=== PATIENT | male | born 1960 | race Caucasian/White ===

== ENCOUNTER 2024-10-24 15:34 | Outpatient (NON) | payer MEDICARE, SELFPAY ==
--- OUTSIDE RECORDS SUMMARY | 2024-10-24 15:48 | XMS_ITS | Clinical Summary ---
Author Organization [facility] Address [address] [place] [address]. [place] [address] [place] [address] Care Team Providers Care Forklift Truck Mechanic Name Role Phone Karthik Dalton MD Primary Care Provider [phone] Jacob Williamson MD Unavailable [phone] Allergies Active Allergy Reactions Criticality Noted Date Comments Amoxicillin Rash,Itching Low 02/26/2024 Piperacillin Sod-Tazobactam So Other (see comment) 08/23/2023 Per patient fever and no appetite, general malaise Medications Multiple Vitamin (MULTIVITAMIN ADULT) Tab Active Ascorbic Acid (VITAMIN C) 100 MG tablet Take 1 tablet (100 mg total) by mouth daily. Active zinc gluconate 50 MG Tab Take 1 tablet (50 mg total) by mouth daily. Active vitamin D3, cholecalciferol , 5000 UNITS capsule Take 1 capsule (125 mcg total) by mouth daily. Active Multiple Vitamins-Minera ls (EMERGEN-C VITAMIN C) Pack Acti ve meloxicam (MOBIC) 15 MG tablet Take 1 tablet (15 mg total) by mouth daily. Active sulfamethoxazol e-trimethoprim (BACTRIM DS) 800-160 MG tabletIndicatio ns:Osteomyeliti s ([facility]) Take 1 tablet by mouth daily. Per Dr Avila orders 90 tablet 1 06/05/2024 Active Active Problems Problem Noted Date Diagnosed Date Osteomyelitis of left knee region ([facility]/H [facility]) 08/24/2023 Encounters Date Type Department Care Team Description 08/25/2024 Orders Only [facility] [address] Reji Avila MD from Last 3 Months Family History Medical History Relation Comments No Known Problems Father Diabetes Mother Hypertension Mother Relation Status Comments Father Alive Mother Social History Tobacco Use Types Packs/Day Years Used Date Smoking Tobacco: Never Smokeless Tobacco: Never Tobacco Cessation:Counseling Given: No Alcohol Use Standard Drinks/Week Comments Not Currently 0 (1 standard drink = 0.6 oz pur e alcohol) PHQ-2 Answer Date Recorded Patient Health Questionnaire-2 Score 0 07/16/2024 Sex and Gender Information Value Date Recorded Sex Assigned at Not on file Legal Sex Male 8:22 PM CDT Gender Identity Not on file Sexual Orientation Not on file Last Filed Vital Signs Vital Sign Reading Time Taken Comments Blood Pressure 121/76 05/13/2024 10:12 AM CDT Pulse 71 05/13/2024 10:12 AM CDT Temperature 36.7 ??C (98.1 ??F) 05/13/2024 10:12 AM C DT Respiratory Rate 16 05/13/2024 10:12 AM CDT Oxygen Saturation 98% 05/13/2024 10:12 AM CDT Inhaled Oxygen Concentration - - Weight 78.5 kg (173 lb) 05/13/2024 10:12 AM CDT Height 172.7 cm (5' 8 ) 05/13/2024 10:12 AM CDT Body Mass Index 26.3 05/13/2024 10:12 AM CDT Plan of Treatment Health Maintenance Due Date Last Done Comments Hepatitis C 1976 DTaP, Tdap and Td Vaccines ( 1 - Tdap) 1977 Zoster Vaccines (1 of 2) 2008 Annual Medicare Wellness Visit 2023 Pneumococcal Vaccine: 65+ Years (1 of 1 - PCV) 2023 COVID-19 Vaccine ( - 2023-2 5 season) 2024 Influenza Adult (#1) 2024 07/18/2020, 07/08/2019, 07/14/2018 PHQ-2 (Physician [place]) 09/25/2024 07/16/2024 Colorectal Cancer Screening Colonoscopy (10 Years) 03/14/2032 03/14/2022, 03/14/2022 RSV Immunization or 60+ Years (1 - 1-dose 75+ series) 2033 Meningococcal B Vaccine Aged Out No l onger eligible based on patient's age to complete this topic Meningococcal Vaccine Aged Out No rosita lizzie eligible based on patient's age to complete this topic RSV Immunizations Under 20 Months Aged Out No longer eligible b ased on patient's age to complete this topic Procedures Procedure Name Priority Date/Time Associated Diagnosis Comments COLONOSCOPY Routine 03/14/2022 4:44 PM CDT from Last 3 Months or Most Recently Relevant to Health Maintenance Results * Colonoscopy (03/14/2022 4:44 PM CDT) Jason Samayoa MD - 03/14/2022 4:44 PM CDT Jason Newman MD ? 03/14/2022 ??4:50 PM JASON NEWMAN MD, FACG, FACP COLONOSCOPY 03/14/2022 61-year-old male with Prostatectomy and left TKR who now presents for colonoscopy for screening for colon cancer. ?? GI review of systems is negative. No endocarditis risk factors. No Known Allergies Medications: see list. Family history: negative for colon cancer. VITALS: Stable. LUNGS: Clear. HEART: RRR S1/S2 normal. ABDOMEN: NABS/NT. The procedure of colonoscopy with moderate sedation, ??its indications, ??alternatives of barium studies and risks including perforation, bleeding, infection, reaction to medication as well as the possible need for blood or surgery were discussed with the patient prior to the procedure. The patient voices understanding, agrees to proceed and provides informed consent. INDICATION: Screening for colon cancer. ?? POST-OP: Three colon polyps removed. Mild diverticulosis. SEDATION: ASA 1. MP 1. Versed 4 mg, Fentanyl 100 mcg IV given. PREP: Good. With the patient in the left lateral decubitus position, the Olympus [id number] ??colonoscope was introduced into the rectum and advanced easily to the Terminal Ileum. Careful inspection of the mucosa was made upon insertion and withdrawal of the endoscope. FINDINGS: Terminal ileum: distal 5 cm normal. Cecum, Transverse colon, Descending colon and Rectum including retroflexion normal. Ascending colon: 7 mm sessile polyp x 3 removed with cold biopsy forceps without bleed. Sigmoid colon: mild diverticulosis. No masses, AVMs or colitis seen. No complications, blood loss or implants. ASSESSMENT AND PLAN: A. Mild diverticulosis: observe. B. Three polyps removed: if adenoma repeat colon in 3 years, otherwise screening colonoscopy in 10 years. Thank you for allowing me to care for your patient. He will follow-up with Dr. Dalton as needed. Jason Newman M.D. Cc: Dr. Dalton Jason Newman MD GI PROCEDURE ORDERABLES Fin al Result from Last 3 Months or Most Recently Relevant to Health Maintenance Additional Health Concerns Infection Onset Date Last Indicated MRSA Comment:08/01/23 left knee (RR) 02/05/24 +MRSA Left knee 08/01/2023 04/04/2024 Insurance MEDICARE [facility] Care Teams Forklift Truck Mechanic Relationship Specialty Start Date End Date Karthik Dalton MD [address] [place] [address] [address] [place] [id number] PCP - General FAMILY PRACTICE 03/14/22 Jacob Williamson MD [address] [place] [address] ORTHOPAEDICS 02/21/24 02/20/25
--- OUTSIDE RECORDS SUMMARY | 2024-10-24 15:48 | XMS_ITS | Encounter Summary ---
Author Organization [facility] Address [address] [place] [address] Care Team Providers Care Pet Care Attendant Name Role Phone Karthik Dalton MD Primary Care Provider [phone] Reason for Visit * Reason Onset Date Comments LEFT KNEE INFECTION 05/15/2023 SPOKE TO DIONISIO BHARDWAJ AT DR. CHACON'S OFFICE Encounter Details Date Type Department Care Team (Late st Contact Info) Description 05/15/2023 Telephone [facility] [address] [place] [address] [place] [address] [address] LEFT KNEE INFECTION (SPOKE TO MIRTA AT DR. CHACON'S OFFICE) Social History Tobacco Use Types Packs/Day Years Used Date Smoking Tobacco: Never Smokeless Tobacco: Never Alcohol Use Standard Drinks/Week Comments Never 0 (1 standard drink = 0.6 oz pur e alcohol) Feeling Safe Answer Date Recorded Are you in a relationship wi th someone who hurts you emotionally and/or physically? 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
--- OUTSIDE RECORDS SUMMARY | 2024-10-24 15:48 | XMS_ITS | Clinical Summary ---
Author Organization [facility] Address [address] [place] [address] Care Team Providers Care Pick Up Truck Driver Name Role Phone Karthik Dalton MD Primary Care Provider [phone] Allergies No known active allergies Medications acetaminophen (TYLENOL) 500 mg tablet Take 500 mg by mouth every 6 hours as needed for Pain or Pain, Mild / Temperature . Active ascorbic acid, vitamin C, (VITAMIN C) 100 mg Tablet Take 100 mg by mouth daily. Active Saccharomyces boulardii (FLORASTOR) 250 mg Capsule Take 250 mg by mouth daily. Active oxyCODONE (ROXICODONE) 5 mg tablet Take 5 mg by mouth every 4 hours as needed for Pain. Active aspirin (ECOTRIN EC) 325 mg Tablet, Delayed Release (E.C.) Take 1 Tablet (325 mg) by mouth 2 times daily. 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 Gender Identity Not on file Sexual Orientation Not on file Last Filed Vital Signs Vital Sign Reading Time Taken Comments Blood Pressure 119/59 05/19/2023 7:20 AM CDT Pulse 101 05/19/2023 7:20 AM CDT Temperature 37.4 ??C (99.4 ??F) 05/19/2023 7:20 AM CD T Respiratory Rate 15 05/19/2023 7:20 AM CDT Oxygen Saturation 98% 05/19/2023 7:20 AM CDT Inhaled Oxygen Concentration - - Weight 77.1 kg (170 lb) 05/15/2023 10:13 AM CDT Height 172.7 cm (5' 8 ) 05/15/2023 10:13 AM CDT Body Mass Index 25.85 05/15/2023 10:13 AM CDT Plan of Treatment Health Maintenance Due Date Last Done Comments DTAP/TDAP/TD VACCINES (1 - Tdap) 1977 COLORECTAL SCREENING 2003 Colorectal Cancer Screening 2003 FIT-DNA Q 3 years 2003 FIT/FOBT Q 1 year 2003 Flex Sig/CT Colonography Q 5 years 2003 PNEUMOCOCCAL VACCINE 65+ YEARS (1 of 1 - PCV) 04/24/20 08 ZOSTER VACCINE (1 of 2) 2008 INFLUENZA VACCINE (#1) 2024 RSV VACCINE (60+ or ) (1 - 1-dose 75+ series) 2033 Medical Devices Implanted Type Area Filter Tank Tender Helper Head Device Identifier Shelf Expiration Date Model / Serial / Lot Lgn Xlpe Dished Isrt Siz 7-8, 9 Mm Implanted:Qty: 1 on 05/18/2023 by Blanche schaefer MD at [facility] Other Left: Knee [employer]W [id number] / / [id number] Description:1X ADD JM 05/30/23 Insurance MEDICARE PART A AND B BCBS SUPP Advance Directives For more information, please contact: [phone] * Full Code (Latest Code Status on File) Date Activated Date Inactivated Comments 05/18/2023 10:56 AM 05/19/2023 10:28 PM * Full Code Date Activated Date Inactivated Comments 05/15/2023 1:58 PM 05/18/2023 10:56 AM Care Teams Pick Up Truck Driver Relationship Specialty Start Date End Date Karthik Dalton MD [address] [place] [id number] PCP - General Family Practice 11/14/22
--- OUTSIDE RECORDS SUMMARY | 2024-10-24 15:48 | XMS_ITS | Clinical Summary ---
Author Organization Unknown Care Team Providers Care Party Chief Name Role Phone MARIBEL DAVILA, NILAM Unavailable Unavailable DEBORAH LAZO, GUNJAN Unavailable Unavailable Payers Payer Name Policy Type Policy Number Effective Date Expira tion Date MEDICARE - [place] - PDGM [id number] BLUE CROSS BLUE [facility] - PDGM [id number] Problems Condition Name Condition Details Condition Category Status Onset Date Resolution Date Last Treatment Date Treating Clinician Comments INFECT/INFL M REACTION DUE TO INTERNAL LEFT KNEE PROSTH, INIT Active 10-17 00:00: 00 Allergies, Adverse Reactions, Alerts Allergy Name Allergy Type Status Severity Reaction(s) Onset Date Inactive Date Treating Clinician Comments PENICILINS Propensity to adverse reactions Active 10-23 13:36: 36 Vital Signs Vital Name Observation Time Observation Value Commen ts Temperature 2024-10-22 15:14:00.000 97.7 [degF] BMI (%) 2024-10-22 14:32:41.000 25 kg/m2 Height 2024-10-22 14:32:22.000 68 [in_us] Pulse 2024-10-22 15:14:00.000 76 /min Respirations 2024-10-22 15:14:00.000 16 /min Weight (lbs) 2024-10-22 14:32:41.000 170 [lb_av] Systolic Blood Pressure 2024-10-22 15:14:00.000 126 mm [Hg] Diastolic Blood Pressure 2024-10-22 15:14:00.000 80 mm [Hg] Plan of Treatment Planned Activity Planned Date Details Comments Future Scheduled Test SKILLED NU RSE TO EVALUATE PATIENT, IDENTIFY PRIMARY AND CO-MORBID CONDITIONS CODED PER CODING GUIDELINES, AND DEVELOP PATIENT SPECIFIC PLAN OF CARE THAT INCLUDES PATIENT GOAL FOR HOME HEALTH. [code = SKILLED NURSE TO EVALUATE PATIENT, IDENTIFY PRIMARY AND CO-MORBID CONDITIONS CODED PER CODING GUIDELINES, AND DEVELOP PATIENT SPECIFIC PLAN OF CARE THAT INCLUDES PATIENT GOAL FOR HOME HEALTH.] Future Scheduled Test [facility] MAY ACCEPT ORDERS FROM THE FOLLOWING PHYSICIANS: [facility] HAND/TREATING PROVIDERS [code = HOME HEALTH AGENCY MAY ACCEPT ORDERS FROM THE FOLLOWING PHYSICIANS: [facility]/TREATING PROVIDERS] Future Scheduled Test SKILLED NU RSE TO REVIEW PATIENT MEDICATIONS. INSTRUCT PATIENT/CAREGIVER ON MONITORING OF EFFECTIVENESS, ADVERSE DRUG REACTIONS, SIDE EFFECTS OF ALL MEDICATIONS (PRESCRIPTION/-OTC), AND HOW AND WHEN TO REPORT PROBLEMS. [code = SKILLED NURSE TO REVIEW PATIENT MEDICATIONS. INSTRUCT PATIENT/CAREGIVER ON MONITORING OF EFFECTIVENESS, ADVERSE DRUG REACTIONS, SIDE EFFECTS OF ALL MEDICATIONS (PRESCRIPTION/-OTC), AND HOW AND WHEN TO REPORT PROBLEMS.] Future Scheduled Test .SKILLED N URSE FOR O/A, TEACHING AND MANAGEMENT OF SPECIFY DRAIN TYPE) TO SPECIFY LOCATION), SKILLED NURSE TO PROVIDE/INSTRUCT ON DRAIN CARE SPECIFY ORDERED DRAIN AND/OR SITE CARE). SKILLED NURSE TO INSTRUCT PATIENT/CAREGIVER ON EMPTYING DRAIN SPECIFY FREQUENCY) AND TO DOCUMENT COLOR AND AMOUNT OF DRAINAGE. SKILLED NURSE TO EDUCATE PATIENT/CAREGIVER TO MONITOR FOR SIGNS AND SYMPTOMS OF INFECTION TO REPORT. [code = .SKILLED NURSE FOR O/A, TEACHING AND MANAGEMENT OF SPECIFY DRAIN TYPE) TO SPECIFY LOCATION), SKILLED NURSE TO PROVIDE/INSTRUCT ON DRAIN CARE SPECIFY ORDERED DRAIN AND/OR SITE CARE). SKILLED NURSE TO INSTRUCT PATIENT/CAREGIVER ON EMPTYING DRAIN SPECIFY FREQUENCY) AND TO DOCUMENT COLOR AND AMOUNT OF DRAINAGE. SKILLED NURSE TO EDUCATE PATIENT/CAREGIVER TO MONITOR FOR SIGNS AND SYMPTOMS OF INFECTION TO REPORT.] Future Scheduled Test SKILLED NU RSE FOR O/A AND SKILLED TEACHING RELATED TO SIGNS AND SYMPTOMS OF INFECTION AND INFECTION CONTROL MEASURES. [code = SKILLED NURSE FOR O/A AND SKILLED TEACHING RELATED TO SIGNS AND SYMPTOMS OF INFECTION AND INFECTION CONTROL MEASURES.] Future Scheduled Test PHYSICAL T HERAPIST TO EVALUATE PATIENT FOR FUNCTIONAL DEFICITS. [code = PHYSICAL THERAPIST TO EVALUATE PATIENT FOR FUNCTIONAL DEFICITS.] Future Scheduled Test SKILLED NU RSE TO INSTRUCT PATIENT/CAREGIVER ON PREVENTION OF SEPSIS, AND SIGNS AND SYMPTOMS OF SEPSIS TO REPORT. [code = SKILLED NURSE TO INSTRUCT PATIENT/CAREGIVER ON PREVENTION OF SEPSIS, AND SIGNS AND SYMPTOMS OF SEPSIS TO REPORT.] Future Scheduled Test SKILLED NU RSE FOR O/A AND TEACHING ON IV SITE CARE, INFUSION PROCEDURE, SIGNS AND SYMPTOMS OF INFECTION/COMPLICATIONS. SKILLED NURSE TO ACCESS PERIPHERAL LINE TO RIGHT UPPER ARM. SKILLED NURSE TO CHANGE DRESSING Q 7 DAYS AND PRN FOR SOILED OR LOOSE DRESSING. USING STERILE TECHNIQUE - CLEAN HANDS, OPEN STERILE IV KIT, PLACE FACE MASK ON PT AND NURSE, OPEN STERILE GLOVES, AND REMOVE BANDAGE AND STATLOCK, OBSERVE CONDITION OF PICC LINE AT SKIN LEVEL, CLEANS WITH CHOROHEXIDINE, ALLOW TO DRY, CLEAN HANDS AND PLACE ON 2ND PAIN OF STERILE GLOVES, PLACE WINGS IN STATELOCK SECURE AND REMOVE ADHESIVE TABS. PRESS TO SEAL, COVER WITH TEGADERM DRESSING, DATE. [code = SKILLED NURSE FOR O/A AND TEACHING ON IV SITE CARE, INFUSION PROCEDURE, SIGNS AND SYMPTOMS OF INFECTION/COMPLICATIONS. SKILLED NURSE TO ACCESS PERIPHERAL LINE TO RIGHT UPPER ARM. SKILLED NURSE TO CHANGE DRESSING Q 7 DAYS AND PRN FOR SOILED OR LOOSE DRESSING. USING STERILE TECHNIQUE - CLEAN HANDS, OPEN STERILE IV KIT, PLACE FACE MASK ON PT AND NURSE, OPEN STERILE GLOVES, AND REMOVE BANDAGE AND STATLOCK, OBSERVE CONDITION OF PICC LINE AT SKIN LEVEL, CLEANS WITH CHOROHEXIDINE, ALLOW TO DRY, CLEAN HANDS AND PLACE ON 2ND PAIN OF STERILE GLOVES, PLACE WINGS IN STATELOCK SECURE AND REMOVE ADHESIVE TABS. PRESS TO SEAL, COVER WITH TEGADERM DRESSING, DATE.] Future Scheduled Test SKILLED NU RSE TO OBTAIN BLOOD SPECIMEN VIA SINGLE LUMEN RIGHT ARM PICC LINE FOR LABS ONCE WEEKLY: CBC WITH DIFF AND PLATELET, CPK, CMP; EVERY THREE WEEKS, CRP, SED RATE ESR ORDERED OBTAIN LAB RESULTS AND REPORT TO PHYSICIAN. [code = SKILLED NURSE TO OBTAIN BLOOD SPECIMEN VIA SINGLE LUMEN RIGHT ARM PICC LINE FOR LABS ONCE WEEKLY: CBC WITH DIFF AND PLATELET, CPK, CMP; EVERY THREE WEEKS, CRP, SED RATE ESR ORDERED OBTAIN LAB RESULTS AND REPORT TO PHYSICIAN.] Future Scheduled Test SKILLED NU RSE TO PERFORM ENVIRONMENTAL SAFETY RISK ASSESSMENT AND FALL RISK ASSESSMENT AND PROVIDE INSTRUCTION TO IMPLEMENT ENVIRONMENTAL SAFETY AND FALL PREVENTION STRATEGIES THROUGHOUT THE CERTIFICATION PERIOD. SKILLED NURSE WILL MAINTAIN SITUATIONAL AWARENESS AND WILL NOTIFY CLINICAL LIQUID COMPOUNDER AND PHYSICIAN/PROVIDER WITH ANY CHANGE IN CONDITION. [code = SKILLED NURSE TO PERFORM ENVIRONMENTAL SAFETY RISK ASSESSMENT AND FALL RISK ASSESSMENT AND PROVIDE INSTRUCTION TO IMPLEMENT ENVIRONMENTAL SAFETY AND FALL PREVENTION STRATEGIES THROUGHOUT THE CERTIFICATION PERIOD. SKILLED NURSE WILL MAINTAIN SITUATIONAL AWARENESS AND WILL NOTIFY CLINICAL LIQUID COMPOUNDER AND PHYSICIAN/PROVIDER WITH ANY CHANGE IN CONDITION.] Future Scheduled Test SKILLED NU RSE FOR OBSERVATION AND ASSESSMENT OF PATIENTS PAIN LEVEL AND EFFECTIVENESS OF PAIN MANAGEMENT REGIMEN. SKILLED NURSE TO INSTRUCT PATIENT/CAREGIVER REGARDING PHARMACOLOGIC AND NON-PHARMACOLOGIC PAIN CONTROL MEASURES. SKILLED NURSE TO REPORT TO PHYSICIAN IF PAIN IS UNCONTROLLED WITH CURRENT PAIN MANAGEMENT REGIMEN. [code = SKILLED NURSE FOR OBSERVATION AND ASSESSMENT OF PATIENTS PAIN LEVEL AND EFFECTIVENESS OF PAIN MANAGEMENT REGIMEN. SKILLED NURSE TO INSTRUCT PATIENT/CAREGIVER REGARDING PHARMACOLOGIC AND NON-PHARMACOLOGIC PAIN CONTROL MEASURES. SKILLED NURSE TO REPORT TO PHYSICIAN IF PAIN IS UNCONTROLLED WITH CURRENT PAIN MANAGEMENT REGIMEN.] Future Scheduled Test SKILLED NU RSE TO ASSESS PATIENT'S SKIN INTEGRITY AND INSTRUCT PATIENT/CAREGIVER ON MEASURES TO PREVENT PRESSURE ULCERS. [code = SKILLED NURSE TO ASSESS PATIENT'S SKIN INTEGRITY AND INSTRUCT PATIENT/CAREGIVER ON MEASURES TO PREVENT PRESSURE ULCERS.] Future Scheduled Test SN TO INST RUCT PATIENT/CAREGIVER ON SEPSIS MANAGEMENT UTILIZING THE SEPSIS SPECIALTY PROGRAM. [code = SN TO INSTRUCT PATIENT/CAREGIVER ON SEPSIS MANAGEMENT UTILIZING THE SEPSIS SPECIALTY PROGRAM.] Goal Patient Goal - T O HAVE INFECTION CLEARED FROM MY LEG Goal Provider Goal - A PLAN OF CARE WILL BE ESTABLISHED THAT MEETS PATIENT'S CUSTODIAL NEEDS AND INCLUDES PATIENT GOAL FOR HOME HEALTH. Goal Provider Goal - ADDITIONAL ORDERS WILL BE RECEIVED FROM ALTERNATE PHYSICIAN IN A TIMELY MANNER THROUGHOUT THE CERTIFICATION PERIOD. Goal Provider Goal - PATIENT/CAREGIVER WILL VERBALIZE UNDERSTANDING OF EDUCATION PROVIDED ON MEDICATIONS BY THE END OF THE CERTIFICATION PERIOD. Goal Provider Goal - PATIENT/CAREGIVER WILL VERBALIZE/DEMONSTRATE MANAGEMENT OF DRAIN CARE. INCLUDING S/S INFECTION AND/OR COMPLICATIONS TO REPORT BY THE END OF THE CERTIFICATION PERIOD. Goal Provider Goal - PATIENT/CAREGIVER WILL VERBALIZE/DEMONSTRATE UNDERSTANDING OF S/S OF INFECTION AND INFECTION CONTROL MEASURES. SIGNS AND SYMPTOMS OF INFECTION WILL BE IDENTIFIED AND PHYSICIAN NOTIFIED FOR PROMPT INTERVENTION THROUGHOUT THE CERTIFICATION PERIOD. Goal Provider Goal - A PHYSICAL THERAPY EVALUATION TO BE COMPLETED WITH RECOMMENDATIONS AND/OR WRITTEN PLAN OF TREATMENT ESTABLISHED FOR PHYSICIANS SIGNATURE. Goal Provider Goal - PATIENT WILL BE FREE FROM INFECTION AND PATIENT/CAREGIVER WILL VERBALIZE UNDERSTANDING OF SIGNS AND SYMPTOMS AND METHODS TO PREVENT SEPSIS BY END OF THE EPISODE. Goal Provider Goal - PATIENT/CAREGIVER WILL VERBALIZE UNDERSTANDING OF IV SITE CARE, INFUSION PROCEDURE AND SIGNS AND SYMPTOMS OF INFECTION/COMPLICATIONS TO BE REPORTED TO PHYSICIAN/NURSE. PATIENT WILL DEMONSTRATE TOLERANCE OF ADMINISTRATION OF PRESCRIBED MEDICATION. Goal Provider Goal - SKILLED NURSE TO PERFORM LAB PROCEDURE AND REPORT RESULTS TO PHYSICIAN. Goal Provider Goal - PATIENT/CAREGIVER WILL VERBALIZE/DEMONSTRATE EFFECTIVE ENVIRONMENTAL SAFETY AND FALL PREVENTION STRATEGIES, WILL REMAIN SAFE IN THE COMMUNITY, AND WILL BE FREE OF DANGER TO SELF AND OTHERS THROUGHOUT THE CERTIFICATION PERIOD. Goal Provider Goal - PATIENT/CAREGIVER WILL DEMONSTRATE UNDERSTANDING OF PHARMACOLOGIC AND NONPHARMACOLOGIC PAIN CONTROL MEASURES AND PATIENT WILL HAVE IMPROVEMENT IN PAIN INTERFERING WITH ACTIVITY EVIDENCED BY PAIN CONTROLLED AT LEVEL OF PECIFY PATIENT GOAL ON 0-10 PAIN SCALE) OR LESS BY END OF CERTIFICATION PERIOD. Goal Provider Goal - PATIENT/CAREGIVER WILL VERBALIZE UNDERSTANDING OF PRESSURE ULCER PREVENTION BY END OF THE EPISODE. Goal Provider Goal - PATIENT/CAREGIVER WILL DEMONSTRATE MANAGEMENT OF SEPSIS A RESULT OF PARTICIPATION IN SEPSIS SPECIALTY PROGRAM. Progress Notes Progress Notes <paragraph>[Visit Date: 2024 by TOMASZ HERNANDEZ RN]:</paragraph><paragraph>LAB CBC CPK CMP WEEKLY WEEK CPR ESR 3 AND 6 ID [id number]. 3/6 DAPTO MYCIN 600MG/12 ML IV PUSH EVERY 24 2MIN 12 GA 5UNITS 5ML HEPERIN 10ML NS TYLENOL 1 HR AGO, AND OXYCONTIN EVEERY 8HS. THIS MORNING 4 ON A GOOD DAYPATIENT INITIALLY AFTER SITTING IN A RECLINER IN NO ACUTE DISTRESS HE IS PLEASANT AND COOPERATIVE DURING VISIT PATIENT FUD PLAY-RUIZ VICENTE AND RAG CONSENTS SIGNED. VITAL SIGNS WNL. LUNGS CLEAR IN ALL HERNANDEZ. I BOWEL SOUNDS PRESENT IN ALL QUADS LAST BOWEL MOVEMENT TODAY. PAIN LEVEL 6. BEST PAIN LEVEL 3-4. WORSE PAIN AFTER SURGERY LEVEL 10. PAIN IS FREQUENT. NURSE ASKED HOW OFTEN HE WAS USING HIS PAIN MEDICATION AND HE STATED THAT HE WAS. PATIENT STATES WHEN HE WALKS HIS PAIN IS AT ITS WORSE. HE OFFLOAD RIGHT LEG IN RECLINER. PATIENT VOICES CONCERN OVER OPIATE ADDICTION. STATES HE IS TRYING TO WEAN OFF HIS OXYCODONE. PATIENT'S FAMILY SUPPORTIVE AND ASSISTS PATIENT WITH ADLS AND IADLS. HIS PRIMARY DIAGNOSIS INFLAMMATORY INFECTIVE OF PERIPROSTTHETIC JOINT. PATIENT WITH A PAST MEDICAL HISTORY OF OSTEOPOROSIS. PATIENT HAS A ANTIBIOTIC LOADED CEMENT SPACER WITH A ALIA DRAIN LOCATED IN THE LEFT POSTERIOR LOWER CALF TODAY'S DRAIN MEASURES 10 ML OF REDDISH DRAINAGE. HIS KNEE IS IMMOBILIZED WITH A BRACE THAT REMAINS IN PLACE KEEPING THE KNEE EXTENDED HE HAS A NON REMOVABLE DRESSING COVERING HIS WOUNDS. NURSE EDUCATED PATIENT WITH CAREGIVER ON SASH TECHNIQUE USING/DIAGRAM SENT FROM PHARMACY. EXTENSION TUBING ATTACHED FOR EASE OF INFUSION. WITH GUIDANCE, PATIENT WAS ABLE TO RETURN DEMONSTRATE DAPTOMYCIN 50 MG/MALE 575 MG TOTAL INTRAVENOUS CATHETER OVER 2 MINUTES PATIENT TO PERFORM DAILY PATIENT VERBALIZED UNDERSTANDING. USING ASEPTIC TECHNIQUE. WASTED 10 ML OF BLOOD OBTAINED 6 ML OF BLOOD FOR LABS FLUSHED WITH 10 ML NORMAL SALINE FOLLOWED BY 5 ML HEPARIN. REMOVED GLOVES CLEANSE HANDS NURSE AND PATIENT ON MASK USING STERILE TECHNIQUE DONNED STERILE GLOVES AND REMOVE PICC DRESSING REMOVED GLOVES CLEANSE HANDS AND DONNED SECOND PAIR OF STERILE GLOVES CLEANSE FOR 30 SECONDS UP AND DOWN USING CHLORHEXADINE. ALLOW TO DRY PLACED STATLOCK AND TRANSLUCENT DRESSING. PLAN OF CARE DISCUSSED FOR NEXT WEEK. PATIENT WAS INSTRUCTED TO CALL [facility]ARRYING FIRST WITH ANY QUESTIONS CONCERNS OR IF PAIN LEVEL INCREASES. ...</paragraph> Encounters Start Date/Time End Date/Time Encounter Type Admission Type Attending [facility] Facility Care Department Encounter ID Discharge Date Discharge Status Discharge Condition Discharge Reason Percent Goals Met 2024-10-22 00:00:00 2024-12-20 00:00:00 Outpatient NEW ADMISSION GUNJAN [facility]A [facility] [id number] 10 0.00
--- OUTSIDE RECORDS SUMMARY | 2024-10-24 15:48 | XMS_ITS | Encounter Summary ---
Author Organization [facility] Address [address] [place] [address]. [place] [address] [place] [address] Care Team Providers Care Director Traffic And Planning Name Role Phone Karthik Dalton MD Primary Care Provider + [phone] Gina Vallejo NP Unavailable Jacob Williamson MD Unavailable [phone] Encounter Details Date Type Department Care Team (Late st Contact Info) Description 03/07/2022 Prep for Procedure [facility] [place], [place] [id number] Jason Newman MD 3 [facility] [place] [address] [place] [address] [id number] Social History Tobacco Use Types Packs/Day Years Used Date Smoking Tobacco: Never Assessed Sex and Gender Information Value Date Recorded Sex Assigned at Not on file Legal Sex Male 8:22 PM CDT Gender Identity Not on file Sexual Orientation Not on file COVID-19 Exposure Response Date Recorded In the last 10 days, have yo u been in contact with someone who was confirmed or suspected to have Coronavirus/COVID-19? No / Unsure 03/10/2022 8:33 AM CDT documented as of this encounter Plan of Treatment Not on file documented as of this encounter Results * (ABNORMAL) CORONAVIRUS (COVID 19) (03/11/2022 9:13 AM CDT) SPEC DESCRIPTION NASAL 03/11/20 10:39 AM CDT [facility] CORONAVIRUS SARS COV 2 PCR (RESP) POSITIVE(A A) NEGATIVE 03/11/2022 8:50 PM CDT [facility] Comment: THE SARS-CoV-2 TEST HAS BEEN AUTHORIZED BY THE FDA UNDER AN EUA FOR USE BY AUTHORIZED LABORATORIES. PERFORMED BY NUCLEIC ACID AMPLIFICATION PCR FIRST TEST UNKNOWN 03/11/2022 10:39 AM CDT [facility] EMPLOYED IN HEALTHCARE UNKNOWN 03/11/2022 10:39 AM CDT [facility] SYMPTOMATIC DEFINED BY CDC UNKNOWN 03/11/2022 10:39 AM CDT [facility] HOSPITALIZATION STATUS NO 03/11/2022 10:39 AM CDT [facility] PATIENT IN ICU NO 03/11/2022 10:39 AM CDT [facility] RESIDENT OF [facility] UNKNOWN 03/11/2022 10:39 AM CDT [facility] NASAL STRUCTURE / Unknown 03/11/2022 9:13 AM CDT Jason Newman MD MICROBIOLOGY - GENERAL CORY [place] Final Result [facility] [address] [place] [address], [place] [phone] [facility] [address] [place] [address], [place] [phone] documented in this encounter Visit Diagnoses Diagnosis Encounter for screening colonoscopy- Primary Special screening for malignant neoplasms, colon documented in this encounter Additional Health Concerns Infection Onset Date Last Indicated Resolved Time COVID-19 Rule Out 03/11/2022 03/11/2022 03/11/2022 8:50 PM CDT COVID-19 Confirmed 03/11/2022 03/11/2022 2 12:32 AM CDT MRSA Comment:08/01/23 left knee (RR) 02/05/24 +MRSA Left knee 08/01/2023 04/04/2024 documented as of this encounter Care Teams Director Traffic And Planning Relationship Specialty Start Date End Date Karthik Dalton MD [address] [place] [address] [address] PCP - General FAMILY PRACTICE 03/14/22 Gina Vallejo [facility] [address] [address] Referring Physician INFECTIOUS DISEASE 08/01/23 4 Jacob Williamson MD [address] [place] [address] ORTHOPAEDICS 02/21/24 02/20/25 documented as of this encounter
--- OUTSIDE RECORDS SUMMARY | 2024-10-24 15:48 | XMS_ITS | Encounter Summary ---
Author Organization [facility] Healthcare Address [address] [place] [address] Care Team Providers Care Barber Shop Operator Name Role Phone Karthik Dalton MD Primary Care Provider [phone] Encounter Details Date Type Department Care Team (Late st Contact Info) Description 06/04/2024 Telephone [facility] Radiology [address] [facility] [address] [place] [address] Nieves Rubio, RT Social History Tobacco Use Types Packs/Day Years Used Date Smoking Tobacco: Never Smokeless Tobacco: Never Alcohol Use Standard Drinks/Week Comments Not Currently 0 (1 standard drink = 0.6 oz pur e alcohol) Sex and Gender Information Value Date Recorded Sex Assigned at Not on file 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 Gender Identity Male 04/10/2019 8:14 AM CDT Sexual Orientation Straight 04/10/2019 8: 14 AM CDT 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
--- OUTSIDE RECORDS SUMMARY | 2024-10-24 15:49 | XMS_ITS | Encounter Summary ---
Author Organization [facility] Address [address] [place] [address]. [place] [address] [place] [address] Care Team Providers Care Vp Mobile Products Name Role Phone Karthik Dalton MD Primary Care Provider +- [phone] Gina Vallejo NP Unavailable Jacob Williamson MD Unavailable [phone] Encounter Details Date Type Department Care Team (Late st Contact Info) Description 02/28/2024 [employer] Enc [facility] [address] [place] [address] Reji Avila MD [address] [place] [address] Rash Social History Tobacco Use Types Packs/Day Years Used Date Smoking Tobacco: Never Smokeless Tobacco: Never Alcohol Use Standard Drinks/Week Comments Not Currently 0 (1 standard drink = 0.6 oz pur e alcohol) PHQ-2 Answer Date Recorded Patient Health Questionnaire-2 Score 0 01/16/2024 Sex and Gender Information Value Date Recorded Sex Assigned at Not on file Legal Sex Male 8:22 PM CDT Gender Identity Not on file Sexual Orientation Not on file documented as of this encounter Plan of Treatment Not on file documented as of this encounter Visit Diagnoses Not on filedocumented in this encounter Additional Health Concerns Infection Onset Date Last Indicated Resolved Time MRSA Comment:08/01/23 left knee (RR) 02/05/24 +MRSA Left knee 08/01/2023 04/04/2024 documented as of this encounter Care Teams Vp Mobile Products Relationship Specialty Start Date End Date Karthik Dalton MD [address] [place] [address] [address] PCP - General FAMILY PRACTICE 03/14/22 Gina Vallejo NP 3 [facility]. [address] [address] Referring Physician INFECTIOUS DISEASE 08/01/23 4 Jacob Williamson MD [address] [place] [address] ORTHOPAEDICS 02/21/24 02/20/25 documented as of this encounter
--- OUTSIDE RECORDS SUMMARY | 2024-10-24 15:49 | XMS_ITS | Clinical Summary ---
Author Organization [facility] Address [address] [place] [address] Care Team Providers Care Financial Planner Name Role Phone Karthik Dalton MD Primary Care Provider [phone] Allergies Active Allergy Reactions Criticality Noted Date Comments Penicillins Rash,Fever,Nausea only Medium 06/04/2024 Piperacillin-Tazobactam Chills,Nausea & Vomiting,Other (See comments) Low 05/26/2023 Per patient fever and no appetite, general malaise Medications acetaminophen (TYLENOL) 500 mg tabletIndicatio ns:Pain Take 2 tablets (1,000 mg total) by mouth every 6 (six) hours as needed for pain Active meloxicam (MOBIC) 7.5 mg tabletIndicatio ns:Osteoarthrit is Take 1 tablet (7.5 mg total) by mouth every evening 07/23/20 22 Active cholecalciferol (VITAMIN D-3) 5,000 unit capsuleIndicati ons:Osteoporosi s,Vitamin D Deficiency Take 1 capsule (5,000 Units total) by mouth every evening Active MULTIVITAMIN ORALIndications :Supplement Take 1 tablet by mouth every evening Active fluticasone propionate (FLONASE) 50 mcg/actuation nasal sprayIndication s:Allergic Rhinitis Administer 2 sprays into each nostril daily as needed for rhinitis or allergies 09/03/20 24 Active fexofenadine (DEB) 180 mg tabletIndicatio ns:Seasonal Allergic Rhinitis Take 1 tablet (180 mg total) by mouth every evening Active oxyCODONE (ROXICODONE) 5 mg immediate release tabletIndicatio ns:Pain Take 1 tablet (5 mg total) by mouth every 4 (four) hours as needed for pain 30 tablet 10/14/19 25 Active traMADoL (ULTRAM) 50 mg tablet Take 1 tablet (50 mg total) by mouth every 8 (eight) hours as needed for pain 42 tablet 10/14/19 25 Active ciprofloxacin (CIPRO) 500 mg tabletIndicatio ns:Bone/Joint Infection Take 1 tablet (500 mg total) by mouth 2 (two) times a day 76 tablet 10/21/19 25 025 Active apixaban (ELIQUIS) 2.5 mg tabletIndicatio ns:VTE Prophylaxis Take 1 tablet (2.5 mg total) by mouth 2 (two) times a day 60 tablet 10/21/19 25 025 Active DAPTOmycin (CUBICIN) 50 mg/mL injectionIndica tions:Bone/Join t Infection Infuse 11.5 mL (575 mg total) into a venous catheter daily 10/21/19 25 025 Active heparin 10 unit/mL syringeIndicati ons:Maintain Patency of Indwelling Vascular Catheter Administer 5 mL (50 Units total) into catheter every 12 (twelve) hours 10/21/19 25 025 Active sodium chloride 0.9% injection Administer 5-10 mL into catheter every 12 (twelve) hours 10/21/19 25 025 Active methocarbamoL (ROBAXIN) 750 mg tablet Take 1 tablet (750 mg total) by mouth 3 (three) times a day as needed for muscle spasms 30 tablet 10/21/19 25 Active senna-docusate (PERICOLACE) 8.6-50 mgIndications:c onstipation Take 2 tablets by mouth 2 (two) times a day as needed for constipation 60 tablet 10/21/19 25 Active Cipro 250 mg tabletIndicatio ns:Bone/Joint Infection,knee Take 1 tablet (250 mg total) by mouth every evening 06/26/20 23 025 Discontin ued(Stop Taking at Discharge ) sulfamethoxazol e-trimethoprim (BACTRIM DS) 800-160 mg per tabletIndicatio ns:Bone/Joint Infection,knee Take 1 tablet (160 mg of trimethoprim total) by mouth every morning 02/26/20 24 025 Discontin ued(Stop Taking at Discharge ) mupirocin (BACTROBAN) 2 % ointment Apply topically 2 (two) times a day for 5 days APPLY TO NOSTRILS TWICE A DAY. STARTING 5 DAYS PRIOR TO SURGERY. 22 g 10/09/19 025 Discontin ued(Stop Taking at Discharge ) Active Problems Problem Noted Date Diagnosed Date Infected prosthetic knee joint, sequela 10/14/19 Infection of total knee replacement 09/30/2024 Infection of total joint prosthesis ([facility]) Assessment & Plan (10/18/2024 12:36 PM DEXIGRAPH OPERATOR): Dipesh Martinez is a 64 y.o. male with a history of prostate cancer, anemia, DVT (05/2023), and a chronically infected left total knee arthroplasty admitted on 10/14/24 with chronic left knee draining wound for planned I&D, explant and antibiotic spacer placement. On 08/26/2019 he underwent a L. TKA at [facility]. 05/18/23 underwent L. Knee I&D and liner exchange at [facility]. OR cultures grew Enterobacter cloacae, Pseudomonas aeruginosa, and prevotella bivia which was treated initially with vancomycin/Zosyn then suppressed with cipro/amox then switched to cipro/bactrim with positive MRSA wound culture in 07/2023. Followed by [facility] ID. He went to Dr. Tidwell at [facility] on 06/04/25 with draining knee sinus and underwent left knee aspiration which was culture negative. Bactrim/cipro suppression was discontinued 2 weeks prior to this admission. He went to the OR on 10/14/24 with Ortho Surgery for planned L. Knee removal of hardware, I&D, and placement of static antibiotic spacer. Intraoperatively noted alex purulence inside of the joint with extremely osteolytic and osteoporotic bone and sinus tract. Multiple cultures were taken which are positive for Staph Epidermidis. He returned to the OR on 10/17/24 for soft tissue coverage. He was started on vancomycin and cefepime postoperatively. Changed to daptomycin and ciprofloxacin on 10/18/24. Recommending treating left knee PJI with 6 weeks (10/17/24-11/28/24) of daptomycin and ciprofloxacin. Daptomycin to cover known Staph Epidermidis, ciprofloxacin because he was recently on cipro with concern that there could be unknown suppressed bacteria. Plan to treat for 6 weeks then stop as at this time Ortho Surgery is planning reimplantation in the future. Recommendations: - Discontinue vancomycin and cefepime (done) - Start Daptomycin 8mg/kg (600mg) IV q24hr and ciprofloxacin 500mg PO BID (ordered) - Check baseline CPK (ordered) - Check EKG for Qtc - Monitor weekly CBC w/ diff, CMP, and CPK's - ID is formally signing off but will continue to monitor patient peripherally while inpatient. Recommending treating left knee PJI with 6 weeks (10/17/24-11/28/24) of daptomycin and ciprofloxacin. Please see sign off note from 10/18/24 for complete recommendations. Status post total left knee replacement 09/10/20 19 Encounters Date Type Department Care Team Description 10/23/2024 Telephone [facility] Infectious Diseases [address] [place] [phone] Libra Coello, [facility] 10/22/2024 5:40 PM DEXIGRAPH OPERATOR - 10/22/2024 11:59 PM DEXIGRAPH OPERATOR Hospital Encounter [facility] [address] [place] [id number] Discharge Disposition: Discharge to home or self care 10/22/2024 Telephone [facility] Orthopaedic Surgery [address] [place] [address] Osiel Navarrete MD 10/21/2024 Orders Only [facility] [address] [place] [address] Jennifer Duggan, [facility] 10/21/2024 Telephone [facility] Case Management [address] [place] [phone] Ying Robles RN 10/18/2024 Documentation [facility] Infectious Diseases [address] [place] [address] [address] [place] [address] Darline Foreman NP 10/17/2024 7:45 AM DEXIGRAPH OPERATOR Anesthesia Event [facility] Operating Room [address] [place] [phone] Ty Pratt MD Lee, Chris Cheng-Fu, MD PhD 10/17/2024 7:30 AM DEXIGRAPH OPERATOR - 10/17/2024 10:40 AM DEXIGRAPH OPERATOR Surgery [facility] Operating Room [address] [place] [phone] Osiel Navarrete MD FLAP GASTROCNEMIUS TO KNEE 10/14/2024 1:10 PM DEXIGRAPH OPERATOR Anesthesia Event [facility] Operating Room [address] [place] [phone] Alonso Swann MD Brake, Barbara E. PLASTIC FABRICATOR 10/14/2024 12:50 PM DEXIGRAPH OPERATOR - 10/14/2024 5:00 PM DEXIGRAPH OPERATOR Surgery [facility] Operating Room [address] [place] [phone] Dewayne Tidwell MD PLACEMENT SPACER/ANTIBIOTIC BEAD - KNEE-LEFT 10/14/2024 11:27 AM DEXIGRAPH OPERATOR - 10/21/2024 2:28 PM DEXIGRAPH OPERATOR Hospital Encounter [address] [phone] Dewayne Tidwell MD Infection of total joint prosthesis, initial encounter (HCC) (Primary Dx); Infected prosthetic knee joint, sequela Discharge Disposition: Discharge to home or self care 10/09/2024 Orders Only [facility] Orthopaedic Surgery [address] [facility] [address] [place] [phone] Dewayne Tidwell MD 09/16/2024 11:00 AM DEXIGRAPH OPERATOR Lab [facility] [address] [place] [address] [address] [place], [place] [id number] Infection of total joint prosthesis, initial encounter (HCC) 09/16/2024 10:30 AM DEXIGRAPH OPERATOR Pre-Admission Testing [facility] Pre Anesthesia Testing [address] [place] [phone] from Last 3 Months Immunizations Name Administration Dates Next Due Flucelvax Influenza Quad 07/08/2019,07/14/2018 Influenza, Quadrivalent, Jil l Culture-based MDCK, Preservative Free, Antibiotic Free, Intramuscular 07/18/2020 Surgical History Surgery Date Site/Laterality Comments CLOSED REDUCTION HAND FRACTURE HERNIA REPAIR VASECTOMY REPLACEMENT TOTAL KNEE 09/25/2018 - 09/24/2019 Left REVISION TOTAL KNEE ARTHROPLASTY 09/25/2022 - 09/24/2023 Left RADICAL PROSTATECTOMY 09/25/1997 - 09/24/1998 COLONOSCOPY Medical History Medical History Date Comments Osteoarthritis Cancer (CMS/HCC) (HCC) prostate Family History Medical History Relation Name Comments Arthritis Father Evans Martinez Cancer Father Evans Martinez Diabetes Mother Lani Martinez Anesthesia problems Neg Hx Relation Name Status Comments Father Evans Martinez Mother Lani Martinez Social History Tobacco Use Types Packs/Day Years Used Date Smoking Tobacco: Never Passive Smoke Exposure: Never Smokeless Tobacco: Never Tobacco Cessation:Counseling Given: Not Answered Alcohol Use Standard Drinks/Week Comments Not Currently 0 (1 standard drink = 0.6 oz pur e alcohol) AUDIT-C Answer Date Recorded Q1: How often do you have a drink containing alcohol? Never 10/17/2024 Q2: How many drinks containi ng alcohol do you have on a typical day when you are drinking? Patient does not drink Q3: How often do you have si x or more drinks on one occasion? Never 10/17/2024 Personal Safety Answer Date Recorded Have you ever been in or are you currently in a harmful physical or emotional relationship or is someone making you feel afraid or unsafe? 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 Not on file Not on file Not on file Obstetrics History Last Filed Vital Signs Vital Sign Reading Time Taken Comments Blood Pressure 125/61 10/21/2024 7:28 AM DEXIGRAPH OPERATOR Pulse 75 10/21/2024 7:28 AM DEXIGRAPH OPERATOR Temperature 36.6 ??C (97.9 ??F) 10/21/2024 7:28 AM CS T Respiratory Rate 16 10/21/2024 7:28 AM DEXIGRAPH OPERATOR Oxygen Saturation 96% 10/21/2024 7:28 AM DEXIGRAPH OPERATOR Inhaled Oxygen Concentration - - Weight 77.1 kg (170 lb) 10/15/2024 1:28 AM DEXIGRAPH OPERATOR Height 172.7 cm (5' 7.99 ) 10/15/2024 1:28 AM CS T Body Mass Index 25.85 10/15/2024 1:28 AM DEXIGRAPH OPERATOR Plan of Treatment Health Maintenance Due Date Last Done Comments Colon Cancer Screening-Colonoscopy 1960 Depression Screening 1960 Hepatitis C Screening 1960 Prostate Cancer Screening-PSA 1958 DTaP/Tdap/Td Vaccine (1 - Tdap) 1969 Hepatitis B Screening 1976 Zoster Vaccine (1 of 2) 2008 Pneumococcal vaccine 65+ (1 of 1 - PCV) 2023 Well Visit 65+ 2023 Influenza Vaccine (#1) 2024 0, 07/08/2019, 07/14/2018 Fall Risk Assessment 10/21/2025 10/21/2024 Medical Devices Implanted Type Area Tile Designer Device Identifier Shelf Expiration Date Model / Serial / Lot [employer] Cement Bone Cerament 5 Ml Supplement Filler [id number] - [id number] Implanted:Qty: 2 on 10/14/2024 by Dewayne Tidwell MD at [facility] [employer] 08/28/2025 A021 0-09 / / [id number] [employer] Simplex P Full Dose Radiopaque Preblend Cement Bone Tobramycin 6197-9-001 - [id number] Implanted:Qty: 3 on 10/14/2024 by Dewayne Tidwell MD at [facility] Left: Knee [employer] [id number] 08/24/2025 6197-9-00 1 / / [id number] [employer] Nail Femoral [id number] Radha [employer] Sys Strl Indicated For [id number] - [id number] Implanted:Qty: 1 on 10/14/2024 by Dewayne Tidwell MD at [facility] Left: Knee [employer] [id number] / / [employer] Simplex P Full Dose Radiopaque Preblend Cement Bone Tobramycin 6197-9-001 - [id number] Implanted:Qty: 2 on 10/14/2024 by Dewayne Tidwell MD at [facility] Left: Knee [employer] [id number] / / [id number] [employer] Simplex P Full Dose Radiopaque Preblend Cement Bone Tobramycin 6197-9-001 - [id number] Implanted:Qty: 1 on 10/14/2024 by Dewayne Tidwell MD at [facility] Left: Knee [employer] [id number] 10/25/2025900 1 / / [id number] Procedures Procedure Name Priority Date/Time Associated Diagnosis Comments EGFR Routine 10/20/2024 8:41 PM DEXIGRAPH OPERATOR DIFFERENTIAL AUTO Routine 10/20/2024 8:4 1 PM DEXIGRAPH OPERATOR CBC WITH AUTO DIFFERENTIAL Routine 10/20/2024 8:41 PM DEXIGRAPH OPERATOR BASIC METABOLIC PANEL Routine 10/20/2024 8:41 PM DEXIGRAPH OPERATOR EGFR Routine 10/19/2024 9:06 PM DEXIGRAPH OPERATOR DIFFERENTIAL AUTO Routine 10/19/2024 9:0 6 PM DEXIGRAPH OPERATOR CBC WITH AUTO DIFFERENTIAL Routine 10/19/2024 9:06 PM DEXIGRAPH OPERATOR BASIC METABOLIC PANEL Routine 10/19/2024 9:06 PM DEXIGRAPH OPERATOR EGFR Routine 10/18/2024 8:10 PM DEXIGRAPH OPERATOR DIFFERENTIAL AUTO Routine 10/18/2024 8:1 0 PM DEXIGRAPH OPERATOR CBC WITH AUTO DIFFERENTIAL Routine 10/18/2024 8:10 PM DEXIGRAPH OPERATOR BASIC METABOLIC PANEL Routine 10/18/2024 8:10 PM DEXIGRAPH OPERATOR ECG 12-LEAD Routine 10/18/2024 1:13 PM DEXIGRAPH OPERATOR CREATINE KINASE (CK), TOTAL Timed 10/18/2024 12:50 PM DEXIGRAPH OPERATOR EGFR Routine 10/17/2024 9:42 PM DEXIGRAPH OPERATOR DIFFERENTIAL AUTO Routine 10/17/2024 9:4 2 PM DEXIGRAPH OPERATOR CBC WITH AUTO DIFFERENTIAL Routine 10/17/2024 9:42 PM DEXIGRAPH OPERATOR BASIC METABOLIC PANEL Routine 10/17/2024 9:42 PM DEXIGRAPH OPERATOR NV AN PROCEDURE PLACEHOLDER Routine 10/17/2024 9:17 AM DEXIGRAPH OPERATOR TRANSFUSE RED BLOOD CELLS Timed 10/17/2024 8:27 AM DEXIGRAPH OPERATOR NV AN PROCEDURE PLACEHOLDER Routine 10/17/2024 8:23 AM DEXIGRAPH OPERATOR NV AN ELECTIVE ENDOTRACHEAL AIRWAY Routine 10/17/2024 8:23 AM DEXIGRAPH OPERATOR SPLIT THICKNESS SKIN GRAFT - LOWER EXTREMITY 10/17/2024 7:47 AM DEXIGRAPH OPERATOR Infection of total knee replacement, subsequent encounter Case Notes 10/16 PER KIERRA PHIPPS DANIEL YANG- SLOANE1/@1330- Changed line up per Jennifer via phone (EF) Special Needs LOPEZ MESHER/DERMATOME/PLATES FLAP GASTROCNEMIUS TO KNEE 10/17/2024 7:47 AM DEXIGRAPH OPERATOR Infection of total knee replacement, subsequent encounter Case Notes 10/16 PER KIERRA PHIPPS DANIEL YANG- RC1/@1330- Changed line up per Jennifer via phone (EF) Special Needs LOPEZ MESHER/DERMATOME/PLATES PREPARE RBC STAT 10/17/2024 7:05 AM DEXIGRAPH OPERATOR TYPE AND SCREEN STAT 10/17/2024 5:41 AM DEXIGRAPH OPERATOR EGFR Routine 10/16/2024 9:51 PM DEXIGRAPH OPERATOR DIFFERENTIAL AUTO Routine 10/16/2024 9:5 1 PM DEXIGRAPH OPERATOR CBC WITH AUTO DIFFERENTIAL Routine 10/16/2024 9:51 PM DEXIGRAPH OPERATOR BASIC METABOLIC PANEL Routine 10/16/2024 9:51 PM DEXIGRAPH OPERATOR VANCOMYCIN LEVEL TROUGH Timed 10/16/19 2:00 PM DEXIGRAPH OPERATOR INSERT PICC LINE Routine 10/16/2024 12:02 PM DEXIGRAPH OPERATOR EGFR Routine 10/15/2024 11:26 PM DEXIGRAPH OPERATOR DIFFERENTIAL AUTO Routine 10/15/2024 11:26 PM DEXIGRAPH OPERATOR CBC WITH AUTO DIFFERENTIAL Routine 10/15/2024 11:26 PM DEXIGRAPH OPERATOR BASIC METABOLIC PANEL Routine 10/15/2024 11:26 PM DEXIGRAPH OPERATOR EGFR Timed 10/14/2024 9:54 PM DEXIGRAPH OPERATOR HEPATIC FUNCTION PANEL STAT 9:54 PM DEXIGRAPH OPERATOR PROTIME-INR STAT 10/14/2024 9:54 PM DEXIGRAPH OPERATOR CBC WITHOUT DIFFERENTIAL STAT 10/14/2024 9:54 PM DEXIGRAPH OPERATOR BASIC METABOLIC PANEL Timed 10/14/2024 9:54 PM DEXIGRAPH OPERATOR XR KNEE LEFT 1 OR 2 VIEWS ED Urgent/IP Urgent 10/14/2024 5:49 PM DEXIGRAPH OPERATOR MYCOBACTERIOLOGY AFB CULTURE AND ACID-FAST STAIN Routine 10/14/2024 3:14 PM DEXIGRAPH OPERATOR MYCOLOGY (FUNGAL) CULTURE AND STAIN Routine 10/14/2024 3:14 PM DEXIGRAPH OPERATOR TISSUE AEROBIC AND ANAEROBIC CULTURE AND GRAM STAIN Routine 10/14/2024 3:14 PM DEXIGRAPH OPERATOR MYCOBACTERIOLOGY AFB CULTURE AND ACID-FAST STAIN Routine 10/14/2024 3:05 PM DEXIGRAPH OPERATOR MYCOLOGY (FUNGAL) CULTURE AND STAIN Routine 10/14/2024 3:05 PM DEXIGRAPH OPERATOR TISSUE AEROBIC AND ANAEROBIC CULTURE AND GRAM STAIN Routine 10/14/2024 3:05 PM DEXIGRAPH OPERATOR MYCOBACTERIOLOGY AFB CULTURE AND ACID-FAST STAIN Routine 10/14/2024 2:27 PM DEXIGRAPH OPERATOR MYCOLOGY (FUNGAL) CULTURE AND STAIN Routine 10/14/2024 2:27 PM DEXIGRAPH OPERATOR TISSUE AEROBIC AND ANAEROBIC CULTURE AND GRAM STAIN Routine 10/14/2024 2:27 PM DEXIGRAPH OPERATOR MYCOBACTERIOLOGY AFB CULTURE AND ACID-FAST STAIN Routine 10/14/2024 2:20 PM DEXIGRAPH OPERATOR MYCOLOGY (FUNGAL) CULTURE AND STAIN Routine 10/14/2024 2:20 PM DEXIGRAPH OPERATOR TISSUE AEROBIC AND ANAEROBIC CULTURE AND GRAM STAIN Routine 10/14/2024 2:20 PM DEXIGRAPH OPERATOR MYCOBACTERIOLOGY AFB CULTURE AND ACID-FAST STAIN Routine 10/14/2024 2:19 PM DEXIGRAPH OPERATOR MYCOLOGY (FUNGAL) CULTURE AND STAIN Routine 10/14/2024 2:19 PM DEXIGRAPH OPERATOR TISSUE AEROBIC AND ANAEROBIC CULTURE AND GRAM STAIN Routine 10/14/2024 2:19 PM DEXIGRAPH OPERATOR MYCOLOGY (FUNGAL) CULTURE Routine 10/14/2024 2:18 PM DEXIGRAPH OPERATOR MYCOBACTERIOLOGY AFB CULTURE AND ACID-FAST STAIN Routine 10/14/2024 2:18 PM DEXIGRAPH OPERATOR TISSUE AEROBIC AND ANAEROBIC CULTURE AND GRAM STAIN Routine 10/14/2024 2:18 PM DEXIGRAPH OPERATOR MYCOBACTERIOLOGY AFB CULTURE AND ACID-FAST STAIN Routine 10/14/2024 2:18 PM DEXIGRAPH OPERATOR MYCOLOGY (FUNGAL) CULTURE AND STAIN Routine 10/14/2024 2:18 PM DEXIGRAPH OPERATOR TISSUE AEROBIC AND ANAEROBIC CULTURE AND GRAM STAIN Routine 10/14/2024 2:18 PM DEXIGRAPH OPERATOR ANESTHESIA INTUBATION Routine 10/14/2024 1:52 PM DEXIGRAPH OPERATOR ARTHROPLASTY REMOVAL/EXCHANGE HARDWARE - KNEE 10/14/2024 1:11 PM DEXIGRAPH OPERATOR Infection of total joint prosthesis, initial encounter (HCC) PLACEMENT SPACER/ANTIBIOTIC BEAD - KNEE 10/14/2024 1:11 PM DEXIGRAPH OPERATOR Infection of total joint prosthesis, initial encounter (HCC) EGFR Routine 09/16/2024 11:35 AM DEXIGRAPH OPERATOR Infection of total joint prosthesis, initial encounter (HCC) DIFFERENTIAL AUTO Routine 09/16/2024 11:35 AM DEXIGRAPH OPERATOR Infection of total joint prosthesis, initial encounter (HCC) CBC WITH AUTO DIFFERENTIAL Routine 09/16/2024 11:35 AM DEXIGRAPH OPERATOR Infection of total joint prosthesis, initial encounter (HCC) VITAMIN D 25 HYDROXY Routine 09/16/2024 11:35 AM DEXIGRAPH OPERATOR Infection of total joint prosthesis, initial encounter (HCC) COMPREHENSIVE METABOLIC PANEL Routine 09/16/2024 11:35 AM DEXIGRAPH OPERATOR Infection of total joint prosthesis, initial encounter (HCC) from Last 3 Months Results * eGFR (10/20/2024 8:41 PM DEXIGRAPH OPERATOR) eGFR 87 >=60 mL/min/1. 73 m2 Comment: Interpretive Data Reference Interval Normal ?>/= 90 mL/min/1.73m2 Mildly decreased* ? 60 - 89 mL/min/1.73m2 Mildly to moderately decreased ?45 - 59 mL/min/1.73m2 Moderately to severely decreased ??30 - 44 mL/min/1.73m2 Severely decreased ?15 - 29 mL/min/1.73m2 Kidney Failure ?< 15 ??mL/min/1.73m2 *Relative to young adult level Estimated glomerular filtration rate is determined by the 2020 CKD-EPI equation recommended by the National Kidney Foundation (A Unifying Approach to GFR Estimation: Recommendations of the NKF-ASK Task Force on Reassessing the Inclusion of Race in Diagnosing Kidney Disease, JASN 2020). The CKD-EPI equation should not be used for patients with unstable renal function and has not been validated in children and those over 70. Current interpretive data was last reviewed 2021. Blood 10/20/2024 8:41 PM DEXIGRAPH OPERATOR 10/20/2024 9:04 PM DEXIGRAPH OPERATOR us Elpidio Frazier MD LAB BLOOD ORDERABLES Final R esult [facility] Department [place] [address] * (ABNORMAL) Differential, auto (10/20/2024 8:41 PM DEXIGRAPH OPERATOR) Neutrophil abs 5.4 1.5 - 6.5 K/cumm Imm gran abs 1.1(H) 0.0 - 0.1 K/cumm [facility] Lymphocyte abs 1.6 0.8 - 3.3 K/cumm [facility] Monocyte abs 1.0(H) 0.2 - 0.8 K[facility] Eosinophil abs 0.3 0.0 - 0.5 K/cumm [facility] Basophil abs 0.1 0.0 - 0.1 K/cumm [facility] Neutrophil pct 56.3 % [facility] Comment: Confirmed by smear review Interpretive Data Percent cell count reference ranges are not reported, since discordance with absolute values may lead to misinterpretation of CBC data. Current Interpretive Data was last revised on 2018. Imm gran pct 11.6 % [facility] Comment: Interpretive Data Percent cell count reference ranges are not reported, since discordance with absolute values may lead to misinterpretation of CBC data. Current Interpretive Data was last revised on 2018. Lymphocyte pct 17.0 % [facility] Comment: Interpretive Data Percent cell count reference ranges are not reported, since discordance with absolute values may lead to misinterpretation of CBC data. Current Interpretive Data was last revised on 2018. Monocyte pct 10.5 % [facility] Comment: Interpretive Data Percent cell count reference ranges are not reported, since discordance with absolute values may lead to misinterpretation of CBC data. Current Interpretive Data was last revised on 2018. Eosinophil pct 3.5 % [facility] Comment: Interpretive Data Percent cell count reference ranges are not reported, since discordance with absolute values may lead to misinterpretation of CBC data. Current Interpretive Data was last revised on 2018. Basophil pct 1.1 % [facility] Comment: Interpretive Data Percent cell count reference ranges are not reported, since discordance with absolute values may lead to misinterpretation of CBC data. Current Interpretive Data was last revised on 2018. Blood 10/20/2024 8:41 PM DEXIGRAPH OPERATOR 10/20/2024 9:04 PM DEXIGRAPH OPERATOR us Elpidio Frazier MD LAB BLOOD ORDERABLES Final R esult [facility] Department [place] [address] * (ABNORMAL) CBC with auto differential (10/20/2024 8:41 PM DEXIGRAPH OPERATOR) WBC 9.6 3.8 - 9.9 K/cumm Hgb 8.0(L) 13.0 - 17.5 g/dL [facility] Hct 25.7(L) 38.9 - 50.3 % [facility] Plt 400 150 - 400 K/cumm [facility] MPV 9.5 9.1 - 12.3 fL [facility] RBC 3.12(L) 4.30 - 5.80 M/cumm [facility] MCV 82.4 81.3 - 96.4 fL [facility] MCH 25.6(L) 27.1 - 33.3 pg [facility] MCHC 31.1(L) 32.3 - 35.7 g/dL [facility] RDW CV 17.9(H) 11.1 - 14.9 % [facility] RDW SD 51.8(H) 35.7 - 48.1 fL [facility] NRBC abs 0.00 0.00 - 0.01 K/cumm [facility] Blood 10/20/2024 8:41 PM DEXIGRAPH OPERATOR 10/20/2024 9:04 PM DEXIGRAPH OPERATOR us Elpidio Frazier MD LAB BLOOD ORDERABLES Final R esult Performing Organization Address City/[facility] Co de Phone Number [facility] Department [place] [address] * Basic metabolic panel (10/20/2024 8:41 PM DEXIGRAPH OPERATOR) Pathologist [facility] Sodium 135 135 - 145 mmol/L Potassium, pl 4.4 3.3 - 4.9 mmol/L [facility] Chloride 99 97 - 110 mmol/L [facility] CO2 29 22 - 32 mmol/L [facility] Anion gap 7 2 - 15 mmol/L [facility] BUN 19 6 - 25 mg/dL [facility] Creatinine 0.96 0.80 - 1.30 mg/dL [facility] Glucose 119 70 - 199 mg/dL [facility] Comment: Interpretive Data Fasting glucose >/= 126 mg/dl is diagnostic for diabetes. ?? Fasting is defined as no caloric intake for at least 8 hours. Fasting glucose between 100 mg/dl to 125 mg/dl is diagnostic of prediabetes. In a patient with classic symptoms of hyperglycemia or hyperglycemic crisis, a random glucose >/= 200 mg/dl is diagnostic for diabetes. In the absence of unequivocal hyperglycemia, results should be confirmed by repeat testing. The classification and Diagnosis of Diabetes Diabetes Care 202; 46: S19-S40. Current interpretive data was last revised 2022. Calcium 9.0 8.5 - 10.3 mg/dL [facility] Blood 10/20/2024 8:41 PM DEXIGRAPH OPERATOR 10/20/2024 9:04 PM DEXIGRAPH OPERATOR Elpidio Frazier MD LAB BLOOD ORDERABLES Final R esult Performing Organization Address [facility] Co de Phone Number [facility] Department [place] [address] * eGFR (10/19/2024 9:06 PM DEXIGRAPH OPERATOR) Pathologist [facility] eGFR >90 >=60 mL/min/1. 73 m2 Comment: Interpretive Data Reference Interval Normal ?>/= 90 mL/min/1.73m2 Mildly decreased* ? 60 - 89 mL/min/1.73m2 Mildly to moderately decreased ?45 - 59 mL/min/1.73m2 Moderately to severely decreased ??30 - 44 mL/min/1.73m2 Severely decreased ?15 - 29 mL/min/1.73m2 Kidney Failure ?< 15 ??mL/min/1.73m2 *Relative to young adult level Estimated glomerular filtration rate is determined by the 2020 CKD-EPI equation recommended by the National Kidney Foundation (A Unifying Approach to GFR Estimation: Recommendations of the NKF-ASK Task Force on Reassessing the Inclusion of Race in Diagnosing Kidney Disease, JASN 2020). The CKD-EPI equation should not be used for patients with unstable renal function and has not been validated in children and those over 70. Current interpretive data was last reviewed 2021. Blood 10/19/2024 9:06 PM DEXIGRAPH OPERATOR 10/19/2024 10:33 PM DEXIGRAPH OPERATOR us Elpidio Frazier MD LAB BLOOD ORDERABLES Final R esult [facility] Department of Laboratories [place], [place] [id number] * (ABNORMAL) Differential, auto (10/19/2024 9:06 PM DEXIGRAPH OPERATOR) Neutrophil abs 5.3 1.5 - 6.5 K/cumm Imm gran abs 1.0(H) 0.0 - 0.1 K/cumm [facility] Lymphocyte abs 1.3 0.8 - 3.3 K/cumm [facility] Monocyte abs 1.0(H) 0.2 - 0.8 K/cumm [facility] Eosinophil abs 0.4 0.0 - 0.5 K/cumm [facility] Basophil abs 0.1 0.0 - 0.1 K/cumm [facility] Neutrophil pct 58.7 % [facility] Comment: Confirmed by smear review Interpretive Data Percent cell count reference ranges are not reported, since discordance with absolute values may lead to misinterpretation of CBC data. Current Interpretive Data was last revised on 2018. Imm gran pct 11.0 % [facility] Comment: Interpretive Data Percent cell count reference ranges are not reported, since discordance with absolute values may lead to misinterpretation of CBC data. Current Interpretive Data was last revised on 2018. Lymphocyte pct 14.1 % [facility] Comment: Interpretive Data Percent cell count reference ranges are not reported, since discordance with absolute values may lead to misinterpretation of CBC data. Current Interpretive Data was last revised on 2018. Monocyte pct 11.2 % [facility] Comment: Interpretive Data Percent cell count reference ranges are not reported, since discordance with absolute values may lead to misinterpretation of CBC data. Current Interpretive Data was last revised on 2018. Eosinophil pct 4.2 % [facility] Comment: Interpretive Data Percent cell count reference ranges are not reported, since discordance with absolute values may lead to misinterpretation of CBC data. Current Interpretive Data was last revised on 2018. Basophil pct 0.8 % [facility] Comment: Interpretive Data Percent cell count reference ranges are not reported, since discordance with absolute values may lead to misinterpretation of CBC data. Current Interpretive Data was last revised on 2018. Blood 10/19/2024 9:06 PM DEXIGRAPH OPERATOR 10/19/2024 10:34 PM DEXIGRAPH OPERATOR us Elpidio Frazier MD LAB BLOOD ORDERABLES Final R esult [facility] [place] [address] * (ABNORMAL) CBC with auto differential (10/19/2024 9:06 PM DEXIGRAPH OPERATOR) WBC 9.1 3.8 - 9.9 K/cumm Hgb 7.5(L) 13.0 - 17.5 g/dL [facility] Hct 23.9(L) 38.9 - 50.3 % [facility] Plt 357 150 - 400 K/cumm [facility] MPV 9.8 9.1 - 12.3 fL [facility] RBC 2.92(L) 4.30 - 5.80 M/cumm [facility] MCV 81.8 81.3 - 96.4 fL [facility] MCH 25.7(L) 27.1 - 33.3 pg [facility] MCHC 31.4(L) 32.3 - 35.7 g/dL [facility] RDW CV 17.8(H) 11.1 - 14.9 % [facility] RDW SD 52.3(H) 35.7 - 48.1 fL [facility] NRBC abs 0.00 0.00 - 0.01 K/cumm [facility] Blood 10/19/2024 9:06 PM DEXIGRAPH OPERATOR 10/19/2024 10:34 PM DEXIGRAPH OPERATOR us Elpidio Frazier MD LAB BLOOD ORDERABLES Final R esult [facility] Department [place] [address] * Basic metabolic panel (10/19/2024 9:06 PM DEXIGRAPH OPERATOR) Sodium 139 135 - 145 mmol/L Potassium, pl 4.4 3.3 - 4.9 mmol/L [facility] Chloride 101 97 - 110 mmol/L [facility] CO2 30 22 - 32 mmol/L [facility] Anion gap 8 2 - 15 mmol/L [facility] BUN 20 6 - 25 mg/dL [facility] Creatinine 0.87 0.80 - 1.30 mg/dL [facility] Glucose 102 70 - 199 mg/dL [facility] Comment: Interpretive Data Fasting glucose >/= 126 mg/dl is diagnostic for diabetes. ?? Fasting is defined as no caloric intake for at least 8 hours. Fasting glucose between 100 mg/dl to 125 mg/dl is diagnostic of prediabetes. In a patient with classic symptoms of hyperglycemia or hyperglycemic crisis, a random glucose >/= 200 mg/dl is diagnostic for diabetes. In the absence of unequivocal hyperglycemia, results should be confirmed by repeat testing. The classification and Diagnosis of Diabetes Diabetes Care 202; 46: S19-S40. Current interpretive data was last revised 2022. Calcium 8.8 8.5 - 10.3 mg/dL [facility] Blood 10/19/2024 9:06 PM DEXIGRAPH OPERATOR 10/19/2024 10:33 PM DEXIGRAPH OPERATOR us Elpidio Frazier MD LAB BLOOD ORDERABLES Final R esult [facility] Department [place] [address] * eGFR (10/18/2024 8:10 PM DEXIGRAPH OPERATOR) eGFR >90 >=60 mL/min/1. 73 m2 Comment: Interpretive Data Reference Interval Normal ?>/= 90 mL/min/1.73m2 Mildly decreased* ? 60 - 89 mL/min/1.73m2 Mildly to moderately decreased ?45 - 59 mL/min/1.73m2 Moderately to severely decreased ??30 - 44 mL/min/1.73m2 Severely decreased ?15 - 29 mL/min/1.73m2 Kidney Failure ?< 15 ??mL/min/1.73m2 *Relative to young adult level Estimated glomerular filtration rate is determined by the 2020 CKD-EPI equation recommended by the National Kidney Foundation (A Unifying Approach to GFR Estimation: Recommendations of the NKF-ASK Task Force on Reassessing the Inclusion of Race in Diagnosing Kidney Disease, JASN 202). The CKD-EPI equation should not be used for patients with unstable renal function and has not been validated in children and those over 70. Current interpretive data was last reviewed 2021. Blood 10/18/2024 8:10 PM DEXIGRAPH OPERATOR 10/18/2024 8:35 PM DEXIGRAPH OPERATOR us Elpidio Frazier MD LAB BLOOD ORDERABLES Final R esult [facility] Department [place] [address] * (ABNORMAL) Differential, auto (10/18/2024 8:10 PM DEXIGRAPH OPERATOR) Neutrophil abs 5.3 1.5 - 6.5 K/cumm Imm gran abs 0.5(H) 0.0 - 0.1 K/cumm [facility] Lymphocyte abs 1.1 0.8 - 3.3 K/cumm [facility] Monocyte abs 0.8 0.2 - 0.8 K/cumm [facility] Eosinophil abs 0.4 0.0 - 0.5 K/cumm [facility] Basophil abs 0.1 0.0 - 0.1 K/cumm [facility] Neutrophil pct 64.3 % [facility] Comment: Interpretive Data Percent cell count reference ranges are not reported, since discordance with absolute values may lead to misinterpretation of CBC data. Current Interpretive Data was last revised on 2018. Imm gran pct 6.6 % [facility] Comment: Interpretive Data Percent cell count reference ranges are not reported, since discordance with absolute values may lead to misinterpretation of CBC data. Current Interpretive Data was last revised on 2018. Lymphocyte pct 13.7 % [facility] Comment: Interpretive Data Percent cell count reference ranges are not reported, since discordance with absolute values may lead to misinterpretation of CBC data. Current Interpretive Data was last revised on 2018. Monocyte pct 9.5 % [facility] Comment: Interpretive Data Percent cell count reference ranges are not reported, since discordance with absolute values may lead to misinterpretation of CBC data. Current Interpretive Data was last revised on 2018. Eosinophil pct 5.3 % [facility] Comment: Interpretive Data Percent cell count reference ranges are not reported, since discordance with absolute values may lead to misinterpretation of CBC data. Current Interpretive Data was last revised on 2018. Basophil pct 0.6 % [facility] Comment: Interpretive Data Percent cell count reference ranges are not reported, since discordance with absolute values may lead to misinterpretation of CBC data. Current Interpretive Data was last revised on 2018. Blood 10/18/2024 8:10 PM DEXIGRAPH OPERATOR 10/18/2024 8:35 PM DEXIGRAPH OPERATOR us Elpidio Frazier MD LAB BLOOD ORDERABLES Final R esult [facility] Department [place] [address] * (ABNORMAL) CBC with auto differential (10/18/2024 8:10 PM DEXIGRAPH OPERATOR) WBC 8.2 3.8 - 9.9 K/cumm Hgb 7.2(L) 13.0 - 17.5 g/dL [facility] Hct 23.2(L) 38.9 - 50.3 % [facility] Plt 313 150 - 400 K/cumm [facility] MPV 9.6 9.1 - 12.3 fL [facility] RBC 2.83(L) 4.30 - 5.80 M/cumm [facility] MCV 82.0 81.3 - 96.4 fL [facility] MCH 25.4(L) 27.1 - 33.3 pg [facility] MCHC 31.0(L) 32.3 - 35.7 g/dL [facility] RDW CV 17.5(H) 11.1 - 14.9 % [facility] RDW SD 51.1(H) 35.7 - 48.1 fL [facility] NRBC abs 0.00 0.00 - 0.01 K/cumm [facility] Blood 10/18/2024 8:10 PM DEXIGRAPH OPERATOR 10/18/2024 8:35 PM DEXIGRAPH OPERATOR us Elpidio Frazier MD LAB BLOOD ORDERABLES Final R esult [facility] Department [place] [address] * Basic metabolic panel (10/18/2024 8:10 PM DEXIGRAPH OPERATOR) Pathologist [facility] Sodium 139 135 - 145 mmol/L Potassium, pl 3.9 3.3 - 4.9 mmol/L [facility] Chloride 101 97 - 110 mmol/L [facility] CO2 28 22 - 32 mmol/L [facility] Anion gap 10 2 - 15 mmol/L [facility] BUN 17 6 - 25 mg/dL [facility] Creatinine 0.89 0.80 - 1.30 mg/dL [facility] Glucose 150 70 - 199 mg/dL [facility] Comment: Interpretive Data Fasting glucose >/= 126 mg/dl is diagnostic for diabetes. ?? Fasting is defined as no caloric intake for at least 8 hours. Fasting glucose between 100 mg/dl to 125 mg/dl is diagnostic of prediabetes. In a patient with classic symptoms of hyperglycemia or hyperglycemic crisis, a random glucose >/= 200 mg/dl is diagnostic for diabetes. In the absence of unequivocal hyperglycemia, results should be confirmed by repeat testing. The classification and Diagnosis of Diabetes Diabetes Care 202; 46: S19-S40. Current interpretive data was last revised 2022. Calcium 8.6 8.5 - 10.3 mg/dL [facility] Blood 10/18/2024 8:10 PM DEXIGRAPH OPERATOR 10/18/2024 8:35 PM DEXIGRAPH OPERATOR Elpidio Frazier MD LAB BLOOD ORDERABLES Final R esult Performing Organization Address City/[facility]/ZIP Co de Phone Number [facility] Department [place] [address] * ECG 12 lead (10/18/2024 1:13 PM DEXIGRAPH OPERATOR) Ventricular Rate EKG/Min 73 BPM [facility] Atrial Rate 73 BPM [facility] [place]-Interval (MSEC) 148 ms [facility] QRS-Interval (MSEC) 90 ms [facility] QT-Interval (MSEC) 354 ms [facility] QTc 389 ms [facility] P [place] 49 degrees [facility] R [place] 11 degrees [facility] T [place] 68 degrees [facility] Diagnosis Normal sinus rhythm Early R wave progression When compared with ECG of 06-AUG-2019 07:44, No significant change was found Confirmed by OSIEL COURTNEY M.D ([id number]) on 10/23/2024 9:26:10 AM [facility] 10/18/2024 1:13 PM DEXIGRAPH OPERATOR 10/23/2024 9:26 AM DEXIGRAPH OPERATOR us Vika Barros PLASTIC FABRICATOR ECG ORDERABLES Final Res ult Performing Organization Address [facility] Co de Phone Number [facility] * Creatine kinase (CK), total (10/18/2024 12:50 PM DEXIGRAPH OPERATOR) Pathologist [facility] CK 258 40 - 300 Units/L Blood 10/18/2024 12:5 0 PM DEXIGRAPH OPERATOR 10/18/2024 1:03 PM DEXIGRAPH OPERATOR us Darline Foreman PLASTIC FABRICATOR LAB BLOOD ORDERABLES Final Result Performing Organization Address [facility] Co de Phone Number [facility] Department [place] [address] * eGFR (10/17/2024 9:42 PM DEXIGRAPH OPERATOR) eGFR >90 >=60 mL/min/1. 73 m2 Comment: Interpretive Data Reference Interval Normal ?>/= 90 mL/min/1.73m2 Mildly decreased* ? 60 - 89 mL/min/1.73m2 Mildly to moderately decreased ?45 - 59 mL/min/1.73m2 Moderately to severely decreased ??30 - 44 mL/min/1.73m2 Severely decreased ?15 - 29 mL/min/1.73m2 Kidney Failure ?< 15 ??mL/min/1.73m2 *Relative to young adult level Estimated glomerular filtration rate is determined by the 2020 CKD-EPI equation recommended by the National Kidney Foundation (A Unifying Approach to GFR Estimation: Recommendations of the NKF-ASK Task Force on Reassessing the Inclusion of Race in Diagnosing Kidney Disease, JASN 202). The CKD-EPI equation should not be used for patients with unstable renal function and has not been validated in children and those over 70. Current interpretive data was last reviewed 2021. Blood 10/17/2024 9:42 PM DEXIGRAPH OPERATOR 10/17/2024 10:10 PM DEXIGRAPH OPERATOR us Candy North PLASTIC FABRICATOR LAB BLOOD ORDERABLES Final Result Performing Organization Address City/State/[facility] Co de Phone Number [facility] [place] [address] * (ABNORMAL) Differential, auto (10/17/2024 9:42 PM DEXIGRAPH OPERATOR) Neutrophil abs 8.3(H) 1.5 - 6.5 K/cumm Imm gran abs 0.3(H) 0.0 - 0.1 K/cumm [facility] Lymphocyte abs 1.0 0.8 - 3.3 K/cumm [facility] Monocyte abs 1.1(H) 0.2 - 0.8 K/cumm [facility] Eosinophil abs 0.0 0.0 - 0.5 K/cumm [facility] Basophil abs 0.1 0.0 - 0.1 K/cumm [facility] Neutrophil pct 76.9 % [facility] Comment: Interpretive Data Percent cell count reference ranges are not reported, since discordance with absolute values may lead to misinterpretation of CBC data. Current Interpretive Data was last revised on 2018. Imm gran pct 2.9 % [facility] Comment: Interpretive Data Percent cell count reference ranges are not reported, since discordance with absolute values may lead to misinterpretation of CBC data. Current Interpretive Data was last revised on 2018. Lymphocyte pct 8.8 % [facility] Comment: Interpretive Data Percent cell count reference ranges are not reported, since discordance with absolute values may lead to misinterpretation of CBC data. Current Interpretive Data was last revised on 2018. Monocyte pct 10.3 % [facility] Comment: Interpretive Data Percent cell count reference ranges are not reported, since discordance with absolute values may lead to misinterpretation of CBC data. Current Interpretive Data was last revised on 2018. Eosinophil pct 0.4 % [facility] Comment: Interpretive Data Percent cell count reference ranges are not reported, since discordance with absolute values may lead to misinterpretation of CBC data. Current Interpretive Data was last revised on 2018. Basophil pct 0.7 % [facility] Comment: Interpretive Data Percent cell count reference ranges are not reported, since discordance with absolute values may lead to misinterpretation of CBC data. Current Interpretive Data was last revised on 2018. Blood 10/17/2024 9:42 PM DEXIGRAPH OPERATOR 10/17/2024 10:10 PM DEXIGRAPH OPERATOR us Candy North NP LAB BLOOD ORDERABLES Final Result [facility] [place] [address] * (ABNORMAL) CBC with auto differential (10/17/2024 9:42 PM DEXIGRAPH OPERATOR) WBC 10.8(H) 3.8 - 9.9 K/cumm Hgb 7.8(L) 13.0 - 17.5 g/dL [facility] Hct 25.2(L) 38.9 - 50.3 % [facility] Plt 326 150 - 400 K/cumm [facility] MPV 9.6 9.1 - 12.3 fL [facility] RBC 3.09(L) 4.30 - 5.80 M/cumm [facility] MCV 81.6 81.3 - 96.4 fL [facility] MCH 25.2(L) 27.1 - 33.3 pg [facility] MCHC 31.0(L) 32.3 - 35.7 g/dL [facility] RDW CV 17.1(H) 11.1 - 14.9 % [facility] RDW SD 50.2(H) 35.7 - 48.1 fL [facility] NRBC abs 0.00 0.00 - 0.01 K/cumm [facility] Blood 10/17/2024 9:42 PM DEXIGRAPH OPERATOR 10/17/2024 10:10 PM DEXIGRAPH OPERATOR us Elpidio Frazier MD LAB BLOOD ORDERABLES Final R esult [facility] [place] [address] * Basic metabolic panel (10/17/2024 9:42 PM DEXIGRAPH OPERATOR) Sodium 137 135 - 145 mmol/L Potassium, pl 4.2 3.3 - 4.9 mmol/L [facility] Chloride 99 97 - 110 mmol/L [facility] CO2 29 22 - 32 mmol/L [facility] Anion gap 9 2 - 15 mmol/L [facility] BUN 13 6 - 25 mg/dL [facility] Creatinine 0.85 0.80 - 1.30 mg/dL [facility] Glucose 139 70 - 199 mg/dL [facility] Comment: Interpretive Data Fasting glucose >/= 126 mg/dl is diagnostic for diabetes. ?? Fasting is defined as no caloric intake for at least 8 hours. Fasting glucose between 100 mg/dl to 125 mg/dl is diagnostic of prediabetes. In a patient with classic symptoms of hyperglycemia or hyperglycemic crisis, a random glucose >/= 200 mg/dl is diagnostic for diabetes. In the absence of unequivocal hyperglycemia, results should be confirmed by repeat testing. The classification and Diagnosis of Diabetes Diabetes Care 2021; 46: S19-S40. Current interpretive data was last revised 2022. Calcium 8.9 8.5 - 10.3 mg/dL [facility] Blood 10/17/2024 9:42 PM DEXIGRAPH OPERATOR 10/17/2024 10:10 PM DEXIGRAPH OPERATOR us Elpidio Frazier MD LAB BLOOD ORDERABLES Final R esult Performing Organization Address [facility] Co de Phone Number [facility] [place] [address] * [place] AN PROCEDURE PLACEHOLDER (10/17/2024 9:17 AM DEXIGRAPH OPERATOR) Narrative Ty Pratt MD - 10/17/2024 9:17 AM DEXIGRAPH OPERATOR Ty Pratt MD ? 10/17/2024 ??9:17 AM Peripheral IV Catheter Patient location: OR Staff: Supervising provider: Ty Pratt MD Placed by: Other staff: Kris Briones RN Preprocedure prep: Prep solution: chlorhexadine PPE: gloves and provider hat/mask PIV line: Laterality: left Site: wrist Catheter size: 18 g Technique: direct visualization and palpatation Procedure details: good blood return and occlusive dressing applied Number of attempts: 1 Assessment: Events: patient tolerated procedure well with no complications us Ty Pratt MD ANESTHESIA ORDERABLES Angélica l Result * Transfuse RBC (10/17/2024 8:27 AM DEXIGRAPH OPERATOR) Blood us Ty Pratt MD BLOOD TRANSFUSION ORDERABL ES Final Result Performing Organization Address [facility] de Phone Number [facility] [place] [employer] [place] [address] * NV AN ELECTIVE ENDOTRACHEAL AIRWAY, NV AN PROCEDURE PLACEHOLDER (10/17/2024 8:23 AM DEXIGRAPH OPERATOR) Narrative Ty Pratt MD - 10/17/2024 8:23 AM DEXIGRAPH OPERATOR Ty Pratt MD ? 10/17/2024 ??9:18 AM Airway Patient location: OR Urgency: elective Indications for airway management: anesthesia Difficult airway: no Staff: Supervising provider: Ty Pratt MD Placed by: Other staff: Kris Briones RN Emergent airway documentation: Risks and benefits discussed: yes Consent obtained: yes Consent given by: patient Airway prep: Preoxygenated: yes Patient position: sniffing Mask difficulty assessment: 1 - vent by mask Spontaneous ventilation during airway: absent Sedation level during airway: GA Final airway details: Final airway type: endotracheal airway Tube type: ETT ETT size: 7.5 mm Cuffed: yes Technique used for successful ETT placement: video laryngoscopy Insertion site: oral Blade type: Yady Video blade type: Oneal Blade size: 4 Cormack-Lehane (video): grade IIa - partial view of glottis Initial cuff pressure: 24 cm H2O Cuff inflated with: air ETT to teeth: 23 cm Placement verified by: auscultation and CO2 detection Airway secured with: silk tape Number of attempts: 1 Planned trial extubation: yes Additional comments: Atraumatic. Dentition same as pre-op Ty Pratt MD ANESTHESIA ORDERABLES Edit ed Result - Final * Prepare RBC: 1 Units (10/17/2024 7:05 AM DEXIGRAPH OPERATOR) Product code [id number] Unit Number [id number] [facility] Product Blood Type BPOS [facility] Dispense Status PRESUMED TRANSFUSED [facility] Blood 10/17/2024 7:05 AM DEXIGRAPH OPERATOR 10/17/2024 7:04 AM DEXIGRAPH OPERATOR Narrative [facility] - 10/18/2024 12:56 AM DEXIGRAPH OPERATOR Are special requirements needed? (All products are leukoreduced and CMV- safe)- >No Date required:-[id number] LRRBC # of [id number] Reasons:-Intra-op transfusion} us Ty Pratt MD BLOOD BANK PRODUCT ORDERAB LES Final Result [facility] [place] [address] * Type and screen (10/17/2024 5:41 AM DEXIGRAPH OPERATOR) Randy, indirect Negative ABO Rh B Positive [facility] Blood 10/17/2024 5:41 AM DEXIGRAPH OPERATOR 10/17/2024 5:47 AM DEXIGRAPH OPERATOR Narrative [facility] - 10/17/2024 6:32 AM DEXIGRAPH OPERATOR Has the patient had Daratumumab or Isatuximab in the past 6 months?->Unknown us Ty Pratt MD LAB BLOOD BANK TEST ORDERA BLES Final Result Performing Organization Address [facility] Co de Phone Number [facility] [place] [address] * eGFR (10/16/2024 9:51 PM DEXIGRAPH OPERATOR) Pathologist [facility] eGFR 87 >=60 mL/min/1. 73 m2 Comment: Interpretive Data Reference Interval Normal ?>/= 90 mL/min/1.73m2 Mildly decreased* ? 60 - 89 mL/min/1.73m2 Mildly to moderately decreased ?45 - 59 mL/min/1.73m2 Moderately to severely decreased ??30 - 44 mL/min/1.73m2 Severely decreased ?15 - 29 mL/min/1.73m2 Kidney Failure ?< 15 ??mL/min/1.73m2 *Relative to young adult level Estimated glomerular filtration rate is determined by the 2020 CKD-EPI equation recommended by the National Kidney Foundation (A Unifying Approach to GFR Estimation: Recommendations of the NKF-ASK Task Force on Reassessing the Inclusion of Race in Diagnosing Kidney Disease, JASN 2020). The CKD-EPI equation should not be used for patients with unstable renal function and has not been validated in children and those over 70. Current interpretive data was last reviewed 2021. Blood 10/16/2024 9:51 PM DEXIGRAPH OPERATOR 10/16/2024 11:21 PM DEXIGRAPH OPERATOR us Candy North NP LAB BLOOD ORDERABLES Final Result Performing Organization Address [facility] Co de Phone Number [facility] [place] [address] * (ABNORMAL) Differential, auto (10/16/2024 9:51 PM DEXIGRAPH OPERATOR) Neutrophil abs 5.5 1.5 - 6.5 K/cumm Imm gran abs 0.3(H) 0.0 - 0.1 K/cumm [facility] Lymphocyte abs 1.3 0.8 - 3.3 K/cumm [facility] Monocyte abs 0.9(H) 0.2 - 0.8 K/cumm [facility] Eosinophil abs 0.3 0.0 - 0.5 K/cumm [facility] Basophil abs 0.0 0.0 - 0.1 K/cumm [facility] Neutrophil pct 66.3 % [facility] Comment: Interpretive Data Percent cell count reference ranges are not reported, since discordance with absolute values may lead to misinterpretation of CBC data. Current Interpretive Data was last revised on 2018. Imm gran pct 3.2 % [facility] Comment: Interpretive Data Percent cell count reference ranges are not reported, since discordance with absolute values may lead to misinterpretation of CBC data. Current Interpretive Data was last revised on 2018. Lymphocyte pct 15.8 % [facility] Comment: Interpretive Data Percent cell count reference ranges are not reported, since discordance with absolute values may lead to misinterpretation of CBC data. Current Interpretive Data was last revised on 2018. Monocyte pct 10.4 % [facility] Comment: Interpretive Data Percent cell count reference ranges are not reported, since discordance with absolute values may lead to misinterpretation of CBC data. Current Interpretive Data was last revised on 2018. Eosinophil pct 3.8 % [facility] Comment: Interpretive Data Percent cell count reference ranges are not reported, since discordance with absolute values may lead to misinterpretation of CBC data. Current Interpretive Data was last revised on 2018. Basophil pct 0.5 % [facility] Comment: Interpretive Data Percent cell count reference ranges are not reported, since discordance with absolute values may lead to misinterpretation of CBC data. Current Interpretive Data was last revised on 2018. Blood 10/16/2024 9:51 PM DEXIGRAPH OPERATOR 10/16/2024 11:23 PM DEXIGRAPH OPERATOR us Candy North NP LAB BLOOD ORDERABLES Final Result Performing Organization Address [facility] Co de Phone Number [facility] Department [place] [address] * (ABNORMAL) CBC with auto differential (10/16/2024 9:51 PM DEXIGRAPH OPERATOR) [facility] WBC 8.2 3.8 - 9.9 K/cumm Hgb 7.4(L) 13.0 - 17.5 g/dL [facility] Hct 23.7(L) 38.9 - 50.3 % [facility] Plt 322 150 - 400 K/cumm [facility] MPV 9.8 9.1 - 12.3 fL [facility] RBC 2.91(L) 4.30 - 5.80 M/cumm [facility] MCV 81.4 81.3 - 96.4 fL [facility] MCH 25.4(L) 27.1 - 33.3 pg [facility] MCHC 31.2(L) 32.3 - 35.7 g/dL [facility] RDW CV 17.2(H) 11.1 - 14.9 % [facility] RDW SD 50.4(H) 35.7 - 48.1 fL [facility] NRBC abs 0.00 0.00 - 0.01 K/cumm [facility] Blood 10/16/2024 9:51 PM DEXIGRAPH OPERATOR 10/16/2024 11:23 PM DEXIGRAPH OPERATOR us Elpidio Frazier MD LAB BLOOD ORDERABLES Final R esult Performing Organization Address City/[facility]/ZIP Co de Phone Number [facility] Department [place] [address] * (ABNORMAL) Basic metabolic panel (10/16/2024 9:51 PM DEXIGRAPH OPERATOR) Pathologist [facility] Sodium 138 135 - 145 mmol/L Potassium, pl 4.0 3.3 - 4.9 mmol/L [facility] Chloride 102 97 - 110 mmol/L [facility] CO2 29 22 - 32 mmol/L [facility] Anion gap 7 2 - 15 mmol/L [facility] BUN 15 6 - 25 mg/dL [facility] Creatinine 0.96 0.80 - 1.30 mg/dL [facility] Glucose 124 70 - 199 mg/dL [facility] Comment: Interpretive Data Fasting glucose >/= 126 mg/dl is diagnostic for diabetes. ?? Fasting is defined as no caloric intake for at least 8 hours. Fasting glucose between 100 mg/dl to 125 mg/dl is diagnostic of prediabetes. In a patient with classic symptoms of hyperglycemia or hyperglycemic crisis, a random glucose >/= 200 mg/dl is diagnostic for diabetes. In the absence of unequivocal hyperglycemia, results should be confirmed by repeat testing. The classification and Diagnosis of Diabetes Diabetes Care 2021; 46: S19-S40. Current interpretive data was last revised 2022. Calcium 8.3(L) 8.5 - 10.3 mg/dL [facility] Blood 10/16/2024 9:51 PM DEXIGRAPH OPERATOR 10/16/2024 11:21 PM DEXIGRAPH OPERATOR us Elpidio Frazier MD LAB BLOOD ORDERABLES Final R esult Performing Organization Address [facility]/ZIP Co de Phone Number [facility] Department [place] [address] * (ABNORMAL) Vancomycin level trough (10/16/2024 2:00 PM DEXIGRAPH OPERATOR) Pathologist [facility] Vancomycin trough 8.8(L) 10.0 - 20.0 mcg/mL Blood 10/16/2024 2:00 PM DEXIGRAPH OPERATOR 10/16/2024 2:38 PM DEXIGRAPH OPERATOR Angie Amado MD LAB BLOOD ORDERABLES Final Result Performing Organization Address [facility] Co de Phone Number [facility] Department [place] [address] * Insert PICC line (10/16/2024 12:02 PM DEXIGRAPH OPERATOR) Eduardo Bauman RN - 10/16/2024 12:02 PM DEXIGRAPH OPERATOR Eduardo Montero RN ? 10/16/2024 12:35 PM Vascular Access Nurse: Procedure Note Summary of treatment provided to patient today is as follows : . Bedside Procedure Time out/Checklist (Last 4 Hours) ?? Pre-Op Checklist ?? Row Name 10/16/24 1140 10/16/24 1135 10/16/24 1100 Patient/Chart Verification Patient ID Verified Verbal;Armband ??-MT Verbal;Armband ??-SM -- ?? -SM ?? Allergies Verified Yes ??-MT Yes ??-SM -- ??-SM ?? Procedure Area/OR Notified of Latex Allergy Not applicable ??-MT -- -- ?? Arm Bands On ID;Allergies ??-MT Allergies;ID ??-SM -- ??-SM ?? Consents Confirmed Procedural ??-MT Informed ??-SM -- ??-SM ?? H&P Verified and Updated Yes ??-MT -- -- ?? Pre-op Lab/Test Results Available In chart ??-MT -- -- ?? Antibiotic Status Not applicable ??-MT -- -- ?? Procedure Verification Correct Patient Yes ??-MT -- -- ?? Correct Procedure Yes ??-MT -- -- ?? Correct Laterality Yes ??-MT -- -- ?? Correct Site Yes ??-MT -- -- ?? Site Marked Yes ??-MT -- -- ?? User Marvin ??(r) = Recorded By, (t) = Taken By, (c) = Cosigned By Initials Name Pina Vogel RN MT Eduardo Montero, material control manager Access Documentation (Last 4 Hours) ?? [facility] Additional Procedures ?? Row Name 10/16/24 1140 PICC Screening Questionnaire Order written on the chart for PICC insertion or placement? Y ?? -MT ? Information form/Consent Obtained from POA/ Family Y ??-MT ? Is there an order from Renal giving ok to place PICC line? N/A ?? -MT ? Are there any location restrictions? Y ??-MT ? Which location is NOT accessible for line placement? Left ??-MT ? Reason location not accessible for line placement Other (comment) ??DVT left ??-MT ? Does the patient have history of DVT or SVC syndrome? Currently has ??-MT ? Does the patient currently have blood clots in chest / arms? Y ?? -MT ? Review of all IV meds/drips completed Yes ??-MT ? Patient allergies reviewed? Y ??-MT ? Labs Reviewed if applicable INR;Blood Cultures;Platelet count;Creatinine;GFR ??-MT ? Procedures Line Type PICC single ??-MT ? Time in 1125 ??-MT ? Time out 1210 ??-MT ? Time Calculation (min) 45 min ??-MT ? Vascular Access Procedures PICC line assessment;PICC line placement;PICC dressing change;Education PICC/Midline ??-MT ? Comfort Measures Position of comfort ??-MT ? Patient Response Tolerated (no change in status) ??-MT ? Peripheral IV 10/14/24 20 G Anterior;Left Hand IV Properties Placement Date: 10/14/24 ??-BW Placement Time: 1204 -BW Size (Gauge): 20 G ??-BW Location Orientation: Anterior;Left ?? -BW Location: Hand ??-BW Inserted by: MJ ??-BW PICC Single Lumen 10/16/24 Non-tunneled Power Right Basilic;Upper arm Line Properties Placement Date: 10/16/24 ??-MT Placement Time: 1159 ??-MT Catheter Time Out Checklist Completed: Yes ??-MT Hand Hygiene Performed: Yes ??-MT Site Prep: Chlorhexidine ??-MT Site Prep Agent has Completely Dried Before Insertion: Yes ??-MT All 5 Sterile Barriers or Appropriate Barriers Used (Gloves, Gown, Cap, Mask, Large Sterile Drape): Yes ??-MT Local Anesthetic: Injectable -MT, 2 ml ??Comfort Measures: Position of comfort ??-MT CVC Type: Non-tunneled ??-MT Power injectable: Power ??-MT Lumen # 1: #1 Purple, ??-MT Size (Fr): 4 ??-MT Orientation: Right ??-MT Location: Basilic;Upper arm ??-MT Technique: Modified seldinger;Internal stiffener stylet removed easily;Ultrasound used to locate and cannulate vein;Standard insertion technique with peel away sheath -MT Lot #: [id number] ??-MT Expiration Date: 05/25/25 ??-MT Trimmed Length (cm) : 37 cm ??-MT Line Tip Location : Central ??-MT Initial Extremity Circumference (cm): 31 cm ??-MT Circumference Reference Point: 4 cm above insertion site ??-MT Initial External Length Catheter (cm): 0 cm ??-MT Placement Verification: Blood return;[place];ECG;Ultrasound ??-MT Line Secured by : Securement device ??-MT Inserted by: Jonathan Remy RN ??-MT Assisted By: Chiquita Montero ?? -MT Insertion attempts: 1 ??-MT Patient Tolerance: Tolerated well ?? -MT Description (optional): Single PICC right upper arm ??-MT Site Assessment Clean and dry;Securement device in place ??-MT ? External Length ty (cm) 0 cm ??-MT ? Extremity Circumference (cm) 31 cm ??-MT ? Dressing Type CHG Dressing;Transparent ??-MT ? Dressing Status New;Clean, dry, intact;Dated;Occlusive ??-MT ? Dressing Intervention Dressing dated ??-MT ? Dressing Change Due 10/23/24 ??-MT ? Observer Present Yes ??-MT ? Lumen #1 Status Blood return brisk;Disinfectant cap in place;Flushes easily;Saline locked;Needleless access device in place ??-MT ? Lumen #1 Interventions Connections checked and tightened ??-MT ? 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 long-term antibiotics) ??-MT ? User Marvin ??(r) = Recorded By, (t) = Taken By, (c) = Cosigned By Initials Name Billie Ng RN Eduardo Weber RN Right single lumen PICC safe to use. Eduardo Montero RN us Vkia Barros NP IV THERAPY ORDERABLES Darren arsh Result - Final * eGFR (10/15/2024 11:26 PM DEXIGRAPH OPERATOR) eGFR 86 >=60 mL/min/1. 73 m2 Comment: Interpretive Data Reference Interval Normal ?>/= 90 mL/min/1.73m2 Mildly decreased* ? 60 - 89 mL/min/1.73m2 Mildly to moderately decreased ?45 - 59 mL/min/1.73m2 Moderately to severely decreased ??30 - 44 mL/min/1.73m2 Severely decreased ?15 - 29 mL/min/1.73m2 Kidney Failure ?< 15 ??mL/min/1.73m2 *Relative to young adult level Estimated glomerular filtration rate is determined by the 2020 CKD-EPI equation recommended by the National Kidney Foundation (A Unifying Approach to GFR Estimation: Recommendations of the NKF-ASK Task Force on Reassessing the Inclusion of Race in Diagnosing Kidney Disease, JASN 2020). The CKD-EPI equation should not be used for patients with unstable renal function and has not been validated in children and those over 70. Current interpretive data was last reviewed 2021. Blood 10/15/2024 11:2 6 PM DEXIGRAPH OPERATOR 10/15/2024 11:40 PM DEXIGRAPH OPERATOR us Candy North NP LAB BLOOD ORDERABLES Final Result [facility] Department [place] [address] * (ABNORMAL) Differential, auto (10/15/2024 11:26 PM DEXIGRAPH OPERATOR) Neutrophil abs 7.0(H) 1.5 - 6.5 K/cumm Imm gran abs 0.1 0.0 - 0.1 K/cumm [facility] Lymphocyte abs 1.0 0.8 - 3.3 K/cumm [facility] Monocyte abs 0.8 0.2 - 0.8 K/cumm [facility] Eosinophil abs 0.3 0.0 - 0.5 K/cumm [facility] Basophil abs 0.1 0.0 - 0.1 K/cumm [facility] Neutrophil pct 75.9 % [facility] Comment: Interpretive Data Percent cell count reference ranges are not reported, since discordance with absolute values may lead to misinterpretation of CBC data. Current Interpretive Data was last revised on 2018. Imm gran pct 1.1 % [facility] Comment: Interpretive Data Percent cell count reference ranges are not reported, since discordance with absolute values may lead to misinterpretation of CBC data. Current Interpretive Data was last revised on 2018. Lymphocyte pct 11.3 % [facility] Comment: Interpretive Data Percent cell count reference ranges are not reported, since discordance with absolute values may lead to misinterpretation of CBC data. Current Interpretive Data was last revised on 2018. Monocyte pct 8.4 % [facility] Comment: Interpretive Data Percent cell count reference ranges are not reported, since discordance with absolute values may lead to misinterpretation of CBC data. Current Interpretive Data was last revised on 2018. Eosinophil pct 2.8 % [facility] Comment: Interpretive Data Percent cell count reference ranges are not reported, since discordance with absolute values may lead to misinterpretation of CBC data. Current Interpretive Data was last revised on 2018. Basophil pct 0.5 % [facility] Comment: Interpretive Data Percent cell count reference ranges are not reported, since discordance with absolute values may lead to misinterpretation of CBC data. Current Interpretive Data was last revised on 2018. Blood 10/15/2024 11:2 6 PM DEXIGRAPH OPERATOR 10/15/2024 11:40 PM DEXIGRAPH OPERATOR Candy North NP LAB BLOOD ORDERABLES Final Result Performing Organization Address City/[facility] de Phone Number [facility] Department [place] [address] * (ABNORMAL) CBC with auto differential (10/15/2024 11:26 PM DEXIGRAPH OPERATOR) [facility] WBC 9.2 3.8 - 9.9 K/cumm Hgb 8.0(L) 13.0 - 17.5 g/dL [facility] Hct 25.9(L) 38.9 - 50.3 % [facility] Plt 292 150 - 400 K/cumm [facility] MPV 9.1 9.1 - 12.3 fL [facility] RBC 3.17(L) 4.30 - 5.80 M/cumm [facility] MCV 81.7 81.3 - 96.4 fL [facility] MCH 25.2(L) 27.1 - 33.3 pg [facility] MCHC 30.9(L) 32.3 - 35.7 g/dL [facility] RDW CV 16.9(H) 11.1 - 14.9 % [facility] RDW SD 50.0(H) 35.7 - 48.1 fL [facility] NRBC abs 0.00 0.00 - 0.01 K/cumm [facility] Blood 10/15/2024 11:2 6 PM DEXIGRAPH OPERATOR 10/15/2024 11:40 PM DEXIGRAPH OPERATOR Elpidio Frazier MD LAB BLOOD ORDERABLES Final R esult Performing Organization Address [facility] Co de Phone Number [facility] Department [place] [address] * (ABNORMAL) Basic metabolic panel (10/15/2024 11:26 PM DEXIGRAPH OPERATOR) [facility] Sodium 138 135 - 145 mmol/L Potassium, pl 4.8 3.3 - 4.9 mmol/L [facility] Chloride 106 97 - 110 mmol/L [facility] CO2 27 22 - 32 mmol/L [facility] Anion gap 5 2 - 15 mmol/L [facility] BUN 13 6 - 25 mg/dL [facility] Creatinine 0.97 0.80 - 1.30 mg/dL [facility] Glucose 119 70 - 199 mg/dL [facility] Comment: Interpretive Data Fasting glucose >/= 126 mg/dl is diagnostic for diabetes. ?? Fasting is defined as no caloric intake for at least 8 hours. Fasting glucose between 100 mg/dl to 125 mg/dl is diagnostic of prediabetes. In a patient with classic symptoms of hyperglycemia or hyperglycemic crisis, a random glucose >/= 200 mg/dl is diagnostic for diabetes. In the absence of unequivocal hyperglycemia, results should be confirmed by repeat testing. The classification and Diagnosis of Diabetes Diabetes Care 202; 46: S19-S40. Current interpretive data was last revised 2022. Calcium 8.2(L) 8.5 - 10.3 mg/dL [facility] Blood 10/15/2024 11:2 6 PM DEXIGRAPH OPERATOR 10/15/2024 11:40 PM DEXIGRAPH OPERATOR Elpidio Frazier MD LAB BLOOD ORDERABLES Final R esult [facility] [place] [address] * eGFR (10/14/2024 9:54 PM DEXIGRAPH OPERATOR) eGFR >90 >=60 mL/min/1. 73 m2 Comment: Interpretive Data Reference Interval Normal ?>/= 90 mL/min/1.73m2 Mildly decreased* ? 60 - 89 mL/min/1.73m2 Mildly to moderately decreased ?45 - 59 mL/min/1.73m2 Moderately to severely decreased ??30 - 44 mL/min/1.73m2 Severely decreased ?15 - 29 mL/min/1.73m2 Kidney Failure ?< 15 ??mL/min/1.73m2 *Relative to young adult level Estimated glomerular filtration rate is determined by the 2020 CKD-EPI equation recommended by the National Kidney Foundation (A Unifying Approach to GFR Estimation: Recommendations of the NKF-ASK Task Force on Reassessing the Inclusion of Race in Diagnosing Kidney Disease, JASN 2020). The CKD-EPI equation should not be used for patients with unstable renal function and has not been validated in children and those over 70. Current interpretive data was last reviewed 2021. Blood 10/14/2024 9:54 PM DEXIGRAPH OPERATOR 10/14/2024 10:15 PM DEXIGRAPH OPERATOR Chasity Diego MD LAB BLOOD ORDERAB LES Final Result Performing Organization Address [facility] Co de Phone Number [facility] [employer] [place], [place] [id number] * (ABNORMAL) Protime-INR (10/14/2024 9:54 PM DEXIGRAPH OPERATOR) PT 14.3(H) 9.7 - 13.0 sec INR 1.32(H) 0.90 - 1.20 [facility] Comment: Interpretive data Oral anticoagulant therapeutic ranges: Venous thromboembolism prophylaxis or treatment: 2.0-3.0 CARDIOLOGY Standard range: 2.0-3.0 High-intensity range: 2.5-3.5 Refer to indication-specific guidelines for appropriate target ranges for prosthetic heart valve replacement. Current interpretive data was last revised on 2019. Blood 10/14/2024 9:54 PM DEXIGRAPH OPERATOR 10/14/2024 10:21 PM DEXIGRAPH OPERATOR Narrative [facility] - 10/14/2024 10:27 PM DEXIGRAPH OPERATOR Baseline prior to apixaban initiation. Chasity Diego MD LAB BLOOD ORDERAB LES Final Result Performing Organization Address [facility] Co de Phone Number [facility] [employer] [place] [address] * (ABNORMAL) CBC without differential (10/14/2024 9:54 PM DEXIGRAPH OPERATOR) [facility] WBC 13.4(H) 3.8 - 9.9 K/cumm Hgb 9.2(L) 13.0 - 17.5 g/dL [facility] Hct 30.0(L) 38.9 - 50.3 % [facility] Plt 412(H) 150 - 400 K/cumm [facility] MPV 9.2 9.1 - 12.3 fL [facility] RBC 3.65(L) 4.30 - 5.80 M/cumm [facility] MCV 82.2 81.3 - 96.4 fL [facility] MCH 25.2(L) 27.1 - 33.3 pg [facility] MCHC 30.7(L) 32.3 - 35.7 g/dL [facility] RDW CV 16.7(H) 11.1 - 14.9 % [facility] RDW SD 50.4(H) 35.7 - 48.1 fL [facility] NRBC abs 0.00 0.00 - 0.01 K/cumm [facility] Blood 10/14/2024 9:54 PM DEXIGRAPH OPERATOR 10/14/2024 10:15 PM DEXIGRAPH OPERATOR us Chasity Diego MD LAB BLOOD ORDERAB LES Final Result [facility] [place] [address] * Hepatic function panel (10/14/2024 9:54 PM DEXIGRAPH OPERATOR) [facility] Bilirubin, total 0.7 0.1 - 1.2 mg/dL Bilirubin, direct 0.3 0.1 - 0.3 mg/dL [facility] Protein, pl 6.6 6.5 - 8.5 g/dL [facility] Albumin 3.6 3.5 - 5.0 g/dL [facility] Alk phos 67 40 - 130 Units/L [facility] ALT 19 7 - 55 Units/L [facility] AST 27 10 - 50 Units/L [facility] Blood 10/14/2024 9:54 PM DEXIGRAPH OPERATOR 10/14/2024 10:15 PM DEXIGRAPH OPERATOR Narrative [facility] - 10/14/2024 10:44 PM DEXIGRAPH OPERATOR Baseline prior to apixaban initiation. Chasity Diego MD LAB BLOOD ORDERAB LES Final Result [facility] [place] [address] * (ABNORMAL) Basic metabolic panel (10/14/2024 9:54 PM DEXIGRAPH OPERATOR) Sodium 141 135 - 145 mmol/L Potassium, pl 4.7 3.3 - 4.9 mmol/L [facility] Chloride 107 97 - 110 mmol/L [facility] CO2 25 22 - 32 mmol/L [facility] Anion gap 9 2 - 15 mmol/L [facility] BUN 13 6 - 25 mg/dL [facility] Creatinine 0.73(L) 0.80 - 1.30 mg/dL [facility] Glucose 201(H) 70 - 199 mg/dL [facility] Comment: Interpretive Data Fasting glucose >/= 126 mg/dl is diagnostic for diabetes. ?? Fasting is defined as no caloric intake for at least 8 hours. Fasting glucose between 100 mg/dl to 125 mg/dl is diagnostic of prediabetes. In a patient with classic symptoms of hyperglycemia or hyperglycemic crisis, a random glucose >/= 200 mg/dl is diagnostic for diabetes. In the absence of unequivocal hyperglycemia, results should be confirmed by repeat testing. The classification and Diagnosis of Diabetes Diabetes Care 2021; 46: S19-S40. Current interpretive data was last revised 2022. Calcium 8.2(L) 8.5 - 10.3 mg/dL [facility] Blood 10/14/2024 9:54 PM DEXIGRAPH OPERATOR 10/14/2024 10:15 PM DEXIGRAPH OPERATOR Chasity Diego MD LAB BLOOD ORDERAB LES Final Result [facility] [place] [address] * XR Knee Left 1 or 2 View (10/14/2024 5:49 PM DEXIGRAPH OPERATOR) Anatomical Region Laterality Modality Lower Extremities, Knee Left Computed Radiography 10/15/2024 6:02 AM DEXIGRAPH OPERATOR Impressions 10/15/2024 6:02 AM DEXIGRAPH OPERATOR 1. ??Interval explantation of the left total knee arthroplasty with placement of a static antibiotic cement spacer Electronically signed by: Ricardo Suarez MD, PHD Narrative 10/15/2024 6:02 AM DEXIGRAPH OPERATOR EXAMINATION: Left knee one or 2 views HISTORY: ??Left knee arthroplasty; infection FINDINGS: 2 portable radiographs left knee are compared to prior radiographs from 06/04/2024. ??There has been interval explantation of the left total knee arthroplasty with placement of a static antibiotic cement spacer. ??Soft tissue swelling, intra-articular and deep soft tissue gas, knee joint effusion are noted. ??A wound VAC is in place. ??No acute fracture. Procedure Note Ricardo Suarez MD PhD - 10/15/2024 EXAMINATION: Left knee one or 2 views HISTORY: Left knee arthroplasty; infection FINDINGS: 2 portable radiographs left knee are compared to prior radiographs from 06/04/2024. There has been interval explantation of the left total knee arthroplasty with placement of a static antibiotic cement spacer. Soft tissue swelling, intra-articular and deep soft tissue gas, knee joint effusion are noted. A wound VAC is in place. No acute fracture. IMPRESSION: 1. Interval explantation of the left total knee arthroplasty with placement of a static antibiotic cement spacer Electronically signed by: Ricardo Suarez MD, PHD us Chasity Diego MD IMG XR PROCEDURES Final Result * Tissue aerobic and anaerobic culture and gram stain Tissue Knee, left (10/14/2024 2:27 PM DEXIGRAPH OPERATOR) Direct Specimen Exam Stain: No polymorphonuclear leukocytes seen. No organisms seen. Report Final Report: No growth TG [facility] Tissue (Knee, left) 10/14/2024 2:27 PM DEXIGRAPH OPERATOR 10/14/2024 5:46 PM DEXIGRAPH OPERATOR Narrative [facility] - 10/20/2024 11:58 AM DEXIGRAPH OPERATOR Left tibial osteolysis culture Testing performed by [facility] ([phone]) Specimens submitted from normally sterile body sites will have all bacterial morphotypes identified. Specimens that contain grossly mixed roz and/or are from body sites that are not normally sterile will be examined for Staphylococcus aureus, Pseudomonas aeruginosa, beta-hemolytic strep, vancomycin-resistant Enterococcus, Bacteroides, Parabacteroides, Clostridium perfringens and fungus. If any of these are isolated, the organism will be reported. Current interpretive data was last revised on 2019. Dewayne Tidwell MD LAB MICROBIOLOGY - G ENERAL ORDERABLES Final Result [facility] Department [place] [address] * Tissue aerobic and anaerobic culture and gram stain Tissue Knee, left (10/14/2024 2:20 PM DEXIGRAPH OPERATOR) Direct Specimen Exam Stain: No polymorphonuclear leukocytes seen. No organisms seen. Report Final Report: No growth [facility] Tissue (Knee, left) 10/14/2024 2:20 PM DEXIGRAPH OPERATOR 10/14/2024 5:48 PM DEXIGRAPH OPERATOR Narrative [facility] - 10/20/2024 11:56 AM DEXIGRAPH OPERATOR Left knee deep tissue culture Testing performed by [facility] ([phone]) Specimens submitted from normally sterile body sites will have all bacterial morphotypes identified. Specimens that contain grossly mixed roz and/or are from body sites that are not normally sterile will be examined for Staphylococcus aureus, Pseudomonas aeruginosa, beta-hemolytic strep, vancomycin-resistant Enterococcus, Bacteroides, Parabacteroides, Clostridium perfringens and fungus. If any of these are isolated, the organism will be reported. Current interpretive data was last revised on 2019. us Dewayne Tidwell MD LAB MICROBIOLOGY - G ENERAL ORDERABLES Final Result Performing Organization Address [facility] Co de Phone Number [facility] [place] [address] * Tissue aerobic and anaerobic culture and gram stain Bone Knee, left (10/14/2024 2:18 PM DEXIGRAPH OPERATOR) Direct Specimen Exam Stain: No polymorphonuclear leukocytes seen. No organisms seen. Report Final Report: No growth [facility] Bone (Knee, left) 10/14/2024 2:18 PM DEXIGRAPH OPERATOR 10/14/2024 5:47 PM DEXIGRAPH OPERATOR Narrative [facility] - 10/20/2024 11:58 AM DEXIGRAPH OPERATOR Left knee sinus track culture # 2 Testing performed by [facility] ([phone]) Specimens submitted from normally sterile body sites will have all bacterial morphotypes identified. Specimens that contain grossly mixed roz and/or are from body sites that are not normally sterile will be examined for Staphylococcus aureus, Pseudomonas aeruginosa, beta-hemolytic strep, vancomycin-resistant Enterococcus, Bacteroides, Parabacteroides, Clostridium perfringens and fungus. If any of these are isolated, the organism will be reported. Current interpretive data was last revised on 2019. Dewayne Tidwell MD LAB MICROBIOLOGY - G ENERAL ORDERABLES Final Result Performing Organization Address [facility] Co de Phone Number [facility] Department [place] [address] * (ABNORMAL) Tissue aerobic and anaerobic culture and gram stain Tissue Knee, left (10/14/2024 2:18 PM DEXIGRAPH OPERATOR) Direct Specimen Exam Stain: No polymorphonuclear leukocytes seen. No organisms seen. Report Final Report: Rare Staphylococcus epidermidis (.) [facility] Organism STAPHYLOCOCCUS EPIDERMIDIS [facility] Tissue (Knee, left) 10/14/2024 2:18 PM DEXIGRAPH OPERATOR 10/14/2024 5:42 PM DEXIGRAPH OPERATOR Narrative [facility] - 10/20/2024 12:10 PM DEXIGRAPH OPERATOR Left knee sinus track culture # 1 Testing performed by [facility] ([phone]) Specimens submitted from normally sterile body sites will have all bacterial morphotypes identified. Specimens that contain grossly mixed roz and/or are from body sites that are not normally sterile will be examined for Staphylococcus aureus, Pseudomonas aeruginosa, beta-hemolytic strep, vancomycin-resistant Enterococcus, Bacteroides, Parabacteroides, Clostridium perfringens and fungus. If any of these are isolated, the organism will be reported. Current interpretive data was last revised on 2019. Organism Antibiotic Method Susceptibility Staphylococcus epidermidis Daptomycin (YOLANDA) (YOLANDA) INTERPRETATION Susceptible Staphylococcus epidermidis Doxycycline (YOLANDA) INTERPRETATION Susceptible Staphylococcus epidermidis Linezolid (YOLANDA) INTERPRETATION Susceptible Staphylococcus epidermidis Trimethoprim with Sulfamethoxazole (YOLANDA) INTERPRETATION Susceptible Staphylococcus epidermidis Clindamycin (YOLANDA) INTERPRETATION Susceptible Staphylococcus epidermidis Erythromycin (YOLANDA) INTERPRETATION Susceptible Staphylococcus epidermidis Vancomycin (YOLANDA) INTERPRETATION Susceptible Staphylococcus epidermidis Oxacillin (YOLANDA) INTERPRETATION Resistant Staphylococcus epidermidis Cefazolin (YOLANDA) INTERPRETATION Resistant Staphylococcus epidermidis Ceftriaxone (YOLANDA) INTERPRETATION Resistant us Dewayne Tidwell MD LAB MICROBIOLOGY - [facility] ORDERABLES Final Result [facility] Department [place] [address] * Airway (10/14/2024 1:52 PM DEXIGRAPH OPERATOR) Narrative Blayne Childers DO - 10/14/2024 1:52 PM DEXIGRAPH OPERATOR Blayne Childers, ? 10/14/2024 ??3:07 PM Airway Patient location: OR Urgency: elective Indications for airway management: anesthesia and airway protection Difficult airway: no Staff: Supervising provider: Michael June MD Placed by: Resident: Blayne Childers DO Emergent airway documentation: Risks and benefits discussed: yes Consent obtained: yes Consent given by: patient Airway prep: Preoxygenated: yes Mask difficulty assessment: 1 - vent by mask Spontaneous ventilation during airway: absent Sedation level during airway: GA Final airway details: Final airway type: endotracheal airway Tube type: ETT ETT size: 7.0 mm Cuffed: yes Technique used for successful ETT placement: video laryngoscopy Devices/Methods used in placement: intubating stylet Insertion site: oral Blade type: Yady Video blade type: Oneal Blade size: 4 Cormack-Lehane (direct): grade IIa - partial view of glottis Cormack-Lehane (video): grade III - view of epiglottis only Cuff volume: 9 mL Cuff inflated with: air ETT to teeth: 21 cm Placement verified by: auscultation and CO2 detection Airway secured with: silk tape Number of attempts: 1 Planned trial extubation: yes us Michael June MD ANESTHESIA ORDERABLES Edited Res ult - Final * eGFR (09/16/2024 11:35 AM DEXIGRAPH OPERATOR) eGFR >90 >=60 mL/min/1. 73 m2 Comment: Interpretive Data Reference Interval Normal ?>/= 90 mL/min/1.73m2 Mildly decreased* ? 60 - 89 mL/min/1.73m2 Mildly to moderately decreased ?45 - 59 mL/min/1.73m2 Moderately to severely decreased ??30 - 44 mL/min/1.73m2 Severely decreased ?15 - 29 mL/min/1.73m2 Kidney Failure ?< 15 ??mL/min/1.73m2 *Relative to young adult level Estimated glomerular filtration rate is determined by the 2020 CKD-EPI equation recommended by the National Kidney Foundation (A Unifying Approach to GFR Estimation: Recommendations of the NKF-ASK Task Force on Reassessing the Inclusion of Race in Diagnosing Kidney Disease, JASN 2020). The CKD-EPI equation should not be used for patients with unstable renal function and has not been validated in children and those over 70. Current interpretive data was last reviewed 2021. Blood 09/16/2024 11:3 5 AM DEXIGRAPH OPERATOR 09/16/2024 3:00 PM DEXIGRAPH OPERATOR us Dewayne Tidwell MD LAB BLOOD ORDERABLES Final Result [facility] Department [place] [address] * Differential, auto (09/16/2024 11:35 AM DEXIGRAPH OPERATOR) Neutrophil abs 4.6 1.5 - 6.5 K/cumm Imm gran abs 0.1 0.0 - 0.1 K/cumm [facility] Lymphocyte abs 1.5 0.8 - 3.3 K/cumm [facility] Monocyte abs 0.8 0.2 - 0.8 K/cumm [facility] Eosinophil abs 0.2 0.0 - 0.5 K/cumm [facility] Basophil abs 0.1 0.0 - 0.1 K/cumm [facility] Neutrophil pct 64.6 % [facility] Comment: Interpretive Data Percent cell count reference ranges are not reported, since discordance with absolute values may lead to misinterpretation of CBC data. Current Interpretive Data was last revised on 2018. Imm gran pct 1.3 % [facility] Comment: Interpretive Data Percent cell count reference ranges are not reported, since discordance with absolute values may lead to misinterpretation of CBC data. Current Interpretive Data was last revised on 2018. Lymphocyte pct 20.4 % [facility] Comment: Interpretive Data Percent cell count reference ranges are not reported, since discordance with absolute values may lead to misinterpretation of CBC data. Current Interpretive Data was last revised on 2018. Monocyte pct 10.6 % [facility] Comment: Interpretive Data Percent cell count reference ranges are not reported, since discordance with absolute values may lead to misinterpretation of CBC data. Current Interpretive Data was last revised on 2018. Eosinophil pct 2.1 % [facility] Comment: Interpretive Data Percent cell count reference ranges are not reported, since discordance with absolute values may lead to misinterpretation of CBC data. Current Interpretive Data was last revised on 2018. Basophil pct 1.0 % [facility] Comment: Interpretive Data Percent cell count reference ranges are not reported, since discordance with absolute values may lead to misinterpretation of CBC data. Current Interpretive Data was last revised on 2018. Blood 09/16/2024 11:3 5 AM DEXIGRAPH OPERATOR 09/16/2024 2:37 PM DEXIGRAPH OPERATOR Dewayne Tidwell MD LAB BLOOD ORDERABLES Final Result Performing Organization Address [facility] Co de Phone Number [facility] Department [place] [address] * (ABNORMAL) CBC with auto differential (09/16/2024 11:35 AM DEXIGRAPH OPERATOR) [facility] WBC 7.1 3.8 - 9.9 K/cumm Hgb 12.0(L) 13.0 - 17.5 g/dL [facility] Hct 39.6 38.9 - 50.3 % [facility] Plt 380 150 - 400 K/cumm [facility] MPV 9.6 9.1 - 12.3 fL [facility] RBC 4.66 4.30 - 5.80 M/cumm [facility] MCV 85.0 81.3 - 96.4 fL [facility] MCH 25.8(L) 27.1 - 33.3 pg [facility] MCHC 30.3(L) 32.3 - 35.7 g/dL [facility] RDW CV 17.1(H) 11.1 - 14.9 % [facility] RDW SD 52.8(H) 35.7 - 48.1 fL [facility] NRBC abs 0.00 0.00 - 0.01 K/cumm [facility] Blood 09/16/2024 11:3 5 AM DEXIGRAPH OPERATOR 09/16/2024 2:37 PM DEXIGRAPH OPERATOR Dewayne Tidwell MD LAB BLOOD ORDERABLES Final Result Performing Organization Address [facility]/ZIP Co de Phone Number [facility] [place] [address] * Vitamin D 25 hydroxy (09/16/2024 11:35 AM DEXIGRAPH OPERATOR) Vitamin D 25-OH 68 30 - 80 ng/mL Blood 09/16/2024 11:3 5 AM DEXIGRAPH OPERATOR 09/16/2024 2:40 PM DEXIGRAPH OPERATOR us Dewayne Tidwell MD LAB BLOOD ORDERABLES Final Result [facility] Department [place] [address] * Comprehensive metabolic panel (09/16/2024 11:35 AM DEXIGRAPH OPERATOR) Sodium 139 135 - 145 mmol/L Potassium, pl 4.4 3.3 - 4.9 mmol/L [facility] Chloride 103 97 - 110 mmol/L [facility] CO2 28 22 - 32 mmol/L [facility] Anion gap 8 2 - 15 mmol/L [facility] BUN 11 6 - 25 mg/dL [facility] Creatinine 0.83 0.80 - 1.30 mg/dL [facility] Glucose 103 70 - 199 mg/dL [facility] Comment: Interpretive Data Fasting glucose >/= 126 mg/dl is diagnostic for diabetes. ?? Fasting is defined as no caloric intake for at least 8 hours. Fasting glucose between 100 mg/dl to 125 mg/dl is diagnostic of prediabetes. In a patient with classic symptoms of hyperglycemia or hyperglycemic crisis, a random glucose >/= 200 mg/dl is diagnostic for diabetes. In the absence of unequivocal hyperglycemia, results should be confirmed by repeat testing. The classification and Diagnosis of Diabetes Diabetes Care 202; 46: S19-S40. Current interpretive data was last revised 2022. Calcium 9.6 8.5 - 10.3 mg/dL [facility] Bilirubin, total 0.4 0.1 - 1.2 mg/dL [facility] Protein, pl 8.1 6.5 - 8.5 g/dL [facility] Albumin 4.3 3.5 - 5.0 g/dL [facility] Alk phos 98 40 - 130 Units/L [facility] ALT 23 7 - 55 Units/L [facility] AST 29 10 - 50 Units/L [facility] Blood 09/16/2024 11:3 5 AM DEXIGRAPH OPERATOR 09/16/2024 2:40 PM DEXIGRAPH OPERATOR us Dewayne Tidwell MD LAB BLOOD ORDERABLES Final Result [facility] [place] [address] from Last 3 Months Insurance MEDICARE [facility] MEDICARE [facility] MEDICARE SUPPLEMENT MEDICARE [facility] MEDICARE SUPPLEMENT Advance Directives For more information, please contact: [phone] * Full Code (Latest Code Status on File) Date Activated Date Inactivated Comments 10/14/2024 9:15 PM 10/21/2024 6:34 PM Care Teams Financial Planner Relationship Specialty Start Date End Date Karthik Dalton MD [address] [place] [address] PCP - General Family Medicine 04/05/19
--- OUTSIDE RECORDS SUMMARY | 2024-10-24 15:49 | XMS_ITS | Encounter Summary ---
Author Organization [facility] Address [address] [place] [address]. [place] [address] [place] [address] Care Team Providers Care Test Data Developer Name Role Phone Karthik Dalton MD Primary Care Provider + [phone] Gina Vallejo NP Unavailable Jacob Williamson MD Unavailable +[phone] Encounter Details Date Type Department Care Team (Late st Contact Info) Description 07/01/2024 MyChart Message Enc [facility] - [facility] [address] [facility], [place] [address] [place] [id number] Gina Vallejo, [place] [address] [facility]. [facility] [address] [place], [place] [id number] Antibiotics Social History Tobacco Use Types Packs/Day Years Used Date Smoking Tobacco: Never Smokeless Tobacco: Never Alcohol Use Standard Drinks/Week Comments Not Currently 0 (1 standard drink = 0.6 oz pur e alcohol) PHQ-2 Answer Date Recorded Patient Health Questionnaire-2 Score 0 04/04/2024 Sex and Gender Information Value Date Recorded [...] documented as of this encounter Care Teams Test Data Developer Relationship Specialty Start Date End Date Karthik Dalton MD [address] [place] [address] [place] [address] PCP - General FAMILY PRACTICE 03/14/22 Gina Vallejo NP [address] [facility] [address] [place] [address] Referring Physician INFECTIOUS DISEASE 08/01/23 4 Jacob Williamson MD [address] [place] [address] ORTHOPAEDICS 02/21/24 02/20/25 documented as of this encounter
--- OUTSIDE RECORDS SUMMARY | 2024-10-24 15:49 | XMS_ITS | Continuity of Care Document ---
Author Organization [facility] Address [address] [place] [address] Phone Care Team Providers Care Tenant Relations Coordinator Name Role Phone Blanche Edwards MD Unavailable Unavailabl e Allergies, Adverse Reactions, Alerts Substance Reaction Status Criticality No Known Allergies Active No Inform ation Medications Medication Instructions Dosage Effective Dates (start - stop) Status Comments meloxicam 15 mg tablet take 1 tablet by oral route every day 15 MG - Active cephalexin 500 mg capsule take 1 capsule by oral route every 6 hours 500 MG - Active Vitamin D3 125 mcg (5,000 unit) tablet - Active Quercetin Complex 500 mg-250 mg-33 mg capsule - Active zinc gluconate 30 mg tablet - Active Emergen-C 1,000 mg oral effervescent powder packet - Active Procedures Procedure Date ALISHA HERNÁNDEZ COMPL 4/MORE VIEWS OFFICE/OUTPATIENT VISIT EST RADEX KNMadison 3 VIEWS OFFICE/OUTPATIENT VISIT EST POSTOP FOLLOW-UP VISIT POSTOP FOLLOW-UP VISIT POSTOP FOLLOW-UP VISIT PT EVAL LOW COMPLEX 20 MIN NEUROMUSCULAR REEDUCATION THERAPEUTIC ACTIVITIES POSTOP FOLLOW-UP VISIT POSTOP FOLLOW-UP VISIT EXPLORATION OF KNEE JOINT POSTOP FOLLOW-UP VISIT DRAIN/INJECT JOINT/BURSA POSTOP FOLLOW-UP VISIT REVISE/REPLACE KNEE JOINT OFFICE/OUTPATIENT VISIT EST RADEX KNE 3 VIEWS OFFICE/OUTPATIENT VISIT EST RADEX KNE 3 VIEWS OFFICE/OUTPATIENT VISIT NEW Advance Directives Directive Yes / No Effective Date File Name No Information Encounters Encounter Description Practice Location Reason(s) For Visit Diagnoses Date Provider Providers Copied on Encounter [facility], [address] [facility] [address] [address], [place], [address], tel:[phone] [facility] No Information [address] [place] , [place], [place], [id number] . tel:[phone] OFFICE/OUTPA TIENT VISIT EST [facility], [address] [facility] [address], [address], tel:[phone] [facility] Pain in right kneeStatus post revision of total replacement of left kneeStatus post incision and drainagePrimary osteoarthritis of right knee 4 [address] [place] , [place], [place], [id number] . tel:[phone] Referring Provider: Karthik Wallace, [address], [place], [address]. [phone] OFFICE/OUTPA TIENT VISIT EST [facility], [address] [facility] [address] [address], [place], [address], [place] tel:[phone] [facility] Status post revision of total replacement of left kneeStatus post incision and drainageFibrosi s due to genitourinary graft, subsequent encounter 4 [address] [place] , [place], [place], [address] . tel:[phone] Referring Provider: Karthik Wallace, [address], [place], [address]. [phone] [facility], [address], [address], [place] tel:[phone] [facility] Status post revision of total replacement of left kneeStatus post incision and drainage 3 [address] [place]. [address] [facility], [place], [place], [address] . tel: [phone] Referring Provider: Karthik Wallace, [address], [place], [address]. [phone] [facility], [address], [address], [place] tel:[phone] [facility] Effusion, left kneeOther instability, left kneeFibrosis due to genitourinary graft, subsequent encounterStatus post revision of total replacement of left kneeStatus post incision and drainage 3 [address] [place] [address] [facility], [place], [place], [address] . tel: [phone] Referring Provider: Karthik Wallace, [address], [place], [address]. tel:[phone] [facility], [address] [place], [address], tel:[phone] [facility] Status post revision of total replacement of left kneeFibrosis due to internal orthopedic graft, subsequent encounterFibros is due to genitourinary graft, subsequent encounterPain in left kneeStiffness of left knee, not elsewhere classifiedOther instability, left kneeEffusion, left kneeUnspecified abnormalities of gait and mobility 3 [address]. [address] [facility] [address], [place], [place], [id number] . tel:[phone] Referring Provider: Blanche Wallace, [address] [facility], [place], [address]. tel:[phone] [facility], [address] [address], [place], [address], [place] tel:[phone] [facility] Status post revision of total replacement of left kneeInfection of total left knee replacement, initial encounter 3 [address] [place], [place], [place], [address] . tel: [phone] Referring Provider: Karthik Wallace, [address], [place], [address]. tel:[phone] [facility], [address], [place], [address], [place] tel:[phone] [facility] Infection of total left knee replacement, initial encounterStatus post revision of total replacement of left kneeFibrosis due to genitourinary prosthetic devices, implants and grafts, initial encounter 3 [address]. [address], [place], [address]. tel: [phone] Referring Provider: Karthik Wallace, [address], [place], [address]. tel:[phone] [facility], [address], [place], [address], [place] tel:[phone] [facility] Infection of total left knee replacement, initial encounter 3 [address] [place], [place], [place], [address] . tel: [phone] [facility], [address] [facility] [address], [place], [address], [place] tel:[phone] [facility] Status post revision of total replacement of left knee 3 [address]. [address], [place], [address]. tel:[phone] Referring Provider: Karthik Wallace, [address], [place], [address]. tel:[phone] [facility], [address] [facility], [place], [address], [place] tel:[phone] [facility] Body mass index [BMI] 25.0-25.9, adultStatus post revision of total replacement of left knee 3 [address]. [address] [facility] [address], [place], [address]. tel: [phone] Referring Provider: Karthik Wallace, [address], [place], [address]. tel:[phone] [facility], [address] [address], [place], [address], [place] tel:[phone] [facility] Pain due to total left knee replacement, initial encounterStatus post revision of total replacement of left kneeFibrosis due to genitourinary prosthetic devices, implants and grafts, initial encounter 3 [address] [place] , [place], [place], [address] . tel: [phone] [facility], [address] [address], [place], [address], [place] tel:[phone] [facility] Pain due to total left knee replacement, initial encounterStatus post revision of total replacement of left knee 3 [address] [place] , [place], [place], [address] . tel: [phone] OFFICE/OUTPA TIENT VISIT EST [facility], [address] [address], [place], [address], [place] tel:[phone] [facility] Pain due to total left knee replacement, initial encounterHistor y of total left knee replacement 3 [address] [place] , [place], [place], [address] . tel: [phone] Referring Provider: Karthik Wallace, [address], [place], [address]. tel:[phone] OFFICE/OUTPA TIENT VISIT EST [facility], [address] [address], [place], [address], [place] tel:[phone] [facility] History of total left knee replacementPain due to total left knee replacement, initial encounterBody mass index [BMI] 25.0-25.9, adult 3 [address] [place] , [place], [place], [address] . tel:[phone] Referring Provider: Karthik Wallace, [address], [place], [address]. tel:[phone] OFFICE/OUTPA TIENT VISIT NEW [facility], [address] [facility] [address], [place], [address], tel:[phone] [facility] History of total left knee replacementArth rofibrosis of total knee replacement, initial encounterBody mass index (BMI) 25.0-25.9, adult Dec- 0 [address] [place]. [address] [facility] [address] , [place], [place], [address] . tel:[phone] Referring Provider: Karthik Wallace, [address], [place], [address]. tel:[phone] Family History Family Member Type Diagnosis Age At Onset Mother Problem Diabetes mellitus Mother Problem hyperlipidemia Father Problem Alive and well Payers Payer name Insurance type Covered constitution party ID Nimesh muñoz(s) Medicare E2 OT [id number] [place] Medicare Supplement E2 OT [id number] Social History Type Description Quantity Date Captured Comments Alcohol Use Details Unknown Caffeine Use Details Unknown Tobacco Use Status No Information Smoking Status No Information Sex Male Chief Complaint And Reason For Visit No Information Reason For Referral Reason For Referral No Information Plan Of Treatment Date Type Action Status Referral Ordered: RADEX KNE COMPL 4/MORE VIEWS Bilateral knee ordered Referral Ordered: B1&/JT IMG 3 PHASE STD LT knee Appointment date/timeframe: 10/21/2022 ordered Referral Ordered: RADEX KNE 3 VIEWS LT knee ordered Future Order: Lab Order Marcelo Joshi ([id number]), Ordered on: Ordered Future Order: Lab Order C-Reacti ve Protein, Quant ([id number]), Ordered on: Ordered Future Order: Lab Order CBC With Differential/Platelet ([id number]), Ordered on: Ordered History Of Present Illness Encounter Date Complaint History Of Prese nt Illness No Information Functional Status Date Functional Assessmen t No Information Instructions Date Instruction Additional Infor mation Job/work modification Related to Stiffness of left knee, not elsewhere classified ADL training Related to Stiff ness of left knee, not elsewhere classified Home exercise program Related to Stiffness of left knee, not elsewhere classified Giving encouragement to exercise Related to Body mass index [BMI] 25.0-25.9, adult Giving encouragement to exercise Related to Body mass index [BMI] 25.0-25.9, adult Giving encouragement to exercise Related to Body mass index (BMI) 25.0-25.9, adult Assessments Type Assessment Date No Information Patient Care Teams Name Effective Dates (start - stop) Status Members No Information
--- OUTSIDE RECORDS SUMMARY | 2024-10-24 15:49 | XMS_ITS | Encounter Summary ---
Author Organization [facility] Address [address] [place] [address]. [place] [address] [place] [address] Care Team Providers Care Traveling Repair Accountant Name Role Phone Karthik Dalton MD Primary Care Provider +- [phone] Gina Vallejo NP Unavailable Jacob Williamson MD Unavailable [phone] Encounter Details Date Type Department Care Team (Late st Contact Info) Description 09/05/2023 Therapy Plan [facility] [place] [address] Reji Avila MD [address] [place] [address] Social History Tobacco Use Types Packs/Day Years Used Date Smoking Tobacco: Never Smokeless Tobacco: Never Alcohol Use Standard Drinks/Week Comments Not Currently 0 (1 standard drink = 0.6 oz pur e alcohol) PHQ-2 Answer Date Recorded Patient Health Questionnaire-2 Score 0 08/23/2023 Sex and Gender Information Value Date Recorded Sex Assigned at Not on file Legal Sex Male 8:22 PM CDT Gender Identity Not on file Sexual Orientation Not on file documented as of this encounter Plan of Treatment Not on file documented as of this encounter Visit Diagnoses Diagnosis 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 [address] Referring Physician INFECTIOUS DISEASE 08/01/23 4 Jacob Williamson MD [address] [place] [address] ORTHOPAEDICS 02/21/24 02/20/25 documented as of this encounter
--- OUTSIDE RECORDS SUMMARY | 2024-10-24 15:49 | XMS_ITS | Encounter Summary ---
Author Organization [facility] Address [address] [place] [address]. [place] [address] [place] [address] Care Team Providers Care Sheetfed Press Operator Name Role Phone Karthik Dalton MD Primary Care Provider [phone] Gina Vallejo NP Unavailable Jacob Williamson MD Unavailable [phone] Encounter Details Date Type Department Care Team (Latest Contact Info) Description 09/05/2023 Usersnap Message [facility] Multispecialty [address] [address] [facility] Provider Responce to your question Social History Tobacco Use Types Packs/Day Years [...] documented as of this encounter Care Teams Sheetfed Press Operator Relationship Specialty Start Date End Date Karthik Dalton MD [address] [place] [address] [address] [place] [address] PCP - General FAMILY PRACTICE 03/14/22 Gina Vallejo NP 3 [facility]. [address] [address] Referring Physician INFECTIOUS DISEASE 08/01/23 4 Jacob Williamson MD [address] [place] [address] ORTHOPAEDICS 02/21/24 02/20/25 documented as of this encounter
--- OUTSIDE RECORDS SUMMARY | 2024-10-24 15:49 | XMS_ITS | Encounter Summary ---
Author Organization [facility] Address [address] [place] [address]. [place] [address] [place] [address] Care Team Providers Care Director Sterile Processing Name Role Phone Karthik Dalton MD Primary Care Provider + [phone] Gina Vallejo NP Unavailable Jacob Williamson MD Unavailable [phone] Encounter Details Date Type Department Care Team (Late st Contact Info) Description 04/25/2024 MyChart Message Enc [facility] Multispecialty Care - [facility] 3 [facility], [address] [place] [id number] Gina Vallejo, AUTOPSY ASSISTANT 3 [facility]. [address] [place] [address] Lab work (RBC) Social History Tobacco Use Types Packs/Day Years [...] as of this encounter Care Teams Director Sterile Processing Relationship Specialty Start Date End Date Karthik Dalton MD [address] [place] [address] [address] [place] [address] PCP - General FAMILY PRACTICE 03/14/22 Gina Vallejo NP [address] [address] Referring Physician INFECTIOUS DISEASE 08/01/23 4 Jacob Williamson MD [address] [place] [address] ORTHOPAEDICS 02/21/24 02/20/25 documented as of this encounter
--- OUTSIDE RECORDS SUMMARY | 2024-10-24 15:49 | XMS_ITS | Encounter Summary ---
Author Organization [facility] Address [address] [place] [address]. [place] [address] [place] [address] Care Team Providers Care Customs Collector Name Role Phone Karthik Dalton MD Primary Care Provider [phone] Gina Vallejo NP Unavailable Jacob Williamson MD Unavailable [phone] Encounter Details Date Type Department Care Team (Late st Contact Info) Description 11/01/2023 MyChart Message Enc [facility] [address] [place] [address] Reji Avila MD [address] [place] [address] Antibiotics Social History Tobacco Use Types Packs/Day [...] documented as of this encounter Care Teams Customs Collector Relationship Specialty Start Date End Date Karthik Dalton MD [address] [place] [address] [address] PCP - General FAMILY PRACTICE 03/14/22 Gina Vallejo NP 3 [facility]. [address] [address] Referring Physician INFECTIOUS DISEASE 08/01/23 4 Jacob Williamson MD [address] [place] [address] ORTHOPAEDICS 02/21/24 02/20/25 documented as of this encounter
--- OUTSIDE RECORDS SUMMARY | 2024-10-24 15:49 | XMS_ITS | Encounter Summary ---
Author Organization [facility] Address [address] [place] [address]. [place] [address] [place] [address] Care Team Providers Care First Assist Name Role Phone Karthik Dalton MD Primary Care Provider +- [phone] Gina Vallejo NP Unavailable Jacob Williamson MD Unavailable [phone] Encounter Details Date Type Department Care Team (Late st Contact Info) Description 04/08/2024 MyChart Message Enc [facility] Multispecialty [facility] [address] [place] [address] Reji Avila MD [address] [place] [address] MRI Social History Tobacco Use Types Packs/Day Years [...] documented as of this encounter Care Teams First Assist Relationship Specialty Start Date End Date Karthik Dalton MD [address] [place] [address] [address] PCP - General FAMILY PRACTICE 03/14/22 Gina Vallejo NP 3 [facility]. [address] [address] Referring Physician INFECTIOUS DISEASE 08/01/23 4 Jacob Williamson MD [address] [place] [address] ORTHOPAEDICS 02/21/24 02/20/25 documented as of this encounter
--- OUTSIDE RECORDS SUMMARY | 2024-10-24 15:49 | XMS_ITS | Encounter Summary ---
Author Organization [facility] Address [address] [place] [address]. [place] [address] [place] [address] Care Team Providers Care Regulator Inspector Name Role Phone Karthik Dalton MD Primary Care Provider + [phone] Gina Vallejo NP Unavailable Jacob Williamson MD Unavailable [phone] Encounter Details Date Type Department Care Team (Late st Contact Info) Description 04/04/2024 MyChart Message Enc [facility] Multispecialty Care - [facility] 3 [facility], [address] [place] [address] Gina Vallejo, AUSTYN [address] [facility]. [address] [place], [place] [id number] MRI Social History Tobacco Use Types Packs/Day [...] documented as of this encounter Care Teams Regulator Inspector Relationship Specialty Start Date End Date Karthik Dalton MD [address] [place] [address] [place] [address] PCP - General FAMILY PRACTICE 03/14/22 Gina Vallejo NP [address] [place] [address] Referring Physician INFECTIOUS DISEASE 08/01/23 4 Jacob Williamson MD [address] [place] [address] ORTHOPAEDICS 02/21/24 02/20/25 documented as of this encounter
--- OUTSIDE RECORDS SUMMARY | 2024-10-24 15:49 | XMS_ITS | Referral Summary ---
Author Organization [facility] Address [address] [place] [address] Care Team Providers Care Patrol Guard Name Role Phone Karthik Dalton MD Primary Care Provider [phone] Encounters Date Type Department Care Team Description 10/23/2024 Telephone [facility] Infectious Diseases [address] [place] [address] [address] [place] [address] Libra Coello, [facility] 10/22/2024 5:40 PM DRUM OPERATOR - 10/22/2024 11:59 PM DRUM OPERATOR Hospital Encounter [facility] [address] [place] [address] [id number] Discharge Disposition: Discharge to home or self care 10/22/2024 Telephone [facility] Orthopaedic Surgery [address] [facility] 2nd Floor [address] [place] [address] Osiel Navarrete MD 10/21/2024 Orders Only [facility] Home Care Services [address] [place] [address] Jennifer Duggan, [facility] 10/21/2024 Telephone [facility] Case Management [address] [place] [address] Ying Robles RN 10/14/2024 11:27 AM DRUM OPERATOR - 10/21/2024 2:28 PM DRUM OPERATOR Hospital Encounter [facility] [address] [place] [phone] Dewayne Tidwell MD Infection of total joint prosthesis, initial encounter (HCC) (Primary Dx); Infected prosthetic knee joint, sequela Discharge Disposition: Discharge to home or self care 10/18/2024 Documentation [facility] Infectious Diseases [address] [facility] [address] [place] [phone] Darline Foreman, AUSTYN 10/17/2024 7:30 AM DRUM OPERATOR - 10/17/2024 10:40 AM DRUM OPERATOR Surgery [facility] Operating Room [address] [place] [phone] Osiel Navarrete MD FLAP GASTROCNEMIUS TO KNEE 10/17/2024 7:45 AM DRUM OPERATOR Anesthesia Event [facility] Operating Room [address] [place] [phone] Ty Pratt MD Lee, Chris Cheng-Fu, MD PhD 10/14/2024 12:50 PM DRUM OPERATOR - 10/14/2024 5:00 PM DRUM OPERATOR Surgery [facility] Operating Room [address] [place] [phone] Dewayne Tidwell MD PLACEMENT SPACER/ANTIBIOTIC BEAD - KNEE-LEFT 10/14/2024 1:10 PM DRUM OPERATOR Anesthesia Event [facility] Operating Room [address] [place] [phone] Alonso Swann MD Brake, Barbara E., NP 10/09/2024 Orders Only [facility] Orthopaedic Surgery [address] [facility] Medical Office Building [address] [place] [phone] Dewayne Tidwell MD 09/16/2024 11:00 AM DRUM OPERATOR Lab [facility] [address] [place] [address] [address] [place] [address] Infection of total joint prosthesis, initial encounter (HCC) 09/16/2024 10:30 AM DRUM OPERATOR Pre-Admission Testing [facility] CAM Pre Anesthesia Testing [address] [place] [phone] from Last 3 Months Allergies Active Allergy Reactions Criticality Noted Date [...] into catheter every 12 (twelve) hours 10/21/19 025 Active sodium chloride 0.9% injection Administer 5-10 mL into catheter every 12 (twelve) hours 10/21/19 025 Active methocarbamoL (ROBAXIN) 750 mg tablet [...] mg total) by mouth every evening 06/26/20 025 Discontin ued(Stop Taking at Discharge ) sulfamethoxazol e-trimethoprim (BACTRIM DS) 800-160 mg per tabletIndicatio ns:Bone/Joint Infection,knee Take 1 tablet (160 mg of trimethoprim total) by mouth every morning 02/26/20 025 Discontin ued(Stop Taking at Discharge ) mupirocin (BACTROBAN) 2 % ointment Apply topically 2 (two) times a day for 5 days APPLY TO NOSTRILS TWICE A DAY. STARTING 5 DAYS PRIOR TO SURGERY. 22 g 10/09/19 025 Discontin ued(Stop Taking at Discharge ) Active Problems Problem Noted Date Diagnosed Date Infected prosthetic knee joint, sequela 10/14/19 25 Infection of total knee replacement 09/30/2024 Infection of total joint prosthesis ([facility] Assessment & Plan (10/18/2024 12:36 PM DRUM OPERATOR): Dipesh Martinez is a 64 y.o. male with a history of prostate cancer, anemia, DVT (05/2023), and a chronically infected left total knee arthroplasty admitted on 10/14/24 with chronic left knee draining wound for planned I&D, explant and antibiotic spacer placement. On 08/26/2019 he underwent a L. TKA at [facility]. 05/18/23 underwent L. Knee I&D and liner exchange at [facility]. OR cultures grew Enterobacter cloacae, Pseudomonas aeruginosa, and prevotella bivia which was treated initially with vancomycin/Zosyn then suppressed with cipro/amox then switched to cipro/bactrim with positive MRSA wound culture in 07/2023. Followed by [facility] ID. He went to Dr. Tidwell at 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 Not on file Not on file Not on file Last Filed Vital Signs Vital Sign Reading Time Taken Comments Blood Pressure 125/61 10/21/2024 7:28 AM DRUM OPERATOR Pulse 75 10/21/2024 7:28 AM DRUM OPERATOR Temperature 36.6 ??C (97.9 ??F) 10/21/2024 7:28 AM CS T Respiratory Rate 16 10/21/2024 7:28 AM DRUM OPERATOR Oxygen Saturation 96% 10/21/2024 7:28 AM DRUM OPERATOR Inhaled Oxygen Concentration - - Weight 77.1 kg (170 lb) 10/15/2024 1:28 AM DRUM OPERATOR Height 172.7 cm (5' 7.99 ) 10/15/2024 1:28 AM CS T Body Mass Index 25.85 10/15/2024 1:28 AM DRUM OPERATOR Plan of Treatment Not on file Medical Devices Implanted Type Area Link Cutter Device Identifier Shelf Expiration Date Model / Serial / Lot [employer] Cement Bone Cerament 5 Ml Supplement Filler [id number] - [id number] Implanted:Qty: 2 on 10/14/2024 by Dewayne Tidwell MD at [facility] [employer] 08/28/2025 A021 0-09 / / [id number] [employer] Simplex P Full Dose Radiopaque Preblend Cement Bone Tobramycin 6197-9-001 - [id number] Implanted:Qty: 3 on 10/14/2024 by Dewayne Tidwell MD at [facility] Left: Knee [employer] [id number] 08/24/2025 [id number] / / [id number] [employer] Nail Femoral [id number] Radha [employer] Sys Strl Indicated For [id number] - [id number] Implanted:Qty: 1 on 10/14/2024 by Dewayne Tidwell MD at [facility] Left: Knee [employer] [id number] / / [employer] Simplex P Full Dose Radiopaque Preblend Cement Bone Tobramycin 6197-9-001 - [id number] Implanted:Qty: 2 on 10/14/2024 by Dewayne Tidwell MD at [facility] Left: Knee [employer] [id number] 1 / / [id number] [employer] Simplex P Full Dose Radiopaque Preblend Cement Bone Tobramycin 6197-9-001 - [id number] Implanted:Qty: 1 on 10/14/2024 by Dewayne Tidwell MD at [facility] Left: Knee [employer] [id number] 10/25/2025 [id number] / / [id number] Procedures Procedure Name Priority Date/Time Associated Diagnosis Comments EGFR Routine 10/20/2024 8:41 PM DRUM OPERATOR DIFFERENTIAL AUTO Routine 10/20/2024 8:4 1 PM DRUM OPERATOR CBC WITH AUTO DIFFERENTIAL Routine 10/20/2024 8:41 PM DRUM OPERATOR BASIC METABOLIC PANEL Routine 10/20/2024 8:41 PM DRUM OPERATOR EGFR Routine 10/19/2024 9:06 PM DRUM OPERATOR DIFFERENTIAL AUTO Routine 10/19/2024 9:0 6 PM DRUM OPERATOR CBC WITH AUTO DIFFERENTIAL Routine 10/19/2024 9:06 PM DRUM OPERATOR BASIC METABOLIC PANEL Routine 10/19/2024 9:06 PM DRUM OPERATOR EGFR Routine 10/18/2024 8:10 PM DRUM OPERATOR DIFFERENTIAL AUTO Routine 10/18/2024 8:1 0 PM DRUM OPERATOR CBC WITH AUTO DIFFERENTIAL Routine 10/18/2024 8:10 PM DRUM OPERATOR BASIC METABOLIC PANEL Routine 10/18/2024 8:10 PM DRUM OPERATOR ECG 12-LEAD Routine 10/18/2024 1:13 PM DRUM OPERATOR CREATINE KINASE (CK), TOTAL Timed 10/18/2024 12:50 PM DRUM OPERATOR EGFR Routine 10/17/2024 9:42 PM DRUM OPERATOR DIFFERENTIAL AUTO Routine 10/17/2024 9:4 2 PM DRUM OPERATOR CBC WITH AUTO DIFFERENTIAL Routine 10/17/2024 9:42 PM DRUM OPERATOR BASIC METABOLIC PANEL Routine 10/17/2024 9:42 PM DRUM OPERATOR NC AN PROCEDURE PLACEHOLDER Routine 10/17/2024 9:17 AM DRUM OPERATOR TRANSFUSE RED BLOOD CELLS Timed 10/17/2024 8:27 AM DRUM OPERATOR NC AN PROCEDURE PLACEHOLDER Routine 10/17/2024 8:23 AM DRUM OPERATOR NC AN ELECTIVE ENDOTRACHEAL AIRWAY Routine 10/17/2024 8:23 AM DRUM OPERATOR SPLIT THICKNESS SKIN GRAFT - LOWER EXTREMITY 10/17/2024 7:47 AM DRUM OPERATOR Infection of total knee replacement, subsequent encounter Case Notes 10/16 PER KIERRA PHIPPS DANIEL JAMISON- RC10/15@1330- Changed line up per Jennifer via phone (EF) Special Needs LOPEZ MESHER/DERMATOME/PLATES FLAP GASTROCNEMIUS TO KNEE 10/17/2024 7:47 AM DRUM OPERATOR Infection of total knee replacement, subsequent encounter Case Notes 10/16 PER DESIRE KIERRA ESPINOZAELPIDIO JAMISON- RC10/15@1330- Changed line up per Jennifer via phone (EF) Special Needs LOPEZ MESHER/DERMATOME/PLATES PREPARE RBC STAT 10/17/2024 7:05 AM DRUM OPERATOR TYPE AND SCREEN STAT 10/17/2024 5:41 AM DRUM OPERATOR EGFR Routine 10/16/2024 9:51 PM DRUM OPERATOR DIFFERENTIAL AUTO Routine 10/16/2024 9:5 1 PM DRUM OPERATOR CBC WITH AUTO DIFFERENTIAL Routine 10/16/2024 9:51 PM DRUM OPERATOR BASIC METABOLIC PANEL Routine 10/16/2024 9:51 PM DRUM OPERATOR VANCOMYCIN LEVEL TROUGH Timed 10/16/19 2:00 PM DRUM OPERATOR INSERT PICC LINE Routine 10/16/2024 12:02 PM DRUM OPERATOR EGFR Routine 10/15/2024 11:26 PM DRUM OPERATOR DIFFERENTIAL AUTO Routine 10/15/2024 11:26 PM DRUM OPERATOR CBC WITH AUTO DIFFERENTIAL Routine 10/15/2024 11:26 PM DRUM OPERATOR BASIC METABOLIC PANEL Routine 10/15/2024 11:26 PM DRUM OPERATOR EGFR Timed 10/14/2024 9:54 PM DRUM OPERATOR HEPATIC FUNCTION PANEL STAT 9:54 PM DRUM OPERATOR PROTIME-INR STAT 10/14/2024 9:54 PM DRUM OPERATOR CBC WITHOUT DIFFERENTIAL STAT 10/14/2024 9:54 PM DRUM OPERATOR BASIC METABOLIC PANEL Timed 10/14/2024 9:54 PM DRUM OPERATOR XR KNEE LEFT 1 OR 2 VIEWS ED Urgent/IP Urgent 10/14/2024 5:49 PM DRUM OPERATOR MYCOBACTERIOLOGY AFB CULTURE AND ACID-FAST STAIN Routine 10/14/2024 3:14 PM DRUM OPERATOR MYCOLOGY (FUNGAL) CULTURE AND STAIN Routine 10/14/2024 3:14 PM DRUM OPERATOR TISSUE AEROBIC AND ANAEROBIC CULTURE AND GRAM STAIN Routine 10/14/2024 3:14 PM DRUM OPERATOR MYCOBACTERIOLOGY AFB CULTURE AND ACID-FAST STAIN Routine 10/14/2024 3:05 PM DRUM OPERATOR MYCOLOGY (FUNGAL) CULTURE AND STAIN Routine 10/14/2024 3:05 PM DRUM OPERATOR TISSUE AEROBIC AND ANAEROBIC CULTURE AND GRAM STAIN Routine 10/14/2024 3:05 PM DRUM OPERATOR MYCOBACTERIOLOGY AFB CULTURE AND ACID-FAST STAIN Routine 10/14/2024 2:27 PM DRUM OPERATOR MYCOLOGY (FUNGAL) CULTURE AND STAIN Routine 10/14/2024 2:27 PM DRUM OPERATOR TISSUE AEROBIC AND ANAEROBIC CULTURE AND GRAM STAIN Routine 10/14/2024 2:27 PM DRUM OPERATOR MYCOBACTERIOLOGY AFB CULTURE AND ACID-FAST STAIN Routine 10/14/2024 2:20 PM DRUM OPERATOR MYCOLOGY (FUNGAL) CULTURE AND STAIN Routine 10/14/2024 2:20 PM DRUM OPERATOR TISSUE AEROBIC AND ANAEROBIC CULTURE AND GRAM STAIN Routine 10/14/2024 2:20 PM DRUM OPERATOR MYCOBACTERIOLOGY AFB CULTURE AND ACID-FAST STAIN Routine 10/14/2024 2:19 PM DRUM OPERATOR MYCOLOGY (FUNGAL) CULTURE AND STAIN Routine 10/14/2024 2:19 PM DRUM OPERATOR TISSUE AEROBIC AND ANAEROBIC CULTURE AND GRAM STAIN Routine 10/14/2024 2:19 PM DRUM OPERATOR MYCOLOGY (FUNGAL) CULTURE Routine 10/14/2024 2:18 PM DRUM OPERATOR MYCOBACTERIOLOGY AFB CULTURE AND ACID-FAST STAIN Routine 10/14/2024 2:18 PM DRUM OPERATOR TISSUE AEROBIC AND ANAEROBIC CULTURE AND GRAM STAIN Routine 10/14/2024 2:18 PM DRUM OPERATOR MYCOBACTERIOLOGY AFB CULTURE AND ACID-FAST STAIN Routine 10/14/2024 2:18 PM DRUM OPERATOR MYCOLOGY (FUNGAL) CULTURE AND STAIN Routine 10/14/2024 2:18 PM DRUM OPERATOR TISSUE AEROBIC AND ANAEROBIC CULTURE AND GRAM STAIN Routine 10/14/2024 2:18 PM DRUM OPERATOR ANESTHESIA INTUBATION Routine 10/14/2024 1:52 PM DRUM OPERATOR ARTHROPLASTY REMOVAL/EXCHANGE HARDWARE - KNEE 10/14/2024 1:11 PM DRUM OPERATOR Infection of total joint prosthesis, initial encounter (HCC) PLACEMENT SPACER/ANTIBIOTIC BEAD - KNEE 10/14/2024 1:11 PM DRUM OPERATOR Infection of total joint prosthesis, initial encounter (HCC) EGFR Routine 09/16/2024 11:35 AM DRUM OPERATOR Infection of total joint prosthesis, initial encounter (HCC) DIFFERENTIAL AUTO Routine 09/16/2024 11:35 AM DRUM OPERATOR Infection of total joint prosthesis, initial encounter (HCC) CBC WITH AUTO DIFFERENTIAL Routine 09/16/2024 11:35 AM DRUM OPERATOR Infection of total joint prosthesis, initial encounter (HCC) VITAMIN D 25 HYDROXY Routine 09/16/2024 11:35 AM DRUM OPERATOR Infection of total joint prosthesis, initial encounter (HCC) COMPREHENSIVE METABOLIC PANEL Routine 09/16/2024 11:35 AM DRUM OPERATOR Infection of total joint prosthesis, initial encounter (HCC) from Last 3 Months Results * eGFR (10/20/2024 8:41 PM DRUM OPERATOR) [facility] eGFR 87 >=60 mL/min/1. 73 m2 Comment: [...] last reviewed 2021. Blood 10/20/2024 8:41 PM DRUM OPERATOR 10/20/2024 9:04 PM DRUM OPERATOR us Elpidio Espinoza MD LAB BLOOD ORDERABLES Final R esult [facility] Department [place] [address] * (ABNORMAL) Differential, auto (10/20/2024 8:41 PM DRUM OPERATOR) Neutrophil abs 5.4 1.5 - 6.5 K/cumm Imm gran abs 1.1(H) 0.0 - 0.1 K/cumm [facility] Lymphocyte abs 1.6 0.8 - 3.3 K/cumm [facility] Monocyte abs 1.0(H) 0.2 - 0.8 K/cumm [facility] Eosinophil abs 0.3 0.0 - 0.5 K/cumm [facility] Basophil abs 0.1 0.0 - 0.1 K/cumm [facility] Neutrophil pct 56.3 % [facility] Comment: Confirmed by smear review Interpretive Data Percent cell count reference ranges are not reported, since discordance with absolute values may lead to misinterpretation of CBC data. Current Interpretive Data was last revised on 2018. Imm gran pct 11.6 % [facility] Comment: Interpretive Data Percent cell count reference ranges are not reported, since discordance with absolute values may lead to misinterpretation of CBC data. Current Interpretive Data was last revised on 2018. Lymphocyte pct 17.0 % TG [facility] Comment: Interpretive Data Percent cell count reference ranges are not reported, since discordance with absolute values may lead to misinterpretation of CBC data. Current Interpretive Data was last revised on 2018. Monocyte pct 10.5 % TG [facility] Comment: Interpretive Data Percent cell count reference ranges are not reported, since discordance with absolute values may lead to misinterpretation of CBC data. Current Interpretive Data was last revised on 2018. Eosinophil pct 3.5 % TG [facility] Comment: Interpretive Data Percent cell count reference ranges are not reported, since discordance with absolute values may lead to misinterpretation of CBC data. Current Interpretive Data was last revised on 2018. Basophil pct 1.1 % TG [facility] Comment: Interpretive Data Percent cell count reference ranges are not reported, since discordance with absolute values may lead to misinterpretation of CBC data. Current Interpretive Data was last revised on 2018. Blood 10/20/2024 8:41 PM DRUM OPERATOR 10/20/2024 9:04 PM DRUM OPERATOR us Elpidio Espinoza MD LAB BLOOD ORDERABLES Final R esult [facility] Department [place] [address] * (ABNORMAL) CBC with auto differential (10/20/2024 8:41 PM DRUM OPERATOR) WBC 9.6 3.8 - 9.9 K/cumm Hgb 8.0(L) 13.0 - 17.5 g/dL TG [facility] Hct 25.7(L) 38.9 - 50.3 % [facility] Plt 400 150 - 400 K/cumm [facility] MPV 9.5 9.1 - 12.3 fL [facility] RBC 3.12(L) 4.30 - 5.80 M/cumm [facility] MCV 82.4 81.3 - 96.4 fL [facility] MCH 25.6(L) 27.1 - 33.3 pg [facility] MCHC 31.1(L) 32.3 - 35.7 g/dL [facility] RDW CV 17.9(H) 11.1 - 14.9 % [facility] RDW SD 51.8(H) 35.7 - 48.1 fL [facility] NRBC abs 0.00 0.00 - 0.01 K/cumm [facility] Blood 10/20/2024 8:41 PM DRUM OPERATOR 10/20/2024 9:04 PM DRUM OPERATOR Elpidio Espinoza MD LAB BLOOD ORDERABLES Final R esult [facility] Department [place] [address] * Basic metabolic panel (10/20/2024 8:41 PM DRUM OPERATOR) Sodium 135 135 - 145 mmol/L Potassium, pl 4.4 3.3 - 4.9 mmol/L [facility] Chloride 99 97 - 110 mmol/L [facility] CO2 29 22 - 32 mmol/L [facility] Anion gap 7 2 - 15 mmol/L [facility] BUN 19 6 - 25 mg/dL [facility] Creatinine 0.96 0.80 - 1.30 mg/dL [facility] Glucose 119 70 - 199 mg/dL [facility] Comment: Interpretive Data Fasting glucose >/= 126 [...] 2022. Calcium 9.0 8.5 - 10.3 mg/dL [facility] Blood 10/20/2024 8:41 PM DRUM OPERATOR 10/20/2024 9:04 PM DRUM OPERATOR Elpidio Espinoza MD LAB BLOOD ORDERABLES Final R esult TG [facility] One [facility] Department [place] [address] * eGFR (10/19/2024 9:06 PM DRUM OPERATOR) eGFR >90 >=60 mL/min/1. 73 m2 [...] last reviewed 2021. Blood 10/19/2024 9:06 PM DRUM OPERATOR 10/19/2024 10:33 PM DRUM OPERATOR us Elpidio Espinoza MD LAB BLOOD ORDERABLES Final R esult [facility] Department [place] [address] * (ABNORMAL) Differential, auto (10/19/2024 9:06 PM DRUM OPERATOR) Neutrophil abs 5.3 1.5 - 6.5 K/cumm Imm gran abs 1.0(H) 0.0 - 0.1 K/cumm [facility] Lymphocyte abs 1.3 0.8 - 3.3 K/cumm [facility] Monocyte abs 1.0(H) 0.2 - 0.8 K/cumm [facility] Eosinophil abs 0.4 0.0 - 0.5 K/cumm [facility] Basophil abs 0.1 0.0 - 0.1 K/cumm [facility] Neutrophil pct 58.7 % [facility] Comment: Confirmed by smear review Interpretive Data Percent cell count reference ranges are not reported, since discordance with absolute values may lead to misinterpretation of CBC data. Current Interpretive Data was last revised on 2018. Imm gran pct 11.0 % [facility] Comment: Interpretive Data Percent cell count reference ranges are not reported, since discordance with absolute values may lead to misinterpretation of CBC data. Current Interpretive Data was last revised on 2018. Lymphocyte pct 14.1 % [facility] Comment: Interpretive Data Percent cell count reference ranges are not reported, since discordance with absolute values may lead to misinterpretation of CBC data. Current Interpretive Data was last revised on 2018. Monocyte pct 11.2 % [facility] Comment: Interpretive Data Percent cell count reference ranges are not reported, since discordance with absolute values may lead to misinterpretation of CBC data. Current Interpretive Data was last revised on 2018. Eosinophil pct 4.2 % [facility] Comment: Interpretive Data Percent cell count reference ranges are not reported, since discordance with absolute values may lead to misinterpretation of CBC data. Current Interpretive Data was last revised on 2018. Basophil pct 0.8 % [facility] Comment: Interpretive Data Percent cell count reference ranges are not reported, since discordance with absolute values may lead to misinterpretation of CBC data. Current Interpretive Data was last revised on 2018. Blood 10/19/2024 9:06 PM DRUM OPERATOR 10/19/2024 10:34 PM DRUM OPERATOR Elpidio Espinoza MD LAB BLOOD ORDERABLES Final R esult [facility] Department [place] [address] * (ABNORMAL) CBC with auto differential (10/19/2024 9:06 PM DRUM OPERATOR) WBC 9.1 3.8 - 9.9 K/cumm Hgb 7.5(L) 13.0 - 17.5 g/dL [facility] Hct 23.9(L) 38.9 - 50.3 % [facility] Plt 357 150 - 400 K/cumm [facility] MPV 9.8 9.1 - 12.3 fL [facility] RBC 2.92(L) 4.30 - 5.80 M/cumm [facility] MCV 81.8 81.3 - 96.4 fL [facility] MCH 25.7(L) 27.1 - 33.3 pg [facility] MCHC 31.4(L) 32.3 - 35.7 g/dL [facility] RDW CV 17.8(H) 11.1 - 14.9 % [facility] RDW SD 52.3(H) 35.7 - 48.1 fL [facility] NRBC abs 0.00 0.00 - 0.01 K/cumm [facility] Blood 10/19/2024 9:06 PM DRUM OPERATOR 10/19/2024 10:34 PM DRUM OPERATOR Elpidio Espinoza MD LAB BLOOD ORDERABLES Final R esult [facility] Department [place] [address] * Basic metabolic panel (10/19/2024 9:06 PM DRUM OPERATOR) [facility] Sodium 139 135 - 145 mmol/L Potassium, pl 4.4 3.3 - 4.9 mmol/L [facility] Chloride 101 97 - 110 mmol/L [facility] CO2 30 22 - 32 mmol/L [facility] Anion gap 8 2 - 15 mmol/L [facility] BUN 20 6 - 25 mg/dL [facility] Creatinine 0.87 0.80 - 1.30 mg/dL [facility] Glucose 102 70 - 199 mg/dL [facility] Comment: Interpretive Data Fasting glucose >/= 126 [...] 2022. Calcium 8.8 8.5 - 10.3 mg/dL [facility] Blood 10/19/2024 9:06 PM DRUM OPERATOR 10/19/2024 10:33 PM DRUM OPERATOR Elpidio Espinoza MD LAB BLOOD ORDERABLES Final R esult TG [facility] Department [place] [address] * eGFR (10/18/2024 8:10 PM DRUM OPERATOR) [facility] eGFR >90 >=60 mL/min/1. 73 m2 Comment: [...] last reviewed 2021. Blood 10/18/2024 8:10 PM DRUM OPERATOR 10/18/2024 8:35 PM DRUM OPERATOR us Elpidio Espinoza MD LAB BLOOD ORDERABLES Final R esult [facility] Department [place] [address] * (ABNORMAL) Differential, auto (10/18/2024 8:10 PM DRUM OPERATOR) Neutrophil abs 5.3 1.5 - 6.5 K/cumm Imm gran abs 0.5(H) 0.0 - 0.1 K/cumm [facility] Lymphocyte abs 1.1 0.8 - 3.3 K/cumm [facility] Monocyte abs 0.8 0.2 - 0.8 K/cumm [facility] Eosinophil abs 0.4 0.0 - 0.5 K/cumm [facility] Basophil abs 0.1 0.0 - 0.1 K/cumm [facility] Neutrophil pct 64.3 % [facility] Comment: Interpretive Data Percent cell count reference ranges are not reported, since discordance with absolute values may lead to misinterpretation of CBC data. Current Interpretive Data was last revised on 2018. Imm gran pct 6.6 % TG [facility] Comment: Interpretive Data Percent cell count reference ranges are not reported, since discordance with absolute values may lead to misinterpretation of CBC data. Current Interpretive Data was last revised on 2018. Lymphocyte pct 13.7 % TG [facility] Comment: Interpretive Data Percent cell count reference ranges are not reported, since discordance with absolute values may lead to misinterpretation of CBC data. Current Interpretive Data was last revised on 2018. Monocyte pct 9.5 % TG [facility] Comment: Interpretive Data Percent cell count reference ranges are not reported, since discordance with absolute values may lead to misinterpretation of CBC data. Current Interpretive Data was last revised on 2018. Eosinophil pct 5.3 % TG [facility] Comment: Interpretive Data Percent cell count reference ranges are not reported, since discordance with absolute values may lead to misinterpretation of CBC data. Current Interpretive Data was last revised on 2018. Basophil pct 0.6 % TG [facility] Comment: Interpretive Data Percent cell count reference ranges are not reported, since discordance with absolute values may lead to misinterpretation of CBC data. Current Interpretive Data was last revised on 2018. Blood 10/18/2024 8:10 PM DRUM OPERATOR 10/18/2024 8:35 PM DRUM OPERATOR us Elpidio Espinoza MD LAB BLOOD ORDERABLES Final R esult [facility] Department of Laboratories [place], [place] [id number] * (ABNORMAL) CBC with auto differential (10/18/2024 8:10 PM DRUM OPERATOR) WBC 8.2 3.8 - 9.9 K/cumm Hgb 7.2(L) 13.0 - 17.5 g/dL TG [facility] Hct 23.2(L) 38.9 - 50.3 % [facility] Plt 313 150 - 400 K/cumm [facility] MPV 9.6 9.1 - 12.3 fL [facility] RBC 2.83(L) 4.30 - 5.80 M/cumm [facility] MCV 82.0 81.3 - 96.4 fL [facility] MCH 25.4(L) 27.1 - 33.3 pg [facility] MCHC 31.0(L) 32.3 - 35.7 g/dL [facility] RDW CV 17.5(H) 11.1 - 14.9 % [facility] RDW SD 51.1(H) 35.7 - 48.1 fL [facility] NRBC abs 0.00 0.00 - 0.01 K/cumm [facility] Blood 10/18/2024 8:10 PM DRUM OPERATOR 10/18/2024 8:35 PM DRUM OPERATOR us Elpidio Espinoza MD LAB BLOOD ORDERABLES Final R esult [facility] Department [place] [address] * Basic metabolic panel (10/18/2024 8:10 PM DRUM OPERATOR) Sodium 139 135 - 145 mmol/L Potassium, pl 3.9 3.3 - 4.9 mmol/L [facility] Chloride 101 97 - 110 mmol/L [facility] CO2 28 22 - 32 mmol/L [facility] Anion gap 10 2 - 15 mmol/L [facility] BUN 17 6 - 25 mg/dL [facility] Creatinine 0.89 0.80 - 1.30 mg/dL [facility] Glucose 150 70 - 199 mg/dL [facility] Comment: Interpretive Data Fasting glucose >/= 126 [...] 2022. Calcium 8.6 8.5 - 10.3 mg/dL [facility] Blood 10/18/2024 8:10 PM DRUM OPERATOR 10/18/2024 8:35 PM DRUM OPERATOR us Elpidio Espinoza MD LAB BLOOD ORDERABLES Final R esult [facility] Department [place] [address] * ECG 12 lead (10/18/2024 1:13 PM DRUM OPERATOR) Ventricular Rate EKG/Min 73 BPM [facility] Atrial Rate 73 BPM [facility] NC-Interval (MSEC) 148 ms [facility] QRS-Interval (MSEC) 90 ms [facility] QT-Interval (MSEC) 354 ms [facility] QTc 389 ms [facility] P Amite 49 degrees [facility] R Amite 11 degrees [facility] T Amite 68 degrees [facility] Diagnosis Normal sinus rhythm Early R wave progression When compared with ECG of 06-AUG-2019 07:44, No significant change was found Confirmed by OSIEL COURTNEY M.D ([id number]) on 10/23/2024 9:26:10 AM [facility] 10/18/2024 1:13 PM DRUM OPERATOR 10/23/2024 9:26 AM DRUM OPERATOR us Vika Barros MEDICAL ACCOUNTANT ECG ORDERABLES Final Res ult [facility] * Creatine kinase (CK), total (10/18/2024 12:50 PM DRUM OPERATOR) Pathologist [facility] CK 258 40 - 300 Units/L Blood 10/18/2024 12:5 0 PM DRUM OPERATOR 10/18/2024 1:03 PM DRUM OPERATOR us Darline Steph Foreman MEDICAL ACCOUNTANT LAB BLOOD ORDERABLES Final Result Performing Organization Address City/[facility]/ZIP Co de Phone Number [facility] Department [place] [address] * eGFR (10/17/2024 9:42 PM DRUM OPERATOR) [facility] eGFR >90 >=60 mL/min/1. 73 m2 Comment: [...] last reviewed 2021. Blood 10/17/2024 9:42 PM DRUM OPERATOR 10/17/2024 10:10 PM DRUM OPERATOR us Candy North MEDICAL ACCOUNTANT LAB BLOOD ORDERABLES Final Result Performing Organization Address City/[facility]/ZIP Co de Phone Number TG [facility] Keira [facility] Department [place] [address] * (ABNORMAL) Differential, auto (10/17/2024 9:42 PM DRUM OPERATOR) Neutrophil abs 8.3(H) 1.5 - 6.5 K/cumm Imm gran abs 0.3(H) 0.0 - 0.1 K/cumm [facility] Lymphocyte abs 1.0 0.8 - 3.3 K/cumm [facility] Monocyte abs 1.1(H) 0.2 - 0.8 K/cumm [facility] Eosinophil abs 0.0 0.0 - 0.5 K/cumm [facility] Basophil abs 0.1 0.0 - 0.1 K/cumm [facility] Neutrophil pct 76.9 % [facility] Comment: Interpretive Data Percent cell count reference ranges are not reported, since discordance with absolute values may lead to misinterpretation of CBC data. Current Interpretive Data was last revised on 2018. Imm gran pct 2.9 % [facility] Comment: Interpretive Data Percent cell count reference ranges are not reported, since discordance with absolute values may lead to misinterpretation of CBC data. Current Interpretive Data was last revised on 2018. Lymphocyte pct 8.8 % [facility] Comment: Interpretive Data Percent cell count reference ranges are not reported, since discordance with absolute values may lead to misinterpretation of CBC data. Current Interpretive Data was last revised on 2018. Monocyte pct 10.3 % [facility] Comment: Interpretive Data Percent cell count reference ranges are not reported, since discordance with absolute values may lead to misinterpretation of CBC data. Current Interpretive Data was last revised on 2018. Eosinophil pct 0.4 % [facility] Comment: Interpretive Data Percent cell count reference ranges are not reported, since discordance with absolute values may lead to misinterpretation of CBC data. Current Interpretive Data was last revised on 2018. Basophil pct 0.7 % [facility] Comment: Interpretive Data Percent cell count reference ranges are not reported, since discordance with absolute values may lead to misinterpretation of CBC data. Current Interpretive Data was last revised on 2018. Blood 10/17/2024 9:42 PM DRUM OPERATOR 10/17/2024 10:10 PM DRUM OPERATOR Candy North NP LAB BLOOD ORDERABLES Final Result Performing Organization Address [facility] Phone Number [facility] [place] [address] * (ABNORMAL) CBC with auto differential (10/17/2024 9:42 PM DRUM OPERATOR) WBC 10.8(H) 3.8 - 9.9 K/cumm Hgb 7.8(L) 13.0 - 17.5 g/dL [facility] Hct 25.2(L) 38.9 - 50.3 % [facility] Plt 326 150 - 400 K/cumm [facility] MPV 9.6 9.1 - 12.3 fL [facility] RBC 3.09(L) 4.30 - 5.80 M/cumm [facility] MCV 81.6 81.3 - 96.4 fL [facility] MCH 25.2(L) 27.1 - 33.3 pg [facility] MCHC 31.0(L) 32.3 - 35.7 g/dL [facility] RDW CV 17.1(H) 11.1 - 14.9 % [facility] RDW SD 50.2(H) 35.7 - 48.1 fL [facility] NRBC abs 0.00 0.00 - 0.01 K/cumm [facility] Blood 10/17/2024 9:42 PM DRUM OPERATOR 10/17/2024 10:10 PM DRUM OPERATOR us Elpidio Espinoza MD LAB BLOOD ORDERABLES Final R esult Performing Organization Address City/[facility]/ZIP Co de Phone Number [facility] [place] [address] * Basic metabolic panel (10/17/2024 9:42 PM DRUM OPERATOR) Sodium 137 135 - 145 mmol/L Potassium, pl 4.2 3.3 - 4.9 mmol/L [facility] Chloride 99 97 - 110 mmol/L [facility] CO2 29 22 - 32 mmol/L [facility] Anion gap 9 2 - 15 mmol/L [facility] BUN 13 6 - 25 mg/dL [facility] Creatinine 0.85 0.80 - 1.30 mg/dL [facility] Glucose 139 70 - 199 mg/dL [facility] Comment: Interpretive Data Fasting glucose >/= 126 [...] 2022. Calcium 8.9 8.5 - 10.3 mg/dL [facility] Blood 10/17/2024 9:42 PM DRUM OPERATOR 10/17/2024 10:10 PM DRUM OPERATOR us Elpidio Espinoza MD LAB BLOOD ORDERABLES Final R esult [facility] Department [place] [address] * NC AN PROCEDURE PLACEHOLDER (10/17/2024 9:17 AM DRUM OPERATOR) Narrative Ty Pratt MD - 10/17/2024 9:17 AM DRUM OPERATOR Ty Pratt MD ? 10/17/2024 ??9:17 [...] Result * Transfuse RBC (10/17/2024 8:27 AM DRUM OPERATOR) Blood us Ty Pratt MD BLOOD TRANSFUSION ORDERABL ES Final Result TG [facility] [place] [address] * NC AN ELECTIVE ENDOTRACHEAL AIRWAY, NC AN PROCEDURE PLACEHOLDER (10/17/2024 8:23 AM DRUM OPERATOR) Narrative Ty Pratt MD - 10/17/2024 8:23 AM DRUM OPERATOR Ty Pratt MD ? 10/17/2024 ??9:18 [...] Additional comments: Atraumatic. Dentition same as pre-op us Ty Pratt MD ANESTHESIA ORDERABLES Edit ed Result - Final * Prepare RBC: 1 Units (10/17/2024 7:05 AM DRUM OPERATOR) Product code [id number] Unit Number [id number] [facility] Product Blood Type BPOS [facility] Dispense Status PRESUMED TRANSFUSED [facility] Blood 10/17/2024 7:05 AM DRUM OPERATOR 10/17/2024 7:04 AM DRUM OPERATOR Narrative [facility] - 10/18/2024 12:56 AM DRUM OPERATOR Are special requirements needed? (All products are leukoreduced and CMV- safe)- >No Date required:-[id number] LRRBC # of [id number] Reasons:-Intra-op transfusion} Ty Pratt MD BLOOD BANK PRODUCT ORDERAB LES Final Result Performing Organization Address [facility] Co de Phone Number [facility] [place] [address] * Type and screen (10/17/2024 5:41 AM DRUM OPERATOR) Pathologist [facility] Randy, indirect Negative ABO Rh B Positive [facility] Blood 10/17/2024 5:41 AM DRUM OPERATOR 10/17/2024 5:47 AM DRUM OPERATOR Narrative [facility] - 10/17/2024 6:32 AM DRUM OPERATOR Has the patient had Daratumumab or Isatuximab in the past 6 months?->Unknown Ty Pratt MD LAB BLOOD BANK TEST ORDERA BLES Final Result Performing Organization Address [facility] Co de Phone Number [facility] Department [place] [address] * eGFR (10/16/2024 9:51 PM DRUM OPERATOR) Pathologist [facility] eGFR 87 >=60 mL/min/1. 73 m2 Comment: [...] last reviewed 2021. Blood 10/16/2024 9:51 PM DRUM OPERATOR 10/16/2024 11:21 PM DRUM OPERATOR us Candy North MEDICAL ACCOUNTANT LAB BLOOD ORDERABLES Final Result [facility] Department [place] [address] * (ABNORMAL) Differential, auto (10/16/2024 9:51 PM DRUM OPERATOR) Pathologist [facility] Neutrophil abs 5.5 1.5 - 6.5 K/cumm Imm gran abs 0.3(H) 0.0 - 0.1 K/cumm [facility] Lymphocyte abs 1.3 0.8 - 3.3 K/cumm [facility] Monocyte abs 0.9(H) 0.2 - 0.8 K/cumm [facility] Eosinophil abs 0.3 0.0 - 0.5 K/cumm [facility] Basophil abs 0.0 0.0 - 0.1 K/cumm [facility] Neutrophil pct 66.3 % [facility] Comment: Interpretive Data Percent cell count reference ranges are not reported, since discordance with absolute values may lead to misinterpretation of CBC data. Current Interpretive Data was last revised on 2018. Imm gran pct 3.2 % [facility] Comment: Interpretive Data Percent cell count reference ranges are not reported, since discordance with absolute values may lead to misinterpretation of CBC data. Current Interpretive Data was last revised on 2018. Lymphocyte pct 15.8 % [facility] Comment: Interpretive Data Percent cell count reference ranges are not reported, since discordance with absolute values may lead to misinterpretation of CBC data. Current Interpretive Data was last revised on 2018. Monocyte pct 10.4 % [facility] Comment: Interpretive Data Percent cell count reference ranges are not reported, since discordance with absolute values may lead to misinterpretation of CBC data. Current Interpretive Data was last revised on 2018. Eosinophil pct 3.8 % [facility] Comment: Interpretive Data Percent cell count reference ranges are not reported, since discordance with absolute values may lead to misinterpretation of CBC data. Current Interpretive Data was last revised on 2018. Basophil pct 0.5 % [facility] Comment: Interpretive Data Percent cell count reference ranges are not reported, since discordance with absolute values may lead to misinterpretation of CBC data. Current Interpretive Data was last revised on 2018. Blood 10/16/2024 9:51 PM DRUM OPERATOR 10/16/2024 11:23 PM DRUM OPERATOR us Candy North NP LAB BLOOD ORDERABLES Final Result [facility] Department [place] [address] * (ABNORMAL) CBC with auto differential (10/16/2024 9:51 PM DRUM OPERATOR) WBC 8.2 3.8 - 9.9 K/cumm Hgb 7.4(L) 13.0 - 17.5 g/dL [facility] Hct 23.7(L) 38.9 - 50.3 % [facility] Plt 322 150 - 400 K/cumm [facility] MPV 9.8 9.1 - 12.3 fL [facility] RBC 2.91(L) 4.30 - 5.80 M/cumm [facility] MCV 81.4 81.3 - 96.4 fL [facility] MCH 25.4(L) 27.1 - 33.3 pg [facility] MCHC 31.2(L) 32.3 - 35.7 g/dL [facility] RDW CV 17.2(H) 11.1 - 14.9 % [facility] RDW SD 50.4(H) 35.7 - 48.1 fL [facility] NRBC abs 0.00 0.00 - 0.01 K/cumm [facility] Blood 10/16/2024 9:51 PM DRUM OPERATOR 10/16/2024 11:23 PM DRUM OPERATOR us Elpidio Espinoza MD LAB BLOOD ORDERABLES Final R esult [facility] Department [place] [address] * (ABNORMAL) Basic metabolic panel (10/16/2024 9:51 PM DRUM OPERATOR) Pathologist [facility] Sodium 138 135 - 145 mmol/L Potassium, pl 4.0 3.3 - 4.9 mmol/L [facility] Chloride 102 97 - 110 mmol/L [facility] CO2 29 22 - 32 mmol/L [facility] Anion gap 7 2 - 15 mmol/L [facility] BUN 15 6 - 25 mg/dL [facility] Creatinine 0.96 0.80 - 1.30 mg/dL [facility] Glucose 124 70 - 199 mg/dL [facility] Comment: Interpretive Data Fasting glucose >/= 126 [...] 2022. Calcium 8.3(L) 8.5 - 10.3 mg/dL [facility] Blood 10/16/2024 9:51 PM DRUM OPERATOR 10/16/2024 11:21 PM DRUM OPERATOR us Elpidio Espinoza MD LAB BLOOD ORDERABLES Final R esult Performing Organization Address [facility] Co de Phone Number [facility] [place] [address] * (ABNORMAL) Vancomycin level trough (10/16/2024 2:00 PM DRUM OPERATOR) Vancomycin trough 8.8(L) 10.0 - 20.0 mcg/mL Blood 10/16/2024 2:00 PM DRUM OPERATOR 10/16/2024 2:38 PM DRUM OPERATOR us Angie Amado MD LAB BLOOD ORDERABLES Final Result Performing Organization Address [facility] de Phone Number [facility] [place] [address] * Insert PICC line (10/16/2024 12:02 PM DRUM OPERATOR) Narrative Eduardo Montero, VIOLET - 10/16/2024 12:02 PM DRUM OPERATOR Eduardo Montero, RN ? 10/16/2024 12:35 PM Vascular Access [...] By, (c) = Cosigned By Initials Name Desire Vogel RN [place] Eduardo Montero RN Vascular Access Documentation (Last 4 Hours) ?? VA [...] ?? -BW Location: Hand ??-BW Inserted by: JULIENNE ??-BW PICC Single Lumen 10/16/24 Non-tunneled Power [...] with peel away sheath -MT Lot #: [id number] ??-MT Expiration Date: 05/25/25 ??-MT Trimmed Length [...] With Care Team Needed upon discharge for alf use (e.g. long-term antibiotics) ??-MT ? User Marvin ??(r) = Recorded By, (t) = Taken By, (c) = Cosigned By Initials Name Billie Ng RN MT Tarvin, Michael, RN Right single lumen PICC safe to use. Eduardo Montero RN us Vika Barros MEDICAL ACCOUNTANT IV THERAPY ORDERABLES Darren arsh Result - Final * eGFR (10/15/2024 11:26 PM DRUM OPERATOR) eGFR 86 >=60 mL/min/1. 73 m2 [...] reviewed 2021. Blood 10/15/2024 11:2 6 PM DRUM OPERATOR 10/15/2024 11:40 PM DRUM OPERATOR us Candy North NP LAB BLOOD ORDERABLES Final Result [facility] Department [place] [address] * (ABNORMAL) Differential, auto (10/15/2024 11:26 PM DRUM OPERATOR) Neutrophil abs 7.0(H) 1.5 - 6.5 K/cumm Imm gran abs 0.1 0.0 - 0.1 K/cumm [facility] Lymphocyte abs 1.0 0.8 - 3.3 K/cumm [facility] Monocyte abs 0.8 0.2 - 0.8 K/cumm [facility] Eosinophil abs 0.3 0.0 - 0.5 K/cumm [facility] Basophil abs 0.1 0.0 - 0.1 K/cumm [facility] Neutrophil pct 75.9 % [facility] Comment: Interpretive Data Percent cell count reference ranges are not reported, since discordance with absolute values may lead to misinterpretation of CBC data. Current Interpretive Data was last revised on 2018. Imm gran pct 1.1 % [facility] Comment: Interpretive Data Percent cell count reference ranges are not reported, since discordance with absolute values may lead to misinterpretation of CBC data. Current Interpretive Data was last revised on 2018. Lymphocyte pct 11.3 % [facility] Comment: Interpretive Data Percent cell count reference ranges are not reported, since discordance with absolute values may lead to misinterpretation of CBC data. Current Interpretive Data was last revised on 2018. Monocyte pct 8.4 % [facility] Comment: Interpretive Data Percent cell count reference ranges are not reported, since discordance with absolute values may lead to misinterpretation of CBC data. Current Interpretive Data was last revised on 2018. Eosinophil pct 2.8 % [facility] Comment: Interpretive Data Percent cell count reference ranges are not reported, since discordance with absolute values may lead to misinterpretation of CBC data. Current Interpretive Data was last revised on 2018. Basophil pct 0.5 % [facility] Comment: Interpretive Data Percent cell count reference ranges are not reported, since discordance with absolute values may lead to misinterpretation of CBC data. Current Interpretive Data was last revised on 2018. Blood 10/15/2024 11:2 6 PM DRUM OPERATOR 10/15/2024 11:40 PM DRUM OPERATOR us Candy North MEDICAL ACCOUNTANT LAB BLOOD ORDERABLES Final Result [facility] Department [place] [address] * (ABNORMAL) CBC with auto differential (10/15/2024 11:26 PM DRUM OPERATOR) WBC 9.2 3.8 - 9.9 K/cumm Hgb 8.0(L) 13.0 - 17.5 g/dL [facility] Hct 25.9(L) 38.9 - 50.3 % [facility] Plt 292 150 - 400 K/cumm [facility] MPV 9.1 9.1 - 12.3 fL [facility] RBC 3.17(L) 4.30 - 5.80 M/cumm [facility] MCV 81.7 81.3 - 96.4 fL [facility] MCH 25.2(L) 27.1 - 33.3 pg [facility] MCHC 30.9(L) 32.3 - 35.7 g/dL [facility] RDW CV 16.9(H) 11.1 - 14.9 % [facility] RDW SD 50.0(H) 35.7 - 48.1 fL [facility] NRBC abs 0.00 0.00 - 0.01 K/cumm [facility] Blood 10/15/2024 11:2 6 PM DRUM OPERATOR 10/15/2024 11:40 PM DRUM OPERATOR Elpidoi Espinoza MD LAB BLOOD ORDERABLES Final R esult Performing Organization Address City/[facility]/ZIP Co de Phone Number [facility] Department [place] [address] * (ABNORMAL) Basic metabolic panel (10/15/2024 11:26 PM DRUM OPERATOR) [facility] Sodium 138 135 - 145 mmol/L Potassium, pl 4.8 3.3 - 4.9 mmol/L [facility] Chloride 106 97 - 110 mmol/L [facility] CO2 27 22 - 32 mmol/L [facility] Anion gap 5 2 - 15 mmol/L [facility] BUN 13 6 - 25 mg/dL [facility] Creatinine 0.97 0.80 - 1.30 mg/dL [facility] Glucose 119 70 - 199 mg/dL [facility] Comment: Interpretive Data Fasting glucose >/= 126 [...] 2022. Calcium 8.2(L) 8.5 - 10.3 mg/dL [facility] Blood 10/15/2024 11:2 6 PM DRUM OPERATOR 10/15/2024 11:40 PM DRUM OPERATOR Elpidio Espinoza MD LAB BLOOD ORDERABLES Final R esult Performing Organization Address City/[facility]/ZIP Co de Phone Number [facility] Department [place] [address] * eGFR (10/14/2024 9:54 PM DRUM OPERATOR) eGFR >90 >=60 mL/min/1. 73 m2 [...] last reviewed 2021. Blood 10/14/2024 9:54 PM DRUM OPERATOR 10/14/2024 10:15 PM DRUM OPERATOR us Chasity Diego MD LAB BLOOD ORDERAB LES Final Result [facility] Department [place] [address] * (ABNORMAL) Protime-INR (10/14/2024 9:54 PM DRUM OPERATOR) PT 14.3(H) 9.7 - 13.0 sec INR 1.32(H) 0.90 - 1.20 [facility] Comment: Interpretive data Oral anticoagulant therapeutic ranges: Venous thromboembolism prophylaxis or treatment: 2.0-3.0 CARDIOLOGY Standard range: 2.0-3.0 High-intensity range: 2.5-3.5 Refer to indication-specific guidelines for appropriate target ranges for prosthetic heart valve replacement. Current interpretive data was last revised on 2019. Blood 10/14/2024 9:54 PM DRUM OPERATOR 10/14/2024 10:21 PM DRUM OPERATOR Narrative [facility] - 10/14/2024 10:27 PM DRUM OPERATOR Baseline prior to apixaban initiation. us Chasity Diego MD LAB BLOOD ORDERAB LES Final Result [facility] Department [place] [address] * (ABNORMAL) CBC without differential (10/14/2024 9:54 PM DRUM OPERATOR) WBC 13.4(H) 3.8 - 9.9 K/cumm Hgb 9.2(L) 13.0 - 17.5 g/dL [facility] Hct 30.0(L) 38.9 - 50.3 % [facility] Plt 412(H) 150 - 400 K/cumm [facility] MPV 9.2 9.1 - 12.3 fL [facility] RBC 3.65(L) 4.30 - 5.80 M/cumm [facility] MCV 82.2 81.3 - 96.4 fL [facility] MCH 25.2(L) 27.1 - 33.3 pg [facility] MCHC 30.7(L) 32.3 - 35.7 g/dL [facility] RDW CV 16.7(H) 11.1 - 14.9 % [facility] RDW SD 50.4(H) 35.7 - 48.1 fL [facility] NRBC abs 0.00 0.00 - 0.01 K/cumm [facility] Blood 10/14/2024 9:54 PM DRUM OPERATOR 10/14/2024 10:15 PM DRUM OPERATOR Chasity Diego MD LAB BLOOD ORDERAB LES Final Result Performing Organization Address City/[facility]/ZIP Co de Phone Number [facility] [place] [address] * Hepatic function panel (10/14/2024 9:54 PM DRUM OPERATOR) Pathologist [facility] Bilirubin, total 0.7 0.1 - 1.2 mg/dL Bilirubin, direct 0.3 0.1 - 0.3 mg/dL [facility] Protein, pl 6.6 6.5 - 8.5 g/dL [facility] Albumin 3.6 3.5 - 5.0 g/dL [facility] Alk phos 67 40 - 130 Units/L [facility] ALT 19 7 - 55 Units/L [facility] AST 27 10 - 50 Units/L [facility] Blood 10/14/2024 9:54 PM DRUM OPERATOR 10/14/2024 10:15 PM DRUM OPERATOR Narrative [facility] - 10/14/2024 10:44 PM DRUM OPERATOR Baseline prior to apixaban initiation. us Chasity Diego MD LAB BLOOD ORDERAB LES Final Result Performing Organization Address [facility] Co de Phone Number [facility] [place] [address] * (ABNORMAL) Basic metabolic panel (10/14/2024 9:54 PM DRUM OPERATOR) Sodium 141 135 - 145 mmol/L Potassium, pl 4.7 3.3 - 4.9 mmol/L [facility] Chloride 107 97 - 110 mmol/L [facility] CO2 25 22 - 32 mmol/L [facility] Anion gap 9 2 - 15 mmol/L [facility] BUN 13 6 - 25 mg/dL [facility] Creatinine 0.73(L) 0.80 - 1.30 mg/dL [facility] Glucose 201(H) 70 - 199 mg/dL [facility] Comment: Interpretive Data Fasting glucose >/= 126 [...] 2022. Calcium 8.2(L) 8.5 - 10.3 mg/dL [facility] Blood 10/14/2024 9:54 PM DRUM OPERATOR 10/14/2024 10:15 PM DRUM OPERATOR us Chasity Diego MD LAB BLOOD ORDERAB LES Final Result Performing Organization Address City/State/[facility] Co de Phone Number [facility] Department [place] [address] * XR Knee Left 1 or 2 View (10/14/2024 5:49 PM DRUM OPERATOR) Anatomical Region Laterality Modality Lower Extremities, Knee Left Computed Radiography 10/15/2024 6:02 AM DRUM OPERATOR Impressions 10/15/2024 6:02 AM DRUM OPERATOR 1. ??Interval explantation of the left total knee arthroplasty with placement of a static antibiotic cement spacer Electronically signed by: Ricardo Suarez MD, PHD Narrative 10/15/2024 6:02 AM DRUM OPERATOR EXAMINATION: Left knee one or 2 [...] stain Tissue Knee, left (10/14/2024 2:27 PM DRUM OPERATOR) Direct Specimen Exam Stain: No polymorphonuclear leukocytes seen. No organisms seen. Report Final Report: No growth [facility] Tissue (Knee, left) 10/14/2024 2:27 PM DRUM OPERATOR 10/14/2024 5:46 PM DRUM OPERATOR Narrative [facility] - 10/20/2024 11:58 AM DRUM OPERATOR Left tibial osteolysis culture Testing performed by [facility] ([phone]) Specimens submitted from normally sterile body sites [...] MICROBIOLOGY - G ENERAL ORDERABLES Final Result [facility] Department [place] [address] * Tissue aerobic and anaerobic culture and gram stain Tissue Knee, left (10/14/2024 2:20 PM DRUM OPERATOR) Direct Specimen Exam Stain: No polymorphonuclear leukocytes seen. No organisms seen. Report Final Report: No growth [facility] Tissue (Knee, left) 10/14/2024 2:20 PM DRUM OPERATOR 10/14/2024 5:48 PM DRUM OPERATOR Narrative [facility] - 10/20/2024 11:56 AM DRUM OPERATOR Left knee deep tissue culture Testing performed by [facility] ([phone]) Specimens submitted from normally sterile body sites [...] Dewayne Tidwell MD LAB MICROBIOLOGY - G [facility] ORDERABLES Final Result [facility] Department [place] [address] * Tissue aerobic and anaerobic culture and gram stain Bone Knee, left (10/14/2024 2:18 PM DRUM OPERATOR) Direct Specimen Exam Stain: No polymorphonuclear leukocytes seen. No organisms seen. Report Final Report: No growth [facility] Bone (Knee, left) 10/14/2024 2:18 PM DRUM OPERATOR 10/14/2024 5:47 PM DRUM OPERATOR Narrative [facility] - 10/20/2024 11:58 AM DRUM OPERATOR Left knee sinus track culture # 2 Testing performed by [facility] ([phone]) Specimens submitted from normally sterile body sites [...] 2019. Dewayne Tidwell MD LAB MICROBIOLOGY - ENERAL ORDERABLES Final Result [facility] Department [place] [address] * (ABNORMAL) Tissue aerobic and anaerobic culture and gram stain Tissue Knee, left (10/14/2024 2:18 PM DRUM OPERATOR) Direct Specimen Exam Stain: No polymorphonuclear leukocytes seen. No organisms seen. Report Final Report: Rare Staphylococcus epidermidis (.) [facility] Organism STAPHYLOCOCCUS EPIDERMIDIS [facility] Tissue (Knee, left) 10/14/2024 2:18 PM DRUM OPERATOR 10/14/2024 5:42 PM DRUM OPERATOR Narrative [facility] - 10/20/2024 12:10 PM DRUM OPERATOR Left knee sinus track culture # 1 Testing performed by [facility] ([phone]) Specimens submitted from normally sterile body sites [...] Resistant Staphylococcus epidermidis Ceftriaxone (YOLANDA) INTERPRETATION Resistant Dewayne Tidwell MD LAB MICROBIOLOGY - G ENERAL ORDERABLES Final Result [facility] Department [place] [address] * Airway (10/14/2024 1:52 PM DRUM OPERATOR) Narrative Blayne Childers, DO - 10/14/2024 1:52 PM DRUM OPERATOR Blayne Childers, DO ? 10/14/2024 ??3:07 PM Airway Patient location: [...] - Final * eGFR (09/16/2024 11:35 AM DRUM OPERATOR) [facility] eGFR >90 >=60 mL/min/1. 73 m2 Comment: [...] reviewed 2021. Blood 09/16/2024 11:3 5 AM DRUM OPERATOR 09/16/2024 3:00 PM DRUM OPERATOR us Deawyne Tidwell MD LAB BLOOD ORDERABLES Final Result Performing Organization Address City/State/[facility] Co de Phone Number [facility] Department [place] [address] * Differential, auto (09/16/2024 11:35 AM DRUM OPERATOR) Neutrophil abs 4.6 1.5 - 6.5 K/cumm Imm gran abs 0.1 0.0 - 0.1 K/cumm [facility] Lymphocyte abs 1.5 0.8 - 3.3 K/cumm [facility] Monocyte abs 0.8 0.2 - 0.8 K/cumm [facility] Eosinophil abs 0.2 0.0 - 0.5 K/cumm [facility] Basophil abs 0.1 0.0 - 0.1 K/cumm [facility] Neutrophil pct 64.6 % [facility] Comment: Interpretive Data Percent cell count reference ranges are not reported, since discordance with absolute values may lead to misinterpretation of CBC data. Current Interpretive Data was last revised on 2018. Imm gran pct 1.3 % [facility] Comment: Interpretive Data Percent cell count reference ranges are not reported, since discordance with absolute values may lead to misinterpretation of CBC data. Current Interpretive Data was last revised on 2018. Lymphocyte pct 20.4 % [facility] Comment: Interpretive Data Percent cell count reference ranges are not reported, since discordance with absolute values may lead to misinterpretation of CBC data. Current Interpretive Data was last revised on 2018. Monocyte pct 10.6 % [facility] Comment: Interpretive Data Percent cell count reference ranges are not reported, since discordance with absolute values may lead to misinterpretation of CBC data. Current Interpretive Data was last revised on 2018. Eosinophil pct 2.1 % [facility] Comment: Interpretive Data Percent cell count reference ranges are not reported, since discordance with absolute values may lead to misinterpretation of CBC data. Current Interpretive Data was last revised on 2018. Basophil pct 1.0 % [facility] Comment: Interpretive Data Percent cell count reference ranges are not reported, since discordance with absolute values may lead to misinterpretation of CBC data. Current Interpretive Data was last revised on 2018. Blood 09/16/2024 11:3 5 AM DRUM OPERATOR 09/16/2024 2:37 PM DRUM OPERATOR us Dewayne Tidwell MD LAB BLOOD ORDERABLES Final Result [facility] Department [place] [address] * (ABNORMAL) CBC with auto differential (09/16/2024 11:35 AM DRUM OPERATOR) WBC 7.1 3.8 - 9.9 K/cumm Hgb 12.0(L) 13.0 - 17.5 g/dL [facility] Hct 39.6 38.9 - 50.3 % [facility] Plt 380 150 - 400 K/cumm [facility] MPV 9.6 9.1 - 12.3 fL [facility] RBC 4.66 4.30 - 5.80 M/cumm [facility] MCV 85.0 81.3 - 96.4 fL [facility] MCH 25.8(L) 27.1 - 33.3 pg [facility] MCHC 30.3(L) 32.3 - 35.7 g/dL [facility] RDW CV 17.1(H) 11.1 - 14.9 % [facility] RDW SD 52.8(H) 35.7 - 48.1 fL [facility] NRBC abs 0.00 0.00 - 0.01 K/cumm [facility] Blood 09/16/2024 11:3 5 AM DRUM OPERATOR 09/16/2024 2:37 PM DRUM OPERATOR Dewayne Tidwell MD LAB BLOOD ORDERABLES Final Result [facility] [place] [address] * Vitamin D 25 hydroxy (09/16/2024 11:35 AM DRUM OPERATOR) [facility] Vitamin D 25-OH 68 30 - 80 ng/mL Blood 09/16/2024 11:3 5 AM DRUM OPERATOR 09/16/2024 2:40 PM DRUM OPERATOR Dewayne Tidwell MD LAB BLOOD ORDERABLES Final Result Performing Organization Address City/[facility]/ZIP Co de Phone Number [facility] [place] [address] * Comprehensive metabolic panel (09/16/2024 11:35 AM DRUM OPERATOR) [facility] Sodium 139 135 - 145 mmol/L Potassium, pl 4.4 3.3 - 4.9 mmol/L [facility] Chloride 103 97 - 110 mmol/L [facility] CO2 28 22 - 32 mmol/L [facility] Anion gap 8 2 - 15 mmol/L [facility] BUN 11 6 - 25 mg/dL [facility] Creatinine 0.83 0.80 - 1.30 mg/dL [facility] Glucose 103 70 - 199 mg/dL [facility] Comment: Interpretive Data Fasting glucose >/= 126 [...] 2022. Calcium 9.6 8.5 - 10.3 mg/dL [facility] Bilirubin, total 0.4 0.1 - 1.2 mg/dL [facility] Protein, pl 8.1 6.5 - 8.5 g/dL [facility] Albumin 4.3 3.5 - 5.0 g/dL [facility] Alk phos 98 40 - 130 Units/L [facility] ALT 23 7 - 55 Units/L [facility] AST 29 10 - 50 Units/L [facility] Blood 09/16/2024 11:3 5 AM DRUM OPERATOR 09/16/2024 2:40 PM DRUM OPERATOR us Dewayne Tidwell MD LAB BLOOD ORDERABLES Final Result [facility] [place] [address] from Last 3 Months Insurance MEDICARE [facility] MEDICARE [facility] MEDICARE SUPPLEMENT MEDICARE [facility]UE [facility] BLUE CROSS MEDICARE SUPPLEMENT Advance Directives For more information, please contact: [phone] * Full Code (Latest Code Status on File) Date Activated Date Inactivated Comments 10/14/2024 9:15 PM 10/21/2024 6:34 PM Care Teams Patrol Guard Relationship Specialty Start Date End Date Karthik Dalton MD [address] [place] [address] [address] [place] [address] PCP - General Family Medicine 04/05/19
--- OUTSIDE RECORDS SUMMARY | 2024-10-24 15:49 | XMS_ITS | Encounter Summary ---
Author Organization [facility] Address [address] [place] [address] Phone Care Team Providers Care Service Station Console Operator Name Role Phone Karthik Dalton MD Primary Care Provider [phone] [phone] Encounter Details Date Type Department Care Team (Late st Contact Info) Description 10/23/2024 Telephone [facility] Infectious Diseases [address] [place] [phone] Libra Coello, GROUND MIXER Social History Tobacco Use Types Packs/Day Years Used Date Smoking Tobacco: Never Passive Smoke Exposure: Never Smokeless Tobacco: Never Alcohol Use Standard [...] on file Legal Sex Male 7:52 PM RN MILITARY Gender Identity Male 04/10/2019 8:14 AM CDT Sexual Orientation Straight 04/10/2019 8: 14 AM CDT 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 VIOLET Kumar MILITARY * Telephone Encounter - Melanie Leo - 10/23/2024 11:12 AM CST Needs conformation that plan of care has been established for picc line, drainage and labs Please call eduarda at [phone] MILITARY * Telephone Encounter - Libra Coello CMA - 10/23/2024 9:53 AM CST The patient's specimen got dropped off last and they cannot run the specimen. It was dropped off with no label on the specimen. Please call Janell at [phone] for questions. MILITARY documented in this encounter Plan of Treatment Not on file documented as of this encounter Visit Diagnoses Not on filedocumented in this encounter Care Teams Service Station Console Operator Relationship Specialty Start Date End Date Karthik Dalton MD [address] [place] [address] [address] [place] [address] PCP - General Family Medicine 04/05/19 documented as of this encounter
--- OUTSIDE RECORDS SUMMARY | 2024-10-24 15:49 | XMS_ITS | Encounter Summary ---
Author Organization [facility] Address [address] [place] [address] Care Team Providers Care School Bus Monitor Name Role Phone Karthik Dalton MD Primary Care Provider [phone] [phone] Encounter Details Date Type Department Care Team (Latest Contact Info) Description 10/22/2024 5:40 PM BUZZSAW OPERATOR - 10/22/2024 11:59 PM BUZZSAW OPERATOR Hospital Encounter 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 Not on file Not on file documented as of this encounter Medications at Time of Discharge acetaminophen (TYLENOL) 500 mg tabletIndications :Pain Take 2 tablets (1,000 mg total) by mouth every 6 (six) hours as needed for pain apixaban (ELIQUIS) 2.5 mg tabletIndications :VTE Prophylaxis Take 1 tablet (2.5 mg total) by mouth 2 (two) times a day 60 tablet 10/21/2024 5 cholecalciferol (VITAMIN D-3) 5,000 unit capsuleIndication s:Osteoporosis,Vi tamin D Deficiency Take 1 capsule (5,000 Units total) by mouth every evening ciprofloxacin (CIPRO) 500 mg tabletIndications :Bone/Joint Infection Take 1 tablet (500 mg total) by mouth 2 (two) times a day 76 tablet 10/21/2024 5 DAPTOmycin (CUBICIN) 50 mg/mL injectionIndicati ons:Bone/Joint Infection Infuse 11.5 mL (575 mg total) into a venous catheter daily 10/21/2024 5 fexofenadine (DEB) 180 mg tabletIndications :Seasonal Allergic Rhinitis Take 1 tablet (180 mg total) by mouth every evening fluticasone propionate (FLONASE) 50 mcg/actuation nasal sprayIndications: Allergic Rhinitis Administer 2 sprays into each nostril daily as needed for rhinitis or allergies 09/03/2024 heparin 10 unit/mL syringeIndication s:Maintain Patency of Indwelling Vascular Catheter Administer 5 mL (50 Units total) into catheter every 12 (twelve) hours 10/21/2024 5 meloxicam (MOBIC) 7.5 mg tabletIndications :Osteoarthritis Take 1 tablet (7.5 mg total) by mouth every evening 07/23/2022 methocarbamoL (ROBAXIN) 750 mg tablet Take 1 tablet (750 mg total) by mouth 3 (three) times a day as needed for muscle spasms 30 tablet 10/21/2024 MULTIVITAMIN ORALIndications:S upplement Take 1 tablet by mouth every evening oxyCODONE (ROXICODONE) 5 mg immediate release tabletIndications :Pain Take 1 tablet (5 mg total) by mouth every 4 (four) hours as needed for pain 30 tablet 10/14/2024 senna-docusate (PERICOLACE) 8.6-50 mgIndications:con stipation Take 2 tablets by mouth 2 (two) times a day as needed for constipation 60 tablet 10/21/2024 sodium chloride 0.9% injection Administer 5-10 mL into catheter every 12 (twelve) hours 10/21/2024 traMADoL (ULTRAM) 50 mg tablet Take 1 tablet (50 mg total) by mouth every 8 (eight) hours as needed for pain 42 tablet 10/14/2024 documented as of this encounter Discharge Disposition Disposition Code Departure Means Destination Discharge to home or self care documented in this encounter Plan of Treatment Not on file documented as of this encounter Visit Diagnoses Not on filedocumented in this encounter Care Teams School Bus Monitor Relationship Specialty Start Date End Date Karthik Dalton MD [address] [place] [address] [address] [place] [address] PCP - General Family Medicine 04/05/19 documented as of this encounter
--- OUTSIDE RECORDS SUMMARY | 2024-10-24 15:49 | XMS_ITS | Encounter Summary ---
Author Organization [facility] Address [address] [place] [address]. [place] [address] [place] [address] Care Team Providers Care Butcherette Name Role Phone Karthik Dlaton MD Primary Care Provider +- [phone] Gina Vallejo NP Unavailable Jacob Williamson MD Unavailable [phone] Encounter Details Date Type Department Care Team (Latest Contact Info) Description 09/05/2023 Tap 'n Tap Message Enc [facility] Medical Group Multispecialty [address] [phone] [facility] Provider medication question Social History Tobacco Use Types Packs/Day [...] documented as of this encounter Care Teams Butcherette Relationship Specialty Start Date End Date Karthik Dalton MD [address] [place] [address] [address] PCP - General FAMILY PRACTICE 03/14/22 Gina Vallejo NP 3 [facility]. [address] [address] Referring Physician INFECTIOUS DISEASE 08/01/23 4 Jacob Williamson MD [address] [place] [address] ORTHOPAEDICS 02/21/24 02/20/25 documented as of this encounter
--- OUTSIDE RECORDS SUMMARY | 2024-10-24 15:49 | XMS_ITS | Encounter Summary ---
Author Organization [facility] Address [address] [place] [address]. [place] [address] [place] [address] Care Team Providers Care Dupligraph Operator Name Role Phone Karthik Dalton MD Primary Care Provider +- [phone] Gina Vallejo NP Unavailable Jacob Williamson MD Unavailable [phone] Encounter Details Date Type Department Care Team (Late st Contact Info) Description 09/01/2023 Therapy Plan [facility] [place] [address] Reji Avila MD [address] [place] [address] Social History Tobacco Use Types [...] documented as of this encounter Care Teams Dupligraph Operator Relationship Specialty Start Date End Date Karthik Dalton MD [address] [place] [address] [address] PCP - General FAMILY PRACTICE 03/14/22 Gina Vallejo NP 3 [facility]. [address] [address] Referring Physician INFECTIOUS DISEASE 08/01/23 4 Jacob Williamson MD [address] [place] [address] ORTHOPAEDICS 02/21/24 02/20/25 documented as of this encounter
[2024-10-24 17:13] LABS: Hematocrit 25.2 % (37.0-46.0); Hemoglobin 7.5 g/dL (12.4-15.3); Immature Platelet Fraction Pct 1.1 % (1.0-7.0); Mean Corpuscular HGB Conc 29.8 g/dL (32-36); Mean Corpuscular Hemoglobin 25.7 pg (27.0-31.0); Mean Corpuscular Volume 86.3 fL (78.0-102.0); Mean Platelet Volume 10.4 fl (8.7-11.0); Platelet Count Result 512 K/mm3 (150-420); Red Blood Count 2.92 M/mm3 (4.70-6.10); Red Cell Distribution Width 17.9 % (11.6-14.4); White Blood Count 12.7 K/mm3 (4.8-10.8)
[2024-10-24 17:40] LABS: Alanine Aminotransferase 39 U/L (16-63); Albumin Level 3.2 g/dL (3.4-5.0); Alkaline Phosphatase 104 U/L (46-116); Anion Gap 8 mmol/L (4-12); Aspartate Amino Transferase 33 U/L (15-37); Bilirubin,Total 0.8 mg/dL (0.00-1.00); Blood Urea Nitrogen 15 mg/dL (7-18); Calcium 8.4 mg/dL (8.5-10.1); Carbon Dioxide 28 mmol/L (21-32); Chloride 101 mmol/L (98-108); Creatine Kinase 121 U/L (39-308); Estimated Glomerular Filt Rate > 60; Glucose 111 mg/dL (70-99); Osmolality Calculated 285 mOsm/kg (285-295); Potassium 4.4 mmol/L (3.5-5.1); Sodium 137 mmol/L (136-145); Total Protein 6.1 g/dL (6.4-8.2)
[2024-10-24 18:45] LABS: Band Neutrophils Percent 0 % (0-6); Basophils Absolute Manual 0.12 K/mm3 (0-0.1); Basophils Percent Manual 1 % (0-1); Eosinophils Absolute Manual 0.12 K/mm3 (0.02-0.50); Eosinophils Percent Manual 1 % (1-6); Lymphocytes Absolute Manual 2.41 K/mm3 (1.1-4.5); Lymphocytes Percent Manual 19 % (18-44); Monocytes Absolute Manual 0.88 K/mm3 (0.1-0.90); Monocytes Percent Manual 7 % (3-9); Neutrophils Absolute Manual 9.14 K/mm3 (1.3-6.7); Neutrophils Percent Manual 72 % (46-73); Platelet Estimate Adequate (Adequate)
== END 2024-10-24 15:35 | disposition home or self-care (01) ==
DX: T84.54XA Infection and inflammatory reaction due to internal left knee prosthesis, initial encounter (principal)
CPT/HCPCS: 36415; 80053; 82550; 85025; 85055

== ENCOUNTER 2024-11-05 17:58 | Outpatient (NON) | payer MEDICARE, SELFPAY ==
--- OUTSIDE RECORDS SUMMARY | 2024-11-05 18:05 | XMS_ITS | Encounter Summary ---
Author Organization [facility] Address [address] [place] [address] Care Team Providers Care Penology Professor Name Role Phone Karthik Dalton MD Primary Care Provider [phone] Encounter Details Date Type Department Care Team (Late st Contact Info) Description 06/04/2024 Telephone [facility] [address] [facility] [address] [place] [address] Nieves Rubio, RT Social History Tobacco Use Types Packs/Day Years Used Date Smoking Tobacco: Never Smokeless Tobacco: Never Alcohol Use Standard Drinks/Week Comments Not Currently 0 (1 standard drink = 0.6 oz pur e alcohol) Sex and Gender Information Value Date Recorded Sex Assigned at Not on file Legal Sex Male 7:52 PM CUSTOMER ACQUISITION MANAGER Gender Identity Male 04/10/2019 8:14 AM CDT Sexual Orientation Straight 04/10/2019 8: 14 AM CDT Occupation Industry Job Start Date Job End Date 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
--- OUTSIDE RECORDS SUMMARY | 2024-11-05 18:05 | XMS_ITS | Encounter Summary ---
Author Organization [facility] Address [address] [place] [address] Care Team Providers Care Auto Rental Supervisor Name Role Phone Karthik Dalton MD Primary Care Provider + [phone] Gina Vallejo NP Unavailable Jacob Williamson MD Unavailable [phone] Encounter Details Date Type Department Care Team (Late st Contact Info) Description 03/07/2022 Prep for Procedure [facility] One Day [place], [place] [id number] Jason Newman MD [address] [id number] Social History Tobacco Use Types Packs/Day Years [...] SPEC DESCRIPTION NASAL 03/11/20 10:39 AM CDT [facility] CORONAVIRUS SARS COV 2 PCR (RESP) POSITIVE(A A) NEGATIVE 03/11/2022 8:50 PM CDT [facility] Comment: THE SARS-CoV-2 TEST HAS BEEN AUTHORIZED BY THE FDA UNDER AN EUA FOR USE BY AUTHORIZED LABORATORIES. PERFORMED BY NUCLEIC ACID AMPLIFICATION PCR FIRST TEST UNKNOWN 03/11/2022 10:39 AM CDT [facility] EMPLOYED IN HEALTHCARE UNKNOWN 03/11/2022 10:39 AM CDT [facility] SYMPTOMATIC DEFINED BY CDC UNKNOWN 03/11/2022 10:39 AM CDT [facility] HOSPITALIZATION STATUS NO 03/11/2022 10:39 AM CDT [facility] PATIENT IN ICU NO 03/11/2022 10:39 AM CDT [facility] RESIDENT OF [facility] UNKNOWN 03/11/2022 10:39 AM CDT [facility] NASAL STRUCTURE / Unknown 03/11/2022 9:13 AM CDT us Jason Newman MD MICROBIOLOGY - GENERAL CORY RANKIN Final Result [facility] [address] [place] [address], [place] [phone] [facility] [address] [place] [address], [place] [phone] documented in this encounter Visit Diagnoses Diagnosis Encounter for screening colonoscopy- Primary Special screening for malignant neoplasms, colon documented in this encounter Additional Health Concerns Infection Onset Date Last Indicated Resolved Time COVID-19 Rule Out 03/11/2022 03/11/2022 03/11/2022 8:50 PM CDT COVID-19 Confirmed 03/11/2022 03/11/2022 12:32 AM CDT MRSA Comment:08/01/23 left knee (RR) 02/05/24 +MRSA Left knee 08/01/2023 04/04/2024 documented as of this encounter Care Teams Auto Rental Supervisor Relationship Specialty Start Date End Date Karthik Dalton MD [address] [place] [address] [address] PCP - General FAMILY PRACTICE 03/14/22 [facility] NP [facility] [address] Referring Physician INFECTIOUS DISEASE 08/01/23 4 Jacob Williamson MD [address] [place] [address] ORTHOPAEDICS 02/21/24 02/20/25 documented as of this encounter
--- OUTSIDE RECORDS SUMMARY | 2024-11-05 18:05 | XMS_ITS | Encounter Summary ---
Author Organization [facility] Address [address] [place] [address] Care Team Providers Care Cryptological Technician Name Role Phone Karthik Dalton MD Primary Care Provider [phone]- [phone] Reason for Visit * Reason Onset Date Comments LEFT KNEE INFECTION 05/15/20[address]IONISIO BH[address]WAJ [address] DR[facility] 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
--- OUTSIDE RECORDS SUMMARY | 2024-11-05 18:05 | XMS_ITS | Clinical Summary ---
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 Gender Identity Not on file Sexual Orientation Not on file Last Filed Vital Signs Vital Sign Reading Time Taken Comments Blood Pressure 119/59 05/19/2023 7:20 AM CDT Pulse 101 05/19/2023 7:20 AM CDT Temperature 37.4 C (99.4 F) 05/19/2023 7:20 AM CDT Respiratory Rate 15 05/19/2023 7:20 AM CDT [...] series) 2033 Medical Devices Implanted Type Area Chuck Boner Device Identifier Shelf Expiration Date Model / Serial / Lot Lgn Xlpe Dished Isrt Siz 7-8, 9 Mm Implanted:Qty: 1 on 05/18/2023 by Blanche schaefer MD at [facility] Other Left: Knee [employer]HEW [id number] / / [id number] Description:1X ADD JM 05/30/23 Insurance MEDICARE PART A AND B BCBS SUPP Advance Directives For more information, please contact: [phone] * Full Code (Latest Code Status on File) Date Activated Date Inactivated Comments 05/18/2023 10:56 AM 05/19/2023 10:28 PM * Full Code Date Activated Date Inactivated Comments 05/15/2023 1:58 PM 05/18/2023 10:56 AM Care Teams Government Documents Librarian Relationship Specialty Start Date End Date Karthik Dalton MD [address] [place] [phone] PCP - General Family Practice 11/14/22
--- OUTSIDE RECORDS SUMMARY | 2024-11-05 18:05 | XMS_ITS | Clinical Summary ---
Author Organization [facility] Address [facility] [place] [address] Care Team Providers Care Staff Services Manager Name Role Phone Karthik Dalton MD Primary Care Provider [phone]- [phone] Jacob Williamson MD Unavailable [phone] Allergies Active Allergy Reactions Criticality Noted Date [...] (BACTRIM DS) 800-160 MG tabletIndicatio ns:Osteomyeliti s ([facility]) Take 1 tablet by mouth daily. Per Dr Avila orders 90 tablet 1 06/05/2024 Active Active Problems Problem Noted Date Diagnosed Date Osteomyelitis of left knee region ([facility]) 08/24/2023 Encounters Date Type Department Care Team Description 08/25/2024 Orders Only [facility] Multispecialty [address] [phone] Reji Avila MD from Last [...] 71 05/13/2024 10:12 AM CDT Temperature 36.7 C (98.1 F) 05/13/2024 10:12 AM CDT Respiratory Rate 16 05/13/2024 10:12 AM CDT [...] (#1) 2024 07/18/2020, 07/08/2019, 07/14/2018 PHQ-2 (Physician [place]) 09/25/2024 07/16/2024 Colorectal Cancer Screening Colonoscopy (10 [...] Results * Colonoscopy (03/14/2022 4:44 PM CDT) Narrative Jason Newman MD - 03/14/2022 4:44 PM CDT Jason Newman MD 03/14/2022 4:50 PM JASON NEWMAN MD, FACG, FACP COLONOSCOPY 03/14/2022 61-year-old male with Prostatectomy and left TKR who now presents for colonoscopy for screening for colon cancer. GI review of systems is negative. No endocarditis risk factors. No Known Allergies Medications: see list. Family history: negative for colon cancer. VITALS: Stable. LUNGS: Clear. HEART: RRR S1/S2 normal. ABDOMEN: NABS/NT. The procedure of colonoscopy with moderate sedation, its indications, alternatives of barium studies and risks including perforation, bleeding, infection, reaction to medication as well as the possible need for blood or surgery were discussed with the patient prior to the procedure. The patient voices understanding, agrees to proceed and provides informed consent. INDICATION: Screening for colon cancer. POST-OP: Three colon polyps removed. Mild diverticulosis. SEDATION: ASA 1. MP 1. Versed 4 mg, Fentanyl 100 mcg IV given. PREP: Good. With the patient in the left lateral decubitus position, the Olympus [id number] colonoscope was introduced into the rectum and advanced [...] +MRSA Left knee 08/01/2023 04/04/2024 Insurance MEDICARE [facility] Care Teams Staff Services Manager Relationship Specialty Start Date End Date Karthik Dalton MD [address] [place] [address] [address] Y[address]OUGH [address] [place] [id number] PCP - General FAMILY PRACTICE 03/14/22 Jacob Williamson MD [address] [place] [address] ORTHOPAEDICS 02/21/24 02/20/25
--- OUTSIDE RECORDS SUMMARY | 2024-11-05 18:05 | XMS_ITS | Encounter Summary ---
Author Organization [facility] Address [address] [place] [address] Phone Care Team Providers Care Windows Systems Architect Name Role Phone Karthik Dalton MD Primary Care Provider [phone] Encounter Details Date Type Department Care Team (Late st Contact Info) Description 11/05/2024 Telephone [facility] Infectious Diseases [address] [place] [phone] Melanie Leo CMA Social History Tobacco Use Types Packs/Day Years [...] on file Legal Sex Male 7:52 PM DIRECTOR OF MEDICAL EDUCATION Gender Identity Male 04/10/2019 8:14 AM CDT Sexual Orientation Straight 04/10/2019 8: 14 AM CDT 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 Industry 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 Date Job End Date 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 Not on file Not on file Not on file documented as of this encounter Miscellaneous Notes * Telephone Encounter - Melanie Leo CMA - 11/05/2024 2:25 PM CST Last night pt had fever of 100.1, has chills and sweats, believes he has reactions from a antibiotic Please call [phone] CTOR OF MEDICAL EDUCATION documented in this encounter Plan of Treatment Not on file documented as of this encounter Visit Diagnoses Not on filedocumented in this encounter Care Teams Windows Systems Architect Relationship Specialty Start Date End Date Karthik Dalton MD [address] [place] [address] [address] [place] [address] PCP - General Family Medicine 04/05/19 documented as of this encounter
--- OUTSIDE RECORDS SUMMARY | 2024-11-05 18:05 | XMS_ITS | Referral Summary ---
Author Organization [facility] Address [address] [place] [address] Care Team Providers Care Crm Marketing Specialist Name Role Phone Karthik Dalton MD Primary Care Provider [phone] Encounters Date Type Department Care Team Description 11/05/2024 Telephone [facility] Infectious Diseases [address] [place] [address] [place] [phone] Melanei Leo CMA 11/01/2024 Documentation [facility] Infectious Diseases [address] [place] [address] [place] [phone] José Mullen Jr., VIOLET 10/25/2024 Documentation [facility] Infectious Diseases [address] [place] [address] [place] [phone] José Mullen Jr., RN 10/23/2024 Telephone [facility] Infectious Diseases [address] [place] [address] [place] [phone] Libra Coello CMA 10/22/2024 5:40 PM MUCK HAULER - 10/22/2024 11:59 PM MUCK HAULER Hospital Encounter [facility] Lab [address] [place] [phone] Discharge Disposition: Discharge to home or self care 10/22/2024 Telephone [facility] Orthopaedic Surgery [id number] [place] [address] 2nd [address] [place] [address] Osiel Navarrete MD 10/21/2024 Orders Only [facility] Home Care Services [address] [place] [address] Jennifer Duggan, [facility] 10/21/2024 Telephone [facility] Case Management [address] [phone] Ying Robles RN 10/14/2024 11:27 AM MUCK HAULER - 10/21/2024 2:28 PM MUCK HAULER Hospital Encounter [place] [phone] Dewayne Tidwell MD Infection of total joint prosthesis, initial encounter (HCC) (Primary Dx); Infected prosthetic knee joint, sequela Discharge Disposition: Discharge to home, home health skilled care 10/18/2024 Documentation [facility] Infectious Diseases [address] [place] [address] [address] [place] [phone] Darline Foreman, AUSTYN 10/17/2024 7:30 AM MUCK HAULER - 10/17/2024 10:40 AM MUCK HAULER Surgery [facility] Operating Room [address] [place] [phone] Osiel Navarrete MD FLAP GASTROCNEMIUS TO KNEE 10/17/2024 7:45 AM MUCK HAULER Anesthesia Event [facility] Operating Room [address] [place] [phone] Ty Pratt MD Lee, Chris Cheng-Fu, MD PhD 10/14/2024 12:50 PM MUCK HAULER - 10/14/2024 5:00 PM MUCK HAULER Surgery [facility] Operating Room [address] [place] [phone] Dewayne Tidwell MD PLACEMENT SPACER/ANTIBIOTIC BEAD - KNEE-LEFT 10/14/2024 1:10 PM MUCK HAULER Anesthesia Event [facility] Operating Room [address] [place] [phone] Alonso Swann MD Brake, Barbara E., NP 10/09/2024 Orders Only [facility] Orthopaedic Surgery [address] [facility] Medical Office Building [address] [place] [address] Dewayne Tidwell MD 09/16/2024 11:00 AM MUCK HAULER Lab [facility] [address] [place] [address] Infection of total joint prosthesis, initial encounter (HCC) 09/16/2024 10:30 AM MUCK HAULER Pre-Admission Testing [facility] CAM Pre Anesthesia Testing [address] [place] [address] from Last 3 Months Allergies Active Allergy [...] DAYS PRIOR TO SURGERY. 22 g 10/09/19 25 025 Discontin ued(Stop Taking at Discharge ) Active Problems Problem Noted Date Diagnosed Date Infected prosthetic knee joint, sequela 10/14/19 Infection of total knee replacement 09/30/2024 Infection of total joint prosthesis (CMS/HCC) Assessment & Plan (10/18/2024 12:36 PM MUCK HAULER): Dipesh Martinez is a 64 y.o. male with a history of prostate cancer, anemia, DVT (05/2023), and a chronically infected left total knee arthroplasty admitted on 10/14/24 with chronic left knee draining wound for planned I&D, explant and antibiotic spacer placement. On 08/26/2019 he underwent a L. TKA at [facility]. 05/18/23 underwent L. Knee I&D and liner exchange at [facility]. OR cultures grew Enterobacter cloacae, Pseudomonas aeruginosa, and prevotella bivia which was treated initially with vancomycin/Zosyn then suppressed with cipro/amox then switched to cipro/bactrim with positive MRSA wound culture in 07/2023. Followed by [facility]. He went to Dr. 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 Not on file Not on file Not on file Last Filed Vital Signs Vital Sign Reading Time Taken Comments Blood Pressure 125/61 10/21/2024 7:28 AM MUCK HAULER Pulse 75 10/21/2024 7:28 AM MUCK HAULER Temperature 36.6 C (97.9 F) 10/21/2024 7:28 AM MUCK HAULER Respiratory Rate 16 10/21/2024 7:28 AM MUCK HAULER Oxygen Saturation 96% 10/21/2024 7:28 AM MUCK HAULER Inhaled Oxygen Concentration - - Weight 77.1 kg (170 lb) 10/15/2024 1:28 AM MUCK HAULER Height 172.7 cm (5' 7.99 ) 10/15/2024 1:28 AM CS T Body Mass Index 25.85 10/15/2024 1:28 AM MUCK HAULER Plan of Treatment Not on file Medical Devices Implanted Type Area Microbiology Technician Device Identifier Shelf Expiration Date Model / Serial / Lot Zafin Cement Bone Cerament 5 Ml Supplement Filler W6124-23 - [id number] Implanted:Qty: 2 on 10/14/2024 by Dewayne Tidwell MD at [facility] tydy 08/28/2025 A021 0-09 / / [id number] [employer] Simplex P Full Dose Radiopaque Preblend Cement Bone Tobramycin 6197-9-001 - [id number] Implanted:Qty: 3 on 10/14/2024 by Dewayne Tidwell MD at [facility] Left: Knee [employer] [id number] 08/24/202500 1 / / [id number] [employer] Nail Femoral [id number] Radha Compos Sys Strl Indicated For [id number] - [id number] Implanted:Qty: 1 on 10/14/2024 by Dewayne Tidwell MD at [facility] Left: Knee [employer] [id number] / / [employer] Simplex P Full Dose Radiopaque Preblend Cement Bone Tobramycin 6197-9-001 - [id number] Implanted:Qty: 2 on 10/14/2024 by Dewayne Tidwell MD at [facility] Left: Knee [employer] [id number] 1 / / [id number] [employer] Simplex P Full Dose Radiopaque Preblend Cement Bone Tobramycin 6197-9-001 - [id number] Implanted:Qty: 1 on 10/14/2024 by Dewayne Tidwell MD at [facility] Left: Knee [employer] [id number] 10/25/2025 6197-9-00 / / [id number] Procedures Procedure Name Priority Date/Time Associated Diagnosis Comments EGFR Routine 10/20/2024 8:41 PM MUCK HAULER DIFFERENTIAL AUTO Routine 10/20/2024 8:4 1 PM MUCK HAULER CBC WITH AUTO DIFFERENTIAL Routine 10/20/2024 8:41 PM MUCK HAULER BASIC METABOLIC PANEL Routine 10/20/2024 8:41 PM MUCK HAULER EGFR Routine 10/19/2024 9:06 PM MUCK HAULER DIFFERENTIAL AUTO Routine 10/19/2024 9:0 6 PM MUCK HAULER CBC WITH AUTO DIFFERENTIAL Routine 10/19/2024 9:06 PM MUCK HAULER BASIC METABOLIC PANEL Routine 10/19/2024 9:06 PM MUCK HAULER EGFR Routine 10/18/2024 8:10 PM MUCK HAULER DIFFERENTIAL AUTO Routine 10/18/2024 8:1 0 PM MUCK HAULER CBC WITH AUTO DIFFERENTIAL Routine 10/18/2024 8:10 PM MUCK HAULER BASIC METABOLIC PANEL Routine 10/18/2024 8:10 PM MUCK HAULER ECG 12-LEAD Routine 10/18/2024 1:13 PM MUCK HAULER CREATINE KINASE (CK), TOTAL Timed 10/18/2024 12:50 PM MUCK HAULER EGFR Routine 10/17/2024 9:42 PM MUCK HAULER DIFFERENTIAL AUTO Routine 10/17/2024 9:4 2 PM MUCK HAULER CBC WITH AUTO DIFFERENTIAL Routine 10/17/2024 9:42 PM MUCK HAULER BASIC METABOLIC PANEL Routine 10/17/2024 9:42 PM MUCK HAULER TN AN PROCEDURE PLACEHOLDER Routine 10/17/2024 9:17 AM MUCK HAULER TRANSFUSE RED BLOOD CELLS Timed 10/17/2024 8:27 AM MUCK HAULER TN AN PROCEDURE PLACEHOLDER Routine 10/17/2024 8:23 AM MUCK HAULER TN AN ELECTIVE ENDOTRACHEAL AIRWAY Routine 10/17/2024 8:23 AM MUCK HAULER SPLIT THICKNESS SKIN GRAFT - LOWER EXTREMITY 10/17/2024 7:47 AM MUCK HAULER Infection of total knee replacement, subsequent encounter Case Notes 10/16 PER KIERRA PHIPPS DANIEL YANG- RC1/@1330- Changed line up per Jennifer via phone (EF) Special Needs LOPEZ MESHER/DERMATOME/PLATES FLAP GASTROCNEMIUS TO KNEE 10/17/2024 7:47 AM MUCK HAULER Infection of total knee replacement, subsequent encounter Case Notes 10/16 PER KIERRA PHIPPS DANIEL YANG- RC/@1330- Changed line up per Jennifer via phone (EF) Special Needs LOPEZ MESHER/DERMATOME/PLATES PREPARE RBC STAT 10/17/2024 7:05 AM MUCK HAULER TYPE AND SCREEN STAT 10/17/2024 5:41 AM MUCK HAULER EGFR Routine 10/16/2024 9:51 PM MUCK HAULER DIFFERENTIAL AUTO Routine 10/16/2024 9:5 1 PM MUCK HAULER CBC WITH AUTO DIFFERENTIAL Routine 10/16/2024 9:51 PM MUCK HAULER BASIC METABOLIC PANEL Routine 10/16/2024 9:51 PM MUCK HAULER VANCOMYCIN LEVEL TROUGH Timed 10/16/19 2:00 PM MUCK HAULER INSERT PICC LINE Routine 10/16/2024 12:02 PM MUCK HAULER EGFR Routine 10/15/2024 11:26 PM MUCK HAULER DIFFERENTIAL AUTO Routine 10/15/2024 11:26 PM MUCK HAULER CBC WITH AUTO DIFFERENTIAL Routine 10/15/2024 11:26 PM MUCK HAULER BASIC METABOLIC PANEL Routine 10/15/2024 11:26 PM MUCK HAULER EGFR Timed 10/14/2024 9:54 PM MUCK HAULER HEPATIC FUNCTION PANEL STAT 9:54 PM MUCK HAULER PROTIME-INR STAT 10/14/2024 9:54 PM MUCK HAULER CBC WITHOUT DIFFERENTIAL STAT 10/14/2024 9:54 PM MUCK HAULER BASIC METABOLIC PANEL Timed 10/14/2024 9:54 PM MUCK HAULER XR KNEE LEFT 1 OR 2 VIEWS ED Urgent/IP Urgent 10/14/2024 5:49 PM MUCK HAULER MYCOBACTERIOLOGY AFB CULTURE AND ACID-FAST STAIN Routine 10/14/2024 3:14 PM MUCK HAULER MYCOLOGY (FUNGAL) CULTURE AND STAIN Routine 10/14/2024 3:14 PM MUCK HAULER TISSUE AEROBIC AND ANAEROBIC CULTURE AND GRAM STAIN Routine 10/14/2024 3:14 PM MUCK HAULER MYCOBACTERIOLOGY AFB CULTURE AND ACID-FAST STAIN Routine 10/14/2024 3:05 PM MUCK HAULER MYCOLOGY (FUNGAL) CULTURE AND STAIN Routine 10/14/2024 3:05 PM MUCK HAULER TISSUE AEROBIC AND ANAEROBIC CULTURE AND GRAM STAIN Routine 10/14/2024 3:05 PM MUCK HAULER MYCOBACTERIOLOGY AFB CULTURE AND ACID-FAST STAIN Routine 10/14/2024 2:27 PM MUCK HAULER MYCOLOGY (FUNGAL) CULTURE AND STAIN Routine 10/14/2024 2:27 PM MUCK HAULER TISSUE AEROBIC AND ANAEROBIC CULTURE AND GRAM STAIN Routine 10/14/2024 2:27 PM MUCK HAULER MYCOBACTERIOLOGY AFB CULTURE AND ACID-FAST STAIN Routine 10/14/2024 2:20 PM MUCK HAULER MYCOLOGY (FUNGAL) CULTURE AND STAIN Routine 10/14/2024 2:20 PM MUCK HAULER TISSUE AEROBIC AND ANAEROBIC CULTURE AND GRAM STAIN Routine 10/14/2024 2:20 PM MUCK HAULER MYCOBACTERIOLOGY AFB CULTURE AND ACID-FAST STAIN Routine 10/14/2024 2:19 PM MUCK HAULER MYCOLOGY (FUNGAL) CULTURE AND STAIN Routine 10/14/2024 2:19 PM MUCK HAULER TISSUE AEROBIC AND ANAEROBIC CULTURE AND GRAM STAIN Routine 10/14/2024 2:19 PM MUCK HAULER MYCOLOGY (FUNGAL) CULTURE Routine 10/14/2024 2:18 PM MUCK HAULER MYCOBACTERIOLOGY AFB CULTURE AND ACID-FAST STAIN Routine 10/14/2024 2:18 PM MUCK HAULER TISSUE AEROBIC AND ANAEROBIC CULTURE AND GRAM STAIN Routine 10/14/2024 2:18 PM MUCK HAULER MYCOBACTERIOLOGY AFB CULTURE AND ACID-FAST STAIN Routine 10/14/2024 2:18 PM MUCK HAULER MYCOLOGY (FUNGAL) CULTURE AND STAIN Routine 10/14/2024 2:18 PM MUCK HAULER TISSUE AEROBIC AND ANAEROBIC CULTURE AND GRAM STAIN Routine 10/14/2024 2:18 PM MUCK HAULER ANESTHESIA INTUBATION Routine 10/14/2024 1:52 PM MUCK HAULER ARTHROPLASTY REMOVAL/EXCHANGE HARDWARE - KNEE 10/14/2024 1:11 PM MUCK HAULER Infection of total joint prosthesis, initial encounter (HCC) PLACEMENT SPACER/ANTIBIOTIC BEAD - KNEE 10/14/2024 1:11 PM MUCK HAULER Infection of total joint prosthesis, initial encounter (HCC) EGFR Routine 09/16/2024 11:35 AM MUCK HAULER Infection of total joint prosthesis, initial encounter (HCC) DIFFERENTIAL AUTO Routine 09/16/2024 11:35 AM MUCK HAULER Infection of total joint prosthesis, initial encounter (HCC) CBC WITH AUTO DIFFERENTIAL Routine 09/16/2024 11:35 AM MUCK HAULER Infection of total joint prosthesis, initial encounter (HCC) VITAMIN D 25 HYDROXY Routine 09/16/2024 11:35 AM MUCK HAULER Infection of total joint prosthesis, initial encounter (HCC) COMPREHENSIVE METABOLIC PANEL Routine 09/16/2024 11:35 AM MUCK HAULER Infection of total joint prosthesis, initial encounter (HCC) from Last 3 Months Results * eGFR (10/20/2024 8:41 PM MUCK HAULER) eGFR 87 >=60 mL/min/1. 73 m2 Comment: Interpretive Data Reference Interval Normal >/= 90 mL/min/1.73m2 Mildly decreased* 60 - 89 mL/min/1.73m2 Mildly to moderately decreased 45 - 59 mL/min/1.73m2 Moderately to severely decreased 30 - 44 mL/min/1.73m2 Severely decreased 15 - 29 mL/min/1.73m2 Kidney Failure < 15 mL/min/1.73m2 *Relative to young adult level Estimated glomerular [...] last reviewed 2021. Blood 10/20/2024 8:41 PM MUCK HAULER 10/20/2024 9:04 PM MUCK HAULER us Elpidio Frazier MD LAB BLOOD ORDERABLES Final R esult [facility] Department [place] [address] * (ABNORMAL) Differential, auto (10/20/2024 8:41 PM MUCK HAULER) Neutrophil abs 5.4 1.5 - 6.5 K/cumm Imm gran abs 1.1(H) 0.0 - 0.1 K/cumm [facility] Lymphocyte abs 1.6 0.8 - 3.3 K/cumm [facility] Monocyte abs 1.0(H) 0.2 - 0.8 K/cumm [facility] Eosinophil abs 0.3 0.0 - 0.5 K/cumm [facility] Basophil abs 0.1 0.0 - 0.1 K/cumm [facility] Neutrophil pct 56.3 % [facility] Comment: Confirmed by smear review Interpretive Data Percent cell count reference ranges are not reported, since discordance with absolute values may lead to misinterpretation of CBC data. Current Interpretive Data was last revised on 2018. Imm gran pct 11.6 % [facility] Comment: Interpretive Data Percent cell count reference ranges are not reported, since discordance with absolute values may lead to misinterpretation of CBC data. Current Interpretive Data was last revised on 2018. Lymphocyte pct 17.0 % [facility] Comment: Interpretive Data Percent cell count reference ranges are not reported, since discordance with absolute values may lead to misinterpretation of CBC data. Current Interpretive Data was last revised on 2018. Monocyte pct 10.5 % [facility] Comment: Interpretive Data Percent cell count reference ranges are not reported, since discordance with absolute values may lead to misinterpretation of CBC data. Current Interpretive Data was last revised on 2018. Eosinophil pct 3.5 % [facility] Comment: Interpretive Data Percent cell count reference ranges are not reported, since discordance with absolute values may lead to misinterpretation of CBC data. Current Interpretive Data was last revised on 2018. Basophil pct 1.1 % [facility] Comment: Interpretive Data Percent cell count reference ranges are not reported, since discordance with absolute values may lead to misinterpretation of CBC data. Current Interpretive Data was last revised on 2018. Blood 10/20/2024 8:41 PM MUCK HAULER 10/20/2024 9:04 PM MUCK HAULER us Elpidio Frazier MD LAB BLOOD ORDERABLES Final R esult [facility] Department [place] [address] * (ABNORMAL) CBC with auto differential (10/20/2024 8:41 PM MUCK HAULER) [facility] WBC 9.6 3.8 - 9.9 K/cumm Hgb 8.0(L) 13.0 - 17.5 g/dL [facility] Hct 25.7(L) 38.9 - 50.3 % [facility] Plt 400 150 - 400 K/cumm [facility] MPV 9.5 9.1 - 12.3 fL [facility] RBC 3.12(L) 4.30 - 5.80 M/cumm [facility] MCV 82.4 81.3 - 96.4 fL [facility] MCH 25.6(L) 27.1 - 33.3 pg [facility] MCHC 31.1(L) 32.3 - 35.7 g/dL [facility] RDW CV 17.9(H) 11.1 - 14.9 % [facility] RDW SD 51.8(H) 35.7 - 48.1 fL [facility] NRBC abs 0.00 0.00 - 0.01 K/cumm [facility] Blood 10/20/2024 8:41 PM MUCK HAULER 10/20/2024 9:04 PM MUCK HAULER Elpidio Frazier MD LAB BLOOD ORDERABLES Final R esult [facility] Department [place] [address] * Basic metabolic panel (10/20/2024 8:41 PM MUCK HAULER) [facility] Sodium 135 135 - 145 mmol/L Potassium, pl 4.4 3.3 - 4.9 mmol/L [facility] Chloride 99 97 - 110 mmol/L [facility] CO2 29 22 - 32 mmol/L [facility] Anion gap 7 2 - 15 mmol/L [facility] BUN 19 6 - 25 mg/dL [facility] Creatinine 0.96 0.80 - 1.30 mg/dL [facility] Glucose 119 70 - 199 mg/dL [facility] Comment: Interpretive Data Fasting glucose >/= 126 mg/dl is diagnostic for diabetes. Fasting is defined as no caloric intake [...] 2022. Calcium 9.0 8.5 - 10.3 mg/dL [facility] Blood 10/20/2024 8:41 PM MUCK HAULER 10/20/2024 9:04 PM MUCK HAULER us Elpidio Frazier MD LAB BLOOD ORDERABLES Final R esult [facility] Department [place] [address] * eGFR (10/19/2024 9:06 PM MUCK HAULER) eGFR >90 >=60 mL/min/1. 73 m2 Comment: Interpretive Data Reference Interval Normal >/= 90 mL/min/1.73m2 Mildly decreased* 60 - 89 mL/min/1.73m2 Mildly to moderately decreased 45 - 59 mL/min/1.73m2 Moderately to severely decreased 30 - 44 mL/min/1.73m2 Severely decreased 15 - 29 mL/min/1.73m2 Kidney Failure < 15 mL/min/1.73m2 *Relative to young adult level Estimated glomerular [...] last reviewed 2021. Blood 10/19/2024 9:06 PM MUCK HAULER 10/19/2024 10:33 PM MUCK HAULER us Elpidio Frazier MD LAB BLOOD ORDERABLES Final R esult [facility] Department [place] [address] * (ABNORMAL) Differential, auto (10/19/2024 9:06 PM MUCK HAULER) Neutrophil abs 5.3 1.5 - 6.5 K/cumm Imm gran abs 1.0(H) 0.0 - 0.1 K/cumm [facility] Lymphocyte abs 1.3 0.8 - 3.3 K/cumm [facility] Monocyte abs 1.0(H) 0.2 - 0.8 K/cumm [facility] Eosinophil abs 0.4 0.0 - 0.5 K/cumm [facility] Basophil abs 0.1 0.0 - 0.1 K/cumm [facility] Neutrophil pct 58.7 % [facility] Comment: Confirmed by smear review Interpretive Data Percent cell count reference ranges are not reported, since discordance with absolute values may lead to misinterpretation of CBC data. Current Interpretive Data was last revised on 2018. Imm gran pct 11.0 % [facility] Comment: Interpretive Data Percent cell count reference ranges are not reported, since discordance with absolute values may lead to misinterpretation of CBC data. Current Interpretive Data was last revised on 2018. Lymphocyte pct 14.1 % [facility] Comment: Interpretive Data Percent cell count reference ranges are not reported, since discordance with absolute values may lead to misinterpretation of CBC data. Current Interpretive Data was last revised on 2018. Monocyte pct 11.2 % [facility] Comment: Interpretive Data Percent cell count reference ranges are not reported, since discordance with absolute values may lead to misinterpretation of CBC data. Current Interpretive Data was last revised on 2018. Eosinophil pct 4.2 % [facility] Comment: Interpretive Data Percent cell count reference ranges are not reported, since discordance with absolute values may lead to misinterpretation of CBC data. Current Interpretive Data was last revised on 2018. Basophil pct 0.8 % [facility] Comment: Interpretive Data Percent cell count reference ranges are not reported, since discordance with absolute values may lead to misinterpretation of CBC data. Current Interpretive Data was last revised on 2018. Blood 10/19/2024 9:06 PM MUCK HAULER 10/19/2024 10:34 PM MUCK HAULER Elpidio Frazier MD LAB BLOOD ORDERABLES Final R esult Performing Organization Address City/[facility] [address]/ZIP Co de Phone Number [facility] Department [place] [employer] [place] [place] [address] * (ABNORMAL) CBC with auto differential (10/19/2024 9:06 PM MUCK HAULER) WBC 9.1 3.8 - 9.9 K/cumm Hgb 7.5(L) 13.0 - 17.5 g/dL [facility] Hct 23.9(L) 38.9 - 50.3 % [facility] Plt 357 150 - 400 K/cumm [facility] MPV 9.8 9.1 - 12.3 fL [facility] RBC 2.92(L) 4.30 - 5.80 M/cumm [facility] MCV 81.8 81.3 - 96.4 fL [facility] MCH 25.7(L) 27.1 - 33.3 pg [facility] MCHC 31.4(L) 32.3 - 35.7 g/dL [facility] RDW CV 17.8(H) 11.1 - 14.9 % [facility] RDW SD 52.3(H) 35.7 - 48.1 fL [facility] NRBC abs 0.00 0.00 - 0.01 K/cumm [facility] Blood 10/19/2024 9:06 PM MUCK HAULER 10/19/2024 10:34 PM MUCK HAULER Elpidio Frazier MD LAB BLOOD ORDERABLES Final R esult [facility] Department [place] [address] * Basic metabolic panel (10/19/2024 9:06 PM MUCK HAULER) Sodium 139 135 - 145 mmol/L Potassium, pl 4.4 3.3 - 4.9 mmol/L [facility] Chloride 101 97 - 110 mmol/L [facility] CO2 30 22 - 32 mmol/L [facility] Anion gap 8 2 - 15 mmol/L [facility] BUN 20 6 - 25 mg/dL [facility] Creatinine 0.87 0.80 - 1.30 mg/dL [facility] Glucose 102 70 - 199 mg/dL [facility] Comment: Interpretive Data Fasting glucose >/= 126 mg/dl is diagnostic for diabetes. Fasting is defined as no caloric intake [...] 2022. Calcium 8.8 8.5 - 10.3 mg/dL [facility] Blood 10/19/2024 9:06 PM MUCK HAULER 10/19/2024 10:33 PM MUCK HAULER us Elpidio Frazier MD LAB BLOOD ORDERABLES Final R esult [facility] Department [place] [address] * eGFR (10/18/2024 8:10 PM MUCK HAULER) eGFR >90 >=60 mL/min/1. 73 m2 Comment: Interpretive Data Reference Interval Normal >/= 90 mL/min/1.73m2 Mildly decreased* 60 - 89 mL/min/1.73m2 Mildly to moderately decreased 45 - 59 mL/min/1.73m2 Moderately to severely decreased 30 - 44 mL/min/1.73m2 Severely decreased 15 - 29 mL/min/1.73m2 Kidney Failure < 15 mL/min/1.73m2 *Relative to young adult level Estimated glomerular [...] last reviewed 2021. Blood 10/18/2024 8:10 PM MUCK HAULER 10/18/2024 8:35 PM MUCK HAULER us Elpidio Frazier MD LAB BLOOD ORDERABLES Final R esult [facility] [place] [address] * (ABNORMAL) Differential, auto (10/18/2024 8:10 PM MUCK HAULER) Pathologist [facility] Neutrophil abs 5.3 1.5 - 6.5 K/cumm Imm gran abs 0.5(H) 0.0 - 0.1 K/cumm [facility] Lymphocyte abs 1.1 0.8 - 3.3 K/cumm [facility] Monocyte abs 0.8 0.2 - 0.8 K/cumm [facility] Eosinophil abs 0.4 0.0 - 0.5 K/cumm [facility] Basophil abs 0.1 0.0 - 0.1 K/cumm [facility] Neutrophil pct 64.3 % [facility] Comment: Interpretive Data Percent cell count reference ranges are not reported, since discordance with absolute values may lead to misinterpretation of CBC data. Current Interpretive Data was last revised on 2018. Imm gran pct 6.6 % [facility] Comment: Interpretive Data Percent cell count reference ranges are not reported, since discordance with absolute values may lead to misinterpretation of CBC data. Current Interpretive Data was last revised on 2018. Lymphocyte pct 13.7 % [facility] Comment: Interpretive Data Percent cell count reference ranges are not reported, since discordance with absolute values may lead to misinterpretation of CBC data. Current Interpretive Data was last revised on 2018. Monocyte pct 9.5 % [facility] Comment: Interpretive Data Percent cell count reference ranges are not reported, since discordance with absolute values may lead to misinterpretation of CBC data. Current Interpretive Data was last revised on 2018. Eosinophil pct 5.3 % [facility] Comment: Interpretive Data Percent cell count reference ranges are not reported, since discordance with absolute values may lead to misinterpretation of CBC data. Current Interpretive Data was last revised on 2018. Basophil pct 0.6 % [facility] Comment: Interpretive Data Percent cell count reference ranges are not reported, since discordance with absolute values may lead to misinterpretation of CBC data. Current Interpretive Data was last revised on 2018. Blood 10/18/2024 8:10 PM [facility] 10/18/2024 8:35 PM [facility]ER us Elpidio Frazier MD LAB BLOOD ORDERABLES Final R esult [facility] [place] [address] * (ABNORMAL) CBC with auto differential (10/18/2024 8:10 PM MUCK [facility]ULER) WBC 8.2 3.8 - 9.9 K/cumm Hgb 7.2(L) 13.0 - 17.5 g/dL [facility] Hct 23.2(L) 38.9 - 50.3 % [facility] Plt 313 150 - 400 K/cumm [facility] MPV 9.6 9.1 - 12.3 fL [facility] RBC 2.83(L) 4.30 - 5.80 M/cumm [facility] MCV 82.0 81.3 - 96.4 fL [facility] MCH 25.4(L) 27.1 - 33.3 pg [facility] MCHC 31.0(L) 32.3 - 35.7 g/dL [facility] RDW CV 17.5(H) 11.1 - 14.9 % [facility] RDW SD 51.1(H) 35.7 - 48.1 fL [facility] NRBC abs 0.00 0.00 - 0.01 K/cumm [facility] Blood 10/18/2024 8:10 PM [facility]ER 10/18/2024 8:35 PM [facility]ER us Elpidio Frazier MD LAB BLOOD ORDERABLES Final R esult [facility] Department [place] [address] * Basic metabolic panel (10/18/2024 8:10 PM MUCK [facility]ULER) Sodium 139 135 - 145 mmol/L Potassium, pl 3.9 3.3 - 4.9 mmol/L [facility] Chloride 101 97 - 110 mmol/L [facility] CO2 28 22 - 32 mmol/L [facility] Anion gap 10 2 - 15 mmol/L [facility] BUN 17 6 - 25 mg/dL [facility] Creatinine 0.89 0.80 - 1.30 mg/dL [facility] Glucose 150 70 - 199 mg/dL [facility] Comment: Interpretive Data Fasting glucose >/= 126 mg/dl is diagnostic for diabetes. Fasting is defined as no caloric intake [...] 2022. Calcium 8.6 8.5 - 10.3 mg/dL [facility] Blood 10/18/2024 8:10 PM [facility]ER 10/18/2024 8:35 PM [facility]ER us Elpidio Frazier MD LAB BLOOD ORDERABLES Final R esult Performing Organization Address City/[facility] [address]/ZIP Co de Phone Number TG [facility] Department [place] [address] * ECG 12 lead (10/18/2024 1:13 PM MUCK [facility]ULER) [facility] Ventricular Rate EKG/Min 73 BPM [facility] Atrial Rate 73 BPM [facility] [place]-Interval (MSEC) 148 ms [facility] QRS-Interval (MSEC) 90 ms [facility] QT-Interval (MSEC) 354 ms [facility] QTc 389 ms [facility] P [place] 49 degrees [facility] R [place] 11 degrees [facility] T [place] 68 degrees [facility] Diagnosis Normal sinus rhythm Early R wave progression When compared with ECG of 06-AUG-2019 07:44, No significant change was found Confirmed by OSIEL COURTNEY M.D ([id number]) on 10/23/2024 9:26:10 AM [facility] 10/18/2024 1:13 PM [facility] 10/23/2024 9:26 AM [facility]ER us Vika Barros [employer] ECG ORDERABLES Final Res ult Performing Organization Address [facility] Co de Phone Number [facility] * Creatine kinase (CK), total (10/18/2024 12:50 PM MUCK HAULER) [facility] CK 258 40 - 300 Units/L Blood 10/18/2024 12:5 0 PM [facility] 10/18/2024 1:03 PM [facility]ER us Darline Foreman [employer] LAB BLOOD ORDERABLES Final Result Performing Organization Address [facility] [address]/[facility] Co de Phone Number TG [facility] Department [place] [address] * eGFR (10/17/2024 9:42 PM MUCK [facility]ULER) [facility] eGFR >90 >=60 mL/min/1. 73 m2 Comment: Interpretive Data Reference Interval Normal >/= 90 mL/min/1.73m2 Mildly decreased* 60 - 89 mL/min/1.73m2 Mildly to moderately decreased 45 - 59 mL/min/1.73m2 Moderately to severely decreased 30 - 44 mL/min/1.73m2 Severely decreased 15 - 29 mL/min/1.73m2 Kidney Failure < 15 mL/min/1.73m2 *Relative to young adult level Estimated glomerular [...] last reviewed 2021. Blood 10/17/2024 9:42 PM [facility] 10/17/2024 10:10 PM MUCK [facility]ULER Candy North NP LAB BLOOD ORDERABLES Final Result [facility] Department [place] [address] * (ABNORMAL) Differential, auto (10/17/2024 9:42 PM [facility]ER) Neutrophil abs 8.3(H) 1.5 - 6.5 K/cumm Imm gran abs 0.3(H) 0.0 - 0.1 K/cumm [facility] Lymphocyte abs 1.0 0.8 - 3.3 K/cumm [facility] Monocyte abs 1.1(H) 0.2 - 0.8 K/cumm [facility] Eosinophil abs 0.0 0.0 - 0.5 K/cumm [facility] Basophil abs 0.1 0.0 - 0.1 K/cumm [facility] Neutrophil pct 76.9 % [facility] Comment: Interpretive Data Percent cell count reference ranges are not reported, since discordance with absolute values may lead to misinterpretation of CBC data. Current Interpretive Data was last revised on 2018. Imm gran pct 2.9 % [facility] Comment: Interpretive Data Percent cell count reference ranges are not reported, since discordance with absolute values may lead to misinterpretation of CBC data. Current Interpretive Data was last revised on 2018. Lymphocyte pct 8.8 % [facility] Comment: Interpretive Data Percent cell count reference ranges are not reported, since discordance with absolute values may lead to misinterpretation of CBC data. Current Interpretive Data was last revised on 2018. Monocyte pct 10.3 % [facility] Comment: Interpretive Data Percent cell count reference ranges are not reported, since discordance with absolute values may lead to misinterpretation of CBC data. Current Interpretive Data was last revised on 2018. Eosinophil pct 0.4 % [facility] Comment: Interpretive Data Percent cell count reference ranges are not reported, since discordance with absolute values may lead to misinterpretation of CBC data. Current Interpretive Data was last revised on 2018. Basophil pct 0.7 % [facility] Comment: Interpretive Data Percent cell count reference ranges are not reported, since discordance with absolute values may lead to misinterpretation of CBC data. Current Interpretive Data was last revised on 2018. Blood 10/17/2024 9:42 PM [facility] 10/17/2024 10:10 PM [facility]ER us Candy North [employer] LAB BLOOD ORDERABLES Final Result [facility] Department [place] [address] * (ABNORMAL) CBC with auto differential (10/17/2024 9:42 PM MUCK [facility]ULER) WBC 10.8(H) 3.8 - 9.9 K/cumm Hgb 7.8(L) 13.0 - 17.5 g/dL [facility] Hct 25.2(L) 38.9 - 50.3 % [facility] Plt 326 150 - 400 K/cumm [facility] MPV 9.6 9.1 - 12.3 fL [facility] RBC 3.09(L) 4.30 - 5.80 M/cumm [facility] MCV 81.6 81.3 - 96.4 fL [facility] MCH 25.2(L) 27.1 - 33.3 pg [facility] MCHC 31.0(L) 32.3 - 35.7 g/dL [facility] RDW CV 17.1(H) 11.1 - 14.9 % [facility] RDW SD 50.2(H) 35.7 - 48.1 fL [facility] NRBC abs 0.00 0.00 - 0.01 K/cumm [facility] Blood 10/17/2024 9:42 PM [facility]ER 10/17/2024 10:10 PM [facility]ER us Elpidio Frazier MD LAB BLOOD ORDERABLES Final R esult [facility] Department [place] [address] * Basic metabolic panel (10/17/2024 9:42 PM MUCK [facility]ULER) Sodium 137 135 - 145 mmol/L Potassium, pl 4.2 3.3 - 4.9 mmol/L [facility] Chloride 99 97 - 110 mmol/L [facility] CO2 29 22 - 32 mmol/L [facility] Anion gap 9 2 - 15 mmol/L [facility] BUN 13 6 - 25 mg/dL [facility] Creatinine 0.85 0.80 - 1.30 mg/dL [facility] Glucose 139 70 - 199 mg/dL [facility] Comment: Interpretive Data Fasting glucose >/= 126 mg/dl is diagnostic for diabetes. Fasting is defined as no caloric intake [...] 2022. Calcium 8.9 8.5 - 10.3 mg/dL [facility] Blood 10/17/2024 9:42 PM [facility] 10/17/2024 10:10 PM [facility]ER us Elpidio Frazier MD LAB BLOOD ORDERABLES Final R esult Performing Organization Address [facility] [address]/[facility] de Phone Number [facility] [place] [address] * [place] AN PROCEDURE PLACEHOLDER (10/17/2024 9:17 AM [facility]CK [facility]ER) Ty Shah MD - 10/17/2024 9:17 AM [facility]ER Ty Pratt MD 10/17/2024 9:17 AM Peripheral IV Catheter Patient location: OR [...] Result * Transfuse RBC (10/17/2024 8:27 AM MUCK HAULER) Blood us Ty Pratt MD BLOOD TRANSFUSION ORDERABL ES Final Result Performing Organization Address [facility] [address]/[facility] de Phone Number [facility] Department [place] [address] * [place] AN ELECTIVE ENDOTRACHEAL AIRWAY, [place] AN PROCEDURE PLACEHOLDER (10/17/2024 8:23 AM [facility]ER) Narrative Ty Pratt MD - 10/17/2024 8:23 AM [facility]ER Ty Pratt MD 10/17/2024 9:18 AM Airway Patient location: OR Urgency: elective [...] Prepare RBC: 1 Units (10/17/2024 7:05 AM MUCK [facility]ULER) Product code [id number] Unit Number [id number]- M [facility] Product Blood Type BPOS [facility] Dispense Status PRESUMED TRANSFUSED [facility] Blood 10/17/2024 7:05 AM [facility]ER 10/17/2024 7:04 AM [facility]ER Narrative [facility] - 10/18/2024 12:56 AM [facility]ER Are special requirements needed? (All products are leukoreduced and CMV- safe)- >No Date required:-[id number] LRRBC # of [id number] Reasons:-Intra-op transfusion} us Ty Pratt MD BLOOD BANK PRODUCT ORDERAB LES Final Result [facility] Department [place] [address] * Type and screen (10/17/2024 5:41 AM MUCK [facility]ULER) Randy, indirect Negative ABO Rh B Positive [facility] Blood 10/17/2024 5:41 AM [facility]ER 10/17/2024 5:47 AM [facility]ER Narrative TG CARLSON - 10/17/2024 6:32 AM MUCK HAULER Has the patient had Daratumumab or Isatuximab in the past 6 months?->Unknown us Ty Pratt MD LAB BLOOD BANK TEST ORDERA BLES Final Result Performing Organization Address [facility] [address]/[facility] Co de Phone Number [facility] [place] [address] * eGFR (10/16/2024 9:51 PM [facility]CK [facility]ULER) eGFR 87 >=60 mL/min/1. 73 m2 Comment: Interpretive Data Reference Interval Normal >/= 90 mL/min/1.73m2 Mildly decreased* 60 - 89 mL/min/1.73m2 Mildly to moderately decreased 45 - 59 mL/min/1.73m2 Moderately to severely decreased 30 - 44 mL/min/1.73m2 Severely decreased 15 - 29 mL/min/1.73m2 Kidney Failure < 15 mL/min/1.73m2 *Relative to young adult level Estimated glomerular [...] last reviewed 2021. Blood 10/16/2024 9:51 PM [facility]ER 10/16/2024 11:21 PM [facility]CK [facility]ULER us Candy North NP LAB BLOOD ORDERABLES Final Result Performing Organization Address [facility] [address]/[facility] Co de Phone Number [facility] Department [place] [address] * (ABNORMAL) Differential, auto (10/16/2024 9:51 PM MUCK [facility]ULER) Neutrophil abs 5.5 1.5 - 6.5 K/cumm Imm gran abs 0.3(H) 0.0 - 0.1 K/cumm [facility] Lymphocyte abs 1.3 0.8 - 3.3 K/cumm [facility] Monocyte abs 0.9(H) 0.2 - 0.8 K/cumm [facility] Eosinophil abs 0.3 0.0 - 0.5 K/cumm [facility] Basophil abs 0.0 0.0 - 0.1 K/cumm [facility] Neutrophil pct 66.3 % [facility] Comment: Interpretive Data Percent cell count reference ranges are not reported, since discordance with absolute values may lead to misinterpretation of CBC data. Current Interpretive Data was last revised on 2018. Imm gran pct 3.2 % [facility] Comment: Interpretive Data Percent cell count reference ranges are not reported, since discordance with absolute values may lead to misinterpretation of CBC data. Current Interpretive Data was last revised on 2018. Lymphocyte pct 15.8 % [facility] Comment: Interpretive Data Percent cell count reference ranges are not reported, since discordance with absolute values may lead to misinterpretation of CBC data. Current Interpretive Data was last revised on 2018. Monocyte pct 10.4 % [facility] Comment: Interpretive Data Percent cell count reference ranges are not reported, since discordance with absolute values may lead to misinterpretation of CBC data. Current Interpretive Data was last revised on 2018. Eosinophil pct 3.8 % [facility] Comment: Interpretive Data Percent cell count reference ranges are not reported, since discordance with absolute values may lead to misinterpretation of CBC data. Current Interpretive Data was last revised on 2018. Basophil pct 0.5 % [facility] Comment: Interpretive Data Percent cell count reference ranges are not reported, since discordance with absolute values may lead to misinterpretation of CBC data. Current Interpretive Data was last revised on 2018. Blood 10/16/2024 9:51 PM [facility]ER 10/16/2024 11:23 PM [facility]CK [facility]ULER us Candy North NP LAB BLOOD ORDERABLES Final Result [facility] Department [place] [address] * (ABNORMAL) CBC with auto differential (10/16/2024 9:51 PM MUCK HAULER) [facility] WBC 8.2 3.8 - 9.9 K/cumm Hgb 7.4(L) 13.0 - 17.5 g/dL [facility] Hct 23.7(L) 38.9 - 50.3 % [facility] Plt 322 150 - 400 K/cumm [facility] MPV 9.8 9.1 - 12.3 fL [facility] RBC 2.91(L) 4.30 - 5.80 M/cumm [facility] MCV 81.4 81.3 - 96.4 fL [facility] MCH 25.4(L) 27.1 - 33.3 pg [facility] MCHC 31.2(L) 32.3 - 35.7 g/dL [facility] RDW CV 17.2(H) 11.1 - 14.9 % [facility] RDW SD 50.4(H) 35.7 - 48.1 fL [facility] NRBC abs 0.00 0.00 - 0.01 K/cumm [facility] Blood 10/16/2024 9:51 PM [facility]ER 10/16/2024 11:23 PM [facility]ER us Eplidio Frazier MD LAB BLOOD ORDERABLES Final R esult [facility] [place] [address] * (ABNORMAL) Basic metabolic panel (10/16/2024 9:51 PM MUCK HAULER) [facility] Sodium 138 135 - 145 mmol/L Potassium, pl 4.0 3.3 - 4.9 mmol/L [facility] Chloride 102 97 - 110 mmol/L [facility] CO2 29 22 - 32 mmol/L [facility] Anion gap 7 2 - 15 mmol/L [facility] BUN 15 6 - 25 mg/dL [facility] Creatinine 0.96 0.80 - 1.30 mg/dL [facility] Glucose 124 70 - 199 mg/dL [facility] Comment: Interpretive Data Fasting glucose >/= 126 mg/dl is diagnostic for diabetes. Fasting is defined as no caloric intake [...] 2022. Calcium 8.3(L) 8.5 - 10.3 mg/dL [facility] Blood 10/16/2024 9:51 PM MUCK [facility]ULER 10/16/2024 11:21 PM [facility]ER us Elpidio Frazier MD LAB BLOOD ORDERABLES Final R esult [facility] Department [place] [address] * (ABNORMAL) Vancomycin level trough (10/16/2024 2:00 PM MUCK HAULER) [facility] Vancomycin trough 8.8(L) 10.0 - 20.0 mcg/mL Blood 10/16/2024 2:00 PM MUCK [facility]ULER 10/16/2024 2:38 PM MUCK [facility]ULER us Angie Amado MD LAB BLOOD ORDERABLES Final Result [facility] [place] [address] * Insert PICC line (10/16/2024 12:02 PM MUCK HAULER) Narrative Eduardo Montero RN - 10/16/2024 12:02 PM [facility]CK [facility]ULER Eduardo Montero RN 10/16/2024 12:35 PM Vascular Access Nurse: Procedure Note Summary of treatment provided to patient today is as follows : . Bedside Procedure Time out/Checklist (Last 4 Hours) Pre-Op Checklist Row Name 10/16/24 1140 10/16/24 1135 10/16/24 1100 Patient/Chart Verification Patient ID Verified Verbal;Armband -MT Verbal;Armband -SM -- -SM Allergies Verified Yes -MT Yes -SM -- -SM Procedure Area/OR Notified of Latex Allergy Not applicable -MT -- -- Arm Bands On ID;Allergies -MT Allergies;ID -SM -- -SM Consents Confirmed Procedural -MT Informed -SM -- -SM H&P Verified and Updated Yes -MT -- -- Pre-op Lab/Test Results Available In chart -MT -- -- Antibiotic Status Not applicable -MT -- -- Procedure Verification Correct Patient Yes -MT -- -- Correct Procedure Yes -MT -- -- Correct Laterality Yes -MT -- -- Correct Site Yes -MT -- -- Site Marked Yes -MT -- -- User Marvin (r) = Recorded By, (t) = Taken By, (c) = Cosigned By Initials Name Pina Vogel, V[place] Eduardo Montero RN Vascular Access Documentation (Last 4 Hours) [facility] Additional Procedures Row Name 10/16/24 1140 PICC Screening Questionnaire Order written on the chart for PICC insertion or placement? Y -MT Information form/Consent Obtained from POA/ Family Y -MT Is there an order from Renal giving ok to place PICC line? N/A -MT Are there any location restrictions? Y -MT Which location is NOT accessible for line placement? Left -MT Reason location not accessible for line placement Other (comment) DVT left -MT Does the patient have history of DVT or SVC syndrome? Currently has -MT Does the patient currently have blood clots in chest / arms? Y -MT Review of all IV meds/drips completed Yes -MT Patient allergies reviewed? Y -MT Labs Reviewed if applicable INR;Blood Cultures;Platelet count;Creatinine;GFR -MT Procedures Line Type PICC single -MT Time in 1125 -MT Time out 1210 -MT Time Calculation (min) 45 min -MT Vascular Access Procedures PICC line assessment;PICC line placement;PICC dressing change;Education PICC/Midline -MT Comfort Measures Position of comfort -MT Patient Response Tolerated (no change in status) -MT Peripheral IV 10/14/24 20 G Anterior;Left Hand IV Properties Placement Date: 10/14/24 -BW Placement Time: 1204 -BW Size (Gauge): 20 G -BW Location Orientation: Anterior;Left -BW Location: Hand -BW Inserted by: JULIENNE -KYLEIGH PICC Single Lumen 10/16/24 Non-tunneled Power Right Basilic;Upper arm Line Properties Placement Date: 10/16/24 -MT Placement Time: 1159 -MT Catheter Time Out Checklist Completed: Yes -MT Hand Hygiene Performed: Yes -MT Site Prep: Chlorhexidine -MT Site Prep Agent has Completely Dried Before Insertion: Yes -MT All 5 Sterile Barriers or Appropriate Barriers Used (Gloves, Gown, Cap, Mask, Large Sterile Drape): Yes -MT Local Anesthetic: Injectable -MT, 2 ml Comfort Measures: Position of comfort -MT CVC Type: Non-tunneled -MT Power injectable: Power -MT Lumen # 1: #1 Purple, -MT Size (Fr): 4 -MT Orientation: Right -MT Location: Basilic;Upper arm -MT Technique: Modified seldinger;Internal stiffener stylet removed easily;Ultrasound used to locate and cannulate vein;Standard insertion technique with peel away sheath -MT Lot #: [id number] -MT Expiration Date: 05/25/25 -[place] Trimmed Length (cm) : 37 cm -[place] Line Tip Location : Central -MT Initial Extremity Circumference (cm): 31 cm -MT Circumference Reference Point: 4 cm above insertion site -MT Initial External Length Catheter (cm): 0 cm -MT Placement Verification: Blood return;[place];ECG;Ultrasound -[place] Line Secured by : Securement device -[place] Inserted by: Jonathan Remy RN -[place] Assisted By: Chiquita Montero -[place] Insertion attempts: 1 -MT Patient Tolerance: Tolerated well -MT Description (optional): Single PICC right upper arm -MT Site Assessment Clean and dry;Securement device in place -MT External Length ty (cm) 0 cm -MT Extremity Circumference (cm) 31 cm -MT Dressing Type CHG Dressing;Transparent -MT Dressing Status New;Clean, dry, intact;Dated;Occlusive -MT Dressing Intervention Dressing dated -MT Dressing Change Due 10/23/24 -MT Observer Present Yes -MT Lumen #1 Status Blood return brisk;Disinfectant cap in place;Flushes easily;Saline locked;Needleless access device in place -[place] Lumen #1 Interventions Connections checked and tightened -[place] Line Necessity Reason Reviewed With Care Team Needed upon discharge for jail use (e.g. long-term antibiotics) -[place] User Marvin (r) = Recorded By, (t) = Taken By, (c) = Cosigned By Initials Name Billie Ng RN MT Tarvin, Michael, RN Right single lumen PICC safe to use. Eduardo Montero RN us Vika Barros [employer] IV THERAPY ORDERABLES Darren arsh Result - Final * eGFR (10/15/2024 11:26 PM MUCK HAULER) Pathologist [facility] eGFR 86 >=60 mL/min/1. 73 m2 Comment: Interpretive Data Reference Interval Normal >/= 90 mL/min/1.73m2 Mildly decreased* 60 - 89 mL/min/1.73m2 Mildly to moderately decreased 45 - 59 mL/min/1.73m2 Moderately to severely decreased 30 - 44 mL/min/1.73m2 Severely decreased 15 - 29 mL/min/1.73m2 Kidney Failure < 15 mL/min/1.73m2 *Relative to young adult level Estimated glomerular [...] reviewed 2021. Blood 10/15/2024 11:2 6 PM [facility]CK [facility]ULER 10/15/2024 11:40 PM MUCK HAULER us Candy North [employer] LAB BLOOD ORDERABLES Final Result TG [facility] Department [place] [address] * (ABNORMAL) Differential, auto (10/15/2024 11:26 PM MUCK HAULER) Neutrophil abs 7.0(H) 1.5 - 6.5 K/cumm Imm gran abs 0.1 0.0 - 0.1 K/cumm [facility] Lymphocyte abs 1.0 0.8 - 3.3 K/cumm [facility] Monocyte abs 0.8 0.2 - 0.8 K/cumm [facility] Eosinophil abs 0.3 0.0 - 0.5 K/cumm [facility] Basophil abs 0.1 0.0 - 0.1 K/cumm [facility] Neutrophil pct 75.9 % [facility] Comment: Interpretive Data Percent cell count reference ranges are not reported, since discordance with absolute values may lead to misinterpretation of CBC data. Current Interpretive Data was last revised on 2018. Imm gran pct 1.1 % [facility] Comment: Interpretive Data Percent cell count reference ranges are not reported, since discordance with absolute values may lead to misinterpretation of CBC data. Current Interpretive Data was last revised on 2018. Lymphocyte pct 11.3 % [facility] Comment: Interpretive Data Percent cell count reference ranges are not reported, since discordance with absolute values may lead to misinterpretation of CBC data. Current Interpretive Data was last revised on 2018. Monocyte pct 8.4 % [facility] Comment: Interpretive Data Percent cell count reference ranges are not reported, since discordance with absolute values may lead to misinterpretation of CBC data. Current Interpretive Data was last revised on 2018. Eosinophil pct 2.8 % [facility] Comment: Interpretive Data Percent cell count reference ranges are not reported, since discordance with absolute values may lead to misinterpretation of CBC data. Current Interpretive Data was last revised on 2018. Basophil pct 0.5 % [facility] Comment: Interpretive Data Percent cell count reference ranges are not reported, since discordance with absolute values may lead to misinterpretation of CBC data. Current Interpretive Data was last revised on 2018. Blood 10/15/2024 11:2 6 PM MUCK HAULER 10/15/2024 11:40 PM MUCK HAULER Candy North NP LAB BLOOD ORDERABLES Final Result Performing Organization Address City/[facility] [address]/[facility] de Phone Number [facility] Department [place] [address] * (ABNORMAL) CBC with auto differential (10/15/2024 11:26 PM MUCK HAULER) [facility] WBC 9.2 3.8 - 9.9 K/cumm Hgb 8.0(L) 13.0 - 17.5 g/dL [facility] Hct 25.9(L) 38.9 - 50.3 % [facility] Plt 292 150 - 400 K/cumm [facility] MPV 9.1 9.1 - 12.3 fL [facility] RBC 3.17(L) 4.30 - 5.80 M/cumm [facility] MCV 81.7 81.3 - 96.4 fL [facility] MCH 25.2(L) 27.1 - 33.3 pg [facility] MCHC 30.9(L) 32.3 - 35.7 g/dL [facility] RDW CV 16.9(H) 11.1 - 14.9 % [facility] RDW SD 50.0(H) 35.7 - 48.1 fL [facility] NRBC abs 0.00 0.00 - 0.01 K/cumm [facility] Blood 10/15/2024 11:2 6 PM MUCK HAULER 10/15/2024 11:40 PM MUCK HAULER Elpidio Frazier MD LAB BLOOD ORDERABLES Final R esult Performing Organization Address [facility] [address]/[facility] Co de Phone Number [facility] Department [place] [address] * (ABNORMAL) Basic metabolic panel (10/15/2024 11:26 PM MUCK HAULER) [facility] Sodium 138 135 - 145 mmol/L Potassium, pl 4.8 3.3 - 4.9 mmol/L [facility] Chloride 106 97 - 110 mmol/L [facility] CO2 27 22 - 32 mmol/L [facility] Anion gap 5 2 - 15 mmol/L [facility] BUN 13 6 - 25 mg/dL [facility] Creatinine 0.97 0.80 - 1.30 mg/dL [facility] Glucose 119 70 - 199 mg/dL [facility] Comment: Interpretive Data Fasting glucose >/= 126 mg/dl is diagnostic for diabetes. Fasting is defined as no caloric intake [...] 2022. Calcium 8.2(L) 8.5 - 10.3 mg/dL [facility] Blood 10/15/2024 11:2 6 PM MUCK HAULER 10/15/2024 11:40 PM MUCK HAULER Elpidio Frazier MD LAB BLOOD ORDERABLES Final R esult [facility] Department [place] [address] * eGFR (10/14/2024 9:54 PM MUCK HAULER) eGFR >90 >=60 mL/min/1. 73 m2 Comment: Interpretive Data Reference Interval Normal >/= 90 mL/min/1.73m2 Mildly decreased* 60 - 89 mL/min/1.73m2 Mildly to moderately decreased 45 - 59 mL/min/1.73m2 Moderately to severely decreased 30 - 44 mL/min/1.73m2 Severely decreased 15 - 29 mL/min/1.73m2 Kidney Failure < 15 mL/min/1.73m2 *Relative to young adult level Estimated glomerular [...] last reviewed 2021. Blood 10/14/2024 9:54 PM MUCK HAULER 10/14/2024 10:15 PM MUCK HAULER Chasity Diego MD LAB BLOOD ORDERAB LES Final Result Performing Organization Address [facility] [address]/[facility] Co de Phone Number [facility] [place] [employer] [place] [place] [address] * (ABNORMAL) Protime-INR (10/14/2024 9:54 PM MUCK HAULER) PT 14.3(H) 9.7 - 13.0 sec INR 1.32(H) 0.90 - 1.20 [facility] Comment: Interpretive data Oral anticoagulant therapeutic ranges: Venous thromboembolism prophylaxis or treatment: 2.0-3.0 CARDIOLOGY Standard range: 2.0-3.0 High-intensity range: 2.5-3.5 Refer to indication-specific guidelines for appropriate target ranges for prosthetic heart valve replacement. Current interpretive data was last revised on 2019. Blood 10/14/2024 9:54 PM MUCK HAULER 10/14/2024 10:21 PM MUCK HAULER Narrative [facility] - 10/14/2024 10:27 PM MUCK HAULER Baseline prior to apixaban initiation. Chasity Diego MD LAB BLOOD ORDERAB LES Final Result Performing Organization Address [facility] [address]/[facility] Co de Phone Number [facility] [place] [place] [place] [address] * (ABNORMAL) CBC without differential (10/14/2024 9:54 PM MUCK HAULER) WBC 13.4(H) 3.8 - 9.9 K/cumm Hgb 9.2(L) 13.0 - 17.5 g/dL [facility] Hct 30.0(L) 38.9 - 50.3 % [facility] Plt 412(H) 150 - 400 K/cumm [facility] MPV 9.2 9.1 - 12.3 fL [facility] RBC 3.65(L) 4.30 - 5.80 M/cumm [facility] MCV 82.2 81.3 - 96.4 fL [facility] MCH 25.2(L) 27.1 - 33.3 pg [facility] MCHC 30.7(L) 32.3 - 35.7 g/dL [facility] RDW CV 16.7(H) 11.1 - 14.9 % [facility] RDW SD 50.4(H) 35.7 - 48.1 fL [facility] NRBC abs 0.00 0.00 - 0.01 K/cumm [facility] Blood 10/14/2024 9:54 PM MUCK HAULER 10/14/2024 10:15 PM MUCK HAULER Chasity Diego MD LAB BLOOD ORDERAB LES Final Result [facility] Department [place] [address] * Hepatic function panel (10/14/2024 9:54 PM MUCK HAULER) Bilirubin, total 0.7 0.1 - 1.2 mg/dL Bilirubin, direct 0.3 0.1 - 0.3 mg/dL [facility] Protein, pl 6.6 6.5 - 8.5 g/dL [facility] Albumin 3.6 3.5 - 5.0 g/dL [facility] Alk phos 67 40 - 130 Units/L [facility] ALT 19 7 - 55 Units/L [facility] AST 27 10 - 50 Units/L [facility] Blood 10/14/2024 9:54 PM MUCK HAULER 10/14/2024 10:15 PM MUCK HAULER Narrative [facility] - 10/14/2024 10:44 PM MUCK HAULER Baseline prior to apixaban initiation. Chasity Diego MD LAB BLOOD ORDERAB LES Final Result Performing Organization Address [facility]/State/ZIP Co de Phone Number [facility] Department [place] [address] * (ABNORMAL) Basic metabolic panel (10/14/2024 9:54 PM MUCK HAULER) Sodium 141 135 - 145 mmol/L Potassium, pl 4.7 3.3 - 4.9 mmol/L [facility] Chloride 107 97 - 110 mmol/L [facility] CO2 25 22 - 32 mmol/L [facility] Anion gap 9 2 - 15 mmol/L [facility] BUN 13 6 - 25 mg/dL [facility] Creatinine 0.73(L) 0.80 - 1.30 mg/dL [facility] Glucose 201(H) 70 - 199 mg/dL [facility] Comment: Interpretive Data Fasting glucose >/= 126 mg/dl is diagnostic for diabetes. Fasting is defined as no caloric intake [...] 2022. Calcium 8.2(L) 8.5 - 10.3 mg/dL [facility] Blood 10/14/2024 9:54 PM MUCK HAULER 10/14/2024 10:15 PM MUCK HAULER us Chasity Diego MD LAB BLOOD ORDERAB LES Final Result Performing Organization Address City/[facility] [address]/ZIP Co de Phone Number TG [facility] [place] [address] * XR Knee Left 1 or 2 View (10/14/2024 5:49 PM MUCK HAULER) Anatomical Region Laterality Modality Lower Extremities, Knee Left Computed Radiography 10/15/2024 6:02 AM MUCK HAULER Impressions 10/15/2024 6:02 AM MUCK HAULER 1. Interval explantation of the left total knee arthroplasty with placement of a static antibiotic cement spacer Electronically signed by: Ricardo Suarez MD, PHD Narrative 10/15/2024 6:02 AM MUCK HAULER EXAMINATION: Left knee one or 2 views [...] VAC is in place. No acute fracture. Procedure Note Ricardo Suarez MD [...] Electronically signed by: Ricardo Suarez MD, PHD Chasity Diego MD IMG XR PROCEDURES Final Result * (ABNORMAL) Tissue aerobic and anaerobic culture and gram stain Tissue Knee, left (10/14/2024 3:14 PM MUCK HAULER) Direct Specimen Exam Stain: Few polymorphonuclear leukocytes seen. No organisms seen. Report Final Report: Rare Staphylococcus epidermidis Rare Finegoldia magna (.) TG [facility] Organism STAPHYLOCOCCUS EPIDERMIDIS TG [facility] Organism FINEGOLDIA MAGNA TG [facility] Tissue (Knee, left) 10/14/2024 3:14 PM MUCK HAULER 10/14/2024 5:41 PM MUCK HAULER Narrative TG [facility] - 10/25/2024 10:17 AM MUCK HAULER Left patella tissue culture Testing performed by [facility] ([phone]) Specimens submitted from normally sterile body sites [...] Resistant Dewayne Tidwell MD LAB MICROBIOLOGY - [facility] ORDERABLES Final Result [facility] [place] [address] * (ABNORMAL) Tissue aerobic and anaerobic culture and gram stain Tissue Knee, left (10/14/2024 3:05 PM MUCK HAULER) Direct Specimen Exam Stain: Few polymorphonuclear leukocytes seen. No organisms seen. Report Final Report: Few Staphylococcus epidermidis Few Finegoldia magna Rare Propionibacterium (Cutibacterium) acnes (.) [facility] Organism STAPHYLOCOCCUS EPIDERMIDIS [facility] Organism FINEGOLDIA MAGNA [facility] Organism PROPIONIBACTERIUM (CUTIBACTERIUM) ACNES [facility] Tissue (Knee, left) 10/14/2024 3:05 PM MUCK HAULER 10/14/2024 5:44 PM MUCK HAULER Narrative TG [facility] - 10/25/2024 10:18 AM MUCK HAULER Left knee deep tissue # 2 Testing performed by [facility] ([phone]) Specimens submitted from normally sterile body sites [...] epidermidis Erythromycin (YOLANDA) INTERPRETATION Susceptible Staphylococcus epidermidis Oxacillin (YOLANDA) INTERPRETATION Resistant Staphylococcus epidermidis Cefazolin (YOLANDA) INTERPRETATION Resistant Staphylococcus epidermidis Ceftriaxone (YOLANDA) INTERPRETATION Resistant Staphylococcus epidermidis Vancomycin (YOLANDA) (YOLANDA) INTERPRETATION Susceptible Dewayne Tidwell MD LAB MICROBIOLOGY - G [facility] ORDERABLES Final Result [facility] [place] [address] * Tissue aerobic and anaerobic culture and gram stain Tissue Knee, left (10/14/2024 2:27 PM MUCK HAULER) Direct Specimen Exam Stain: No polymorphonuclear leukocytes seen. No organisms seen. Report Final Report: No growth [facility] Tissue (Knee, left) 10/14/2024 2:27 PM MUCK HAULER 10/14/2024 5:46 PM MUCK HAULER Narrative [facility] - 10/20/2024 11:58 AM MUCK HAULER Left tibial osteolysis culture Testing performed by [facility] ([phone]) Specimens submitted from normally sterile body sites [...] ENERAL ORDERABLES Final Result Performing Organization Address [facility] [address]/[facility] Co de Phone Number TG [facility] [place] [address] * Tissue aerobic and anaerobic culture and gram stain Tissue Knee, left (10/14/2024 2:20 PM MUCK HAULER) Direct Specimen Exam Stain: No polymorphonuclear leukocytes seen. No organisms seen. Report Final Report: No growth [facility] Tissue (Knee, left) 10/14/2024 2:20 PM MUCK HAULER 10/14/2024 5:48 PM MUCK HAULER Narrative [facility] - 10/20/2024 11:56 AM MUCK HAULER Left knee deep tissue culture Testing performed by [facility] ([phone]) Specimens submitted from normally sterile body sites [...] ENERAL ORDERABLES Final Result Performing Organization Address [facility] [address]/[facility] Co de Phone Number TG [facility] Department [place] [address] * (ABNORMAL) Tissue aerobic and anaerobic culture and gram stain Tissue Knee, left (10/14/2024 2:19 PM MUCK HAULER) Direct Specimen Exam Stain: No polymorphonuclear leukocytes seen. No organisms seen. Report Final Report: Rare Staphylococcus epidermidis Rare Propionibacterium (Cutibacterium) acnes (.) [facility] Organism STAPHYLOCOCCUS EPIDERMIDIS [facility] Organism PROPIONIBACTERIUM (CUTIBACTERIUM) ACNES [facility] Tissue (Knee, left) 10/14/2024 2:19 PM MUCK HAULER 10/14/2024 5:45 PM MUCK HAULER Narrative TG [facility] - 10/25/2024 10:18 AM MUCK HAULER Left knee capsule culture Testing performed by [facility] ([phone]) Specimens submitted from normally sterile body sites [...] INTERPRETATION Susceptible Staphylococcus epidermidis Doxycycline (YOLANDA) INTERPRETATION Resistant Staphylococcus epidermidis Linezolid (YOLANDA) INTERPRETATION Susceptible Staphylococcus epidermidis Trimethoprim with Sulfamethoxazole (YOLANDA) INTERPRETATION Resistant Staphylococcus epidermidis Clindamycin (YOLANDA) INTERPRETATION Susceptible Staphylococcus epidermidis Erythromycin (YOLANDA) INTERPRETATION Resistant Staphylococcus epidermidis Vancomycin (YOLANDA) INTERPRETATION Susceptible Staphylococcus epidermidis Oxacillin (YOLANDA) INTERPRETATION Resistant Staphylococcus epidermidis Cefazolin (YOLANDA) INTERPRETATION Resistant Staphylococcus epidermidis Ceftriaxone (YOLANDA) INTERPRETATION Resistant us Dewayne Tidwell MD LAB MICROBIOLOGY - [facility] ORDERABLES Final Result [facility] [place] [address] * Tissue aerobic and anaerobic culture and gram stain Bone Knee, left (10/14/2024 2:18 PM MUCK HAULER) Direct Specimen Exam Stain: No polymorphonuclear leukocytes seen. No organisms seen. Report Final Report: No growth TG [facility] Bone (Knee, left) 10/14/2024 2:18 PM MUCK HAULER 10/14/2024 5:47 PM MUCK HAULER Narrative TG [facility] - 10/20/2024 11:58 AM MUCK HAULER Left knee sinus track culture # 2 Testing performed by [facility] ([phone]) Specimens submitted from normally sterile body sites [...] MICROBIOLOGY - G ENERAL ORDERABLES Final Result [facility] [place] [address] * (ABNORMAL) Tissue aerobic and anaerobic culture and gram stain Tissue Knee, left (10/14/2024 2:18 PM MUCK HAULER) Direct Specimen Exam Stain: No polymorphonuclear leukocytes seen. No organisms seen. Report Final Report: Rare Staphylococcus epidermidis (.) [facility] Organism STAPHYLOCOCCUS EPIDERMIDIS [facility] Tissue (Knee, left) 10/14/2024 2:18 PM MUCK HAULER 10/14/2024 5:42 PM MUCK HAULER Narrative [facility] - 10/20/2024 12:10 PM MUCK HAULER Left knee sinus track culture # 1 Testing performed by [facility] ([phone]) Specimens submitted from normally sterile body sites [...] - G ENERAL ORDERABLES Final Result [facility] [place] [address] * Airway (10/14/2024 1:52 PM MUCK HAULER) Narrative Blayne Childers DO - 10/14/2024 1:52 PM MUCK HAULER Blayne Childers DO 10/14/2024 3:07 PM Airway Patient location: OR Urgency: elective [...] - Final * eGFR (09/16/2024 11:35 AM MUCK HAULER) eGFR >90 >=60 mL/min/1. 73 m2 Comment: Interpretive Data Reference Interval Normal >/= 90 mL/min/1.73m2 Mildly decreased* 60 - 89 mL/min/1.73m2 Mildly to moderately decreased 45 - 59 mL/min/1.73m2 Moderately to severely decreased 30 - 44 mL/min/1.73m2 Severely decreased 15 - 29 mL/min/1.73m2 Kidney Failure < 15 mL/min/1.73m2 *Relative to young adult level Estimated glomerular [...] reviewed 2021. Blood 09/16/2024 11:3 5 AM MUCK HAULER 09/16/2024 3:00 PM MUCK HAULER us Dewayne Tidwell MD LAB BLOOD ORDERABLES Final Result [facility] [place] [address] * Differential, auto (09/16/2024 11:35 AM MUCK HAULER) Neutrophil abs 4.6 1.5 - 6.5 K/cumm Imm gran abs 0.1 0.0 - 0.1 K/cumm [facility] Lymphocyte abs 1.5 0.8 - 3.3 K/cumm [facility] Monocyte abs 0.8 0.2 - 0.8 K/cumm [facility] Eosinophil abs 0.2 0.0 - 0.5 K/cumm [facility] Basophil abs 0.1 0.0 - 0.1 K/cumm [facility] Neutrophil pct 64.6 % [facility] Comment: Interpretive Data Percent cell count reference ranges are not reported, since discordance with absolute values may lead to misinterpretation of CBC data. Current Interpretive Data was last revised on 2018. Imm gran pct 1.3 % [facility] Comment: Interpretive Data Percent cell count reference ranges are not reported, since discordance with absolute values may lead to misinterpretation of CBC data. Current Interpretive Data was last revised on 2018. Lymphocyte pct 20.4 % [facility] Comment: Interpretive Data Percent cell count reference ranges are not reported, since discordance with absolute values may lead to misinterpretation of CBC data. Current Interpretive Data was last revised on 2018. Monocyte pct 10.6 % [facility] Comment: Interpretive Data Percent cell count reference ranges are not reported, since discordance with absolute values may lead to misinterpretation of CBC data. Current Interpretive Data was last revised on 2018. Eosinophil pct 2.1 % [facility] Comment: Interpretive Data Percent cell count reference ranges are not reported, since discordance with absolute values may lead to misinterpretation of CBC data. Current Interpretive Data was last revised on 2018. Basophil pct 1.0 % [facility] Comment: Interpretive Data Percent cell count reference ranges are not reported, since discordance with absolute values may lead to misinterpretation of CBC data. Current Interpretive Data was last revised on 2018. Blood 09/16/2024 11:3 5 AM MUCK HAULER 09/16/2024 2:37 PM MUCK HAULER us Dewayne Tidwell MD LAB BLOOD ORDERABLES Final Result [facility] [place] [address] * (ABNORMAL) CBC with auto differential (09/16/2024 11:35 AM MUCK HAULER) WBC 7.1 3.8 - 9.9 K/cumm Hgb 12.0(L) 13.0 - 17.5 g/dL [facility] Hct 39.6 38.9 - 50.3 % [facility] Plt 380 150 - 400 K/cumm [facility] MPV 9.6 9.1 - 12.3 fL [facility] RBC 4.66 4.30 - 5.80 M/cumm [facility] MCV 85.0 81.3 - 96.4 fL [facility] MCH 25.8(L) 27.1 - 33.3 pg [facility] MCHC 30.3(L) 32.3 - 35.7 g/dL [facility] RDW CV 17.1(H) 11.1 - 14.9 % [facility] RDW SD 52.8(H) 35.7 - 48.1 fL [facility] NRBC abs 0.00 0.00 - 0.01 K/cumm [facility] Blood 09/16/2024 11:3 5 AM MUCK HAULER 09/16/2024 2:37 PM MUCK HAULER Dewayne Tidwell MD LAB BLOOD ORDERABLES Final Result Performing Organization Address City/[facility] [address]/[facility] Co de Phone Number [facility] [place] [address] * Vitamin D 25 hydroxy (09/16/2024 11:35 AM MUCK HAULER) [facility] Vitamin D 25-OH 68 30 - 80 ng/mL Blood 09/16/2024 11:3 5 AM MUCK HAULER 09/16/2024 2:40 PM MUCK HAULER Dewayne Tidwell MD LAB BLOOD ORDERABLES Final Result Performing Organization Address [facility] [address]/[facility] de Phone Number [facility] [place] [address] * Comprehensive metabolic panel (09/16/2024 11:35 AM MUCK HAULER) [facility] Sodium 139 135 - 145 mmol/L Potassium, pl 4.4 3.3 - 4.9 mmol/L [facility] Chloride 103 97 - 110 mmol/L [facility] CO2 28 22 - 32 mmol/L [facility] Anion gap 8 2 - 15 mmol/L [facility] BUN 11 6 - 25 mg/dL [facility] Creatinine 0.83 0.80 - 1.30 mg/dL [facility] Glucose 103 70 - 199 mg/dL [facility] Comment: Interpretive Data Fasting glucose >/= 126 mg/dl is diagnostic for diabetes. Fasting is defined as no caloric intake [...] Calcium 9.6 8.5 - 10.3 mg/dL [facility] Bilirubin, total 0.4 0.1 - 1.2 mg/dL [facility] Protein, pl 8.1 6.5 - 8.5 g/dL [facility] Albumin 4.3 3.5 - 5.0 g/dL [facility] Alk phos 98 40 - 130 Units/L [facility] ALT 23 7 - 55 Units/L [facility] AST 29 10 - 50 Units/L [facility] Blood 09/16/2024 11:3 5 AM MUCK HAULER 09/16/2024 2:40 PM MUCK HAULER us Dewayne Tidwell MD LAB BLOOD ORDERABLES Final Result [facility] [facility] Department [place] [address] from Last 3 Months [place] [id number] [facility] MEDICARE [facility] MEDICARE SUPPLEMENT MEDICARE [facility] MEDICARE SUPPLEMENT Advance Directives For more information, please contact: [phone] * Full Code (Latest Code Status on File) Date Activated Date Inactivated Comments 10/14/2024 9:15 PM 10/21/2024 6:34 PM Care Teams Crm Marketing Specialist Relationship Specialty Start Date End Date Karthik Dalton MD [address] [place] [address] DR YARBROUGH [address] [place] [address] PCP - General Family Medicine 04/05/19
--- OUTSIDE RECORDS SUMMARY | 2024-11-05 18:06 | XMS_ITS | Encounter Summary ---
Author Organization [facility] Address [address] [place] [address] Care Team Providers Care Typewriter Operator Automatic Name Role Phone Karthik Dalton MD Primary Care Provider + [phone] Gina Vallejo BUSINESS SERVICES REPRESENTATIVE Unavailable Jacob Williamson MD Unavailable [phone] Encounter Details Date Type Department Care Team (Late st Contact Info) Description 04/04/2024 MyChart Message Enc [facility] Multispecialty Care - [facility] 3 [facility], [facility] [address] [place] [phone] Gina Vallejo, [place] 3 [facility]. [facility] [address] [place] [address] MRI Social History Tobacco Use Types Packs/Day [...] documented as of this encounter Care Teams Typewriter Operator Automatic Relationship Specialty Start Date End Date Karthik Dalton MD [address] [place] [address] [address] [facility] [address] [place] [address] PCP - General FAMILY PRACTICE 03/14/22 Gina Vallejo NP [address] [facility] [address] [place] [address] Referring Physician INFECTIOUS DISEASE 08/01/23 4 Jacob Williamson MD [address] [place] [address] ORTHOPAEDICS 02/21/24 02/20/25 documented as of this encounter
--- OUTSIDE RECORDS SUMMARY | 2024-11-05 18:06 | XMS_ITS | Encounter Summary ---
Author Organization [facility] Address [address] [place] [address] Care Team Providers Care Wire Spinner Name Role Phone Karthik Dalton MD Primary Care Provider +- [phone] Gina Vallejo NP Unavailable Jacob Williamson MD Unavailable [phone] Encounter Details Date Type Department Care Team (Latest Contact Info) Description 09/05/2023 [employer] Message [facility] Multispecialty [address] [phone] [facility], [facility] Provider Responce to your question Social History [...] documented as of this encounter Care Teams Wire Spinner Relationship Specialty Start Date End Date Karthik Dalton MD [address] [place] [address] [address] [facility] [address] [place] [address] PCP - General FAMILY PRACTICE 03/14/22 Gina Vallejo NP 3 [facility]. [address] [address] Referring Physician INFECTIOUS DISEASE 08/01/23 4 Jacob Williamson MD [address] [place] [address] ORTHOPAEDICS 02/21/24 02/20/25 documented as of this encounter
--- OUTSIDE RECORDS SUMMARY | 2024-11-05 18:06 | XMS_ITS | Clinical Summary ---
Author Organization [facility] Address [address] [place] [address] Care Team Providers Care Felt Coverer Name Role Phone Karthik Dalton MD Primary Care Provider [phone] Allergies Active Allergy Reactions Criticality Noted Date [...] replacement 09/30/2024 Infection of total joint prosthesis ([facility]) Assessment & Plan (10/18/2024 12:36 PM RESOURCE TEACHER): Dipesh Martinez is a 64 y.o. male with a history of prostate cancer, anemia, DVT (05/2023), and a chronically infected left total knee arthroplasty admitted on 10/14/24 with chronic left knee draining wound for planned I&D, explant and antibiotic spacer placement. On 08/26/2019 he underwent a L. TKA at [facility]. 05/18/23 underwent L. Knee I&D and liner exchange at [facility]. OR cultures grew Enterobacter cloacae, Pseudomonas aeruginosa, and prevotella bivia which was treated initially with vancomycin/Zosyn then suppressed with cipro/amox then switched to cipro/bactrim with positive MRSA wound culture in 07/2023. Followed by [facility] ID. He went to Dr. Tidwell at [facility] on 06/04/25 with draining knee [...] Status post total left knee replacement 09/10/20 Encounters Date Type Department Care Team Description 11/05/[address] [facility] [address] [place] [address] [place] [phone] Melanie Leo CMA 11/01/[address] [facility] [address] [place] [phone] José Mullen Jr., VIOLET 10/25/[address] [facility] [address] [place] [phone] José Mullen Jr., VIOLET 10/23/[address] [facility] [address] [place] [phone] Libra Coello CMA 10/22/2024 5:40 PM RESOURCE TEACHER - 10/22/2024 11:59 PM RESOURCE TEACHER Hospital Encounter [facility] [address] [place] [address] Discharge Disposition: Discharge to home or self care 10/22/[address] [facility] [address] [facility] 2nd Floor [address] [place] [address] Osiel Navarrete MD 10/21/2024 Orders Only [facility] [address] [place] [address] Jennifer Duggan, [facility] 10/21/2024 Telephone [facility] Case Management [address] [place] [phone] Ying Robles, VIOLET 10/18/[address] [facility] [address] [place] [address] [address] [place] [phone] Darline Foreman, AUSTYN 10/17/2024 7:45 AM RESOURCE TEACHER Anesthesia Event [facility] Operating Room 1 [place] [phone] Ty Pratt MD Lee, Spencer Beal MD PhD 10/17/2024 7:30 AM RESOURCE TEACHER - 10/17/2024 10:40 AM RESOURCE TEACHER Surgery [facility] Operating Room [address] [place] [phone] Osiel Navarrete MD FLAP GASTROCNEMIUS TO KNEE 10/14/2024 1:10 PM RESOURCE TEACHER Anesthesia Event [facility] Operating Room [address] [place] [phone] Alonso Swann MD Brake, Barbara E., NP 10/14/2024 12:50 PM RESOURCE TEACHER - 10/14/2024 5:00 PM RESOURCE TEACHER Surgery [facility] Operating Room [address] [place] [phone] Dewayne Tidwell MD PLACEMENT SPACER/ANTIBIOTIC BEAD - KNEE-LEFT 10/14/2024 11:27 AM RESOURCE TEACHER - 10/21/2024 2:28 PM RESOURCE TEACHER Hospital Encounter [address] [phone] Dewayne Tidwell MD Infection of total joint prosthesis, initial encounter (HCC) (Primary Dx); Infected prosthetic knee joint, sequela Discharge Disposition: Discharge to home, home health skilled care 10/09/[address] [facility] [address] [facility] [address] [place] [address] Dewayne Tidwell MD 09/16/2024 11:00 AM RESOURCE TEACHER Lab [facility] [address] [place] [address] Infection of total joint prosthesis, initial encounter (HCC) 09/16/2024 10:30 AM RESOURCE TEACHER Pre-Admission Testing [facility] Pre Anesthesia [facility] [address] [place] [address] from Last 3 Months Immunizations Name Administration [...] Medical History Date Comments Osteoarthritis Cancer (CMS/HCC) ([facility]) prostate Family History Medical History Relation Name [...] on file Legal Sex Male 7:52 PM RESOURCE TEACHER Gender Identity Male 04/10/2019 8:14 AM CDT Sexual Orientation Straight 04/10/2019 8: 14 AM CDT 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 Not on file Not on file Not on file Obstetrics History Last Filed Vital Signs Vital Sign Reading Time Taken Comments Blood Pressure 125/61 10/21/2024 7:28 AM RESOURCE TEACHER Pulse 75 10/21/2024 7:28 AM RESOURCE TEACHER Temperature 36.6 C (97.9 F) 10/21/2024 7:28 AM RESOURCE TEACHER Respiratory Rate 16 10/21/2024 7:28 AM RESOURCE TEACHER Oxygen Saturation 96% 10/21/2024 7:28 AM RESOURCE TEACHER Inhaled Oxygen Concentration - - Weight 77.1 kg (170 lb) 10/15/2024 1:28 AM RESOURCE TEACHER Height 172.7 cm (5' 7.99 ) 10/15/2024 1:28 AM CS T Body Mass Index 25.85 10/15/2024 1:28 AM RESOURCE TEACHER Plan of Treatment Health Maintenance Due Date [...] 10/21/2025 10/21/2024 Medical Devices Implanted Type Area Cement Kiln Operator Device Identifier Shelf Expiration Date Model / Serial / Lot [employer] Cement Bone Cerament 5 Ml Supplement Filler W4039-55 - [id number] Implanted:Qty: 2 on 10/14/2024 by Dewayne Tidwell MD at [facility] [employer] 08/28/2025 A021 0-09 / / [id number] [employer] Simplex P Full Dose Radiopaque Preblend Cement Bone Tobramycin 6197-9-001 - [id number] Implanted:Qty: 3 on 10/14/2024 by Dewayne Tidwell MD at [facility] Left: Knee [employer] [id number] 08/24/2025 6197-9-00 1 / / [id number] [employer] Nail Femoral [id number] Radha Compos Sys Strl Indicated For [id number] - [id number] Implanted:Qty: 1 on 10/14/2024 by Dewayne Tidwell MD at [facility] Left: Knee [employer] [id number] / / [employer] Simplex P Full Dose Radiopaque Preblend Cement Bone Tobramycin 6197-9-001 - [id number] Implanted:Qty: 2 on 10/14/2024 by Dewayne Tidwell MD at [facility] Left: Knee [employer] [id number] 6197-9-00 1 / / [id number] [employer] Simplex P Full Dose Radiopaque Preblend Cement Bone Tobramycin 6197-9-001 - [id number] Implanted:Qty: 1 on 10/14/2024 by Dewayne Tidwell MD at [facility] Left: Knee [employer] [id number] 10/25/2025 6197-9-00 1 / / [id number] Procedures Procedure Name Priority Date/Time Associated Diagnosis Comments EGFR Routine 10/20/2024 8:41 PM RESOURCE TEACHER DIFFERENTIAL AUTO Routine 10/20/2024 8:4 1 PM RESOURCE TEACHER CBC WITH AUTO DIFFERENTIAL Routine 10/20/2024 8:41 PM RESOURCE TEACHER BASIC METABOLIC PANEL Routine 10/20/2024 8:41 PM RESOURCE TEACHER EGFR Routine 10/19/2024 9:06 PM RESOURCE TEACHER DIFFERENTIAL AUTO Routine 10/19/2024 9:0 6 PM RESOURCE TEACHER CBC WITH AUTO DIFFERENTIAL Routine 10/19/2024 9:06 PM RESOURCE TEACHER BASIC METABOLIC PANEL Routine 10/19/2024 9:06 PM RESOURCE TEACHER EGFR Routine 10/18/2024 8:10 PM RESOURCE TEACHER DIFFERENTIAL AUTO Routine 10/18/2024 8:1 0 PM RESOURCE TEACHER CBC WITH AUTO DIFFERENTIAL Routine 10/18/2024 8:10 PM RESOURCE TEACHER BASIC METABOLIC PANEL Routine 10/18/2024 8:10 PM RESOURCE TEACHER ECG 12-LEAD Routine 10/18/2024 1:13 PM RESOURCE TEACHER CREATINE KINASE (CK), TOTAL Timed 10/18/2024 12:50 PM RESOURCE TEACHER EGFR Routine 10/17/2024 9:42 PM RESOURCE TEACHER DIFFERENTIAL AUTO Routine 10/17/2024 9:4 2 PM RESOURCE TEACHER CBC WITH AUTO DIFFERENTIAL Routine 10/17/2024 9:42 PM RESOURCE TEACHER BASIC METABOLIC PANEL Routine 10/17/2024 9:42 PM RESOURCE TEACHER MT AN PROCEDURE PLACEHOLDER Routine 10/17/2024 9:17 AM RESOURCE TEACHER TRANSFUSE RED BLOOD CELLS Timed 10/17/2024 8:27 AM RESOURCE TEACHER MT AN PROCEDURE PLACEHOLDER Routine 10/17/2024 8:23 AM RESOURCE TEACHER MT AN ELECTIVE ENDOTRACHEAL AIRWAY Routine 10/17/2024 8:23 AM RESOURCE TEACHER SPLIT THICKNESS SKIN GRAFT - LOWER EXTREMITY 10/17/2024 7:47 AM RESOURCE TEACHER Infection of total knee replacement, subsequent encounter Case Notes 10/16 PER KIERRA PHIPPS DANIEL YANG- RC1/@[id number]- Changed line up per Jennifer via phone (EF) Special Needs LOPEZ MESHER/DERMATOME/PLATES FLAP GASTROCNEMIUS TO KNEE 10/17/2024 7:47 AM RESOURCE TEACHER Infection of total knee replacement, subsequent encounter Case Notes 10/16 PER KIERRA PHIPPS ELPIDIO ESPINOZA SWIFT- 10/15@5570- Changed line up per Jennifer via phone (EF) Special Needs LOPEZ MESHER/DERMATOME/PLATES PREPARE RBC STAT 10/17/2024 7:05 AM RESOURCE TEACHER TYPE AND SCREEN STAT 10/17/2024 5:41 AM RESOURCE TEACHER EGFR Routine 10/16/2024 9:51 PM RESOURCE TEACHER DIFFERENTIAL AUTO Routine 10/16/2024 9:5 1 PM RESOURCE TEACHER CBC WITH AUTO DIFFERENTIAL Routine 10/16/2024 9:51 PM RESOURCE TEACHER BASIC METABOLIC PANEL Routine 10/16/2024 9:51 PM RESOURCE TEACHER VANCOMYCIN LEVEL TROUGH Timed 10/16/19 2:00 PM RESOURCE TEACHER INSERT PICC LINE Routine 10/16/2024 12:02 PM RESOURCE TEACHER EGFR Routine 10/15/2024 11:26 PM RESOURCE TEACHER DIFFERENTIAL AUTO Routine 10/15/2024 11:26 PM RESOURCE TEACHER CBC WITH AUTO DIFFERENTIAL Routine 10/15/2024 11:26 PM RESOURCE TEACHER BASIC METABOLIC PANEL Routine 10/15/2024 11:26 PM RESOURCE TEACHER EGFR Timed 10/14/2024 9:54 PM RESOURCE TEACHER HEPATIC FUNCTION PANEL STAT 9:54 PM RESOURCE TEACHER PROTIME-INR STAT 10/14/2024 9:54 PM RESOURCE TEACHER CBC WITHOUT DIFFERENTIAL STAT 10/14/2024 9:54 PM RESOURCE TEACHER BASIC METABOLIC PANEL Timed 10/14/2024 9:54 PM RESOURCE TEACHER XR KNEE LEFT 1 OR 2 VIEWS ED Urgent/IP Urgent 10/14/2024 5:49 PM RESOURCE TEACHER MYCOBACTERIOLOGY AFB CULTURE AND ACID-FAST STAIN Routine 10/14/2024 3:14 PM RESOURCE TEACHER MYCOLOGY (FUNGAL) CULTURE AND STAIN Routine 10/14/2024 3:14 PM RESOURCE TEACHER TISSUE AEROBIC AND ANAEROBIC CULTURE AND GRAM STAIN Routine 10/14/2024 3:14 PM RESOURCE TEACHER MYCOBACTERIOLOGY AFB CULTURE AND ACID-FAST STAIN Routine 10/14/2024 3:05 PM RESOURCE TEACHER MYCOLOGY (FUNGAL) CULTURE AND STAIN Routine 10/14/2024 3:05 PM RESOURCE TEACHER TISSUE AEROBIC AND ANAEROBIC CULTURE AND GRAM STAIN Routine 10/14/2024 3:05 PM RESOURCE TEACHER MYCOBACTERIOLOGY AFB CULTURE AND ACID-FAST STAIN Routine 10/14/2024 2:27 PM RESOURCE TEACHER MYCOLOGY (FUNGAL) CULTURE AND STAIN Routine 10/14/2024 2:27 PM RESOURCE TEACHER TISSUE AEROBIC AND ANAEROBIC CULTURE AND GRAM STAIN Routine 10/14/2024 2:27 PM RESOURCE TEACHER MYCOBACTERIOLOGY AFB CULTURE AND ACID-FAST STAIN Routine 10/14/2024 2:20 PM RESOURCE TEACHER MYCOLOGY (FUNGAL) CULTURE AND STAIN Routine 10/14/2024 2:20 PM RESOURCE TEACHER TISSUE AEROBIC AND ANAEROBIC CULTURE AND GRAM STAIN Routine 10/14/2024 2:20 PM RESOURCE TEACHER MYCOBACTERIOLOGY AFB CULTURE AND ACID-FAST STAIN Routine 10/14/2024 2:19 PM RESOURCE TEACHER MYCOLOGY (FUNGAL) CULTURE AND STAIN Routine 10/14/2024 2:19 PM RESOURCE TEACHER TISSUE AEROBIC AND ANAEROBIC CULTURE AND GRAM STAIN Routine 10/14/2024 2:19 PM RESOURCE TEACHER MYCOLOGY (FUNGAL) CULTURE Routine 10/14/2024 2:18 PM RESOURCE TEACHER MYCOBACTERIOLOGY AFB CULTURE AND ACID-FAST STAIN Routine 10/14/2024 2:18 PM RESOURCE TEACHER TISSUE AEROBIC AND ANAEROBIC CULTURE AND GRAM STAIN Routine 10/14/2024 2:18 PM RESOURCE TEACHER MYCOBACTERIOLOGY AFB CULTURE AND ACID-FAST STAIN Routine 10/14/2024 2:18 PM RESOURCE TEACHER MYCOLOGY (FUNGAL) CULTURE AND STAIN Routine 10/14/2024 2:18 PM RESOURCE TEACHER TISSUE AEROBIC AND ANAEROBIC CULTURE AND GRAM STAIN Routine 10/14/2024 2:18 PM RESOURCE TEACHER ANESTHESIA INTUBATION Routine 10/14/2024 1:52 PM RESOURCE TEACHER ARTHROPLASTY REMOVAL/EXCHANGE HARDWARE - KNEE 10/14/2024 1:11 PM RESOURCE TEACHER Infection of total joint prosthesis, initial encounter (HCC) PLACEMENT SPACER/ANTIBIOTIC BEAD - KNEE 10/14/2024 1:11 PM RESOURCE TEACHER Infection of total joint prosthesis, initial encounter (HCC) EGFR Routine 09/16/2024 11:35 AM RESOURCE TEACHER Infection of total joint prosthesis, initial encounter (HCC) DIFFERENTIAL AUTO Routine 09/16/2024 11:35 AM RESOURCE TEACHER Infection of total joint prosthesis, initial encounter (HCC) CBC WITH AUTO DIFFERENTIAL Routine 09/16/2024 11:35 AM RESOURCE TEACHER Infection of total joint prosthesis, initial encounter (HCC) VITAMIN D 25 HYDROXY Routine 09/16/2024 11:35 AM RESOURCE TEACHER Infection of total joint prosthesis, initial encounter (HCC) COMPREHENSIVE METABOLIC PANEL Routine 09/16/2024 11:35 AM RESOURCE TEACHER Infection of total joint prosthesis, initial encounter (HCC) from Last 3 Months Results * eGFR (10/20/2024 8:41 PM RESOURCE TEACHER) eGFR 87 >=60 mL/min/1. 73 m2 Comment: [...] last reviewed 2021. Blood 10/20/2024 8:41 PM RESOURCE TEACHER 10/20/2024 9:04 PM RESOURCE TEACHER us Elpidio Espinoza MD LAB BLOOD ORDERABLES Final R esult [facility] [place] [address] * (ABNORMAL) Differential, auto (10/20/2024 8:41 PM RESOURCE TEACHER) Neutrophil abs 5.4 1.5 - 6.5 K/cumm Imm gran abs 1.1(H) 0.0 - 0.1 K/cumm [facility] Lymphocyte abs 1.6 0.8 - 3.3 K/cumm [facility] Monocyte abs 1.0(H) 0.2 - 0.8 K/cumm [facility] Eosinophil abs 0.3 0.0 - 0.5 K/cumm [facility] Basophil abs 0.1 0.0 - 0.1 K/cumm [facility] Neutrophil pct 56.3 % [facility] Comment: Confirmed by smear review Interpretive Data Percent cell count reference ranges are not reported, since discordance with absolute values may lead to misinterpretation of CBC data. Current Interpretive Data was last revised on 2018. Imm gran pct 11.6 % [facility] Comment: Interpretive Data Percent cell count reference ranges are not reported, since discordance with absolute values may lead to misinterpretation of CBC data. Current Interpretive Data was last revised on 2018. Lymphocyte pct 17.0 % [facility] Comment: Interpretive Data Percent cell count reference ranges are not reported, since discordance with absolute values may lead to misinterpretation of CBC data. Current Interpretive Data was last revised on 2018. Monocyte pct 10.5 % [facility] Comment: Interpretive Data Percent cell count reference ranges are not reported, since discordance with absolute values may lead to misinterpretation of CBC data. Current Interpretive Data was last revised on 2018. Eosinophil pct 3.5 % [facility] Comment: Interpretive Data Percent cell count reference ranges are not reported, since discordance with absolute values may lead to misinterpretation of CBC data. Current Interpretive Data was last revised on 2018. Basophil pct 1.1 % [facility] Comment: Interpretive Data Percent cell count reference ranges are not reported, since discordance with absolute values may lead to misinterpretation of CBC data. Current Interpretive Data was last revised on 2018. Blood 10/20/2024 8:41 PM RESOURCE TEACHER 10/20/2024 9:04 PM RESOURCE TEACHER us Elpidio Espinoza MD LAB BLOOD ORDERABLES Final R esult [facility] [address] [facility] [place] [address] * (ABNORMAL) CBC with auto differential (10/20/2024 8:41 PM RESOURCE TEACHER) WBC 9.6 3.8 - 9.9 K/cumm Hgb 8.0(L) 13.0 - 17.5 g/dL [facility] Hct 25.7(L) 38.9 - 50.3 % [facility] Plt 400 150 - 400 K/cumm [facility] MPV 9.5 9.1 - 12.3 fL [facility] RBC 3.12(L) 4.30 - 5.80 M/cumm [facility] MCV 82.4 81.3 - 96.4 fL [facility] MCH 25.6(L) 27.1 - 33.3 pg [facility] MCHC 31.1(L) 32.3 - 35.7 g/dL [facility] RDW CV 17.9(H) 11.1 - 14.9 % [facility] RDW SD 51.8(H) 35.7 - 48.1 fL [facility] NRBC abs 0.00 0.00 - 0.01 K/cumm [facility] Blood 10/20/2024 8:41 PM RESOURCE TEACHER 10/20/2024 9:04 PM RESOURCE TEACHER us Elpidio Espinoza MD LAB BLOOD ORDERABLES Final R esult [facility] [place] [address] * Basic metabolic panel (10/20/2024 8:41 PM RESOURCE TEACHER) Pathologist [facility] Sodium 135 135 - 145 mmol/L Potassium, pl 4.4 3.3 - 4.9 mmol/L [facility] Chloride 99 97 - 110 mmol/L [facility] CO2 29 22 - 32 mmol/L [facility] Anion gap 7 2 - 15 mmol/L [facility] BUN 19 6 - 25 mg/dL [facility] Creatinine 0.96 0.80 - 1.30 mg/dL [facility] Glucose 119 70 - 199 mg/dL [facility] Comment: Interpretive Data Fasting glucose >/= 126 [...] 2022. Calcium 9.0 8.5 - 10.3 mg/dL [facility] Blood 10/20/2024 8:41 PM RESOURCE TEACHER 10/20/2024 9:04 PM RESOURCE TEACHER us Elpidio Espinoza MD LAB BLOOD ORDERABLES Final R esult [facility] Department [place] [address] * eGFR (10/19/2024 9:06 PM RESOURCE TEACHER) eGFR >90 >=60 mL/min/1. 73 m2 Comment: [...] last reviewed 2021. Blood 10/19/2024 9:06 PM RESOURCE TEACHER 10/19/2024 10:33 PM RESOURCE TEACHER us Elpidio Espinoza MD LAB BLOOD ORDERABLES Final R esult [facility] Department [place] [address] * (ABNORMAL) Differential, auto (10/19/2024 9:06 PM RESOURCE TEACHER) Pathologist [facility] Neutrophil abs 5.3 1.5 - 6.5 K/cumm Imm gran abs 1.0(H) 0.0 - 0.1 K/cumm [facility] Lymphocyte abs 1.3 0.8 - 3.3 K/cumm [facility] Monocyte abs 1.0(H) 0.2 - 0.8 K/cumm [facility] Eosinophil abs 0.4 0.0 - 0.5 K/cumm [facility] Basophil abs 0.1 0.0 - 0.1 K/cumm [facility] Neutrophil pct 58.7 % [facility] Comment: Confirmed by smear review Interpretive Data Percent cell count reference ranges are not reported, since discordance with absolute values may lead to misinterpretation of CBC data. Current Interpretive Data was last revised on 2018. Imm gran pct 11.0 % [facility] Comment: Interpretive Data Percent cell count reference ranges are not reported, since discordance with absolute values may lead to misinterpretation of CBC data. Current Interpretive Data was last revised on 2018. Lymphocyte pct 14.1 % [facility] Comment: Interpretive Data Percent cell count reference ranges are not reported, since discordance with absolute values may lead to misinterpretation of CBC data. Current Interpretive Data was last revised on 2018. Monocyte pct 11.2 % [facility] Comment: Interpretive Data Percent cell count reference ranges are not reported, since discordance with absolute values may lead to misinterpretation of CBC data. Current Interpretive Data was last revised on 2018. Eosinophil pct 4.2 % [facility] Comment: Interpretive Data Percent cell count reference ranges are not reported, since discordance with absolute values may lead to misinterpretation of CBC data. Current Interpretive Data was last revised on 2018. Basophil pct 0.8 % [facility] Comment: Interpretive Data Percent cell count reference ranges are not reported, since discordance with absolute values may lead to misinterpretation of CBC data. Current Interpretive Data was last revised on 2018. Blood 10/19/2024 9:06 PM RESOURCE TEACHER 10/19/2024 10:34 PM RESOURCE TEACHER us Elpidio Espinoza MD LAB BLOOD ORDERABLES Final R esult [facility] [place] [address] * (ABNORMAL) CBC with auto differential (10/19/2024 9:06 PM RESOURCE TEACHER) WBC 9.1 3.8 - 9.9 K/cumm Hgb 7.5(L) 13.0 - 17.5 g/dL [facility] Hct 23.9(L) 38.9 - 50.3 % [facility] Plt 357 150 - 400 K/cumm [facility] MPV 9.8 9.1 - 12.3 fL [facility] RBC 2.92(L) 4.30 - 5.80 M/cumm [facility] MCV 81.8 81.3 - 96.4 fL [facility] MCH 25.7(L) 27.1 - 33.3 pg [facility] MCHC 31.4(L) 32.3 - 35.7 g/dL [facility] RDW CV 17.8(H) 11.1 - 14.9 % [facility] RDW SD 52.3(H) 35.7 - 48.1 fL [facility] NRBC abs 0.00 0.00 - 0.01 K/cumm [facility] Blood 10/19/2024 9:06 PM RESOURCE TEACHER 10/19/2024 10:34 PM RESOURCE TEACHER Elpidio Espinoza MD LAB BLOOD ORDERABLES Final R esult [facility] [place] [address] * Basic metabolic panel (10/19/2024 9:06 PM RESOURCE TEACHER) Pathologist [facility] Sodium 139 135 - 145 mmol/L Potassium, pl 4.4 3.3 - 4.9 mmol/L [facility] Chloride 101 97 - 110 mmol/L [facility] CO2 30 22 - 32 mmol/L [facility] Anion gap 8 2 - 15 mmol/L [facility] BUN 20 6 - 25 mg/dL [facility] Creatinine 0.87 0.80 - 1.30 mg/dL [facility] Glucose 102 70 - 199 mg/dL [facility] Comment: Interpretive Data Fasting glucose >/= 126 [...] Calcium 8.8 8.5 - 10.3 mg/dL [facility] Blood 10/19/2024 9:06 PM RESOURCE TEACHER 10/19/2024 10:33 PM RESOURCE TEACHER Elpidio Espinoza MD LAB BLOOD ORDERABLES Final R esult Performing Organization Address [facility] Co de Phone Number [facility] [place] [address] * eGFR (10/18/2024 8:10 PM RESOURCE TEACHER) eGFR >90 >=60 mL/min/1. 73 m2 Comment: [...] last reviewed 2021. Blood 10/18/2024 8:10 PM RESOURCE TEACHER 10/18/2024 8:35 PM RESOURCE TEACHER Elpidio Espinoza MD LAB BLOOD ORDERABLES Final R esult Performing Organization Address City/[facility]/ZIP Co de Phone Number [facility] [place] [address] * (ABNORMAL) Differential, auto (10/18/2024 8:10 PM RESOURCE TEACHER) Neutrophil abs 5.3 1.5 - 6.5 K/cumm Imm gran abs 0.5(H) 0.0 - 0.1 K/cumm [facility] Lymphocyte abs 1.1 0.8 - 3.3 K/cumm [facility] Monocyte abs 0.8 0.2 - 0.8 K/cumm [facility] Eosinophil abs 0.4 0.0 - 0.5 K/cumm [facility] Basophil abs 0.1 0.0 - 0.1 K/cumm [facility] Neutrophil pct 64.3 % [facility] Comment: Interpretive Data Percent cell count reference ranges are not reported, since discordance with absolute values may lead to misinterpretation of CBC data. Current Interpretive Data was last revised on 2018. Imm gran pct 6.6 % [facility] Comment: Interpretive Data Percent cell count reference ranges are not reported, since discordance with absolute values may lead to misinterpretation of CBC data. Current Interpretive Data was last revised on 2018. Lymphocyte pct 13.7 % [facility] Comment: Interpretive Data Percent cell count reference ranges are not reported, since discordance with absolute values may lead to misinterpretation of CBC data. Current Interpretive Data was last revised on 2018. Monocyte pct 9.5 % [facility] Comment: Interpretive Data Percent cell count reference ranges are not reported, since discordance with absolute values may lead to misinterpretation of CBC data. Current Interpretive Data was last revised on 2018. Eosinophil pct 5.3 % [facility] Comment: Interpretive Data Percent cell count reference ranges are not reported, since discordance with absolute values may lead to misinterpretation of CBC data. Current Interpretive Data was last revised on 2018. Basophil pct 0.6 % [facility] Comment: Interpretive Data Percent cell count reference ranges are not reported, since discordance with absolute values may lead to misinterpretation of CBC data. Current Interpretive Data was last revised on 2018. Blood 10/18/2024 8:10 PM RESOURCE TEACHER 10/18/2024 8:35 PM RESOURCE TEACHER us Elpidio Espinoza MD LAB BLOOD ORDERABLES Final R esult Performing Organization Address [facility]/ZIP Co de Phone Number [facility] [place] [address] * (ABNORMAL) CBC with auto differential (10/18/2024 8:10 PM RESOURCE TEACHER) [facility] WBC 8.2 3.8 - 9.9 K/cumm Hgb 7.2(L) 13.0 - 17.5 g/dL [facility] Hct 23.2(L) 38.9 - 50.3 % [facility] Plt 313 150 - 400 K/cumm [facility] MPV 9.6 9.1 - 12.3 fL [facility] RBC 2.83(L) 4.30 - 5.80 M/cumm [facility] MCV 82.0 81.3 - 96.4 fL [facility] MCH 25.4(L) 27.1 - 33.3 pg [facility] MCHC 31.0(L) 32.3 - 35.7 g/dL [facility] RDW CV 17.5(H) 11.1 - 14.9 % [facility] RDW SD 51.1(H) 35.7 - 48.1 fL [facility] NRBC abs 0.00 0.00 - 0.01 K/cumm [facility] Blood 10/18/2024 8:10 PM RESOURCE TEACHER 10/18/2024 8:35 PM RESOURCE TEACHER us Elpidio Espinoza MD LAB BLOOD ORDERABLES Final R esult [facility] [place] [address] * Basic metabolic panel (10/18/2024 8:10 PM RESOURCE TEACHER) [facility] Sodium 139 135 - 145 mmol/L Potassium, pl 3.9 3.3 - 4.9 mmol/L [facility] Chloride 101 97 - 110 mmol/L [facility] CO2 28 22 - 32 mmol/L [facility] Anion gap 10 2 - 15 mmol/L [facility] BUN 17 6 - 25 mg/dL [facility] Creatinine 0.89 0.80 - 1.30 mg/dL [facility] Glucose 150 70 - 199 mg/dL [facility] Comment: Interpretive Data Fasting glucose >/= 126 [...] 2022. Calcium 8.6 8.5 - 10.3 mg/dL [facility] Blood 10/18/2024 8:10 PM RESOURCE TEACHER 10/18/2024 8:35 PM RESOURCE TEACHER us Elpidio Espinoza MD LAB BLOOD ORDERABLES Final R esult [facility] [place] [address] * ECG 12 lead (10/18/2024 1:13 PM RESOURCE TEACHER) Pathologist [facility] Ventricular Rate EKG/Min 73 BPM [facility] Atrial Rate 73 BPM [facility] MT-Interval (MSEC) 148 ms [facility] QRS-Interval (MSEC) 90 ms [facility] QT-Interval (MSEC) 354 ms [facility] QTc 389 ms [facility] P Holcomb 49 degrees [facility] R Holcomb 11 degrees [facility] T Holcomb 68 degrees [facility] Diagnosis Normal sinus rhythm Early R wave progression When compared with ECG of 06-AUG-2019 07:44, No significant change was found Confirmed by OSIEL COURTNEY M.D ([id number]) on 10/23/2024 9:26:10 AM [facility] 10/18/2024 1:13 PM RESOURCE TEACHER 10/23/2024 9:26 AM RESOURCE TEACHER us Vika Barros [facility] M[facility] ECG ORDERABLES Final Res ult [facility] * Creatine kinase (CK), total (10/18/2024 12:50 PM RESOURCE TEACHER) CK 258 40 - 300 Units/L Blood 10/18/2024 12:5 0 PM RESOURCE TEACHER 10/18/2024 1:03 PM RESOURCE TEACHER us Darline Foreman [facility] M[facility] LAB BLOOD ORDERABLES Final Result Performing Organization Address City/[facility]/ZIP Co de Phone Number [facility] [place] [address] * eGFR (10/17/2024 9:42 PM RESOURCE TEACHER) eGFR >90 >=60 mL/min/1. 73 m2 Comment: [...] last reviewed 2021. Blood 10/17/2024 9:42 PM RESOURCE TEACHER 10/17/2024 10:10 PM RESOURCE TEACHER us Candy Fernandez Can [facility] M[facility] LAB BLOOD ORDERABLES Final Result [facility] [place] [address] * (ABNORMAL) Differential, auto (10/17/2024 9:42 PM RESOURCE TEACHER) Neutrophil abs 8.3(H) 1.5 - 6.5 K/cumm Imm gran abs 0.3(H) 0.0 - 0.1 K/cumm [facility] Lymphocyte abs 1.0 0.8 - 3.3 K/cumm [facility] Monocyte abs 1.1(H) 0.2 - 0.8 K/cumm [facility] Eosinophil abs 0.0 0.0 - 0.5 K/cumm [facility] Basophil abs 0.1 0.0 - 0.1 K/cumm [facility] Neutrophil pct 76.9 % [facility] Comment: Interpretive Data Percent cell count reference ranges are not reported, since discordance with absolute values may lead to misinterpretation of CBC data. Current Interpretive Data was last revised on 2018. Imm gran pct 2.9 % [facility] Comment: Interpretive Data Percent cell count reference ranges are not reported, since discordance with absolute values may lead to misinterpretation of CBC data. Current Interpretive Data was last revised on 2018. Lymphocyte pct 8.8 % [facility] Comment: Interpretive Data Percent cell count reference ranges are not reported, since discordance with absolute values may lead to misinterpretation of CBC data. Current Interpretive Data was last revised on 2018. Monocyte pct 10.3 % [facility] Comment: Interpretive Data Percent cell count reference ranges are not reported, since discordance with absolute values may lead to misinterpretation of CBC data. Current Interpretive Data was last revised on 2018. Eosinophil pct 0.4 % [facility] Comment: Interpretive Data Percent cell count reference ranges are not reported, since discordance with absolute values may lead to misinterpretation of CBC data. Current Interpretive Data was last revised on 2018. [facility]ophil pct 0.7 % [facility] Comment: Interpretive Data Percent cell count reference ranges are not reported, since discordance with absolute values may lead to misinterpretation of CBC data. Current Interpretive Data was last revised on 2018. Blood 10/17/2024 9:42 PM RESOURCE TEACHER 10/17/2024 10:10 PM RESOURCE TEACHER us Candy oNrth NP LAB BLOOD ORDERABLES Final Result Performing Organization Address [facility] Co de Phone Number [facility] [place] [address] * (ABNORMAL) CBC with auto differential (10/17/2024 9:42 PM RESOURCE TEACHER) WBC 10.8(H) 3.8 - 9.9 K/cumm Hgb 7.8(L) 13.0 - 17.5 g/dL [facility] Hct 25.2(L) 38.9 - 50.3 % [facility] Plt 326 150 - 400 K/cumm [facility] MPV 9.6 9.1 - 12.3 fL [facility] RBC 3.09(L) 4.30 - 5.80 M/cumm [facility] MCV 81.6 81.3 - 96.4 fL [facility] MCH 25.2(L) 27.1 - 33.3 pg [facility] MCHC 31.0(L) 32.3 - 35.7 g/dL [facility] RDW CV 17.1(H) 11.1 - 14.9 % [facility] RDW SD 50.2(H) 35.7 - 48.1 fL [facility] NRBC abs 0.00 0.00 - 0.01 K/cumm [facility] Blood 10/17/2024 9:42 PM RESOURCE TEACHER 10/17/2024 10:10 PM RESOURCE TEACHER us Elpidio Espinoza MD LAB BLOOD ORDERABLES Final R esult Performing Organization Address [facility]/ZIP Co de Phone Number [facility] [place] [address] * Basic metabolic panel (10/17/2024 9:42 PM RESOURCE TEACHER) Sodium 137 135 - 145 mmol/L Potassium, pl 4.2 3.3 - 4.9 mmol/L [facility] Chloride 99 97 - 110 mmol/L [facility] CO2 29 22 - 32 mmol/L [facility] Anion gap 9 2 - 15 mmol/L [facility] BUN 13 6 - 25 mg/dL [facility] Creatinine 0.85 0.80 - 1.30 mg/dL [facility] Glucose 139 70 - 199 mg/dL [facility] Comment: Interpretive Data Fasting glucose >/= 126 [...] 2022. Calcium 8.9 8.5 - 10.3 mg/dL [facility] Blood 10/17/2024 9:42 PM RESOURCE TEACHER 10/17/2024 10:10 PM RESOURCE TEACHER us Elpidio Espinoza MD LAB BLOOD ORDERABLES Final R esult [facility] [place] [address] * MT AN PROCEDURE PLACEHOLDER (10/17/2024 9:17 AM RESOURCE TEACHER) Narrative Ty Pratt MD - 10/17/2024 9:17 AM RESOURCE TEACHER Ty Pratt MD 10/17/2024 9:17 AM Peripheral [...] Result * Transfuse RBC (10/17/2024 8:27 AM RESOURCE TEACHER) Blood Ty Pratt MD BLOOD TRANSFUSION ORDERABL ES Final Result [facility] [place] [address] * MT AN ELECTIVE ENDOTRACHEAL AIRWAY, MT AN PROCEDURE PLACEHOLDER (10/17/2024 8:23 AM RESOURCE TEACHER) Narrative Ty Pratt MD - 10/17/2024 8:23 AM RESOURCE TEACHER Ty Pratt MD 10/17/2024 9:18 AM Airway [...] Prepare RBC: 1 Units (10/17/2024 7:05 AM RESOURCE TEACHER) [facility] Product code [id number] Unit Number [id number] [facility] Product Blood Type BPOS [facility] Dispense Status PRESUMED TRANSFUSED [facility] Blood 10/17/2024 7:05 AM RESOURCE TEACHER 10/17/2024 7:04 AM RESOURCE TEACHER Narrative [facility] - 10/18/2024 12:56 AM RESOURCE TEACHER Are special requirements needed? (All products are leukoreduced and CMV- safe)- >No Date required:-[id number] LRRBC # of [id number] Reasons:-Intra-op transfusion} Ty Pratt MD BLOOD BANK PRODUCT ORDERAB LES Final Result Performing Organization Address [facility] Co de Phone Number [facility] [place] [address] * Type and screen (10/17/2024 5:41 AM RESOURCE TEACHER) [facility] Randy, indirect Negative ABO Rh B Positive [facility] Blood 10/17/2024 5:41 AM RESOURCE TEACHER 10/17/2024 5:47 AM RESOURCE TEACHER Narrative [facility] - 10/17/2024 6:32 AM RESOURCE TEACHER Has the patient had Daratumumab or Isatuximab in the past 6 months?->Unknown Ty Pratt MD [facility] BLOOD BANK TEST ORDERA BLES Final Result [facility] [place] [address] * eGFR (10/16/2024 9:51 PM RESOURCE TEACHER) [facility] eGFR 87 >=60 mL/min/1. 73 m2 [...] last reviewed 2021. Blood 10/16/2024 9:51 PM RESOURCE TEACHER 10/16/2024 11:21 PM RESOURCE TEACHER us Candy North [facility] M[facility] LAB BLOOD ORDERABLES Final Result [facility] [place] [address] * (ABNORMAL) Differential, auto (10/16/2024 9:51 PM RESOURCE TEACHER) Neutrophil abs 5.5 1.5 - 6.5 K/cumm Imm gran abs 0.3(H) 0.0 - 0.1 K/cumm [facility] Lymphocyte abs 1.3 0.8 - 3.3 K/cumm [facility] Monocyte abs 0.9(H) 0.2 - 0.8 K/cumm [facility] Eosinophil abs 0.3 0.0 - 0.5 K/cumm [facility] Basophil abs 0.0 0.0 - 0.1 K/cumm [facility] Neutrophil pct 66.3 % [facility] Comment: Interpretive Data Percent cell count reference ranges are not reported, since discordance with absolute values may lead to misinterpretation of CBC data. Current Interpretive Data was last revised on 2018. Imm gran pct 3.2 % [facility] Comment: Interpretive Data Percent cell count reference ranges are not reported, since discordance with absolute values may lead to misinterpretation of CBC data. Current Interpretive Data was last revised on 2018. Lymphocyte pct 15.8 % [facility] Comment: Interpretive Data Percent cell count reference ranges are not reported, since discordance with absolute values may lead to misinterpretation of CBC data. Current Interpretive Data was last revised on 2018. Monocyte pct 10.4 % [facility] Comment: Interpretive Data Percent cell count reference ranges are not reported, since discordance with absolute values may lead to misinterpretation of CBC data. Current Interpretive Data was last revised on 2018. Eosinophil pct 3.8 % [facility] Comment: Interpretive Data Percent cell count reference ranges are not reported, since discordance with absolute values may lead to misinterpretation of CBC data. Current Interpretive Data was last revised on 2018. Basophil pct 0.5 % [facility] Comment: Interpretive Data Percent cell count reference ranges are not reported, since discordance with absolute values may lead to misinterpretation of CBC data. Current Interpretive Data was last revised on 2018. Blood 10/16/2024 9:51 PM RESOURCE TEACHER 10/16/2024 11:23 PM RESOURCE TEACHER us Candy North [employer] MGR LAB BLOOD ORDERABLES Final Result [facility] [place] [address] * (ABNORMAL) CBC with auto differential (10/16/2024 9:51 PM RESOURCE TEACHER) WBC 8.2 3.8 - 9.9 K/cumm Hgb 7.4(L) 13.0 - 17.5 g/dL [facility] Hct 23.7(L) 38.9 - 50.3 % [facility] Plt 322 150 - 400 K/cumm [facility] MPV 9.8 9.1 - 12.3 fL [facility] RBC 2.91(L) 4.30 - 5.80 M/cumm [facility] MCV 81.4 81.3 - 96.4 fL [facility] MCH 25.4(L) 27.1 - 33.3 pg [facility] MCHC 31.2(L) 32.3 - 35.7 g/dL [facility] RDW CV 17.2(H) 11.1 - 14.9 % [facility] RDW SD 50.4(H) 35.7 - 48.1 fL [facility] NRBC abs 0.00 0.00 - 0.01 K/cumm [facility] Blood 10/16/2024 9:51 PM RESOURCE TEACHER 10/16/2024 11:23 PM RESOURCE TEACHER Elpidio Espinoza MD LAB BLOOD ORDERABLES Final R esult [facility] [place] [address] * (ABNORMAL) Basic metabolic panel (10/16/2024 9:51 PM RESOURCE TEACHER) Sodium 138 135 - 145 mmol/L Potassium, pl 4.0 3.3 - 4.9 mmol/L [facility] Chloride 102 97 - 110 mmol/L [facility] CO2 29 22 - 32 mmol/L [facility] Anion gap 7 2 - 15 mmol/L [facility] BUN 15 6 - 25 mg/dL [facility] Creatinine 0.96 0.80 - 1.30 mg/dL [facility] Glucose 124 70 - 199 mg/dL [facility] Comment: Interpretive Data Fasting glucose >/= 126 [...] 2022. Calcium 8.3(L) 8.5 - 10.3 mg/dL [facility] Blood 10/16/2024 9:51 PM RESOURCE TEACHER 10/16/2024 11:21 PM RESOURCE TEACHER us Elpidio Espinoza MD LAB BLOOD ORDERABLES Final R esult Performing Organization Address City/[facility]/ZIP Co de Phone Number [facility] [place] [address] * (ABNORMAL) Vancomycin level trough (10/16/2024 2:00 PM RESOURCE TEACHER) Vancomycin trough 8.8(L) 10.0 - 20.0 mcg/mL Blood 10/16/2024 2:00 PM RESOURCE TEACHER 10/16/2024 2:38 PM RESOURCE TEACHER us Angie Amado MD LAB BLOOD ORDERABLES Final Result Performing Organization Address [facility] Co de Phone Number [facility] Keira [facility] [place] [address] * Insert PICC line (10/16/2024 12:02 PM RESOURCE TEACHER) Narrative Eduardo Montero, RN - 10/16/2024 12:02 PM RESOURCE TEACHER Eduardo Montero, RN 10/16/2024 12:35 PM Vascular Access Nurse: [...] Cosigned By Initials Name Pina Vogel, V[place] Eduardo Montero, an employee sponsor or advocate and Access Documentation (Last 4 Hours) [facility] Additional [...] Anterior;Left -BW Location: Hand -BW Inserted by: MJ -BW PICC Single Lumen 10/16/24 Non-tunneled Power Right [...] vein;Standard insertion technique with peel away sheath -WI Lot #: [id number] -WI Expiration Date: 05/25/25 -WI Trimmed Length (cm) : 37 cm -MT Line Tip Location : Central -MT Initial Extremity Circumference (cm): 31 cm -MT Circumference Reference Point: 4 cm above insertion site -MT Initial External Length Catheter (cm): 0 cm -MT Placement Verification: Blood return;[place];ECG;Ultrasound -WI Line Secured by : Securement device -[place] Inserted by: Jonathan Remy RN -[place]I Assisted By: Chiquita Montero -[place]I Insertion attempts: 1 -MT Patient Tolerance: Tolerated well -WI Description (optional): Single PICC right upper arm -MT Site Assessment Clean and dry;Securement device in place -MT External Length ty (cm) 0 cm -MT Extremity Circumference (cm) 31 cm -MT Dressing Type CHG Dressing;Transparent -MT Dressing Status New;Clean, dry, intact;Dated;Occlusive -WI Dressing Intervention Dressing dated -WI Dressing Change Due 10/23/24 -WI Observer Present Yes -MT Lumen #1 Status Blood return brisk;Disinfectant cap in place;Flushes easily;Saline locked;Needleless access device in place -MT Lumen #1 Interventions Connections checked and tightened -[place] Line Necessity Reason Reviewed With Care Team Needed upon discharge for assisted use (e.g. long-term antibiotics) -[place]I User Marvin (r) = Recorded By, (t) = Taken By, (c) = Cosigned By Initials Name Billie Ng RN [place] Eduardo Montero RN Right single lumen PICC safe to use. Eduardo Montero RN us Vika Barros [facility] M[facility] IV THERAPY ORDERABLES Darren arsh Result - Final * eGFR (10/15/2024 11:26 PM RESOURCE TEACHER) eGFR 86 >=60 mL/min/1. 73 m2 Comment: [...] reviewed 2021. Blood 10/15/2024 11:2 6 PM RESOURCE TEACHER 10/15/2024 11:40 PM RESOURCE TEACHER us Candy North [employer] MGR LAB BLOOD ORDERABLES Final Result [facility] [place] [address] * (ABNORMAL) Differential, auto (10/15/2024 11:26 PM RESOURCE TEACHER) Neutrophil abs 7.0(H) 1.5 - 6.5 K/cumm Imm gran abs 0.1 0.0 - 0.1 K/cumm [facility] Lymphocyte abs 1.0 0.8 - 3.3 K/cumm [facility] Monocyte abs 0.8 0.2 - 0.8 K/cumm [facility] Eosinophil abs 0.3 0.0 - 0.5 K/cumm [facility] Basophil abs 0.1 0.0 - 0.1 K/cumm [facility] Neutrophil pct 75.9 % [facility] Comment: Interpretive Data Percent cell count reference ranges are not reported, since discordance with absolute values may lead to misinterpretation of CBC data. Current Interpretive Data was last revised on 2018. Imm gran pct 1.1 % [facility] Comment: Interpretive Data Percent cell count reference ranges are not reported, since discordance with absolute values may lead to misinterpretation of CBC data. Current Interpretive Data was last revised on 2018. Lymphocyte pct 11.3 % [facility] Comment: Interpretive Data Percent cell count reference ranges are not reported, since discordance with absolute values may lead to misinterpretation of CBC data. Current Interpretive Data was last revised on 2018. Monocyte pct 8.4 % [facility] Comment: Interpretive Data Percent cell count reference ranges are not reported, since discordance with absolute values may lead to misinterpretation of CBC data. Current Interpretive Data was last revised on 2018. Eosinophil pct 2.8 % [facility] Comment: Interpretive Data Percent cell count reference ranges are not reported, since discordance with absolute values may lead to misinterpretation of CBC data. Current Interpretive Data was last revised on 2018. Basophil pct 0.5 % [facility] Comment: Interpretive Data Percent cell count reference ranges are not reported, since discordance with absolute values may lead to misinterpretation of CBC data. Current Interpretive Data was last revised on 2018. Blood 10/15/2024 11:2 6 PM RESOURCE TEACHER 10/15/2024 11:40 PM RESOURCE TEACHER us Candy North [employer] MGR LAB BLOOD ORDERABLES Final Result [facility] [place] [address] * (ABNORMAL) CBC with auto differential (10/15/2024 11:26 PM RESOURCE TEACHER) WBC 9.2 3.8 - 9.9 K/cumm Hgb 8.0(L) 13.0 - 17.5 g/dL [facility] Hct 25.9(L) 38.9 - 50.3 % [facility] Plt 292 150 - 400 K/cumm [facility] MPV 9.1 9.1 - 12.3 fL [facility] RBC 3.17(L) 4.30 - 5.80 M/cumm [facility] MCV 81.7 81.3 - 96.4 fL [facility] MCH 25.2(L) 27.1 - 33.3 pg [facility] MCHC 30.9(L) 32.3 - 35.7 g/dL [facility] RDW CV 16.9(H) 11.1 - 14.9 % [facility] RDW SD 50.0(H) 35.7 - 48.1 fL [facility] NRBC abs 0.00 0.00 - 0.01 K/cumm [facility] Blood 10/15/2024 11:2 6 PM RESOURCE TEACHER 10/15/2024 11:40 PM RESOURCE TEACHER us Elpidio Espinoza MD LAB BLOOD ORDERABLES Final R esult [facility] [place] [address] * (ABNORMAL) Basic metabolic panel (10/15/2024 11:26 PM RESOURCE TEACHER) Sodium 138 135 - 145 mmol/L Potassium, pl 4.8 3.3 - 4.9 mmol/L [facility] Chloride 106 97 - 110 mmol/L [facility] CO2 27 22 - 32 mmol/L [facility] Anion gap 5 2 - 15 mmol/L [facility] BUN 13 6 - 25 mg/dL [facility] Creatinine 0.97 0.80 - 1.30 mg/dL [facility] Glucose 119 70 - 199 mg/dL [facility] Comment: Interpretive Data Fasting glucose >/= 126 [...] 2022. Calcium 8.2(L) 8.5 - 10.3 mg/dL [facility] Blood 10/15/2024 11:2 6 PM RESOURCE TEACHER 10/15/2024 11:40 PM RESOURCE TEACHER us Elpidio Espinoza MD LAB BLOOD ORDERABLES Final R esult Performing Organization Address [facility] Co de Phone Number [facility] [place] [address] * eGFR (10/14/2024 9:54 PM RESOURCE TEACHER) eGFR >90 >=60 mL/min/1. 73 m2 Comment: [...] last reviewed 2021. Blood 10/14/2024 9:54 PM RESOURCE TEACHER 10/14/2024 10:15 PM RESOURCE TEACHER us Chasity Diego MD LAB BLOOD ORDERAB LES Final Result Performing Organization Address [facility] Co de Phone Number [facility] [place] [address] * (ABNORMAL) Protime-INR (10/14/2024 9:54 PM RESOURCE TEACHER) PT 14.3(H) 9.7 - 13.0 sec INR 1.32(H) 0.90 - 1.20 [facility] Comment: Interpretive data Oral anticoagulant therapeutic ranges: Venous thromboembolism prophylaxis or treatment: 2.0-3.0 CARDIOLOGY Standard range: 2.0-3.0 High-intensity range: 2.5-3.5 Refer to indication-specific guidelines for appropriate target ranges for prosthetic heart valve replacement. Current interpretive data was last revised on 2019. Blood 10/14/2024 9:54 PM RESOURCE TEACHER 10/14/2024 10:21 PM RESOURCE TEACHER Narrative [facility] - 10/14/2024 10:27 PM RESOURCE TEACHER Baseline prior to apixaban initiation. us Chasity Diego MD LAB BLOOD ORDERAB LES Final Result [facility] [place] [address] * (ABNORMAL) CBC without differential (10/14/2024 9:54 PM RESOURCE TEACHER) WBC 13.4(H) 3.8 - 9.9 K/cumm Hgb 9.2(L) 13.0 - 17.5 g/dL [facility] Hct 30.0(L) 38.9 - 50.3 % [facility] Plt 412(H) 150 - 400 K/cumm [facility] MPV 9.2 9.1 - 12.3 fL [facility] RBC 3.65(L) 4.30 - 5.80 M/cumm [facility] MCV 82.2 81.3 - 96.4 fL [facility] MCH 25.2(L) 27.1 - 33.3 pg [facility] MCHC 30.7(L) 32.3 - 35.7 g/dL [facility] RDW CV 16.7(H) 11.1 - 14.9 % [facility] RDW SD 50.4(H) 35.7 - 48.1 fL [facility] NRBC abs 0.00 0.00 - 0.01 K/cumm [facility] Blood 10/14/2024 9:54 PM RESOURCE TEACHER 10/14/2024 10:15 PM RESOURCE TEACHER Chasity Diego MD LAB BLOOD ORDERAB LES Final Result Performing Organization Address City/[facility]/ZIP Co de Phone Number [facility] [place] [address] * Hepatic function panel (10/14/2024 9:54 PM RESOURCE TEACHER) [facility] Bilirubin, total 0.7 0.1 - 1.2 mg/dL Bilirubin, direct 0.3 0.1 - 0.3 mg/dL [facility] Protein, pl 6.6 6.5 - 8.5 g/dL [facility] Albumin 3.6 3.5 - 5.0 g/dL [facility] Alk phos 67 40 - 130 Units/L [facility] ALT 19 7 - 55 Units/L [facility] AST 27 10 - 50 Units/L [facility] Blood 10/14/2024 9:54 PM RESOURCE TEACHER 10/14/2024 10:15 PM RESOURCE TEACHER Narrative [facility] - 10/14/2024 10:44 PM RESOURCE TEACHER Baseline prior to apixaban initiation. Chasity Diego MD LAB BLOOD ORDERAB LES Final Result Performing Organization Address [facility] Co de Phone Number [facility] Department [place] [address] * (ABNORMAL) Basic metabolic panel (10/14/2024 9:54 PM RESOURCE TEACHER) [facility] Sodium 141 135 - 145 mmol/L Potassium, pl 4.7 3.3 - 4.9 mmol/L [facility] Chloride 107 97 - 110 mmol/L [facility] CO2 25 22 - 32 mmol/L [facility] Anion gap 9 2 - 15 mmol/L [facility] BUN 13 6 - 25 mg/dL [facility] Creatinine 0.73(L) 0.80 - 1.30 mg/dL [facility] Glucose 201(H) 70 - 199 mg/dL [facility] Comment: Interpretive Data Fasting glucose >/= 126 [...] 2022. Calcium 8.2(L) 8.5 - 10.3 mg/dL [facility] Blood 10/14/2024 9:54 PM RESOURCE TEACHER 10/14/2024 10:15 PM RESOURCE TEACHER us Chasity Diego MD LAB BLOOD ORDERAB LES Final Result [facility] [place] [address] * XR Knee Left 1 or 2 View (10/14/2024 5:49 PM RESOURCE TEACHER) Anatomical Region Laterality Modality Lower Extremities, Knee Left Computed Radiography 10/15/2024 6:02 AM RESOURCE TEACHER Impressions 10/15/2024 6:02 AM RESOURCE TEACHER 1. Interval explantation of the left total knee arthroplasty with placement of a static antibiotic cement spacer Electronically signed by: Ricardo Suarez MD, PHD Narrative 10/15/2024 6:02 AM RESOURCE TEACHER EXAMINATION: Left knee one or 2 views [...] stain Tissue Knee, left (10/14/2024 3:14 PM RESOURCE TEACHER) Direct Specimen Exam Stain: Few polymorphonuclear leukocytes seen. No organisms seen. Report Final Report: Rare Staphylococcus epidermidis Rare Finegoldia magna (.) TG [facility] Organism STAPHYLOCOCCUS EPIDERMIDIS [facility] Organism FINEGOLDIA MAGNA [facility] Tissue (Knee, left) 10/14/2024 3:14 PM RESOURCE TEACHER 10/14/2024 5:41 PM RESOURCE TEACHER Narrative [facility] - 10/25/2024 10:17 AM RESOURCE TEACHER Left patella tissue culture Testing performed by [facility] Microbiology Laboratory ([phone]) Specimens submitted from normally sterile body sites [...] ENERAL ORDERABLES Final Result Performing Organization Address City/State/[facility] Co de Phone Number TG [facility] [place] [address] * (ABNORMAL) Tissue aerobic and anaerobic culture and gram stain Tissue Knee, left (10/14/2024 3:05 PM RESOURCE TEACHER) Direct Specimen Exam Stain: Few polymorphonuclear leukocytes seen. No organisms seen. Report Final Report: Few Staphylococcus epidermidis Few Finegoldia magna Rare Propionibacterium (Cutibacterium) acnes (.) TG [facility] Organism STAPHYLOCOCCUS EPIDERMIDIS [facility] Organism FINEGOLDIA MAGNA [facility] Organism PROPIONIBACTERIUM (CUTIBACTERIUM) ACNES [facility] Tissue (Knee, left) 10/14/2024 3:05 PM RESOURCE TEACHER 10/14/2024 5:44 PM RESOURCE TEACHER Narrative [facility] - 10/25/2024 10:18 AM RESOURCE TEACHER Left knee deep tissue # 2 Testing performed by [facility] Microbiology Laboratory ([phone]) Specimens submitted from normally sterile body sites [...] ENERAL ORDERABLES Final Result Performing Organization Address City/State/[facility] Co de Phone Number TG [facility] [place] [address] * Tissue aerobic and anaerobic culture and gram stain Tissue Knee, left (10/14/2024 2:27 PM RESOURCE TEACHER) Direct Specimen Exam Stain: No polymorphonuclear leukocytes seen. No organisms seen. Report Final Report: No growth [facility] Tissue (Knee, left) 10/14/2024 2:27 PM RESOURCE TEACHER 10/14/2024 5:46 PM RESOURCE TEACHER Narrative [facility] - 10/20/2024 11:58 AM RESOURCE TEACHER Left tibial osteolysis culture Testing performed by [facility] Microbiology Laboratory ([phone]) Specimens submitted from normally sterile body sites [...] Dewayne Tidwell MD LAB [facility] ORDERABLES Final Result Performing Organization Address [facility] Co de Phone Number TG [facility] [place] [address] * Tissue aerobic and anaerobic culture and gram stain Tissue Knee, left (10/14/2024 2:20 PM RESOURCE TEACHER) Direct Specimen Exam Stain: No polymorphonuclear leukocytes seen. No organisms seen. Report Final Report: No growth [facility] Tissue (Knee, left) 10/14/2024 2:20 PM RESOURCE TEACHER 10/14/2024 5:48 PM RESOURCE TEACHER Narrative [facility] - 10/20/2024 11:56 AM RESOURCE TEACHER Left knee deep tissue culture Testing performed by [facility]biology Laboratory ([phone]) Specimens submitted from normally sterile body sites [...] 2019. Dewayne Tidwell MD [facility] ORDERABLES Final Result [facility] [place] [address] * (ABNORMAL) Tissue aerobic and anaerobic culture and gram stain Tissue Knee, left (10/14/2024 2:19 PM RESOURCE TEACHER) Direct Specimen Exam Stain: No polymorphonuclear leukocytes seen. No organisms seen. Report Final Report: Rare Staphylococcus epidermidis Rare Propionibacterium (Cutibacterium) acnes (.) [facility] Organism STAPHYLOCOCCUS EPIDERMIDIS [facility] Organism PROPIONIBACTERIUM (CUTIBACTERIUM) ACNES [facility] Tissue (Knee, left) 10/14/2024 2:19 PM RESOURCE TEACHER 10/14/2024 5:45 PM RESOURCE TEACHER Narrative [facility] - 10/25/2024 10:18 AM RESOURCE TEACHER Left knee capsule culture Testing performed by [facility] Microbiology Laboratory ([phone]) Specimens submitted from normally sterile body sites [...] Resistant Dewayne Tidwell MD LAB MICROBIOLOGY - ENERAL ORDERABLES Final Result Performing Organization Address [facility]/ZIP Co de Phone Number TG [facility] One [facility] [place] [address] * Tissue aerobic and anaerobic culture and gram stain Bone Knee, left (10/14/2024 2:18 PM RESOURCE TEACHER) Direct Specimen Exam Stain: No polymorphonuclear leukocytes seen. No organisms seen. Report Final Report: No growth [facility] Bone (Knee, left) 10/14/2024 2:18 PM RESOURCE TEACHER 10/14/2024 5:47 PM RESOURCE TEACHER Narrative [facility] - 10/20/2024 11:58 AM RESOURCE TEACHER Left knee sinus track culture # 2 Testing performed by [facility] Microbiology Laboratory ([phone]) Specimens submitted from normally sterile body sites [...] ENERAL ORDERABLES Final Result Performing Organization Address [facility] Co de Phone Number TG [facility] One [facility] [place] [address] * (ABNORMAL) Tissue aerobic and anaerobic culture and gram stain Tissue Knee, left (10/14/2024 2:18 PM RESOURCE TEACHER) Direct Specimen Exam Stain: No polymorphonuclear leukocytes seen. No organisms seen. Report Final Report: Rare Staphylococcus epidermidis (.) [facility] Organism STAPHYLOCOCCUS EPIDERMIDIS [facility] Tissue (Knee, left) 10/14/2024 2:18 PM RESOURCE TEACHER 10/14/2024 5:42 PM RESOURCE TEACHER Boo TG [facility] - 10/20/2024 12:10 PM RESOURCE TEACHER Left knee sinus track culture # 1 Testing performed by [facility] Microbiology Laboratory ([phone]) Specimens submitted from normally sterile body sites [...] epidermidis Ceftriaxone (YOLANDA) INTERPRETATION Resistant us Dewayne iTdwell MD LAB [facility] ORDERABLES Final Result [facility] [place] [address] * Airway (10/14/2024 1:52 PM RESOURCE TEACHER) Narrative Blayne Childers DO - 10/14/2024 1:52 PM RESOURCE TEACHER Blayne Childers DO 10/14/2024 3:07 PM Airway [...] - Final * eGFR (09/16/2024 11:35 AM RESOURCE TEACHER) eGFR >90 >=60 mL/min/1. 73 m2 Comment: [...] reviewed 2021. Blood 09/16/2024 11:3 5 AM RESOURCE TEACHER 09/16/2024 3:00 PM RESOURCE TEACHER us Dewayne Tidwell MD LAB BLOOD ORDERABLES Final Result [facility] [place] [address] * Differential, auto (09/16/2024 11:35 AM RESOURCE TEACHER) Neutrophil abs 4.6 1.5 - 6.5 K/cumm Imm gran abs 0.1 0.0 - 0.1 K/cumm [facility] Lymphocyte abs 1.5 0.8 - 3.3 K/cumm [facility] Monocyte abs 0.8 0.2 - 0.8 K/cumm [facility] Eosinophil abs 0.2 0.0 - 0.5 K/cumm [facility] Basophil abs 0.1 0.0 - 0.1 K/cumm [facility] Neutrophil pct 64.6 % [facility] Comment: Interpretive Data Percent cell count reference ranges are not reported, since discordance with absolute values may lead to misinterpretation of CBC data. Current Interpretive Data was last revised on 2018. Imm gran pct 1.3 % [facility] Comment: Interpretive Data Percent cell count reference ranges are not reported, since discordance with absolute values may lead to misinterpretation of CBC data. Current Interpretive Data was last revised on 2018. Lymphocyte pct 20.4 % [facility] Comment: Interpretive Data Percent cell count reference ranges are not reported, since discordance with absolute values may lead to misinterpretation of CBC data. Current Interpretive Data was last revised on 2018. Monocyte pct 10.6 % [facility] Comment: Interpretive Data Percent cell count reference ranges are not reported, since discordance with absolute values may lead to misinterpretation of CBC data. Current Interpretive Data was last revised on 2018. Eosinophil pct 2.1 % [facility] Comment: Interpretive Data Percent cell count reference ranges are not reported, since discordance with absolute values may lead to misinterpretation of CBC data. Current Interpretive Data was last revised on 2018. Basophil pct 1.0 % [facility] Comment: Interpretive Data Percent cell count reference ranges are not reported, since discordance with absolute values may lead to misinterpretation of CBC data. Current Interpretive Data was last revised on 2018. Blood 09/16/2024 11:3 5 AM RESOURCE TEACHER 09/16/2024 2:37 PM RESOURCE TEACHER Dewayne Tidwell MD LAB BLOOD ORDERABLES Final Result [facility] [place] [address] * (ABNORMAL) CBC with auto differential (09/16/2024 11:35 AM RESOURCE TEACHER) [facility] WBC 7.1 3.8 - 9.9 K/cumm Hgb 12.0(L) 13.0 - 17.5 g/dL [facility] Hct 39.6 38.9 - 50.3 % [facility] Plt 380 150 - 400 K/cumm [facility] MPV 9.6 9.1 - 12.3 fL [facility] RBC 4.66 4.30 - 5.80 M/cumm [facility] MCV 85.0 81.3 - 96.4 fL [facility] MCH 25.8(L) 27.1 - 33.3 pg [facility] MCHC 30.3(L) 32.3 - 35.7 g/dL [facility] RDW CV 17.1(H) 11.1 - 14.9 % [facility] RDW SD 52.8(H) 35.7 - 48.1 fL [facility] NRBC abs 0.00 0.00 - 0.01 K/cumm [facility] Blood 09/16/2024 11:3 5 AM RESOURCE TEACHER 09/16/2024 2:37 PM RESOURCE TEACHER Dewayne Tidwell MD LAB BLOOD ORDERABLES Final Result [facility] [place] [address] * Vitamin D 25 hydroxy (09/16/2024 11:35 AM RESOURCE TEACHER) [facility] Vitamin D 25-OH 68 30 - 80 ng/mL Blood 09/16/2024 11:3 5 AM RESOURCE TEACHER 09/16/2024 2:40 PM RESOURCE TEACHER Dewayne Tidwell MD LAB BLOOD ORDERABLES Final Result [facility] [place] [address] * Comprehensive metabolic panel (09/16/2024 11:35 AM RESOURCE TEACHER) Sodium 139 135 - 145 mmol/L Potassium, pl 4.4 3.3 - 4.9 mmol/L [facility] Chloride 103 97 - 110 mmol/L [facility] CO2 28 22 - 32 mmol/L [facility] Anion gap 8 2 - 15 mmol/L [facility] BUN 11 6 - 25 mg/dL [facility] Creatinine 0.83 0.80 - 1.30 mg/dL [facility] Glucose 103 70 - 199 mg/dL [facility] Comment: Interpretive Data Fasting glucose >/= 126 [...] 2022. Calcium 9.6 8.5 - 10.3 mg/dL [facility] Bilirubin, total 0.4 0.1 - 1.2 mg/dL [facility] Protein, pl 8.1 6.5 - 8.5 g/dL [facility] Albumin 4.3 3.5 - 5.0 g/dL [facility] Alk phos 98 40 - 130 Units/L [facility] ALT 23 7 - 55 Units/L [facility] AST 29 10 - 50 Units/L [facility] Blood 09/16/2024 11:3 5 AM RESOURCE TEACHER 09/16/2024 2:40 PM RESOURCE TEACHER Dewayne Tidwell MD LAB BLOOD ORDERABLES Final Result [facility] [place] [address] from Last 3 Months Insurance MEDICARE [facility] MEDICARE [facility] MEDICARE SUPPLEMENT MEDICARE [facility] MEDICARE SUPPLEMENT Advance Directives For more information, please contact: [phone] * Full Code (Latest Code Status on File) Date Activated Date Inactivated Comments 10/14/2024 9:15 PM 10/21/2024 6:34 PM Care Teams Felt Coverer Relationship Specialty Start Date End Date Karthik Dalton MD [address] [place] [address] DR YARBROUGH [address] [place] [id number] PCP - General Family Medicine 04/05/19
--- OUTSIDE RECORDS SUMMARY | 2024-11-05 18:06 | XMS_ITS | Continuity of Care Document ---
Author Organization [facility] Address [address] [place] [address] Phone Care Team Providers Care Natural History Collections Curator Name Role Phone Blanche Edwards MD Unavailable [...] Providers Copied on Encounter [facility], [address] [facility] [address] [address], [place], [address], tel:[phone] [facility] No Information [address] [place] , [place], [place], [id number] . tel:[phone] OFFICE/OUTPA TIENT VISIT EST [facility], [address] [facility] [address], [address], tel:[phone] [facility] Pain in right kneeStatus post revision of total replacement of left kneeStatus post incision and drainagePrimary osteoarthritis of right knee [address] [place] , [place], [place], [id number] . tel:[phone] Referring Provider: Karthik Wallace, [address], [place], [address]. [phone] OFFICE/OUTPA TIENT VISIT EST [facility], [address] [facility] [address] [address], [place], [address], [place] tel:[phone] [facility] Status post revision of total replacement of left kneeStatus post incision and drainageFibrosi s due to genitourinary graft, subsequent encounter [address] [place] , [place], [place], [id number] . tel:[phone] Referring Provider: Karthik Wallace, [address], [place], [address]. [phone] [facility], [address], [address], [place] tel:[phone] [facility] Status post revision of total replacement of left kneeStatus post incision and drainage [address] [place] [address] [facility], [place], [place], [id number] . tel: [phone] Referring Provider: Karthik Wallace, [address], [place], [address]. [phone] [facility], [address], [address], [place] tel:[phone] [facility] Effusion, left kneeOther instability, left kneeFibrosis due to genitourinary graft, subsequent encounterStatus post revision of total replacement of left kneeStatus post incision and drainage [address] [place] [address] [facility], [place], [place], [id number] . tel: [phone] Referring Provider: Kartihk Wallace, [address], [place], [address]. tel:[phone] [facility], [address] [place], [address], tel:[phone] [facility] Status post revision of total replacement of left kneeFibrosis due to internal orthopedic graft, subsequent encounterFibros is due to genitourinary graft, subsequent encounterPain in left kneeStiffness of left knee, not elsewhere classifiedOther instability, left kneeEffusion, left kneeUnspecified abnormalities of gait and mobility [address]. [address] [facility] [address], [place], [place], [id number] . tel:[phone] Referring Provider: Blanche Wallace, [address] [facility], [place], [address]. tel:[phone] [facility], [address] [address], [place], [address], [place] tel:[phone] [facility] Status post revision of total replacement of left kneeInfection of total left knee replacement, initial encounter 3 [address] [place], [place], [place], [address] . tel: [phone] Referring Provider: Karthik Wallace, [address], [place], [address]. tel:[phone] [facility], [address], [place], [address], [place] tel:[phone] [facility] Infection of total left knee replacement, initial encounterStatus post revision of total replacement of left kneeFibrosis due to genitourinary prosthetic devices, implants and grafts, initial encounter 3 [address]. [address], [place], [address]. tel: [phone] Referring Provider: Karthik Wallace, [address], [place], [address]. tel:[phone] [facility], [address] [facility] [address], [place], [address], [place] tel:[phone] [facility] Infection of total left knee replacement, initial encounter 3 [address] [place], [place], [place], [address] . tel: [phone] [facility], [address] [address] [address], [place], [address], [place] tel:[phone] [facility] Status post revision of total replacement of left knee 3 [address], [place], [address]. tel:[phone] Referring Provider: Karthik Wallace, [address], [place], [address]. tel:[phone] [facility], [address], [place], [address], [place] tel:[phone] [facility] Body mass index [BMI] 25.0-25.9, adultStatus post revision of total replacement of left knee 3 [address]. [address] [facility] [address], [place], [address]. tel: [phone] Referring Provider: Karthik Wallace, [address], [place], [address]. tel:[phone] [facility], [address] [address], [place], [address], [place] tel:[phone] [facility] Pain due to total left knee replacement, initial encounterStatus post revision of total replacement of left kneeFibrosis due to genitourinary prosthetic devices, implants and grafts, initial encounter 3 [address] [place] , [place], [place], [address] . tel: [phone] [facility], [address] [address], [place], [address], [place] tel:[phone] [facility] Pain due to total left knee replacement, initial encounterStatus post revision of total replacement of left knee 3 [address] [place] , [place], [place], [id number] . tel: [phone] OFFICE/OUTPA TIENT VISIT EST [facility], [address] [address], [place], [address], [place] tel:[phone] [facility] Pain due to total left knee replacement, initial encounterHistor y of total left knee replacement [address] [place] , [place], [place], [address] . tel: [phone] Referring Provider: Karthik Wallace, [address], [place], [address]. tel:[phone] OFFICE/OUTPA TIENT VISIT EST [facility], [address] [address], [place], [address], [place] tel:[phone] [facility] History of total left knee replacementPain due to total left knee replacement, initial encounterBody mass index [BMI] 25.0-25.9, adult [address] [place] , [place], [place], [address] . tel:[phone] Referring Provider: Karthik Wallace, [address], [place], [address]. tel:[phone] OFFICE/OUTPA TIENT VISIT NEW [facility], [address] [facility] [address], [place], [address], tel:[phone] [facility] History of total left knee replacementArth rofibrosis of total knee replacement, initial encounterBody mass index (BMI) 25.0-25.9, adult Dec- 0 [address] [place] [address] [facility] [address] , [place], [place], [address] . tel:[phone] Referring Provider: Karthik Wallace, [address], [place], [address]. tel:[phone] Family History Family Member Type Diagnosis Age At Onset Mother Problem Diabetes mellitus Mother Problem hyperlipidemia Father Problem Alive and well Payers Payer name Insurance type Covered constitution party ID Nimesh muñoz(s) Medicare E2 OT [id number] [place] Medicare Supplement E2 OT [id number] Social History Type Description Quantity Date [...] ordered Future Order: Lab Order Marcelo Joshi ([id number]), Ordered on: Ordered Future Order: Lab Order C-Reacti ve Protein, Quant ([id number]), Ordered on: Ordered Future Order: Lab Order CBC With Differential/Platelet ([id number]), Ordered on: Ordered History Of Present Illness Encounter Date Complaint History Of Prese nt Illness No Information Functional Status Date Functional Assessmen t No Information Instructions Date Instruction Additional Infor mation Home exercise program Related to Stiffness of left knee, not elsewhere classified ADL training Related to Stiff ness of left knee, not elsewhere classified Job/work modification Related to Stiffness of left [...]
--- OUTSIDE RECORDS SUMMARY | 2024-11-05 18:06 | XMS_ITS | Encounter Summary ---
Author Organization [facility] Address [address] [place] [address] Care Team Providers Care Compliance Associate Name Role Phone Karthik Dalton MD Primary Care Provider + [phone] Gina Vallejo FLOORPERSON Unavailable Jacob Williamson MD Unavailable [phone] Encounter Details Date Type Department Care Team (Late st Contact Info) Description 04/25/2024 MyChart Message Enc [facility] Multispecialty Care - [facility] 3 [facility], [facility] [address] [place] [phone] Gina Vallejo, AUSTYN 3 [facility]. [facility] [address] [place], [place] [id number] Lab work (RBC) Social History Tobacco Use [...] documented as of this encounter Care Teams Compliance Associate Relationship Specialty Start Date End Date Karthik Dalton MD [address] [place] [address] [place] [address] PCP - General FAMILY PRACTICE 03/14/22 Gina Vallejo NP [address] [facility] [address] [place] [address] Referring Physician INFECTIOUS DISEASE 08/01/23 4 Jacob Williamson MD [address] [place] [address] ORTHOPAEDICS 02/21/24 02/20/25 documented as of this encounter
--- OUTSIDE RECORDS SUMMARY | 2024-11-05 18:06 | XMS_ITS | Encounter Summary ---
Author Organization [facility] Address [address] [place] [address] Care Team Providers Care Dean Of Chapel Name Role Phone Karthik Dalton MD Primary Care Provider [phone]- [phone] Gina Vallejo NP Unavailable Jacob Williamson MD Unavailable [phone] Encounter Details Date Type Department Care Team (Late st Contact Info) Description 02/28/2024 [facility] Message Enc [facility] Medical Group Multispecialty [facility] [address] [place] [address] Reji Avila MD [address] [place] [address] Rash Social History Tobacco Use [...] documented as of this encounter Care Teams Dean Of Chapel Relationship Specialty Start Date End Date Karthik Dalton MD [address] [place] [address] [address] PCP - General FAMILY PRACTICE 03/14/22 Gina Vallejo NP [address] [address] Referring Physician INFECTIOUS DISEASE 08/01/23 4 Jacob Williamson MD [address] [place] [address] ORTHOPAEDICS 02/21/24 02/20/25 documented as of this encounter
--- OUTSIDE RECORDS SUMMARY | 2024-11-05 18:06 | XMS_ITS | Encounter Summary ---
Author Organization [facility] Address [address] [place] [address] Care Team Providers Care Combustion Analyst Name Role Phone Karthik Dalton MD Primary Care Provider [phone]- [phone] Gina Vallejo NP Unavailable Jacob Williamson MD Unavailable [phone] Encounter Details Date Type Department Care Team (Late st Contact Info) Description 04/08/2024 MyCBudding Biologistt Message Enc [facility] Medical Group Multispecialty [facility] [address] [place] [address] Reji Avila MD [address] [place] [address] MRI Social History Tobacco Use [...] documented as of this encounter Care Teams Combustion Analyst Relationship Specialty Start Date End Date Karthik Dalton MD [address] [place] [address] [address] PCP - General FAMILY PRACTICE 03/14/22 Gina Vallejo NP [address] [facility] [address] [address] Referring Physician INFECTIOUS DISEASE 08/01/23 4 Jacob Williamson MD [address] [place] [address] ORTHOPAEDICS 02/21/24 02/20/25 documented as of this encounter
--- OUTSIDE RECORDS SUMMARY | 2024-11-05 18:06 | XMS_ITS | Clinical Summary ---
Author Organization Unknown Care Team Providers Care Open Soaper Tender Name Role Phone MARIBEL DAVILA, NILAM Unavailable Unavailable DEBORAH LAZO, GUNJAN Unavailable Unavailable Payers Payer Name Policy Type Policy Number Effective Date Expira tion Date MEDICARE - [place] - PDGM [id number] BLUE CROSS BLUE [facility] - PDGM [id number] Problems Condition Name Condition Details Condition Category Status Onset Date Resolution Date Last Treatment Date Treating Clinician Comments INFECT/INFLM REACTION DUE TO INTERNAL LEFT KNEE PROSTH, SUBS Active 09-25 00:00: 00 HEALTH COMMUNICATIONS SPECIALIST (CURRENT) USE OF ANTICOAGULAN TS Active 09-25 00:00: 00 CUSTODIAL (CURRENT) USE OF NON-STEROIDA L NON-INFLAM (NSAID) Active 09-25 00:00: 00 PERSONAL HISTORY OF MALIGNANT NEOPLASM OF PROSTATE Active 09-25 00:00: 00 Allergies, Adverse Reactions, Alerts Allergy Name Allergy Type Status Severity Reaction(s) Onset Date Inactive Date Treating Clinician Comments PENICILINS Propensity to adverse reactions Active 10-23 13:36: 36 Medications Ordered Medication Name Filled Medication Name Start Date Stop Date Current Medication? Ordering Clinician Indication Dosage Frequency Signature (SIG) Comments Components acetaminoph en 500 mg tablet 10-22 00:00: 00 Yes [id number] 2 tablet EVERY 6 HOURS 2 tablet EVERY 6 HOURS (route: oral) Med Classific ation: Analgesic , Anti-infl ammatory or Antipyret ic cholecalcif javier(vitami n D3) 125 mcg (5,000 unit) disintegrat ing tablet 10-22 00:00: 00 Yes [id number] 1 tablet EVERY PM 1 tablet EVERY PM (route: oral) Med Classific ation: Electroly te Balance-N utritiona l Products ciprofloxac in 500 mg tablet 10-22 00:00: 00 Yes [id number] 1 tablet 2 TIMES DAILY 1 tablet 2 TIMES DAILY (route: oral) Med Classific ation: Anti-Infe ctive Agents daptomycin 500 mg intravenous solution 10-22 00:00: 00 Yes [id number] 600 mg DAILY 600 mg DAILY (route: intravenou s) Med Classific ation: Anti-Infe ctive Agents Eliquis 2.5 mg tablet 10-22 00:00: 00 Yes [id number] 1 tablet 2 TIMES DAILY 1 tablet 2 TIMES DAILY (route: oral) Med Classific ation: Hematolog ical Agents fexofenadin e 180 mg tablet 10-22 00:00: 00 Yes [id number] 1 tablet EVERY PM 1 tablet EVERY PM (route: oral) Med Classific ation: Respirato ry Therapy Agents fluticasone propionate 50 mcg/actuati on nasal spray,suspe nsion 10-22 00:00: 00 Yes [id number] 2 spray NEEDED 2 spray A S NEEDED (route: nasal) Med Classific ation: Respirato ry Therapy Agents heparin, porcine (PF) 10 unit/mL intravenous syringe 10-21 00:00: 00 Yes [id number] 5 mL DIRECTED 5 mL DIRECTED (route: intravenou s) Med Classific ation: Hematolog ical Agents meloxicam 7.5 mg tablet 10-22 00:00: 00 Yes [id number] 1 tablet EVERY PM 1 tablet EVERY PM (route: oral) Med Classific ation: Analgesic , Anti-infl ammatory or Antipyret ic methocarbam ol 750 mg tablet 09-25 00:00: 00 Yes [id number] 1 tablet 3 TIMES DAILY 1 tablet 3 TIMES DAILY (route: oral) Med Classific ation: Locomotor System multivitami n tablet 10-22 00:00: 00 Yes [id number] 1 tablet EVERY PM 1 tablet EVERY PM (route: oral) Med Classific ation: Electroly te Balance-N utritiona l Products oxycodone 5 mg tablet 10-22 00:00: 00 Yes [id number] 1 tablet EVERY 4 HOURS 1 tablet EVERY 4 HOURS (route: oral) Med Classific ation: Analgesic , Anti-infl ammatory or Antipyret ic Senna with Docusate Sodium 8.6 mg-50 mg tablet 10-22 00:00: 00 Yes [id number] 1 tablet 2 TIMES DAILY 1 tablet 2 TIMES DAILY (route: oral) Med Classific ation: Gastroint estinal Therapy Agents tramadol 50 mg tablet 10-22 00:00: 00 Yes [id number] 1 tablet EVERY 8 HOURS 1 tablet EVERY 8 HOURS (route: oral) Med Classific ation: Analgesic , Anti-infl ammatory or Antipyret ic Normal Saline Flush 0.9 % injection syringe 10-22 00:00: 00 Yes [id number] 10 mL DIRECTED 10 mL DIRECTED (route: injection) Med Classific ation: Electroly te Balance-N utritiona l Products Vital Signs Vital Name Observation Time Observation Value Commen ts Temperature 2024-10-29 14:33:00.000 97.5 [degF] Temperature 2024-10-28 11:29:00.000 98 [degF] Temperature 2024-10-24 13:32:00.000 98 [degF] Temperature 2024-10-22 15:14:00.000 97.7 [degF] BMI (%) 2024-10-22 14:32:41.000 25 kg/m2 Height 2024-10-22 14:32:22.000 68 [in_us] Pulse 2024-10-29 14:33:00.000 78 /min Pulse 2024-10-28 11:29:00.000 100 /min Pulse 2024-10-24 13:32:00.000 70 /min Pulse 2024-10-22 15:14:00.000 76 /min O2 Saturation (%) 2024-10-29 14:33:00.000 98 % O2 Saturation (%) 2024-10-28 11:29:00.000 98 % O2 Saturation (%) 2024-10-24 13:32:00.000 99 % Respirations 2024-10-29 14:33:00.000 16 /min Respirations 2024-10-28 11:29:00.000 18 /min Respirations 2024-10-24 13:32:00.000 16 /min Respirations 2024-10-22 15:14:00.000 16 /min Weight (lbs) 2024-10-22 14:32:41.000 170 [lb_av] Systolic Blood Pressure 2024-10-29 14:33:00.000 118 mm [Hg] Systolic Blood Pressure 2024-10-28 11:29:00.000 120 mm [Hg] Systolic Blood Pressure 2024-10-24 13:32:00.000 144 mm [Hg] Systolic Blood Pressure 2024-10-22 15:14:00.000 126 mm [Hg] Diastolic Blood Pressure 2024-10-29 14:33:00.000 62 mm [Hg] Diastolic Blood Pressure 2024-10-28 11:29:00.000 76 mm [Hg] Diastolic Blood Pressure 2024-10-24 13:32:00.000 64 mm [Hg] Diastolic Blood Pressure 2024-10-22 15:14:00.000 [...] FOR HOME HEALTH.] Future Scheduled Test HOME [facility] MAY ACCEPT ORDERS FROM THE FOLLOWING PHYSICIANS: INFECTION DISEAE: DR. BC HOOD ORTHO: DR. RICHARDSON/DR. STEWART MUSEUM ASSISTANT/TREATING PROVIDERS [code = HOME HEALTH AGENCY MAY ACCEPT ORDERS FROM THE FOLLOWING PHYSICIANS: INFECTION DISEAE: DR. BC ZUNIGA: DR. RICHARDSON/DR. STEWART MUSEUM ASSISTANT/TREATING PROVIDERS] Future Scheduled Test SKILLED NU RSE [...] URSE FOR O/A, TEACHING AND MANAGEMENT OF ALIA DRAIN TO LEFT LEG. SKILLED NURSE TO INSTRUCT PATIENT/CAREGIVER ON EMPTYING DRAIN 2 TIMES DAILY AND PRN AND TO DOCUMENT COLOR AND AMOUNT OF DRAINAGE. SKILLED NURSE TO EDUCATE PATIENT/CAREGIVER TO MONITOR FOR SIGNS AND SYMPTOMS OF INFECTION TO REPORT. [code = .SKILLED NURSE FOR O/A, TEACHING AND MANAGEMENT OF ALIA DRAIN TO LEFT LEG. SKILLED NURSE TO INSTRUCT PATIENT/CAREGIVER ON EMPTYING DRAIN 2 TIMES DAILY AND PRN AND TO DOCUMENT COLOR AND AMOUNT OF [...] AND INFECTION CONTROL MEASURES.] Future Scheduled Test NEED FOR S KILLED TEACHING AND INTERVENTION RELATED TO SURGICAL WOUND TO LEFT KNEE: SURGICAL DRESSING TO REMAIN IN PLACE UNTIL F/U WITH ORDER. PATIENT MAY WRAP DRESSING NEEDED TO PROTECT IT. [code = NEED FOR SKILLED TEACHING AND INTERVENTION RELATED TO SURGICAL WOUND TO LEFT KNEE: SURGICAL DRESSING TO REMAIN IN PLACE UNTIL F/U WITH ORDER. PATIENT MAY WRAP DRESSING NEEDED TO PROTECT IT.] Future Scheduled Test PHYSICAL T HERAPIST TO [...] AND SYMPTOMS OF INFECTION/COMPLICATIONS. SKILLED NURSE TO OBTAIN IV ACCESS TO CENTRAL LINE VIA PICC. SKILLED NURSE OR TRAINED PATIENT/CAREGIVER TO ADMINISTER IV THERAPY OF DAPTOMYCIN 600MG/12ML NORMAL SALINE IV PUSH OVER 2 MINUTES EVERY 24 HOURS. FLUSH PICC LINE WITH 10ML NORMAL SALINE BEFORE/AFTER IV MEDICATION AND LAB DRAWS. FLUSH PICC LINE WITH 5ML HEPARIN AFTER LAST SALINE FLUSH. EOT: 11/28/24. SKILLED NURSE TO CHANGE DRESSING USING STERILE TECHNIQUE WEEKLY AND PRN FOR SOILED OR LOOSE DRESSING. [code = SKILLED NURSE FOR O/A AND TEACHING ON IV SITE CARE, INFUSION PROCEDURE, SIGNS AND SYMPTOMS OF INFECTION/COMPLICATIONS. SKILLED NURSE TO OBTAIN IV ACCESS TO CENTRAL LINE VIA PICC. SKILLED NURSE OR TRAINED PATIENT/CAREGIVER TO ADMINISTER IV THERAPY OF DAPTOMYCIN 600MG/12ML NORMAL SALINE IV PUSH OVER 2 MINUTES EVERY 24 HOURS. FLUSH PICC LINE WITH 10ML NORMAL SALINE BEFORE/AFTER IV MEDICATION AND LAB DRAWS. FLUSH PICC LINE WITH 5ML HEPARIN AFTER LAST SALINE FLUSH. EOT: 11/28/24. SKILLED NURSE TO CHANGE DRESSING USING STERILE TECHNIQUE WEEKLY AND PRN FOR SOILED OR LOOSE DRESSING.] Future Scheduled Test SKILLED NU RSE TO OBTAIN BLOOD SPECIMEN VIA PICC LINE OR VENIPUCTURE FOR LABS ORDERED: CBC W/ DIFF, CMP, CPK WEEKLY AND ESR/CRP WEEK 3 AND WEEK 6. FAX RESULTS TO DR. HOOD [phone] AND [facility] [phone]. [code = SKILLED NURSE TO OBTAIN BLOOD SPECIMEN VIA PICC LINE OR VENIPUCTURE FOR LABS ORDERED: CBC W/ DIFF, CMP, CPK WEEKLY AND ESR/CRP WEEK 3 AND WEEK 6. FAX RESULTS TO DR. HOOD [phone] AND [facility] [phone].] Future Scheduled Test SKILLED NU RSE FOR O/A AND SKILLED TEACHING RELATED TO SIGNS AND SYMPTOMS AND MANAGEMENT OF LEFT TKA INFECTION S/P ID/ABT SPACER PLACEMENT. [code = SKILLED NURSE FOR O/A AND SKILLED TEACHING RELATED TO SIGNS AND SYMPTOMS AND MANAGEMENT OF LEFT TKA INFECTION S/P ID/ABT SPACER PLACEMENT.] Future Scheduled Test PATIENT ZUÑIGA S A RISK OF HOSPITALIZATION AND ED USE. SKILLED NURSE TO ESTABLISH SUPPORT MEASURES TO MINIMIZE RISK OF HOSPITALIZATION AND ED USE, AND INSTRUCT PATIENT/CAREGIVER ON METHODS TO REDUCE AVOIDABLE HOSPITALIZATION AND ED USE. [code = PATIENT HAS A RISK OF HOSPITALIZATION AND ED USE. SKILLED NURSE TO ESTABLISH SUPPORT MEASURES TO MINIMIZE RISK OF HOSPITALIZATION AND ED USE, AND INSTRUCT PATIENT/CAREGIVER ON METHODS TO REDUCE AVOIDABLE HOSPITALIZATION AND ED USE.] Future Scheduled Test SKILLED NU RSE TO PROVIDE INSTRUCTION TO PATIENT/CAREGIVER RELATED TO DISCHARGE PLANNING. [code = SKILLED NURSE TO PROVIDE INSTRUCTION TO PATIENT/CAREGIVER RELATED TO DISCHARGE PLANNING. ] Future Scheduled Test SKILLED NU RSE TO PERFORM ENVIRONMENTAL SAFETY RISK ASSESSMENT AND FALL RISK ASSESSMENT AND PROVIDE INSTRUCTION TO IMPLEMENT ENVIRONMENTAL SAFETY AND FALL PREVENTION STRATEGIES THROUGHOUT THE CERTIFICATION PERIOD. SKILLED NURSE WILL MAINTAIN SITUATIONAL AWARENESS AND WILL NOTIFY CLINICAL AUTO PARTS HANDLER AND PHYSICIAN/PROVIDER WITH ANY CHANGE IN CONDITION. [code = SKILLED NURSE TO PERFORM ENVIRONMENTAL SAFETY RISK ASSESSMENT AND FALL RISK ASSESSMENT AND PROVIDE INSTRUCTION TO IMPLEMENT ENVIRONMENTAL SAFETY AND FALL PREVENTION STRATEGIES THROUGHOUT THE CERTIFICATION PERIOD. SKILLED NURSE WILL MAINTAIN SITUATIONAL AWARENESS AND WILL NOTIFY CLINICAL AUTO PARTS HANDLER AND PHYSICIAN/PROVIDER WITH ANY CHANGE IN CONDITION.] [...] SEPSIS MANAGEMENT UTILIZING THE SEPSIS SPECIALTY PROGRAM.] Future Scheduled Test PHYSICAL T HERAPIST TO EVALUATE PATIENT SECONDARY TO FUNCTIONAL DEFICITS/SAFETY CONCERNS. PHYSICAL THERAPY TO ESTABLISH /UPGRADE/DOWNGRADE THERAPEUTIC EXERCISE PROGRAM AND INSTRUCT PATIENT/CAREGIVER ON EXERCISE PRECAUTIONS WITH WRITTEN HOME PROGRAM. MAY INCLUDE AAROM, AROM, RROM APPROPRIATE TO IMPROVE FUNCTIONAL STRENGTH AND RANGE OF MOTION. PHYSICAL THERAPY TO INSTRUCT PATIENT/CAREGIVER ON GAIT TRAINING TECHNIQUES USING APPROPRIATE ASSISTIVE DEVICE, PROPER BODY MECHANICS TO IMPROVE MOBILITY, AND PREVENT INJURY OF PATIENT AND/OR CAREGIVER. PHYSICAL THERAPIST TO ASSESS BEST PRACTICE INTERVENTIONS TO ASSIST PATIENTS TO IMPROVE OR STABILIZE MEDICAL STATUS AND PREVENT RE-HOSPITALIZATION. MEASURES INCLUDING REVIEW AND IDENTIFICATION OF CONCERNS FOR THE FOLLOWING AREAS: DRUG REGIMEN, ENVIRONMENTAL SAFETY ISSUES AND FALLS, PRESSURE ULCERS, PAIN, AND DISEASE MANAGEMENT. [code = PHYSICAL THERAPIST TO EVALUATE PATIENT SECONDARY TO FUNCTIONAL DEFICITS/SAFETY CONCERNS. PHYSICAL THERAPY TO ESTABLISH /UPGRADE/DOWNGRADE THERAPEUTIC EXERCISE PROGRAM AND INSTRUCT PATIENT/CAREGIVER ON EXERCISE PRECAUTIONS WITH WRITTEN HOME PROGRAM. MAY INCLUDE AAROM, AROM, RROM APPROPRIATE TO IMPROVE FUNCTIONAL STRENGTH AND RANGE OF MOTION. PHYSICAL THERAPY TO INSTRUCT PATIENT/CAREGIVER ON GAIT TRAINING TECHNIQUES USING APPROPRIATE ASSISTIVE DEVICE, PROPER BODY MECHANICS TO IMPROVE MOBILITY, AND PREVENT INJURY OF PATIENT AND/OR CAREGIVER. PHYSICAL THERAPIST TO ASSESS BEST PRACTICE INTERVENTIONS TO ASSIST PATIENTS TO IMPROVE OR STABILIZE MEDICAL STATUS AND PREVENT RE-HOSPITALIZATION. MEASURES INCLUDING REVIEW AND IDENTIFICATION OF CONCERNS FOR THE FOLLOWING AREAS: DRUG REGIMEN, ENVIRONMENTAL SAFETY ISSUES AND FALLS, PRESSURE ULCERS, PAIN, AND DISEASE MANAGEMENT. ] Goal Patient Goal - T O HAVE INFECTION CLEARED FROM MY LEG Goal Provider Goal - A PLAN OF CARE WILL BE ESTABLISHED THAT MEETS PATIENT'S RESIDENTIAL NEEDS AND INCLUDES PATIENT GOAL FOR HOME [...] THE CERTIFICATION PERIOD. Goal Provider Goal - WOUND CARE WILL BE COMPLETED AND PATIENT WILL HAVE IMPROVED WOUND STATUS EVIDENCED BY NO SIGNS AND SYMPTOMS OF INFECTION, DECREASED WOUND SIZE, AND/OR NO COMPLICATIONS BY THE END OF THE CERTIFICATION PERIOD. Goal Provider Goal - A PHYSICAL THERAPY EVALUATION TO BE COMPLETED WITH RECOMMENDATIONS AND/OR WRITTEN PLAN OF TREATMENT ESTABLISHED FOR PHYSICIANS SIGNATURE. Goal Provider Goal - PATIENT WILL BE FREE FROM INFECTION AND PATIENT/CAREGIVER WILL VERBALIZE UNDERSTANDING OF SIGNS AND SYMPTOMS AND METHODS TO PREVENT SEPSIS BY END OF THE EPISODE. Goal Provider Goal - PATIENT WILL VERBALIZE/DEMONSTRATE TOLERANCE TO CENTRAL LINE ACCESS PROCEDURE, IV MEDICATION ADMINISTRATION, AND DRESSING CHANGES ORDERED THROUGH CERTIFICATION PERIOD. Goal Provider Goal - SKILLED NURSE TO PERFORM LAB PROCEDURE AND REPORT RESULTS TO PHYSICIAN. Goal Provider Goal - PATIENT/CAREGIVER WILL VERBALIZE UNDERSTANDING OF LEFT TKA INFECTION INCLUDING SIGNS AND SYMPTOMS, MANAGEMENT, AND PRESCRIBED TREATMENT REGIMEN BY END OF EPISODE. Goal Provider Goal - PATIENT WILL HAVE SUPPORT MEASURES ESTABLISHED TO PREVENT HOSPITALIZATION AND ED USE AND PATIENT/CAREGIVER WILL VERBALIZE/DEMONSTRATE METHODS TO REDUCE AVOIDABLE HOSPITALIZATION AND ED USE BY END OF EPISODE. Goal Provider Goal - PATIENT/CAREGIVER WILL VERBALIZE UNDERSTANDING OF DISCHARGE PLANNING INSTRUCTIONS BY DATE OF DISCHARGE. Goal Provider Goal - PATIENT/CAREGIVER WILL VERBALIZE/DEMONSTRATE [...] EVIDENCED BY PAIN CONTROLLED AT LEVEL OF 7 OR LESS BY END OF CERTIFICATION PERIOD. Goal Provider Goal - PATIENT/CAREGIVER WILL VERBALIZE UNDERSTANDING OF PRESSURE ULCER PREVENTION BY END OF THE EPISODE. Goal Provider Goal - PATIENT/CAREGIVER WILL DEMONSTRATE MANAGEMENT OF SEPSIS A RESULT OF PARTICIPATION IN SEPSIS SPECIALTY PROGRAM. Goal Provider Goal - PHYSICAL THERAPY EVALUATION TO BE COMPLETED WITH RECOMMENDATIONS AND/OR WRITTEN TREATMENT PLAN OF CARE ESTABLISHED FOR THE PHYSICIANS SIGNATURE PATIENT/CAREGIVER WILL PERFORM THERAPEUTIC EXERCISE/S AND DEMONSTRATE PARTICIPATION IN A HOME PROGRAM. PATIENT/CAREGIVER WILL DEMONSTRATE IMPROVED GAIT TECHNIQUES TO MINIMIZE RISK OF INJURY. PATIENT/CAREGIVER VERBALIZES UNDERSTANDING OF THE INITIAL BEST PRACTICE RECOMMENDATIONS. PHYSICIAN TO BE NOTIFIED APPROPRIATE FOR ANY CHANGES OR COMPLICATIONS THROUGHOUT THE CERTIFICATION PERIOD. Encounters Start Date/Time End Date/Time Encounter Type Admission Type Attending Clinicians Care Facility Care Department Encounter ID Discharge Date Discharge Status Discharge Condition Discharge Reason Percent Goals Met 2024-10-22 00:00:00 2024-12-20 00:00:00 Outpatient NEW ADMISSION GUNJAN CABRERA [facility] [id number] 0.00
--- OUTSIDE RECORDS SUMMARY | 2024-11-05 18:06 | XMS_ITS | Encounter Summary ---
Author Organization [facility] Address [address] [place] [address] Care Team Providers Care Gold Miner Name Role Phone Karthik Dalton MD Primary Care Provider + [phone] Gina Vallejo NP Unavailable Jacob Williamson MD Unavailable [phone] Encounter Details Date Type Department Care Team (Late st Contact Info) Description 07/01/2024 MyChart Message Enc [facility] Medical Group Multispecialty Care - [facility] 3 [facility], [facility] [address] [place] [phone] Gina Vallejo, AUSTYN 3 [facility]. [facility] [address] [place], [place] [id number] Antibiotics Social History Tobacco Use Types Packs/Day [...] documented as of this encounter Care Teams Gold Miner Relationship Specialty Start Date End Date Karthik Dalton MD [address] [place] [address] [address] [facility] [address] [place] [address] PCP - General FAMILY PRACTICE 03/14/22 Gina Vallejo NP [address] [facility] [address] [place] [address] Referring Physician INFECTIOUS DISEASE 08/01/23 4 Jacob Williamson MD [address] [place] [address] ORTHOPAEDICS 02/21/24 02/20/25 documented as of this encounter
--- OUTSIDE RECORDS SUMMARY | 2024-11-05 18:06 | XMS_ITS | Encounter Summary ---
Author Organization [facility] Address [address] [place] [address] Care Team Providers Care Java Analyst Name Role Phone Karthik Dalton MD Primary Care Provider +- [phone] Gina Vallejo NP Unavailable Jacob Williamson MD Unavailable [phone] Encounter Details Date Type Department Care Team (Late st Contact Info) Description 09/01/2023 Therapy Plan [facility] Infusion Services [facility] [place] [address] Reji Avila MD [address] [place] [address] Social History Tobacco Use Types [...] documented as of this encounter Care Teams Java Analyst Relationship Specialty Start Date End Date Karthik Dalton MD [address] [place] [address] [place] [address] PCP - General FAMILY PRACTICE 03/14/22 Gina Valljeo NP [address] [facility] [address] [address] Referring Physician INFECTIOUS DISEASE 08/01/23 4 Jacob Williamson MD [address] [place] [address] ORTHOPAEDICS 02/21/24 02/20/25 documented as of this encounter
--- OUTSIDE RECORDS SUMMARY | 2024-11-05 18:06 | XMS_ITS | Encounter Summary ---
Author Organization [facility] Address [address] [place] [address] Care Team Providers Care Educational Resource Coordinator Name Role Phone Karthik Dalton MD Primary Care Provider +- [phone] Gina Vallejo NP Unavailable Jacob Williamson MD Unavailable [phone] Encounter Details Date Type Department Care Team (Late st Contact Info) Description 11/01/[address] [email or web address] [facility] Medical Group Multispecialty [facility] [address] [place] [address] Reji Avila MD [address] [place] [address] Antibiotics Social History Tobacco Use [...] documented as of this encounter Care Teams Educational Resource Coordinator Relationship Specialty Start Date End Date Karthik Dalton MD [address] [place] [address] [address] PCP - General FAMILY PRACTICE 03/14/22 Gina Vallejo NP [address] [facility] [address] [address] Referring Physician INFECTIOUS DISEASE 08/01/23 4 Jacob Williamson MD [address] [place] [address] ORTHOPAEDICS 02/21/24 02/20/25 documented as of this encounter
--- OUTSIDE RECORDS SUMMARY | 2024-11-05 18:06 | XMS_ITS | Encounter Summary ---
Author Organization [facility] Address [address] [place] [address] Care Team Providers Care Paradichlorobenzene Machine Operator Name Role Phone Karthik Dalton MD Primary Care Provider +- [phone] Gina Vallejo NP Unavailable Jacob Williamson MD Unavailable [phone] Encounter Details Date Type Department Care Team (Late st Contact Info) Description 09/05/2023 Therapy Plan [facility] [place] [address] Reji Avila MD [address] [place] [address] Social History Tobacco Use Types [...] documented as of this encounter Care Teams Paradichlorobenzene Machine Operator Relationship Specialty Start Date End Date Karthik Dalton MD [address] [place] [address] [address] PCP - General FAMILY PRACTICE 03/14/22 Gina Vallejo NP [address] [facility] [address] [address] Referring Physician INFECTIOUS DISEASE 08/01/23 4 Jacob Williamson MD [address] [place] [address] ORTHOPAEDICS 02/21/24 02/20/25 documented as of this encounter
--- OUTSIDE RECORDS SUMMARY | 2024-11-05 18:06 | XMS_ITS | Encounter Summary ---
Author Organization [facility] Address [address] [place] [address] Care Team Providers Care Client Care Consultant Name Role Phone Karthik Dalton MD Primary Care Provider +- [phone] Gina Vallejo NP Unavailable Jacob Williamson MD Unavailable [phone] Encounter Details Date Type Department Care Team (Latest Contact Info) Description 09/05/2023 [employer] Message Enc [facility] Medical Group Multispecialty [address] [address] [place], [facility] Provider medication question Social History Tobacco Use [...] documented as of this encounter Care Teams Client Care Consultant Relationship Specialty Start Date End Date Karthik Dalton MD [address] [place] [address] [place] [address] PCP - General FAMILY PRACTICE 03/14/22 Gina Vallejo NP 3 [facility]. [address] [address] Referring Physician INFECTIOUS DISEASE 08/01/23 4 Jacob Williamson MD [address] [place] [address] ORTHOPAEDICS 02/21/24 02/20/25 documented as of this encounter
[2024-11-05 18:39] LABS: Basophils Absolute Auto 0.05 K/mm3 (0.00-0.10); Basophils Percent Auto 0.5 % (0.0-1.0); Eosinophils Absolute Auto 0.26 K/mm3 (0.02-0.50); Eosinophils Percent Auto 2.4 % (1.0-6.0); Hematocrit 31.2 % (37.0-46.0); Hemoglobin 9.3 g/dL (12.4-15.3); Immature Granulocyte Absolute 0.12 K/mm3 (0.00-0.00); Immature Granulocyte Percent A 1.1 % (0.0-0.0); Lymphocytes Absolute Auto 0.98 K/mm3 (1.10-4.50); Lymphocytes Percent Auto 9.1 % (18.0-42.0); Mean Corpuscular HGB Conc 29.8 g/dL (32-36); Mean Corpuscular Hemoglobin 25.4 pg (27.0-31.0); Mean Corpuscular Volume 85.2 fL (78.0-102.0); Mean Platelet Volume 10.3 fl (8.7-11.0); Monocytes Absolute Auto 0.94 K/mm3 (0.10-0.90); Monocytes Percent Auto 8.7 % (2.0-11.0); Neutrophils Absolute Auto 8.46 K/mm3 (1.70-7.20); Neutrophils Percent Auto 78.2 % (50.0-70.0); Platelet Count Result 384 K/mm3 (150-420); Red Blood Count 3.66 M/mm3 (4.70-6.10); Red Cell Distribution Width 17.7 % (11.6-14.4); White Blood Count 10.8 K/mm3 (4.8-10.8)
[2024-11-05 18:48] LABS: Alanine Aminotransferase 45 U/L (16-63); Albumin Level 3.4 g/dL (3.4-5.0); Alkaline Phosphatase 161 U/L (46-116); Anion Gap 11 mmol/L (4-12); Aspartate Amino Transferase 36 U/L (15-37); Bilirubin,Total 1.6 mg/dL (0.00-1.00); Blood Urea Nitrogen 14 mg/dL (7-18); Calcium 8.6 mg/dL (8.5-10.1); Carbon Dioxide 25 mmol/L (21-32); Chloride 100 mmol/L (98-108); Creatine Kinase 65 U/L (39-308); Estimated Glomerular Filt Rate > 60; Glucose 103 mg/dL (70-99); Osmolality Calculated 282 mOsm/kg (285-295); Potassium 4.5 mmol/L (3.5-5.1); Sodium 136 mmol/L (136-145); Total Protein 6.9 g/dL (6.4-8.2)
[2024-11-05 19:05] LABS: CRP 15.1 mg/dL (0.0-0.9)
[2024-11-05 19:41] LABS: Erythrocyte Sedimentation Rate 58 mm/hr (0-20)
== END 2024-11-05 17:59 | disposition home or self-care (01) ==
LOC: CHSLAB 18:04
DX: T84.54XA Infection and inflammatory reaction due to internal left knee prosthesis, initial encounter (principal)
CPT/HCPCS: 36415; 80053; 82550; 85025; 85652; 86140

== ENCOUNTER 2024-11-26 12:32 | Outpatient (NON) | payer MEDICARE, SELFPAY ==
[2024-11-26 12:50] LABS: Basophils Absolute Auto 0.07 K/mm3 (0.00-0.10); Basophils Percent Auto 0.9 % (0.0-1.0); Eosinophils Absolute Auto 0.51 K/mm3 (0.02-0.50); Eosinophils Percent Auto 6.2 % (1.0-6.0); Hematocrit 38.3 % (37.0-46.0); Hemoglobin 11.2 g/dL (12.4-15.3); Immature Granulocyte Absolute 0.14 K/mm3 (0.00-0.00); Immature Granulocyte Percent A 1.7 % (0.0-0.0); Lymphocytes Absolute Auto 1.11 K/mm3 (1.10-4.50); Lymphocytes Percent Auto 13.5 % (18.0-42.0); Mean Corpuscular HGB Conc 29.2 g/dL (32-36); Mean Corpuscular Hemoglobin 25.2 pg (27.0-31.0); Mean Corpuscular Volume 86.3 fL (78.0-102.0); Mean Platelet Volume 10.5 fl (8.7-11.0); Monocytes Absolute Auto 0.74 K/mm3 (0.10-0.90); Neutrophils Absolute Auto 5.64 K/mm3 (1.70-7.20); Neutrophils Percent Auto 68.7 % (50.0-70.0); Platelet Count Result 318 K/mm3 (150-420); Red Blood Count 4.44 M/mm3 (4.70-6.10); Red Cell Distribution Width 17.5 % (11.6-14.4); White Blood Count 8.2 K/mm3 (4.8-10.8)
[2024-11-26 13:20] LABS: Alanine Aminotransferase 18 U/L (16-63); Albumin Level 3.6 g/dL (3.4-5.0); Alkaline Phosphatase 109 U/L (46-116); Anion Gap 10 mmol/L (4-12); Aspartate Amino Transferase 14 U/L (15-37); Bilirubin,Total 0.4 mg/dL (0.00-1.00); Blood Urea Nitrogen 13 mg/dL (7-18); CRP 0.5 mg/dL (0.0-0.9); Calcium 8.8 mg/dL (8.5-10.1); Carbon Dioxide 27 mmol/L (21-32); Chloride 102 mmol/L (98-108); Creatine Kinase 45 U/L (39-308); Estimated Glomerular Filt Rate > 60; Glucose 108 mg/dL (70-99); Osmolality Calculated 289 mOsm/kg (285-295); Potassium 4.4 mmol/L (3.5-5.1); Sodium 139 mmol/L (136-145); Total Protein 6.8 g/dL (6.4-8.2)
[2024-11-26 13:49] LABS: Erythrocyte Sedimentation Rate 44 mm/hr (0-20)
== END 2024-11-26 12:33 | disposition home or self-care (01) ==
LOC: CHSLAB 12:37
PROVIDERS: Visit Provider Family Medicine
DX: T84.54XA Infection and inflammatory reaction due to internal left knee prosthesis, initial encounter (principal)
CPT/HCPCS: 80053; 82550; 85025; 85652; 86140